=== PATIENT | female | born 1955 | race Caucasian/White ===

== ENCOUNTER → 2018-05-22 | Outpatient (CLI) | payer MEDICARE, OTHER ==
--- NOTE | 2018-05-22 12:07 | Diagnostic Imaging Report ---
INDICATION: URI WITH COUGH AND CONGESTION COMPARISON: None. FINDINGS: Frontal and lateral views of the chest demonstrate borderline cardiomegaly. Pulmonary vasculature however is within normal limits. The lungs are clear. There are no signs of infiltrate, pleural effusions or pneumothoraces. The visualized osseous structures show no acute abnormalities. Embolization coils are noted in the right perihilar region. Right internal jugular venous Port-A-Cath is also present. IMPRESSION: 1. Borderline cardiomegaly, but no evidence of failure or focal infiltrate. Dictated by: Dictated on workstation # [id number]
== END ==
LOC: RAD FS 11:56
PROVIDERS: ATTEND Nurse Practitioner Family
DX: J06.9 Acute upper respiratory infection, unspecified (principal); I51.7 Cardiomegaly; Z95.828 Presence of other vascular implants and grafts
CPT/HCPCS: 71046

== ENCOUNTER → 2019-04-19 | Outpatient (CLI) | payer MEDICARE, OTHER ==
--- NOTE | 2019-04-19 12:03 | Diagnostic Imaging Report ---
Indication: Left shoulder pain 2 views of left shoulder show degenerative changes of the glenohumeral joint with flattening of the opposing bony surfaces and osteophytes forming at the margins of the articular surface. There is mild degenerative change of the acromioclavicular joint. There is no fracture. 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 Mild degenerative changes of the left acromioclavicular joint. Dictated by: Dictated on workstation # [id number]
--- NOTE | 2019-04-19 12:04 | Diagnostic Imaging Report ---
Indication: Left knee pain 3 views of left knee show severe degenerative change of the medial compartment of the knee with joint space narrowing and large osteophytes forming at the margins of the articular surfaces. There are degenerative changes present of the patellofemoral joint with moderate size osteophyte formation. There is lateral meniscus calcification. IMPRESSION: Severe degenerative change of the medial compartment knee. Moderate degenerative changes of the patellofemoral joint and mild degenerative changes of the lateral compartment left knee. No acute abnormality seen. Dictated by: Dictated on workstation # [id number]
== END ==
LOC: RAD FS 11:19
PROVIDERS: ATTEND Family Medicine
DX: M19.012 Primary osteoarthritis, left shoulder (principal); M17.12 Unilateral primary osteoarthritis, left knee
CPT/HCPCS: 73030; 73562

== ENCOUNTER 2019-07-27 11:06 | Inpatient (IN) | payer MEDICARE, OTHER ==
[2019-07-27] VITALS (9 sets, daily range): BP systolic 92–146; BP diastolic 36–65
[~2019-07-27] VITALS: Ht 175.3 cm; Wt 84.0 kg
--- NOTE | 2019-07-27 11:31 | ED General ---
General Chief Complaint: General Problems/Pain Stated Complaint: LOW BP; LETHARGY Nursing Triage Note: sent from Dr John office due to lethargy and low blood pressure. Patient states her blood pressure was 88 systolic in the office and she kept dozing off in the office. Was seen at two days ago in the ED for the same symptoms and given fluids and an antibiotic for a UTI. States BP was 56/30 when at . Nursing Sepsis Screen: No Definite Risk Source of Information: Patient Exam Limitations: No Limitations History of Present Illness Date Seen by Provider: July 27, 2019 Time Seen by Provider: 11:15 Initial Comments The patient is a pleasant 64-year-old female who was sent here by her doctor's office for fatigue and low blood pressure. Her systolic blood pressure was in the upper 80s/lower 90s in the office today and she was falling asleep. She states that she was seen at 2 days ago in the emergency department for the same symptoms and at that time was also hypotensive. She states that she was given IV fluids and diagnosed with both the UTI and an elevated creatinine. Her blood pressure improved and she was sent home after being given a dose of antibiotics. Her blood pressure during that visit was apparently profoundly low with a systolic in the 50s. Her systolic blood pressure upon arrival today is 90. She denies fevers or chills, cough or shortness of breath, chest pain, headache, nausea or vomiting, diaphoresis, abdominal or back pain. She reports that she has been having some dysuria. She is alert and oriented 4, calm, and appears to be in no distress this she does appear to be quite fatigued. Timing/Duration: 2-3 Days Associated Systoms: Weakness Allergies and Home Medications Allergies Coded Allergies: doxycycline (Verified Allergy, Unknown, rash , 07/27/19) lisinopril (Verified Allergy, Unknown, cough, 07/27/19) prednisone (Verified Allergy, Unknown, turned skin red, 07/27/19) zolpidem (Verified Allergy, Unknown, "goes crazy", 07/27/19) Patient Home Medication List Home Medication List Reviewed: Yes Review of Systems Review of Systems Constitutional: malaise, weakness EENTM: no symptoms reported Respiratory: no symptoms reported Cardiovascular: no symptoms reported Gastrointestinal: no symptoms reported Genitourinary: dysuria Musculoskeletal: no symptoms reported Skin: no symptoms reported Psychiatric/Neurological: No Symptoms Reported Hematologic/Lymphatic: No Symptoms Reported Immunological/Allergic: no symptoms reported All Other Systems Reviewed Negative Unless Noted: Yes Past Odetbtc-Rgmjsu-Jfrzip Hx Past Med/Social Hx: Reviewed Nursing Past Med/Soc Hx Patient Social History Recent Foreign Travel: No Contact w/Someone Who Travel: No Recent Infectious Disease Expo: No Physical Exam Vital Signs Vital Signs - First Documented 07/27/19 07/27/19 11:13 11:56 Temp 36.3 Pulse 62 Resp 16 B/P (MAP) 92/36 (54) Pulse Ox 95 O2 Delivery Nasal Cannula O2 Flow Rate 2.00 Capillary Refill : Less Than 3 Seconds Height, Weight, BMI Height: '" Weight: lbs. oz. kg; BMI Method: General Appearance: No Apparent Distress, WD/WN Eyes: Bilateral Eye Normal Inspection, Bilateral Eye PERRL, Bilateral Eye EOMI HEENT: PERRL/EOMI, Pharynx Normal Respiratory: Lungs Clear, Normal Breath Sounds, No Accessory Muscle Use, No Respiratory Distress Cardiovascular: Regular Rate, Rhythm, No Edema, No JVD, No Murmur, Normal Peripheral Pulses Gastrointestinal: Normal Bowel Sounds, No Pulsatile Mass, Non Tender, Soft Extremity: Normal Capillary Refill, Normal Inspection, No Calf Tenderness, Other (prosthetic right lower extremity present) Neurologic/Psychiatric: Alert, Oriented x3, No Motor/Sensory Deficits, Normal Mood/Affect Skin: Normal Color, Warm/Dry Focused Exam Lactate Level 07/27/19 11:25: Lactic Acid Level 2.48*H Lactic Acid Level Laboratory Tests Test 07/27/19 11:25 Lactic Acid Level 2.48 MMOL/L (0.50-2.00) *H Progress/Results/Core Measures Suspected Sepsis Recent Fever Within 48 Hours: No Infection Criteria Present: Documented Infection New/Unexplained Altered Menta: Yes Sepsis Screen: No Definite Risk SIRS Temperature: Pulse: 62 Respiratory Rate: 16 Laboratory Tests 07/27/19 11:25: White Blood Count 4.9 Blood Pressure 92 /36 Mean: 54 07/27/19 11:25: Lactic Acid Level 2.48*H Laboratory Tests 07/27/19 11:25: Creatinine 1.08, Platelet Count 202, Total Bilirubin 0.2 Results/Orders Lab Results Laboratory Tests Test 07/27/19 11:25 Range/Units White Blood Count 4.9 4.3-11.0 10^3/uL Red Blood Count 3.07 L 4.35-5.85 10^6/uL Hemoglobin 8.2 L 11.5-16.0 G/DL Hematocrit 28 L 35-52 % Mean Corpuscular Volume 90 80-99 FL Mean Corpuscular Hemoglobin 27 25-34 PG Mean Corpuscular Hemoglobin Concent 30 L 32-36 G/DL Red Cell Distribution Width 17.0 H 10.0-14.5 % Platelet Count 202 130-400 10^3/uL Mean Platelet Volume 10.5 H 7.4-10.4 FL Neutrophils (%) (Auto) 55 42-75 % Lymphocytes (%) (Auto) 25 12-44 % Monocytes (%) (Auto) 15 H 0-12 % Eosinophils (%) (Auto) 4 0-10 % Basophils (%) (Auto) 1 0-10 % Neutrophils # (Auto) 2.7 1.8-7.8 X 10^3 Lymphocytes # (Auto) 1.2 1.0-4.0 X 10^3 Monocytes # (Auto) 0.8 0.0-1.0 X 10^3 Eosinophils # (Auto) 0.2 0.0-0.3 10^3/uL Basophils # (Auto) 0.0 0.0-0.1 10^3/uL Sodium Level 140 135-145 MMOL/L Potassium Level 5.7 H 3.6-5.0 MMOL/L Chloride Level 109 H 98-107 MMOL/L Carbon Dioxide Level 20 L 21-32 MMOL/L Anion Gap 11 5-14 MMOL/L Blood Urea Nitrogen 36 H 7-18 MG/DL Creatinine 1.08 0.60-1.30 MG/DL Estimat Glomerular Filtration Rate 51 BUN/Creatinine Ratio 33 Glucose Level 118 H 70-105 MG/DL Lactic Acid Level 2.48 *H 0.50-2.00 MMOL/L Calcium Level 9.1 8.5-10.1 MG/DL Corrected Calcium 10.0 8.5-10.1 MG/DL Magnesium Level 1.6 1.6-2.4 MG/DL Total Bilirubin 0.2 0.1-1.0 MG/DL Aspartate Amino Transf (AST/SGOT) 21 5-34 U/L Alanine Aminotransferase (ALT/SGPT) 27 0-55 U/L Alkaline Phosphatase 113 40-136 U/L Troponin I < 0.30 <0.30 NG/ML Total Protein 5.9 L 6.4-8.2 GM/DL Albumin 2.9 L 3.2-4.5 GM/DL My Orders Orders - LIZZY DUVAL DO Cbc With Automated Diff (07/27/19 11:11) Magnesium (07/27/19 11:11) Chest 1 View Ap/Pa Only (07/27/19 11:11) Ekg Tracing (07/27/19 11:11) Comprehensive Metabolic Panel (07/27/19 11:11) O2 (07/27/19 11:11) Monitor-Rhythm Ecg Trace Only (07/27/19 11:11) Ed Iv/Invasive Line Start (07/27/19 11:11) Troponin I Fs (07/27/19 11:11) Ua Culture If Indicated (07/27/19 11:11) Lactic Acid Analyzer (07/27/19 11:21) Blood Culture (07/27/19 11:21) Blood Culture (07/27/19 11:45) Ns Iv 1000 Ml (Sodium Chloride 0.9%) (07/27/19 11:54) Ns Iv 1000 Ml (Sodium Chloride 0.9%) (07/27/19 12:15) Medications Given in ED Current Medications Medications Dose Ordered Sig/Von Route Start Time Stop Time Status Last Admin Dose Admin Sodium Chloride 1,000 ml @ STK-MED ONCE .ROUTE 07/27/19 11:54 07/27/19 12:02 DC 07/27/19 12:04 999 MLS/HR Vital Signs/I&O 07/27/19 07/27/19 11:13 11:56 Temp 36.3 Pulse 62 Resp 16 B/P (MAP) 92/36 (54) Pulse Ox 95 97 O2 Delivery Nasal Cannula O2 Flow Rate 2.00 Capillary Refill : Less Than 3 Seconds Blood Pressure Mean: 54 Progress Note : Progress Note @1316 - Patient updated on lab and imaging results. Her blood pressure has improved but she does still have a wide pulse pressure. She continues to be quite fatigued. She is noted to be hyperkalemic and more anemic than her last visit. Case discussed with Dr. Curran at [facility] who accepts the transfer to a cardiac stepdown unit. ECG Comment EKG@1125 - sinus rhythm with arrhythmia, left axis deviation is present, right bundle-branch block and left anterior fascicular block noted, no acute ischemic findings noted, no STEMI, reviewed and interpreted by myself Departure Communication (Admissions) Time/Spoke to Admitting Phy: 13:20 Dr. Curran accepts the admission at [facility]. Impression Primary Impression: Hypotension Additional Impressions: Anemia Hyperkalemia Elevated lactic acid level Disposition: ADMITTED INPATIENT Condition: Stable Admissions Decision to Admit Reason: Admit from ER (Trauma) Decision to Admit/Date: July 27, 2019 Time/Decision to Admit Time: 13:20 Transfer Transfer Reason: Exceeds level of care Time Spoke to Accepting Phy: 13:[address] Curran accepts the admission at [facility] Transfer Time: 13:30 Transfer Facility: [facility] Method of Transfer: EMS Departure-Patient Inst. Referrals: GIANNI JOHN MD (PCP/Family) Primary Care Physician LIZZY DUVAL DO July 27, 2019 11:31
--- OUTSIDE RECORDS SUMMARY | 2019-07-27 11:39 | XMS REPORT | Clinical Summary ---
Author Author Admin, Lisandra Pacheco Organization All Address Unknown Phone Unavailable Allergies, Adverse Reactions, Alerts Allergy Name Reaction Description Start Date Severity Status Pr ovider PREDNISONE Mild Active Shreyas Roberts MD DOXYCYCLINE HYCLATE Mild Active Shreyas Roberts MD LISINOPRIL Mild Active Shreyas Roberts MD AMBIEN Mild Active Shreyas Roberts MD Conditions or Problems Problem Name Problem Code Onset Date Status Entry Date Provider Comment Standard Description Annotate BMI 36-36.9 Refinement Shreyas Roberts MD Body Mass Index 36.0- 36.9, adult BMI 30-30.9 Active Deacon Rajan MD Body Mass Index 36.0- 36.9, adult Morbid obesity due to excess calories 278.00 Refinemen t Shreyas Roberts MD Obesity, unspecified Obesity Class I (BMI 30-34.9) 278.00 Active Deacon Rajan MD Obesity, unspecified 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 Iron deficiency anemia 280.9 Active Aleida mckeon MA Iron deficiency anemia, unspecified Anemia due to CKD 285.21 Active Noemi Choi MA Anemia in chronic kidney disease Encounter for surgical aftercare following surgery on the digestive system V58.75 Active Deacon Rajan MD Af tercare following surgery of the teeth,oral cavity and digestive system, NEC Disruption of external operation (surgic al) wound, not elsewhere classified, sequela 998.30 Active Deacon Rajan MD Disruption of wound, unspecified Medication List Medication Instructions Start Date Stop Date Generic Name NDC Status Provider Patient Instruction COUMADIN 5 MG ORAL TABLET Take one by mouth daily 2018 WARFARIN SODIUM 33255563651 No Longer Active Deacon Rajan MD A ctive LEVO-T 150 MCG ORAL TABLET 3 tab q d LEVOTHYRO XINE SODIUM 30611309185 Active Deacon Rajan MD Active LEVO-T 50 MCG ORAL TABLET 1 q d LEVOTHYROXINE SODIUM 08878901351 Active Deacon Rajan MD Active LEVOTHYROXINE SODIUM 200 MCG ORAL TABLET 2 1/4 tablets daily 201 10/30/27 LEVOTHYROXINE SODIUM 03527477620 No Longer Active Deacon Rajan MD Active MULTIVITAMIN & MINERAL ORAL LIQUID 5 ml daily 06/28 MULTIPLE VITAMINS-MINERALS 33017640147 No Longer Active Deacon Rajan MD Active PRILOSEC OTC 20 MG ORAL TABLET DELAYED RELEASE 2 tablets daily 2 OMEPRAZOLE MAGNESIUM 77558689128 No Longer Active Deacon Rajan MD Active CARAFATE 1 GM ORAL TABLET Take one by mouth four times daily 201 10/30/27 SUCRALFATE 46956732133 No Longer Active Deacon Rajan MD Active VICTOZA 18 MG/3ML SUBCUTANEOUS SOLUTION PEN-INJECTOR 1.8 mg mc y LIRAGLUTIDE 32423023332 No Longer Active Deacon Rajan MD Active TIZANIDINE HCL 4 MG ORAL TABLET 1 tablet every 4 hours TIZANIDINE HCL 54772388124 Active Shelia Quezada RN Active OXYCODONE HCL 5 MG ORAL TABLET 1 tablet every 3-4 hours as n eeded for pain OXYCODONE HCL 70503770464 Active Shelia Quezada RN Active NOVOLOG 100 UNIT/ML SUBCUTANEOUS SOLUTION sliding scale INSULIN ASPART 19967675958 Active Shelia Quezada RN Active MELOXICAM 15 MG ORAL TABLET Take one by mouth daily MELOXICAM 12372892464 Active Shelia Quezada RN Active FUROSEMIDE 40 MG ORAL TABLET Take one by mouth daily FUROSEMIDE 52951283456 Active Shelia Quezada RN Active LANTUS 100 UNIT/ML SUBCUTANEOUS SOLUTION 30 units daily at bedtime INSULIN GLARGINE 11682293482 Active Shelia Quezada RN Act johnathon HYDROCODONE-ACETAMINOPHEN 5-325 MG ORAL TABLET 1 every 4 hours as needed for pain HYDROCODONE-ACETAMINOPHEN 11995039943 Active Shelia Quezada RN Active GLUCOPHAGE 1000 MG ORAL TABLET Take one by mouth daily METFORMIN HCL 34422923117 Active Shelia Quezada RN Active COZAAR 50 MG ORAL TABLET 1 1/2 tabs daily LOSAR KOO POTASSIUM 10803332969 Active Shelia Quezada RN Active CELEXA 20 MG ORAL TABLET Take one by mouth daily CITALOPRAM HYDROBROMIDE 12357012916 Active Shelia Quezada RN Active BACTRIM DS 800-160 MG ORAL TABLET by mouth twice a day SULFAMETHOXAZOLE-TRIMETHOPRIM 33390508228 Active Shelia Quezada RN Active AMITRIPTYLINE HCL 75 MG ORAL TABLET Take one by mouth daily at bedtime AMITRIPTYLINE HCL 13705334967 Active Shelia Yuen N Active VICTOZA 18 MG/3ML SUBCUTANEOUS SOLUTION PEN-INJECTOR 1.8 mg mc y VICTOZA 18 MG/3ML SUBCUTANEOUS SOLUTION PEN-INJECTOR LIRAGLUTIDE Inactive CARAFATE 1 GM ORAL TABLET Take one by mouth four times daily 201 10/30/27 CARAFATE 1 GM ORAL TABLET 213247 SUCRALFATE Inacti ve PRILOSEC OTC 20 MG ORAL TABLET DELAYED RELEASE 2 tablets daily 2 PRILOSEC OTC 20 MG ORAL TABLET DELAYED RELEASE OMEPRAZOLE MAGNESIUM Inactive MULTIVITAMIN & MINERAL ORAL LIQUID 5 ml daily 06/28 MULTIVITAMIN & MINERAL ORAL LIQUID MULTIPLE VITAMINS-MINERALS Inactive LEVOTHYROXINE SODIUM 200 MCG ORAL TABLET 2 1/4 tablets daily 201 10/30/27 LEVOTHYROXINE SODIUM 200 MCG ORAL TABLET 800957 LEVOTHY ROXINE SODIUM Inactive COUMADIN 5 MG ORAL TABLET Take one by mouth daily 2018 COUMADIN 5 MG ORAL TABLET 145666 WARFARIN SODIUM Inactive Vital Signs Date Name Value Unit Range Description blood pressure, diastolic, repeated by physician 55 BP [place] blood pressure, diastolic 55 mm[Hg] BP [place] blood pressure, systolic, repeated by physician 136 BP sys blood pressure, systolic 136 mm[Hg] BP sys height E&M 69 [in_us] Bdy height pulse rate 88 /min Heart rate temperature E&M 97.6 [degF] Body temp erature weight E&M 204 [lb_av] Weight Measure d blood pressure, diastolic, repeated by physician 61 BP [place] blood pressure, diastolic 61 mm[Hg] BP [place] blood pressure, systolic, repeated by physician 133 BP sys blood pressure, systolic 133 mm[Hg] BP sys height E&M 69 [in_us] Bdy height pulse rate 73 /min Heart rate temperature E&M 97.3 [degF] Body temp erature weight E&M 208.50 [lb_av] Weight Measure d Diagnostic Results Date Name Value Unit Range Description Lab Report: CBC W/DIFF - Hematology leukocyte count, blood 7.9 10^3/MM^3 10*3/mm3 4.6-10.2 neutrophils as percent of blood leukocytes 64.7 % 42.2-75.2 monocytes as percent of blood leukocytes 9.5 % 1.7-9.3 lymphocytes as percent of blood leukocytes 19.0 % 20.5-51.1 erythrocyte (RBC) count 3.10 10^6/MM^3 10*6/mm3 3.80-5.8 0 hemoglobin, blood 8.9 g/dL 12.0-16.0 hematocrit, blood 31.5 % 37.0-47.0 mean corpuscular volume, RBC 102 fL 80-97 mean corpuscular hemoglobin, RBC 28.7 pg 27. 0-31.2 mean corpuscular hemoglobin concentration, RBC 28.3 G/DL % 31.8-35.4 red blood cell distribution width 18.4 % 11 .6-14.8 platelet count 362 10^3/MM^3 10*3/mm3 014-538 9214/06/26 leukocyte count, blood 11.7 10^3/MM^3 10*3/mm3 4.6-10.2 erythrocyte (RBC) count 3.03 10^6/MM^3 10*6/mm3 3.80-5.8 0 lymphocytes as percent of blood leukocytes 17.0 % 20.5-51.1 monocytes as percent of blood leukocytes 9.9 % 1.7-9.3 neutrophils as percent of blood leukocytes 68.4 % 42.2-75.2 leukocyte count, blood 7.2 10^3/MM^3 10*3/mm3 4.6-10.2 neutrophils as percent of blood leukocytes 82.9 % 42.2-75.2 monocytes as percent of blood leukocytes 8.3 % 1.7-9.3 lymphocytes as percent of blood leukocytes 7.2 % 20.5-51.1 erythrocyte (RBC) count 3.84 10^6/MM^3 10*6/mm3 3.80-5.8 0 hemoglobin, blood 10.6 g/dL 12.0-16.0 hematocrit, blood 35.1 % 37.0-47.0 mean corpuscular volume, RBC 91 fL 80-97 mean corpuscular hemoglobin, RBC 27.6 pg 27. 0-31.2 mean corpuscular hemoglobin concentration, RBC 30.2 G/DL % 31.8-35.4 red blood cell distribution width 16.3 % 11 .6-14.8 platelet count 272 10^3/MM^3 10*3/mm3 870-079 8336/07/03 leukocyte count, blood 8.1 10^3/MM^3 10*3/mm3 4.6-10.2 neutrophils as percent of blood leukocytes 69.5 % 42.2-75.2 monocytes as percent of blood leukocytes 8.2 % 1.7-9.3 lymphocytes as percent of blood leukocytes 14.0 % 20.5-51.1 erythrocyte (RBC) count 3.68 10^6/MM^3 10*6/mm3 3.80-5.8 0 hemoglobin, blood 10.3 g/dL 12.0-16.0 hematocrit, blood 34.2 % 37.0-47.0 mean corpuscular volume, RBC 93 fL 80-97 mean corpuscular hemoglobin, RBC 28.1 pg 27. 0-31.2 mean corpuscular hemoglobin concentration, RBC 30.3 G/DL % 31.8-35.4 red blood cell distribution width 17.4 % 11 .6-14.8 platelet count 315 10^3/MM^3 10*3/mm3 858-228 3947/05/15 hemoglobin, blood 8.8 g/dL 12.0-16.0 hematocrit, blood 29.7 % 37.0-47.0 mean corpuscular volume, RBC 98 fL 80-97 mean corpuscular hemoglobin, RBC 29.1 pg 27. 0-31.2 mean corpuscular hemoglobin concentration, RBC 29.7 G/DL % 31.8-35.4 red blood cell distribution width 17.9 % 11 .6-14.8 platelet count 341 10^3/MM^3 10*3/mm3 714-899 6341/09/18 leukocyte count, blood 5.3 10^3/MM^3 10*3/mm3 4.6-10.2 neutrophils as percent of blood leukocytes 64.0 % 42.2-75.2 monocytes as percent of blood leukocytes 13.5 % 1.7-9.3 lymphocytes as percent of blood leukocytes 15.6 % 20.5-51.1 erythrocyte (RBC) count 3.05 10^6/MM^3 10*6/mm3 3.80-5.8 0 hemoglobin, blood 9.4 g/dL 12.0-16.0 hematocrit, blood 32.5 % 37.0-47.0 mean corpuscular volume, RBC 107 fL 80-97 mean corpuscular hemoglobin, RBC 30.7 pg 27. 0-31.2 mean corpuscular hemoglobin concentration, RBC 28.8 G/DL % 31.8-35.4 red blood cell distribution width 15.6 % 11 .6-14.8 platelet count 317 10^3/MM^3 10*3/mm3 616-832 8969/11/19 leukocyte count, blood 4.9 10^3/MM^3 10*3/mm3 4.6-10.2 neutrophils as percent of blood leukocytes 62.7 % 42.2-75.2 monocytes as percent of blood leukocytes 9.7 % 1.7-9.3 lymphocytes as percent of blood leukocytes 21.0 % 20.5-51.1 erythrocyte (RBC) count 3.24 10^6/MM^3 10*6/mm3 3.80-5.8 0 hemoglobin, blood 10.2 g/dL 12.0-16.0 hematocrit, blood 33.5 % 37.0-47.0 mean corpuscular volume, RBC 103 fL 80-97 mean corpuscular hemoglobin, RBC 31.6 pg 27. 0-31.2 mean corpuscular hemoglobin concentration, RBC 30.6 G/DL % 31.8-35.4 red blood cell distribution width 15.4 % 11 .6-14.8 platelet count 214 10^3/MM^3 10*3/mm3 314-341 1470/01/06 leukocyte count, blood 4.8 10^3/MM^3 10*3/mm3 4.6-10.2 neutrophils as percent of blood leukocytes 58.1 % 42.2-75.2 monocytes as percent of blood leukocytes 13.3 % 1.7-9.3 lymphocytes as percent of blood leukocytes 20.9 % 20.5-51.1 erythrocyte (RBC) count 3.41 10^6/MM^3 10*6/mm3 3.80-5.8 0 hemoglobin, blood 10.0 g/dL 12.0-16.0 hematocrit, blood 32.1 % 37.0-47.0 mean corpuscular volume, RBC 94 fL 80-97 mean corpuscular hemoglobin, RBC 29.4 pg 27. 0-31.2 mean corpuscular hemoglobin concentration, RBC 31.2 G/DL % 31.8-35.4 red blood cell distribution width 13.8 % 11 .6-14.8 platelet count 254 10^3/MM^3 10*3/mm3 286-029 0980/02/11 leukocyte count, blood 5.8 10^3/MM^3 10*3/mm3 4.6-10.2 neutrophils as percent of blood leukocytes 61.5 % 42.2-75.2 monocytes as percent of blood leukocytes 13.4 % 1.7-9.3 lymphocytes as percent of blood leukocytes 19.3 % 20.5-51.1 erythrocyte (RBC) count 3.25 10^6/MM^3 10*6/mm3 3.80-5.8 0 hemoglobin, blood 9.2 g/dL 12.0-16.0 hematocrit, blood 31.0 % 37.0-47.0 mean corpuscular volume, RBC 95 fL 80-97 mean corpuscular hemoglobin, RBC 28.3 pg 27. 0-31.2 mean corpuscular hemoglobin concentration, RBC 29.7 G/DL % 31.8-35.4 red blood cell distribution width 16.0 % 11 .6-14.8 platelet count 222 10^3/MM^3 10*3/mm3 142-424 Lab Report: Comp. Metabolic Panel - Chem istry sodium, serum 140 mmol/L 801-525 2964/11/19 carbon dioxide, venous blood 27.2 mmol/L 21.0-32 .0 potassium, serum 4.8 mmol/L 3.5-5.2 chloride, serum 108 mmol/L 98-107 blood glucose 120 mg/dL 65-95 urea nitrogen, blood 20 mg/dL 7-18 creatinine, serum 0.86 mg/dL 0.60-1.30 Estimated Glomerular Filtration Rate (calc) 71 (?) mL/min/1.73m2 = OR > 60 mL/min alanine aminotransferase (SGPT), serum 36 U/L - aspartate aminotransferase (SGOT), serum 37 U/L -37 sodium, serum 138 mmol/L 656-528 9025/05/15 carbon dioxide, venous blood 25.9 mmol/L 21.0-32 .0 potassium, serum 4.6 mmol/L 3.5-5.2 chloride, serum 104 mmol/L 98-107 blood glucose 105 mg/dL 65-95 urea nitrogen, blood 21 mg/dL 7-18 creatinine, serum 0.94 mg/dL 0.60-1.30 Estimated Glomerular Filtration Rate (calc) 64 (?) mL/min/1.73m2 = OR > 60 mL/min alanine aminotransferase (SGPT), serum 16 U/L - aspartate aminotransferase (SGOT), serum 8 U/L -37 calcium, serum 8.9 mg/dL 8.5-10.1 bilirubin, serum, total 0.30 mg/dL 0.00-1.00 sodium, serum 138 mmol/L 769-940 4629/07/03 carbon dioxide, venous blood 29.9 mmol/L 21.0-32 .0 potassium, serum 5.1 mmol/L 3.5-5.2 chloride, serum 105 mmol/L 98-107 blood glucose 114 mg/dL 65-95 urea nitrogen, blood 17 mg/dL 7-18 creatinine, serum 1.16 mg/dL 0.60-1.30 Estimated Glomerular Filtration Rate (calc) 50 (?) mL/min/1.73m2 = OR > 60 mL/min alanine aminotransferase (SGPT), serum 26 U/L 12-78 aspartate aminotransferase (SGOT), serum 32 U/L 15-37 calcium, serum 9.0 mg/dL 8.5-10.1 bilirubin, serum, total 0.30 mg/dL 0.00-1.00 calcium, serum 9.4 mg/dL 8.5-10.1 bilirubin, serum, total 0.40 mg/dL 0.00-1.00 Lab Report: Comp. Metabolic Panel - Lab Alkaline phosphatase 147 50-136 Alkaline phosphatase 96 50-136 Alkaline phosphatase 144 50-136 Lab Report: Comp. Metabolic Panel, CBC W /DIFF - Chemistry sodium, serum 137 mmol/L 516-574 7759/03/18 carbon dioxide, venous blood 21.4 mmol/L 21.0-32 .0 potassium, serum 4.5 mmol/L 3.5-5.2 chloride, serum 107 mmol/L 98-107 blood glucose 288 mg/dL 65-95 urea nitrogen, blood 24 mg/dL 7-18 creatinine, serum 0.97 mg/dL 0.60-1.30 Estimated Glomerular Filtration Rate (calc) 61 (?) mL/min/1.73m2 = OR > 60 mL/min alanine aminotransferase (SGPT), serum 21 U/L 12-78 aspartate aminotransferase (SGOT), serum 21 U/L 19-43 sodium, serum 138 mmol/L 480-033 9009/09/03 carbon dioxide, venous blood 27.3 mmol/L 21.0-32 .0 potassium, serum 5.0 mmol/L 3.5-5.2 chloride, serum 105 mmol/L 98-107 blood glucose 183 mg/dL 65-95 urea nitrogen, blood 31 mg/dL 7-18 creatinine, serum 1.24 mg/dL 0.60-1.30 Estimated Glomerular Filtration Rate (calc) 46 (?) mL/min/1.73m2 = OR > 60 mL/min alanine aminotransferase (SGPT), serum 26 U/L -78 aspartate aminotransferase (SGOT), serum 20 U/L 15-37 calcium, serum 8.5 mg/dL 8.5-10.1 bilirubin, serum, total 0.20 mg/dL 0.00-1.00 calcium, serum 9.2 mg/dL 8.5-10.1 bilirubin, serum, total 0.30 mg/dL 0.00-1.00 Lab Report: Comp. Metabolic Panel, CBC W /DIFF - Hematology leukocyte count, blood 5.9 10^3/MM^3 10*3/mm3 4.6-10.2 neutrophils as percent of blood leukocytes 61.4 % 42.2-75.2 monocytes as percent of blood leukocytes 10.4 % 1.7-9.3 lymphocytes as percent of blood leukocytes 22.7 % 20.5-51.1 erythrocyte (RBC) count 3.75 10^6/MM^3 10*6/mm3 3.80-5.8 0 hemoglobin, blood 10.6 g/dL 12.0-16.0 hematocrit, blood 35.4 % 37.0-47.0 mean corpuscular volume, RBC 94 fL 80-97 mean corpuscular hemoglobin, RBC 28.2 pg 27. 0-31.2 mean corpuscular hemoglobin concentration, RBC 29.9 G/DL % 31.8-35.4 red blood cell distribution width 16.9 % 11 .6-14.8 platelet count 254 10^3/MM^3 10*3/mm3 735-839 5560/09/03 leukocyte count, blood 6.8 10^3/MM^3 10*3/mm3 4.6-10.2 neutrophils as percent of blood leukocytes 61.1 % 42.2-75.2 monocytes as percent of blood leukocytes 10.8 % 1.7-9.3 lymphocytes as percent of blood leukocytes 20.0 % 20.5-51.1 erythrocyte (RBC) count 3.27 10^6/MM^3 10*6/mm3 3.80-5.8 0 hemoglobin, blood 10.1 g/dL 12.0-16.0 hematocrit, blood 35.2 % 37.0-47.0 mean corpuscular volume, RBC 108 fL 80-97 mean corpuscular hemoglobin, RBC 30.8 pg 27. 0-31.2 mean corpuscular hemoglobin concentration, RBC 28.7 G/DL % 31.8-35.4 red blood cell distribution width 17.4 % 11 .6-14.8 platelet count 361 10^3/MM^3 10*3/mm3 142-424 Lab Report: Comp. Metabolic Panel, CBC W /DIFF - Lab Alkaline phosphatase 231 50-136 Alkaline phosphatase 137 50-136 Encounters Code Encounter Date Provider Facility CPT-10747 Level 3 Est. Patient 14:49:42 CDT Deacon Rajan MD [facility] CPT-51433 Level 4 New Patient 16:54:39 CDT Deacon Rajan MD [facility] CPT-55620 Level 2 Est. Patient 15:33:16 [employer] [employer] Shreyas gillespie MD [facility] Procedures Code Procedure Name Date Entry Date Standard Desc ription CPT-17311 Venipuncture Draw Fee 11:36:25 CDT CPT-92588 Venipuncture Draw Fee 17:39:08 [employer] [employer] CPT-81315 Venipuncture Draw Fee 09:00:01 [employer] CPT-29020 Venipuncture Draw Fee 12:47:04 [employer] [employer] CPT-36815 Venipuncture Draw Fee 11:50:17 CDT CPT-44625 Venipuncture Draw Fee 17:46:17 CDT CPT-84009 Postop F/U Visit 15:58:49 CDT
--- OUTSIDE RECORDS SUMMARY | 2019-07-27 11:39 | XMS REPORT ---
Author Author [facility] Address [address] [place] [address] Care Team Providers Care Formula Mixer Name Role Phone GIANNI LOCKETT Unavailable PROBLEMS Type Condition ICD9-CM Code UBR65-HL Code Onset Dates Condition S tatus SNOMED Code Problem Severe obesity (BMI 35.0-39.9) with comorbidity E66.01 16 Nov, 2016 Active 968223952 Problem History of stroke without residual deficits Z86 .73 16 Nov, 2016 Active 612871230 Problem Essential hypertension I10 14 Oct, 2010 Acti ve 85528520 Problem B12 deficiency E53.8 19 Apr, 2011 Active 64 031768 Problem Hypothyroidism due to acquired atrophy of thyroid E03.4 Apr, Active 783029050 Problem GERD (gastroesophageal reflux disease) K21.9 1 4 Oct, 2010 Active 564059329 Problem sample carrier current use of insulin Z79.4 Active 146793671 Problem Iron deficiency anemia secondary to inadequate d ietary iron intake D50.8 Active 563290604 Problem Type 2 diabetes mellitus with diabetic neuropathy, uns pecified E11.40 Active 1769260067367 Problem Hyperlipidemia E78.5 Active 26336 004 Problem Pulmonary hypertension I27.20 Active 10686290 Problem Chronic obstructive pulmonary disease, unspecified COPD ty pe J44.9 Active 13593804 Problem Type 2 diabetes mellitus with hyperglycemia E11.65 Active 389045410085352 Problem Major depression F32.9 19 Feb, 2017 Active 469629056 Problem Obesity (BMI 30.0-34.9) E66.9 Active 545839761077648 Problem Asthma J45.909 Active 466554319 Problem Osteoarthritis, knee M17.10 14 Oct, 2010 Active 663715359 Problem Chronic gastric ulcer without hemorrhage and wit hout perforation K25.7 Active 50053064 Problem CVA (cerebral vascular accident) I63.9 Active 115433194 Problem Recurrent major depressive disorder, remission s tatus unspecified F33.9 Active 64954242 Problem Amputation of right lower extremity S88.911A Active 810049899249457 ALLERGIES No Information ENCOUNTERS Encounter Location Date Diagnosis [place] [address] [place] [address] Mar, [place] [address] [address] [address] Mar, Chronic obstructive pulmonar y disease, unspecified COPD type J44.9 ; Pulmonary hypertension I27.20 ; Recurrent major depressive disorder, remission status unspecified F33.9 ; Type 2 diabetes mellitus with diabetic neuropathy, unspecified E11.40 and Severe obesity (BMI 35.0-39.9) with comorbidity E66.01 [facility] [address] [place] [address] [place] [address] [address] 12 Mar, 2019 Type 2 diabetes mellitus with diabetic neuropathy, unspecified E11.[address] [address] Mar, [place] [address] [place] [address] Feb, Essential hypertension I10 a nd Obesity (BMI 30.0-34.9) E66.9 [facility] [address] [place] [address] [facility] [address] Feb, Hyperkalemia E87.5 [place] [address] [address] [address] Feb, Hyperkalemia E87.5 [place] [address] [address] [address] Feb, [place] [address] [place] [address] Feb, Sepsis, unspecified organism A41.9 ; Urinary tract infection, site not specified N39.0 ; Essential hypertension I10 and Acute pain of left knee M25.562 [facility] [place] [address] [facility] [place] [address] Feb, [place] [address] [place] [address] Feb, [place] [address] [place] [address] Jan, Amputation of right lower ex tremity S88.911A [facility] [place] [address] [facility] [place] [address] Jan, Amputation of right lower extremity S88. 911A [place] [address] [place] [address] Jan, Amputation of right lower ex tremity S88.911A [place] [address] [place] [address] Dec, Recurrent major depressive d isorder, remission status unspecified F33.9 [place] [address] [place] [address] Dec, Encounter for Medicare ann l wellness exam Z00.00 ; Type 2 diabetes mellitus with diabetic neuropathy, unspecified E11.40 ; Pulmonary hypertension I27.20 ; Hyperlipidemia E78.5 and Recurrent major depr essive disorder, remission status unspecified F33.9 [facility] [place] [address] [facility] [place] [address] Dec, [facility] [address] [facility] [place] [address] Dec, Uncontrolled type 2 diabetes mellitus with diabetic polyneuropathy, with long- term current use of insulin E11.42 ; Essential hypertension I10 ; Recurrent major depressive disorder, remission status unspecified F33.9 and Other inclusion specialist (current) drug therapy Z79.899 [place] [address] [place] [address] Nov, Amputation of right lower ex tremity S88.911A ; Type 2 diabetes mellitus with diabetic neuropathy, unspecified E11.40 and Epistaxis R04.0 [place] [address] [place] [address] Nov, [facility] [address] [place] [address] Nov, [facility] [address] [place] [address] Nov, [facility] [address] [place] [address] Oct, [facility] SIMA TYL[place] [address] [place] [address] Sep, Chronic obstructive pulmonar y disease, unspecified COPD type J44.9 ; Recurrent major depressive disorder, remission status unspecified F33.9 ; Severe obesity (BMI 35.0-39.9) with comorbidity E66.01 ; Uncontrolled type 2 diabetes mellitus with diabetic polyneuropathy, with long-term current use of insulin E11.42 and Essential hypertension I10 [facility] SIMA TYLER [address] [place] [address] Sep, [facility] SIMA TYLER [address] [place] [address] Sep, Type 2 diabetes mellitus wit h hypoglycemia without coma E11.649 and Iron deficiency anemia secondary to inadequate dietary iron intake D50.8 [facility] [address] [place] [address] [place] [address] [id number] [place] [address] Sep, Type 2 diabetes mellitus with hypoglycemia without coma E11.649 and Iron deficiency anemia secondary to inadequate dietary iron intake D50.8 [facility] SIMA TYLER [address] [place] [address] Sep, [facility] SIMA TYLER [address] [place] [address] Aug, [facility] [address] [place] [address] Jul, [facility] [address] [place] [address] Jul, [facility] SIMA TYLER [address] [place] [address] June, Uncontrolled type 2 diabetes mellitus with diabetic polyneuropathy, with long-term current use of insulin E11.42 and AK (actinic keratosis) L57.0 [facility] SIM[facility] TYL[facility] [address] [place] [address] June, [facility] [address] [place] [id number] [address] June, Iron deficiency anemia secondary to inadequate dietary iron intake D50.8 [facility] [address] [place] [id number] [address] June, Type 2 diabetes mellitus with hypoglycemia without coma E11.649 [facility] SIMA TYLER [address] [place] [address] May, [facility] SIMA TYLER [address] [place] [address] May, [facility] SIMA TYLER [address] [place] [address] May, [facility] SIM[facility] T[facility] [address] [place] [address] May, [facility] SIMA TYLER [address] [place] [address] Apr, [facility] SIMA TYLER [address] [place] [address] Apr, Nausea and vomiting, intract ability of vomiting not specified, unspecified vomiting type R11.2 and URI with cough and congestion J06.9 [facility] SIMA TYLER [address] [place] [address] Apr, [facility] SIMA TYLER [address] [place] [address] Mar, [facility] SIMA TYLER [address] [place] [address] Mar, [facility] SIMA TYLER [address] [place] [address] Mar, Iron deficiency anemia secon mark to inadequate dietary iron intake D50.8 [facility] [place] [address] [facility] [place] [address] 13 Mar, 2018 [facility] SIMA TYLER [address] [place] [address] 12 Mar, 2018 Type 2 diabetes mellitus wit h hypoglycemia without coma E11.649 ; Iron deficiency anemia secondary to inadequate dietary iron intake D50.8 and skilled nursing current use of insulin Z79.4 [facility] [place] [address] [place] [id number] [place] [address] Feb, [facility] [place] [address] [place] [address] [id number] [place] [address] Jan, [facility] [place] [address] [place] [id number] [place] [address] Jan, [facility] [place] [address] [place] [id number] [place] [address] Jan, [facility] [place] [address] [place] [address] [id number] [place] [address] Jan, [facility] [place] [address] [place] [address] [id number] [place] [address] Jan, [facility] [place] [address] [place] [address] [id number] [place] [address] Jan, [facility] [place] [address] [place] [address] [id number] [place] [address] Dec, [facility] [place] [address] [place] [address] [id number] [place] [address] Dec, [facility] [place] [address] [id number] [place] [address] Nov, [facility] [place] [address] [place] [id number] [place] [address] Nov, [facility] [place] [address] [id number] [place] [address] Nov, [facility] [place] [address] [place] [id number] [place] [address] Aug, [facility] [address] [facility] [id number] [place] [address] June, IMMUNIZATIONS No Known Immunizations SOCIAL HISTORY Never Assessed REASON FOR VISIT metformin refill PLAN OF CARE VITAL SIGNS MEDICATIONS Medication Instructions Dosage Frequency Start Date End Date Duration S brandy Metformin HCl 1000 MG Orally 2 times a day 1 tablet 12h 30 days Active RESULTS No Results PROCEDURES No Known procedures INSTRUCTIONS MEDICATIONS ADMINISTERED No Known Medications MEDICAL (GENERAL) HISTORY Type Description Date Medical History Type 2 diabetes mellitus with diabetic n europathy, unspecified Medical History Type 2 diabetes mellitus with hyperglyce perry Medical History Chronic gastric ulcer withou t hemorrhage and without perforation Medical History Pulmonary hypertension Medical History Severe obesity (BMI 35.0-39.9) with salty rbidity Medical History Radial neck fracture Medical History Osteoarthritis, knee Medical History Intertrochanteric fracture of right hip Medical History Hyperlipidemia Medical History Asthma Medical History Chronic obstructive pulmonary disease, u nspecified Medical History CVA (cerebral vascular accident) Medical History Iron deficiency anemia, unspecified Medical History Iron deficiency anemia, unspecified Medical History GERD (gastroesophageal reflux disease) Medical History Major depression Medical History B12 deficiency Medical History Hypothyroidism due to acquired atrophy o f thyroid Medical History sample carrier current use of insulin Medical History TIA (transient ischemic attack) Surgical History section Surgical History tonsillectomy Surgical History lithotripsy Surgical History colonoscopy Surgical History heart cath Surgical History right knee replacement Surgical History right hip replacement Surgical History EGD Surgical History right below the knee ampuation 9 Hospitalization History see surgeries Hospitalization History right knee amputation 12/12/18 Hospitalization History UTI/ Acute heart failure 03/16/2019
--- OUTSIDE RECORDS SUMMARY | 2019-07-27 11:39 | XMS REPORT ---
Author Author Lisandra ARANGO Organization [facility] [place] Address [address] [place] [id number] Care Team Providers Care Industrial Spray Painter Name Role Phone ALETHEA ARANGO Unavailable PROBLEMS Type Condition ICD9-CM Code AQB70-KX Code Onset Dates Condition S tatus SNOMED Code Problem History of stroke without residual deficits Z86 .73 16 Nov, 2016 Active 919491177 Problem Osteoarthritis, knee M17.10 14 Oct, 2010 Active 147347783 Problem Major depression F32.9 Feb, Active 764794632 Problem Severe obesity (BMI 35.0-39.9) with comorbidity E66.01 16 Nov, 2016 Active 856593644 Problem Essential hypertension I10 14 Oct, 2010 Acti ve 09828988 Problem B12 deficiency E53.8 19 Apr, 2011 Active 64 075160 Problem Iron deficiency anemia secondary to inadequate d ietary iron intake D50.8 Active 683293300 Problem GERD (gastroesophageal reflux disease) K21.9 1 4 Oct, 2010 Active 466917250 Problem CVA (cerebral vascular accident) I63.9 Active 073902846 Problem Asthma J45.909 Active 501002433 Problem Type 2 diabetes mellitus with hyperglycemia E11.65 Active 654468400492113 Problem Amputation of right lower extremity S88.911A Active 085233633276017 Problem Hyperlipidemia E78.5 Active 36895 004 Problem Chronic obstructive pulmonary disease, unspecified COPD ty pe J44.9 Active 81089674 Problem salvage determiner current use of insulin Z79.4 Active 474069865 Problem Hypothyroidism due to acquired atrophy of thyroid E03.4 Apr, Active 277888347 Problem Type 2 diabetes mellitus with diabetic neuropathy, uns pecified E11.40 Active 8474467924440 Problem Pulmonary hypertension I27.20 Active 90502993 Problem Chronic gastric ulcer without hemorrhage and wit hout perforation K25.7 Active 45176840 Problem Recurrent major depressive disorder, remission s tatus unspecified F33.9 Active 11911797 ALLERGIES Substance Reaction Event Type Date Status PredniSONE shortness of breath Drug Allergy Apr, Active Lisinopril cough Drug Allergy Apr, Active Ambien Hallucination Drug Allergy Apr, Active Doxycycline rash Drug Allergy Apr, Active ENCOUNTERS Encounter Location Date Diagnosis [address] [place] [address] Mar, Chronic obstructive pulmonar y disease, unspecified COPD type J44.9 ; Pulmonary hypertension I27.20 ; Recurrent major depressive disorder, remission status unspecified F33.9 ; Type 2 diabetes mellitus with diabetic neuropathy, unspecified E11.40 and Severe obesity (BMI 35.0-39.9) with comorbidity E66.01 [address] [place] [address] Feb, [facility] [id number] [place] [address] Feb, [address] [place] [address] Feb, [address] [place] [address] Jan, Amputation of right lower ex tremity S88.911A [id number] [place] [address] Jan, Amputation of right lower extremity S88. 911A [address] [place] [address] Jan, Amputation of right lower ex tremity S88.911A [address] [place] [address] Dec, Recurrent major depressive d isorder, remission status unspecified F33.9 [address] [place] [address] Dec, Encounter for Medicare epiua wellness exam Z00.00 ; Type 2 diabetes mellitus with diabetic neuropathy, unspecified E11.40 ; Pulmonary hypertension I27.20 ; Hyperlipidemia E78.5 and Recurrent major depr essive disorder, remission status unspecified F33.9 [facility] [address] [facility] [id number] [place] [address] Dec, [address] [facility] [id number] [place] [address] Dec, Uncontrolled type 2 diabetes mellitus with diabetic polyneuropathy, with long- term current use of insulin E11.42 ; Essential hypertension I10 ; Recurrent major depressive disorder, remission status unspecified F33.9 and Other lobsterman (current) drug therapy Z79.[address] [place] [address] Nov, Amputation of right lower ex tremity S88.911A ; Type 2 diabetes mellitus with diabetic neuropathy, unspecified E11.40 and Epistaxis R04.[address] [place] [address] Nov, [address] [place] [address] Nov, [address] [place] [address] Nov, [address] [place] [address] Oct, [address] [place] [address] Sep, Chronic obstructive pulmonar y disease, unspecified COPD type J44.9 ; Recurrent major depressive disorder, remission status unspecified F33.9 ; Severe obesity (BMI 35.0-39.9) with comorbidity E66.01 ; Uncontrolled type 2 diabetes mellitus with diabetic polyneuropathy, with long-term current use of insulin E11.42 and Essential hypertension I10 [address] [place] [address] Sep, [address] [place] [address] Sep, Type 2 diabetes mellitus wit h hypoglycemia without coma E11.649 and Iron deficiency anemia secondary to inadequate dietary iron intake D50.8 [facility] [address] [place] [id number] [place] [address] Sep, Type 2 diabetes mellitus with hypoglycemia without coma E11.649 and Iron deficiency anemia secondary to inadequate dietary iron intake D50.8 [facility] [address] [place] [address] Sep, [facility] [address] [place] [address] Aug, [facility] [address] [place] [address] Jul, [facility] [address] [place] [address] Jul, [facility] [address] [place] [address] June, Uncontrolled type 2 diabetes mellitus with diabetic polyneuropathy, with long-term current use of insulin E11.42 and AK (actinic keratosis) L57.0 [facility] [address] [place] [address] June, [facility] [address] [place] [id number] [address] June, Iron deficiency anemia secondary to inadequate dietary iron intake D50.8 [facility] [address] [place] [id number] [address] June, Type 2 diabetes mellitus with hypoglycemia without coma E11.649 [facility] [address] [place] [address] May, [facility] [address] [place] [address] May, [facility] [address] [place] [address] May, [facility] [place] [address] May, [facility] [place] [facility] [address] [address] [place] [address] Apr, [facility] [place] [facility] [address] [place] [address] Apr, Nausea and vomiting, intract ability of vomiting not specified, unspecified vomiting type R11.2 and URI with cough and congestion J06.9 [facility] [place] [facility] [address] [place] [address] Apr, [facility] [place] [facility] [address] [place] [address] Mar, [facility] [place] [facility] [address] [place] [address] Mar, [facility] [place] [facility] [address] [place] [address] Mar, Iron deficiency anemia secon mark to inadequate dietary iron intake D50.8 [address] [facility] [place] [address] Mar, [facility] [place] [facility] [address] [place] [address] Mar, Type 2 diabetes mellitus wit h hypoglycemia without coma E11.649 ; Iron deficiency anemia secondary to inadequate dietary iron intake D50.8 and [facility] current use of insulin Z79.4 [address] [facility] [place] [address] Feb, [id number] [place] [address] Jan, [facility] [id number] [place] [address] Jan, [id number] [place] [address] Jan, [facility] [address] [facility] [place] [address] Jan, [id number] [place] [address] Jan, [facility] [address] [address] Jan, [facility] [address] [address] Dec, [facility] [address] [address] Dec, [facility] [address] [address] Nov, [facility] [address] [address] Nov, [address] [address] Nov, [facility] [address] [address] Aug, [address] [address] June, IMMUNIZATIONS No Known Immunizations SOCIAL HISTORY Never Assessed REASON FOR VISIT Nausea/vomiting started Tuesday, started not feeling well a few days before that. fever off an on, diarrhea. [facility] APPLE PLAN OF CARE Activity Details Follow Up prn Reason: VITAL SIGNS Height 5'4" in 2018-05-22 Weight 205 lbs 2018-05-22 Temperature 98.8 degrees Fahrenheit 2018-05-22 Heart Rate 103 bpm 2018-05-22 Respiratory Rate 18 2018-05-22 BMI 35.18 kg/m2 2018-05-22 Blood pressure systolic 136 mmHg 2018-05-22 Blood pressure diastolic 66 mmHg 2018-05-22 MEDICATIONS Medication Instructions Dosage Frequency Start Date End Date Duration S tatus Ondansetron 4 MG Orally 3 times a day 1 tablet on the ton jocelynn and allow to dissolve as needed 8h Apr, Active Gabapentin 300 MG Orally Once a day 1 capsule 24h 30 Active Insulin Glargine 100 UNIT/ML as directed Active Losartan Potassium 100 MG Orally Once a day 1 tablet 24h 30 day(s) Active Tizanidine HCl 4 MG Orally TID PRN 1 capsule as needed 30 days Active Hoffman & Syringes - as directed Active NovoLog 100 UNIT/ML Subcutaneous 2 times a day 20 units 12h Active Cholecalciferol 2000 UNIT Orally Once a day 1 capsule 24h 30 day(s) Active Meloxicam 15 MG Orally Once a day 1 tablet 24h 30 da y(s) Active Hydrocodone-Acetaminophen 10-325 MG Orally every 6 hrs 1/2 to 1 tablet as needed 6h 15 Apr, 2018 28 days Active Metformin HCl 1000 MG Orally 2 times a day 1 tablet with a meal 12h 30 day(s) Active Insulin Admin Supplies - as directed Active Potassium Chloride ER 10 MEQ Orally Once a day 1 tablet with food 24h 30 day(s) Active Citalopram Hydrobromide 20 MG Orally Once a day 1 tablet 24h 30 day(s) Active Cymbalta 60 MG Orally Once a day 1 capsule 24h 30 da y(s) Active Levothyroxine Sodium 150 MCG Orally Once a day 3 tablet on an empty stomach in the morning 24h 30 day(s) Active Furosemide 40 MG Orally Once a day 1 tablet 24h 30 d ay(s) Active Amitriptyline HCl 75 MG Orally Once a day 1 tablet 24h 30 day(s) Active Vitamin K (Phytonadione) 100 MCG Orally Once a day 3 tablets 24h 30 day(s) Active Lagrange 10-325 MG Orally every 6 hrs 1 tablet as needed 6h 28 days Active RESULTS No Results PROCEDURES Procedure Date Ordered Result Body Site [facility] VISIT ESTABLISHED PATIENT May 22, 2018 LAB NOT BILLED BY [facility] [place] [facility] May 22, 2018 INSTRUCTIONS MEDICATIONS ADMINISTERED No Known Medications MEDICAL [...] acquired atrophy o f thyroid Medical History [facility] current use of insulin Medical History TIA [...]
--- OUTSIDE RECORDS SUMMARY | 2019-07-27 11:39 | XMS REPORT | Clinical Summary ---
[...] on the digestive system V58.75 Active Deacon Rajna MD [facility] following surgery of the teeth,oral cavity and digestive system, NEC Disruption of external operation (surgic al) wound, not elsewhere classified, sequela 998.30 Active Deacon Rajan MD Disruption of wound, unspecified Medication List Medication Instructions Start Date Stop Date Generic Name NDC Status Provider Patient Instruction COUMADIN 5 MG ORAL TABLET Take one by mouth daily 2018 WARFARIN SODIUM 48165097222 No Longer Active Deacon Rajan MD A ctive LEVO-T 150 MCG ORAL TABLET 3 tab q d LEVOTHYRO XINE SODIUM 74651923053 Active Deacon Rajan MD Active LEVO-T 50 MCG ORAL TABLET 1 q d LEVOTHYROXINE SODIUM 77836054637 Active Deacon Rajan MD Active LEVOTHYROXINE SODIUM 200 MCG ORAL TABLET 2 1/4 tablets daily 201 10/30/27 LEVOTHYROXINE SODIUM 56414995885 No Longer Active Deacon Rajan MD Active MULTIVITAMIN & MINERAL ORAL LIQUID 5 ml daily 06/28 MULTIPLE VITAMINS-MINERALS 78681965436 No Longer Active Deacon Rajan MD Active PRILOSEC OTC 20 MG ORAL TABLET DELAYED RELEASE 2 tablets daily 2 OMEPRAZOLE MAGNESIUM 04429379072 No Longer Active Deacon Rajan MD Active CARAFATE 1 GM ORAL TABLET Take one by mouth four times daily 201 10/30/27 SUCRALFATE 00800013750 No Longer Active Deacon Rajan MD Active VICTOZA 18 MG/3ML SUBCUTANEOUS SOLUTION PEN-INJECTOR 1.8 mg mc y LIRAGLUTIDE 04190273648 No Longer Active Deacon Rajan MD Active TIZANIDINE HCL 4 MG ORAL TABLET 1 tablet every 4 hours TIZANIDINE HCL 37229331832 Active Shelia Quezada RN Active OXYCODONE HCL 5 MG ORAL TABLET 1 tablet every 3-4 hours as n eeded for pain OXYCODONE HCL 92138883195 Active Shelia Quezada RN Active NOVOLOG 100 UNIT/ML SUBCUTANEOUS SOLUTION sliding scale INSULIN ASPART 37695320749 Active Shelia Quezada RN Active MELOXICAM 15 MG ORAL TABLET Take one by mouth daily MELOXICAM 19049057569 Active Shelia Quezada RN Active FUROSEMIDE 40 MG ORAL TABLET Take one by mouth daily FUROSEMIDE 70969258107 Active Shelia Quezada RN Active LANTUS 100 UNIT/ML SUBCUTANEOUS SOLUTION 30 units daily at bedtime INSULIN GLARGINE 17367184414 Active Shelia uQezada RN Act johnathon HYDROCODONE-ACETAMINOPHEN 5-325 MG ORAL TABLET 1 every 4 hours as needed for pain HYDROCODONE-ACETAMINOPHEN 42327146123 Active Shelia Quezada RN Active GLUCOPHAGE 1000 MG ORAL TABLET Take one by mouth daily METFORMIN HCL 43890483128 Active Shelia Quezada RN Active COZAAR 50 MG ORAL TABLET 1 1/2 tabs daily LOSAR KOO POTASSIUM 51416339152 Active Shelia Quezada RN Active CELEXA 20 MG ORAL TABLET Take one by mouth daily CITALOPRAM HYDROBROMIDE 47735099853 Active Shelia Quezada RN Active BACTRIM DS 800-160 MG ORAL TABLET by mouth twice a day SULFAMETHOXAZOLE-TRIMETHOPRIM 56807443475 Active Shelia Quezada RN Active AMITRIPTYLINE HCL 75 MG ORAL TABLET Take one by mouth daily at bedtime AMITRIPTYLINE HCL 80793813919 Active Shelia Yuen N Active VICTOZA 18 MG/3ML SUBCUTANEOUS SOLUTION PEN-INJECTOR 1.8 mg mc y VICTOZA 18 MG/3ML SUBCUTANEOUS SOLUTION PEN-INJECTOR LIRAGLUTIDE Inactive CARAFATE 1 GM ORAL TABLET Take one by mouth four times daily 201 10/30/27 CARAFATE 1 GM ORAL TABLET 101429 SUCRALFATE Inacti ve PRILOSEC OTC 20 MG ORAL TABLET DELAYED RELEASE 2 tablets daily 2 PRILOSEC OTC 20 MG ORAL TABLET DELAYED RELEASE OMEPRAZOLE MAGNESIUM Inactive MULTIVITAMIN & MINERAL ORAL LIQUID 5 ml daily 06/28 MULTIVITAMIN & MINERAL ORAL LIQUID MULTIPLE VITAMINS-MINERALS Inactive LEVOTHYROXINE SODIUM 200 MCG ORAL TABLET 2 1/4 tablets daily 201 10/30/27 LEVOTHYROXINE SODIUM 200 MCG ORAL TABLET 997193 LEVOTHY ROXINE SODIUM Inactive COUMADIN 5 MG ORAL TABLET Take one by mouth daily 2018 COUMADIN 5 MG ORAL TABLET 776229 WARFARIN SODIUM Inactive Vital Signs Date Name [...] 11 .6-14.8 platelet count 362 10^3/MM^3 10*3/mm3 152-722 8040/06/26 leukocyte count, blood 11.7 10^3/MM^3 10*3/mm3 4.6-10.2 neutrophils as percent of [...] 11 .6-14.8 platelet count 272 10^3/MM^3 10*3/mm3 238-277 4915/07/03 leukocyte count, blood 8.1 10^3/MM^3 10*3/mm3 4.6-10.2 [...] 11 .6-14.8 platelet count 315 10^3/MM^3 10*3/mm3 256-958 6849/09/18 leukocyte count, blood 5.3 10^3/MM^3 10*3/mm3 4.6-10.2 [...] 11 .6-14.8 platelet count 317 10^3/MM^3 10*3/mm3 965-680 7368/11/19 leukocyte count, blood 4.9 10^3/MM^3 10*3/mm3 4.6-10.2 [...] 11 .6-14.8 platelet count 214 10^3/MM^3 10*3/mm3 011-808 8711/01/06 leukocyte count, blood 4.8 10^3/MM^3 10*3/mm3 4.6-10.2 [...] 11 .6-14.8 platelet count 254 10^3/MM^3 10*3/mm3 691-806 3953/02/11 leukocyte count, blood 5.8 10^3/MM^3 10*3/mm3 4.6-10.2 [...] 11 .6-14.8 platelet count 222 10^3/MM^3 10*3/mm3 331-110 9995/05/14 leukocyte count, blood 5.0 10^3/MM^3 10*3/mm3 4.6-10.2 neutrophils as percent of blood leukocytes 61.8 % 42.2-75.2 monocytes as percent of blood leukocytes 9.7 % 1.7-9.3 lymphocytes as percent of blood leukocytes 24.3 % 20.5-51.1 erythrocyte (RBC) count 3.90 10^6/MM^3 10*6/mm3 3.80-5.8 0 hemoglobin, blood 10.4 g/dL 12.0-16.0 hematocrit, blood 34.6 % 37.0-47.0 mean corpuscular volume, RBC 89 fL 80-97 mean corpuscular hemoglobin, RBC 26.8 pg 27. 0-31.2 mean corpuscular hemoglobin concentration, RBC 30.2 G/DL % 31.8-35.4 red blood cell distribution width 15.7 % 11 .6-14.8 platelet count 243 10^3/MM^3 10*3/mm3 142-424 Lab Report: Comp. Metabolic Panel - Chem istry calcium, serum 9.4 mg/dL 8.5-10.1 bilirubin, serum, total 0.40 mg/dL 0.00-1.00 calcium, serum 10.2 mg/dL 8.5-10.1 bilirubin, serum, total 0.50 mg/dL 0.00-1.00 calcium, serum 8.9 mg/dL 8.5-10.1 bilirubin, serum, total 0.30 mg/dL 0.00-1.00 sodium, serum 138 mmol/L 009-173 8922/05/14 carbon dioxide, venous blood 21.6 mmol/L 21.0-32 .0 potassium, serum 5.2 mmol/L 3.5-5.2 chloride, serum 107 mmol/L 98-107 blood glucose 104 mg/dL 65-95 urea nitrogen, blood 30 mg/dL 7-18 creatinine, serum 0.79 mg/dL 0.60-1.30 Estimated Glomerular Filtration Rate (calc) 78 (?) mL/min/1.73m2 = OR > 60 mL/min alanine aminotransferase (SGPT), serum 38 U/L 12-78 aspartate aminotransferase (SGOT), serum 39 U/L 19-43 sodium, serum 140 mmol/L 066-698 4886/11/19 carbon dioxide, venous blood 27.2 mmol/L 21.0-32 .0 potassium, serum 4.8 mmol/L 3.5-5.2 chloride, serum 108 mmol/L 98-107 blood glucose 120 mg/dL 65-95 urea nitrogen, blood 20 mg/dL 7-18 creatinine, serum 0.86 mg/dL 0.60-1.30 Estimated Glomerular Filtration Rate (calc) 71 (?) mL/min/1.73m2 = OR > 60 mL/min alanine aminotransferase (SGPT), serum 36 U/L - aspartate aminotransferase (SGOT), serum 37 U/L 15-37 sodium, serum 138 mmol/L 254-378 0187/07/03 carbon dioxide, venous blood 29.9 mmol/L 21.0-32 .0 potassium, serum 5.1 mmol/L 3.5-5.2 chloride, serum 105 mmol/L 98-107 blood glucose 114 mg/dL 65-95 urea nitrogen, blood 17 mg/dL 7-18 creatinine, serum 1.16 mg/dL 0.60-1.30 Estimated Glomerular Filtration Rate (calc) 50 (?) mL/min/1.73m2 = OR > 60 mL/min alanine aminotransferase (SGPT), serum 26 U/L aspartate aminotransferase (SGOT), serum 32 U/L 15-37 Lab Report: Comp. Metabolic Panel - Lab Alkaline phosphatase 147 50-136 Alkaline phosphatase 144 50-136 Alkaline phosphatase 172 50-136 Lab Report: Comp. Metabolic Panel, CBC W /DIFF - Chemistry calcium, serum 9.2 mg/dL 8.5-10.1 bilirubin, serum, total 0.30 mg/dL 0.00-1.00 sodium, serum 138 mmol/L 933-774 6365/09/03 carbon dioxide, venous blood 27.3 mmol/L 21.0-32 .0 potassium, serum 5.0 mmol/L 3.5-5.2 chloride, serum 105 mmol/L 98-107 blood glucose 183 mg/dL 65-95 urea nitrogen, blood 31 mg/dL 7-18 creatinine, serum 1.24 mg/dL 0.60-1.30 Estimated Glomerular Filtration Rate (calc) 46 (?) mL/min/1.73m2 = OR > 60 mL/min alanine aminotransferase (SGPT), serum 26 U/L 12-78 aspartate aminotransferase (SGOT), serum 20 U/L 15-37 calcium, serum 8.5 mg/dL 8.5-10.1 bilirubin, serum, total 0.20 mg/dL 0.00-1.00 sodium, serum 137 mmol/L 245-645 1809/03/18 carbon dioxide, venous blood 21.4 mmol/L 21.0-32 .0 potassium, serum 4.5 mmol/L 3.5-5.2 chloride, serum 107 mmol/L 98-107 blood glucose 288 mg/dL 65-95 urea nitrogen, blood 24 mg/dL 7-18 creatinine, serum 0.97 mg/dL 0.60-1.30 Estimated Glomerular Filtration Rate (calc) 61 (?) mL/min/1.73m2 = OR > 60 mL/min alanine aminotransferase (SGPT), serum 21 U/L -78 aspartate aminotransferase (SGOT), serum 21 U/L 19-43 Lab Report: Comp. Metabolic Panel, CBC W /DIFF - Hematology leukocyte count, blood 6.8 10^3/MM^3 10*3/mm3 4.6-10.2 [...] 11 .6-14.8 platelet count 361 10^3/MM^3 10*3/mm3 648-626 4049/03/18 leukocyte count, blood 5.9 10^3/MM^3 10*3/mm3 4.6-10.2 [...] 11 .6-14.8 platelet count 254 10^3/MM^3 10*3/mm3 142-424 Lab Report: Comp. Metabolic Panel, CBC W /DIFF - Lab Alkaline phosphatase 231 50-136 Alkaline phosphatase 137 50-136 Encounters Code Encounter Date Provider Facility CPT-10143 Level 3 Est. Patient 14:49:42 CDT Deacon Rajan MD [facility] CPT-33376 Level 4 New Patient 16:54:39 CDT Deacon Rajan MD [facility] CPT-70526 Level 2 Est. Patient 15:33:16 CLINICAL CARE LEADER Shreyas gillespie MD [facility] Procedures Code Procedure Name Date Entry Date Standard Desc ription CPT-30540 Venipuncture Draw Fee 11:36:25 CDT CPT-06053 Venipuncture Draw Fee 17:39:08 CLINICAL CARE LEADER CPT-37383 Venipuncture Draw Fee 09:00:01 CLINICAL CARE LEADER CPT-31865 Venipuncture Draw Fee 12:47:04 CLINICAL CARE LEADER CPT-91930 Venipuncture Draw Fee 11:50:17 CDT CPT-14685 Venipuncture Draw Fee 17:46:17 CDT CPT-73332 Postop F/U Visit 15:58:49 CDT
--- OUTSIDE RECORDS SUMMARY | 2019-07-27 11:39 | XMS REPORT | Clinical Summary ---
[...] one by mouth daily 2018 WARFARIN SODIUM [id number] No Longer Active Deacon Rajan MD A ctive LEVO-T 150 MCG ORAL TABLET 3 tab q d LEVOTHYRO XINE SODIUM 17074061777 Active Deacon Rajan MD Active LEVO-T 50 MCG ORAL TABLET 1 q d LEVOTHYROXINE SODIUM 65259812288 Active Deacon Rajan MD Active LEVOTHYROXINE SODIUM 200 MCG ORAL TABLET 2 1/4 tablets daily 201 10/30/27 LEVOTHYROXINE SODIUM 68646721661 No Longer Active Deacon Rajan MD Active MULTIVITAMIN & MINERAL ORAL LIQUID 5 ml daily 06/28 MULTIPLE VITAMINS-MINERALS 21321040571 No Longer Active Deacon Rajan MD Active PRILOSEC OTC 20 MG ORAL TABLET DELAYED RELEASE 2 tablets daily 2 OMEPRAZOLE MAGNESIUM 25226509475 No Longer Active Deacon Rajan MD Active CARAFATE 1 GM ORAL TABLET Take one by mouth four times daily 201 10/30/27 SUCRALFATE 68845757286 No Longer Active Deacon Rajan MD Active VICTOZA 18 MG/3ML SUBCUTANEOUS SOLUTION PEN-INJECTOR 1.8 mg mc y LIRAGLUTIDE 63441541617 No Longer Active Deacon Rajan MD Active TIZANIDINE HCL 4 MG ORAL TABLET 1 tablet every 4 hours TIZANIDINE HCL 77468912012 Active Shelia Quezada RN Active OXYCODONE HCL 5 MG ORAL TABLET 1 tablet every 3-4 hours as n eeded for pain OXYCODONE HCL 10237118632 Active Shelia Quezada RN Active NOVOLOG 100 UNIT/ML SUBCUTANEOUS SOLUTION sliding scale INSULIN ASPART 94978532127 Active Shelia Quezada RN Active MELOXICAM 15 MG ORAL TABLET Take one by mouth daily MELOXICAM 19909684251 Active Shelia Quezada RN Active FUROSEMIDE 40 MG ORAL TABLET Take one by mouth daily FUROSEMIDE 35246078905 Active Shelia Quezada RN Active LANTUS 100 UNIT/ML SUBCUTANEOUS SOLUTION 30 units daily at bedtime INSULIN GLARGINE 75417339997 Active Shelia Quezada RN Act johnathon HYDROCODONE-ACETAMINOPHEN 5-325 MG ORAL TABLET 1 every 4 hours as needed for pain HYDROCODONE-ACETAMINOPHEN 85661208500 Active Shelia Quezada RN Active GLUCOPHAGE 1000 MG ORAL TABLET Take one by mouth daily METFORMIN HCL 98781486937 Active Shelia Quezada RN Active COZAAR 50 MG ORAL TABLET 1 1/2 tabs daily LOSAR KOO POTASSIUM 91408306500 Active Shelia Quezada RN Active CELEXA 20 MG ORAL TABLET Take one by mouth daily CITALOPRAM HYDROBROMIDE 95718068472 Active Shelia Quezada RN Active BACTRIM DS 800-160 MG ORAL TABLET by mouth twice a day SULFAMETHOXAZOLE-TRIMETHOPRIM 19737969953 Active Shelia Quezada RN Active AMITRIPTYLINE HCL 75 MG ORAL TABLET Take one by mouth daily at bedtime AMITRIPTYLINE HCL 94926955354 Active Shelia Yuen N Active VICTOZA 18 MG/3ML SUBCUTANEOUS SOLUTION PEN-INJECTOR 1.8 mg mc y VICTOZA 18 MG/3ML SUBCUTANEOUS SOLUTION PEN-INJECTOR LIRAGLUTIDE Inactive CARAFATE 1 GM ORAL TABLET Take one by mouth four times daily 201 10/30/27 CARAFATE 1 GM ORAL TABLET 141653 SUCRALFATE Inacti ve PRILOSEC OTC 20 MG ORAL TABLET DELAYED RELEASE 2 tablets daily 2 PRILOSEC OTC 20 MG ORAL TABLET DELAYED RELEASE OMEPRAZOLE MAGNESIUM Inactive MULTIVITAMIN & MINERAL ORAL LIQUID 5 ml daily 06/28 MULTIVITAMIN & MINERAL ORAL LIQUID MULTIPLE VITAMINS-MINERALS Inactive LEVOTHYROXINE SODIUM 200 MCG ORAL TABLET 2 1/4 tablets daily 201 10/30/27 LEVOTHYROXINE SODIUM 200 MCG ORAL TABLET 355497 LEVOTHY ROXINE SODIUM Inactive COUMADIN 5 MG ORAL TABLET Take one by mouth daily 2018 COUMADIN 5 MG ORAL TABLET 382773 WARFARIN SODIUM Inactive Vital Signs Date Name [...] 11 .6-14.8 platelet count 362 10^3/MM^3 10*3/mm3 515-195 2782/06/26 leukocyte count, blood 11.7 10^3/MM^3 10*3/mm3 4.6-10.2 [...] 11 .6-14.8 platelet count 272 10^3/MM^3 10*3/mm3 961-382 6899/07/03 leukocyte count, blood 8.1 10^3/MM^3 10*3/mm3 4.6-10.2 [...] 11 .6-14.8 platelet count 315 10^3/MM^3 10*3/mm3 238-044 8290/05/15 leukocyte count, blood 7.2 10^3/MM^3 10*3/mm3 4.6-10.2 neutrophils as percent of blood leukocytes 68.4 % 42.2-75.2 monocytes as percent of blood leukocytes 9.9 % 1.7-9.3 lymphocytes as percent of blood leukocytes 17.0 % 20.5-51.1 erythrocyte (RBC) count 3.03 10^6/MM^3 10*6/mm3 3.80-5.8 0 hemoglobin, blood 8.8 g/dL 12.0-16.0 hematocrit, blood 29.7 % 37.0-47.0 mean corpuscular volume, RBC 98 fL 80-97 mean corpuscular hemoglobin, RBC 29.1 pg 27. 0-31.2 mean corpuscular hemoglobin concentration, RBC 29.7 G/DL % 31.8-35.4 red blood cell distribution width 17.9 % 11 .6-14.8 platelet count 341 10^3/MM^3 10*3/mm3 377-793 9349/09/18 leukocyte count, blood 5.3 10^3/MM^3 10*3/mm3 4.6-10.2 [...] 11 .6-14.8 platelet count 317 10^3/MM^3 10*3/mm3 253-178 9580/11/19 leukocyte count, blood 4.9 10^3/MM^3 10*3/mm3 4.6-10.2 [...] 11 .6-14.8 platelet count 214 10^3/MM^3 10*3/mm3 768-502 9084/01/06 leukocyte count, blood 4.8 10^3/MM^3 10*3/mm3 4.6-10.2 [...] 11 .6-14.8 platelet count 254 10^3/MM^3 10*3/mm3 380-535 8748/02/11 leukocyte count, blood 5.8 10^3/MM^3 10*3/mm3 4.6-10.2 [...] 11 .6-14.8 platelet count 222 10^3/MM^3 10*3/mm3 115-079 5660/05/14 leukocyte count, blood 5.0 10^3/MM^3 10*3/mm3 4.6-10.2 [...] Metabolic Panel - Chem istry calcium, serum 9.0 mg/dL 8.5-10.1 bilirubin, serum, total 0.30 mg/dL 0.00-1.00 calcium, serum 9.4 mg/dL 8.5-10.1 bilirubin, serum, total 0.40 mg/dL 0.00-1.00 calcium, serum 10.2 mg/dL 8.5-10.1 bilirubin, serum, total 0.50 mg/dL 0.00-1.00 sodium, serum 138 mmol/L 170-754 4200/05/14 carbon dioxide, venous blood 21.6 mmol/L 21.0-32 .0 potassium, serum 5.2 mmol/L 3.5-5.2 chloride, serum 107 mmol/L 98-107 blood glucose 104 mg/dL 65-95 urea nitrogen, blood 30 mg/dL 7-18 creatinine, serum 0.79 mg/dL 0.60-1.30 Estimated Glomerular Filtration Rate (calc) 78 (?) mL/min/1.73m2 = OR > 60 mL/min alanine aminotransferase (SGPT), serum 38 U/L -78 aspartate aminotransferase (SGOT), serum 39 U/L 19-43 sodium, serum 140 mmol/L 578-095 7181/11/19 carbon dioxide, venous blood 27.2 mmol/L 21.0-32 .0 potassium, serum 4.8 mmol/L 3.5-5.2 chloride, serum 108 mmol/L 98-107 blood glucose 120 mg/dL 65-95 urea nitrogen, blood 20 mg/dL 7-18 creatinine, serum 0.86 mg/dL 0.60-1.30 Estimated Glomerular Filtration Rate (calc) 71 (?) mL/min/1.73m2 = OR > 60 mL/min alanine aminotransferase (SGPT), serum 36 U/L -78 aspartate aminotransferase (SGOT), serum 37 U/L 15-37 sodium, serum 138 mmol/L 391-585 9063/05/15 carbon dioxide, venous blood 25.9 mmol/L 21.0-32 .0 potassium, serum 4.6 mmol/L 3.5-5.2 chloride, serum 104 mmol/L 98-107 blood glucose 105 mg/dL 65-95 urea nitrogen, blood 21 mg/dL 7-18 creatinine, serum 0.94 mg/dL 0.60-1.30 Estimated Glomerular Filtration Rate (calc) 64 (?) mL/min/1.73m2 = OR > 60 mL/min alanine aminotransferase (SGPT), serum 16 U/L - aspartate aminotransferase (SGOT), serum 8 U/L 15-37 calcium, serum 8.9 mg/dL 8.5-10.1 bilirubin, serum, total 0.30 mg/dL 0.00-1.00 sodium, serum 138 mmol/L 228-427 6841/07/03 carbon dioxide, venous blood 29.9 mmol/L 21.0-32 [...] phosphatase 96 50-136 Alkaline phosphatase 144 50-136 Alkaline phosphatase 172 50-136 Lab Report: Comp. Metabolic Panel, CBC W /DIFF - Chemistry calcium, serum 9.2 mg/dL 8.5-10.1 bilirubin, serum, total 0.30 mg/dL 0.00-1.00 sodium, serum 137 mmol/L 000-218 6170/03/18 carbon dioxide, venous blood 21.4 mmol/L 21.0-32 [...] 21 U/L 19-43 sodium, serum 138 mmol/L 988-991 7171/09/03 carbon dioxide, venous blood 27.3 mmol/L 21.0-32 [...] 8.5-10.1 bilirubin, serum, total 0.20 mg/dL 0.00-1.00 Lab Report: Comp. Metabolic Panel, [...] 11 .6-14.8 platelet count 361 10^3/MM^3 10*3/mm3 164-812 4860/03/18 leukocyte count, blood 5.9 10^3/MM^3 10*3/mm3 4.6-10.2 [...] 50-136 Encounters Code Encounter Date Provider Facility CPT-12617 Level 3 Est. Patient 14:49:42 CDT Deacon Rajan MD [facility] CPT-92911 Level 4 New Patient 16:54:39 CDT Deacon Ryan Satinder [facility] CPT-22492 Level 2 Est. Patient 15:33:16 FORGER HELPER Shreyas gillespie MD [facility] Procedures Code Procedure Name Date Entry Date Standard Desc ription CPT-64137 Venipuncture Draw Fee 11:36:25 CDT CPT-04142 Venipuncture Draw Fee 17:39:08 [employer] CPT-36792 Venipuncture Draw Fee 09:00:01 [employer] [facility] CPT-96313 Venipuncture Draw Fee 12:47:04 [employer] HEL[employer] CPT-55777 Venipuncture Draw Fee 11:50:17 CDT CPT-80815 Venipuncture Draw Fee 17:46:17 CDT CPT-94691 Postop F/U Visit 15:58:49 CDT
--- OUTSIDE RECORDS SUMMARY | 2019-07-27 11:39 | XMS REPORT ---
Author Author Lisandra LOCKETT [facility] Address [address] [place] [address] Care Team Providers Care Testing Director Name Role Phone ALAN LOCKETTWELL Unavailable PROBLEMS Type Condition ICD9-CM Code MSS26-OQ Code Onset Dates Condition S tatus SNOMED Code Problem Status post laparoscopic cholecystectomy Z90.49 10 Sep, 2016 Active 889845812 Problem Hypothyroidism due to acquired atrophy of thyroid E03.4 Apr, Active 009001180 Problem Diabetes mellitus type II, uncontrolled E11.65 10 Nov, 2011 Active 182618255 Problem Pre-ulcerative calluses L84 May, Act johnathon 181908151 Problem TIA (transient ischemic attack) G45.9 14 Oct, 2010 Active 810589090 Problem Diabetic polyneuropathy associated with type 2 d iabetes mellitus E11.42 28 May, 2014 Active 379247265 Problem History of stroke without residual deficits Z86 .73 16 Nov, 2016 Active 305774127 Problem Radial neck fracture S52.133A Jan, Active 67052107 Problem Status post total hip replacement, right Z96.641 Apr, Active 076961962 Problem GERD (gastroesophageal reflux disease) K21.9 1 4 Oct, 2010 Active 304611541 Problem Intertrochanteric fracture of right hip S72.141A Mar, Active 66924356 Problem Uncontrolled type 2 diabetes mellitus with diabetic polyneuropathy, with long-term current use of insulin E11.42 09 May, 2014 Active 603466540 Problem Helicobacter pylori gastritis K29.70 Jan, Active 481453819 Problem Class 1 obesity due to exces s calories with serious comorbidity and body mass index (BMI) of 34.0 to 34.9 in adult E66.09 14 Oct, 2010 Active 589636848 Problem History of esophagogastroduodenoscopy Z98.890 Dec, Active 563372797 Problem Osteoarthritis, knee M17.10 14 Oct, 2010 Active 962072975 Problem Status post colonoscopy Z98.890 23 Dec, 2014 Act johnathon 406447334256 Problem Severe obesity (BMI 35.0-39.9) with comorbidity E66.01 16 Nov, 2016 Active 758425927 Problem Pulmonary hypertension I27.20 18 Apr, 2013 Acti ve 40428508 Problem Iron deficiency anemia secondary to inadequate d ietary iron intake D50.8 Active 026204531 Problem Essential hypertension I10 14 Oct, 2010 Acti ve 97458813 Problem correction current use of insulin Z79.4 Active 347731678 Problem B12 deficiency E53.8 Apr, Active 64 361851 Problem Major depression F32.9 Feb, Active 286567429 Problem Chronic gastric ulcer without hemorrhage and wit hout perforation K25.7 June, Active 35267622 Problem Iron deficiency anemia, unspecified D50.9 02 M 2011 Active 09441464 Problem Tobacco use Z72.0 Feb, Active 44456 3000 Problem Type 2 diabetes mellitus with hypoglycemia without coma E11.649 Active 99434484 ALLERGIES No Information ENCOUNTERS Encounter Location Date Diagnosis [address] [address] Sep, [address] [address] Jul, [address] [address] Jul, [address] [address] June, Uncontrolled type 2 diabetes mellitus wi th diabetic polyneuropathy, with long-term current use of insulin E11.42 and AK (actinic keratosis) L57.[address] [address] June, [facility] [address] [place] [address] June, Iron deficiency anemia secondary to inadequate dietary iron intake D50.8 [facility] [address] [place] [address] June, 19 Type 2 diabetes mellitus with hypoglycemia without coma E11.[address] [address] May, [facility] [address] [address] May, [facility] [address] [address] May, [facility] [address] [address] May, [facility] [address] [address] Apr, [facility] [address] [address] Apr, Nausea and vomiting, intractability of v omiting not specified, unspecified vomiting type R11.2 and URI with cough and congestion J06.9 [facility] [address] [address] Apr, [facility] [address] [address] Mar, [facility] [address] [address] Mar, [facility] [address] [address] Mar, Iron deficiency anemia secondary to inad equate dietary iron intake D50.8 [place] [address] [address] [facility] [id number] [address] [place] [address] Mar, [facility] [address] [address] Mar, Type 2 diabetes mellitus with hypoglycem ia without coma E11.649 ; Iron deficiency anemia secondary to inadequate dietary iron intake D50.8 and correction current use of insulin Z79.4 [place] [id number] [facility] [id number] [address] [place] [address] Feb, [place] [address] [address] [facility] [id number] [address] [place] [address] Jan, [facility] [address] [facility] [id number] [address] [place] [phone] Jan, [place] [address] [address] [facility] [id number] [address] [place] [phone] Jan, [facility] [address] [id number] [address] [place] [phone] Jan, [facility] [address] [id number] [address] [place] [phone] Jan, [facility] [address] [id number] [address] [place] [phone] Jan, [facility] [address] [id number] [address] [place] [phone] Dec, [facility] [address] [id number] [address] [place] [phone] Dec, [facility] [address] [id number] [address] [place] [phone] Nov, [facility] [address] [id number] [address] [place] [phone] Nov, [facility] [address] [id number] [address] [place] [phone] Nov, [facility] [address] [id number] [address] [place] [phone] Aug, [facility] [address] [id number] [address] [place] [address] June, IMMUNIZATIONS No Known Immunizations SOCIAL HISTORY Never Assessed REASON FOR VISIT hydrocodone refill PLAN OF CARE VITAL SIGNS MEDICATIONS Medication Instructions Dosage Frequency Start Date End Date Duration S tatus Hydrocodone-Acetaminophen 10-325 MG Orally every 6 hrs 1/2 to 1 tablet as needed 6h Apr, 28 days Active RESULTS No Results PROCEDURES No Known procedures INSTRUCTIONS MEDICATIONS ADMINISTERED No Known Medications MEDICAL (GENERAL) HISTORY Type Description Date Medical History Type 2 diabetes mellitus Medical History Type 2 diabetes mellitus with diabetic n europathy, unspecified Medical History Type 2 diabetes mellitus with hyperglyce perry Medical History hyperlipidemia Medical History hypertension Medical History gastroesophageal reflux disease (GERD) Medical History Hypothyroidism Medical History asthma Medical History Arthritis Medical History chronic obstructive pulmonary disease (C OPD) Medical History depression Medical History osteoporosis Medical History cerebrovascular accident Medical History kidney stones Medical History anemia Medical History blood transfusion 2units x 3 times last 3 week Surgical History section Surgical History tonsillectomy Surgical History lithotripsy Surgical History colonoscopy Surgical History heart cath Surgical History right knee replacement Surgical History right hip replacement Surgical History EGD Hospitalization History see surgeries
--- OUTSIDE RECORDS SUMMARY | 2019-07-27 11:40 | XMS REPORT | Clinical Summary ---
[...] one by mouth daily 2018 WARFARIN SODIUM [id number] No Longer Active Deacon Rajan MD A ctive LEVO-T 150 MCG ORAL TABLET 3 tab q d LEVOTHYRO XINE SODIUM 98256180137 Active Deacon Rajan MD Active LEVO-T 50 MCG ORAL TABLET 1 q d LEVOTHYROXINE SODIUM 69052572890 Active Deacon Rajan MD Active LEVOTHYROXINE SODIUM 200 MCG ORAL TABLET 2 1/4 tablets daily 201 10/30/27 LEVOTHYROXINE SODIUM 85503194688 No Longer Active Deacon Rajan MD Active MULTIVITAMIN & MINERAL ORAL LIQUID 5 ml daily 06/28 MULTIPLE VITAMINS-MINERALS 15574780379 No Longer Active Deacon Rajan MD Active PRILOSEC OTC 20 MG ORAL TABLET DELAYED RELEASE 2 tablets daily 2 OMEPRAZOLE MAGNESIUM 69966812426 No Longer Active Deacon Rajan MD Active CARAFATE 1 GM ORAL TABLET Take one by mouth four times daily 201 10/30/27 SUCRALFATE 95116521525 No Longer Active Deacon Rajan MD Active VICTOZA 18 MG/3ML SUBCUTANEOUS SOLUTION PEN-INJECTOR 1.8 mg mc y LIRAGLUTIDE 24727240177 No Longer Active Deacon Rajan MD Active TIZANIDINE HCL 4 MG ORAL TABLET 1 tablet every 4 hours TIZANIDINE HCL 34122847787 Active Shelia Quezada RN Active OXYCODONE HCL 5 MG ORAL TABLET 1 tablet every 3-4 hours as n eeded for pain OXYCODONE HCL 59154902823 Active Shelia Quezada RN Active NOVOLOG 100 UNIT/ML SUBCUTANEOUS SOLUTION sliding scale INSULIN ASPART 68147601555 Active Shelia Quezada RN Active MELOXICAM 15 MG ORAL TABLET Take one by mouth daily MELOXICAM 80756132820 Active Shelia Quezada RN Active FUROSEMIDE 40 MG ORAL TABLET Take one by mouth daily FUROSEMIDE 37100486568 Active Shelia Quezada RN Active LANTUS 100 UNIT/ML SUBCUTANEOUS SOLUTION 30 units daily at bedtime INSULIN GLARGINE 21002907612 Active Shelia Quezada RN Act johnathon HYDROCODONE-ACETAMINOPHEN 5-325 MG ORAL TABLET 1 every 4 hours as needed for pain HYDROCODONE-ACETAMINOPHEN 42971033148 Active Shelia Quezada RN Active GLUCOPHAGE 1000 MG ORAL TABLET Take one by mouth daily METFORMIN HCL 57790565983 Active Shleia Quezada RN Active COZAAR 50 MG ORAL TABLET 1 1/2 tabs daily LOSAR KOO POTASSIUM 37733515201 Active Shelia Quezada RN Active CELEXA 20 MG ORAL TABLET Take one by mouth daily CITALOPRAM HYDROBROMIDE 67500644899 Active Shelia Quezada RN Active BACTRIM DS 800-160 MG ORAL TABLET by mouth twice a day SULFAMETHOXAZOLE-TRIMETHOPRIM 33806042039 Active Shelia Quezada RN Active AMITRIPTYLINE HCL 75 MG ORAL TABLET Take one by mouth daily at bedtime AMITRIPTYLINE HCL 42950246844 Active Shelia Yuen N Active VICTOZA 18 MG/3ML SUBCUTANEOUS SOLUTION PEN-INJECTOR 1.8 mg mc y VICTOZA 18 MG/3ML SUBCUTANEOUS SOLUTION PEN-INJECTOR LIRAGLUTIDE Inactive CARAFATE 1 GM ORAL TABLET Take one by mouth four times daily 201 10/30/27 CARAFATE 1 GM ORAL TABLET 428042 SUCRALFATE Inacti ve PRILOSEC OTC 20 MG ORAL TABLET DELAYED RELEASE 2 tablets daily 2 PRILOSEC OTC 20 MG ORAL TABLET DELAYED RELEASE OMEPRAZOLE MAGNESIUM Inactive MULTIVITAMIN & MINERAL ORAL LIQUID 5 ml daily 06/28 MULTIVITAMIN & MINERAL ORAL LIQUID MULTIPLE VITAMINS-MINERALS Inactive LEVOTHYROXINE SODIUM 200 MCG ORAL TABLET 2 1/4 tablets daily 201 10/30/27 LEVOTHYROXINE SODIUM 200 MCG ORAL TABLET 986636 LEVOTHY ROXINE SODIUM Inactive COUMADIN 5 MG ORAL TABLET Take one by mouth daily 2018 COUMADIN 5 MG ORAL TABLET 038683 WARFARIN SODIUM Inactive Vital Signs Date Name Value Unit Range Description blood pressure, diastolic, repeated by physician 55 BP [place] blood pressure, diastolic 55 mm[Hg] BP [place] blood pressure, systolic, repeated by physician 136 BP sys blood pressure, systolic 136 mm[Hg] BP sys height E&M 69 [in_us] Bdy height pulse rate E&M 88 /min Heart rate temperature E&M 97.6 [degF] Body temp erature weight E&M 204 [lb_av] Weight Measure d blood pressure, diastolic, repeated by physician 61 BP [place] blood pressure, diastolic 61 mm[Hg] BP [place] blood pressure, systolic, repeated by physician 133 BP sys blood pressure, systolic 133 mm[Hg] BP sys height E&M 69 [in_us] Bdy height pulse rate E&M 73 /min Heart rate temperature E&M 97.3 [degF] Body temp erature weight E&M 208.50 [lb_av] Weight Measure d blood pressure, diastolic, repeated by physician 42 BP [place] blood pressure, diastolic 42 mm[Hg] BP [place] blood pressure, systolic, repeated by physician 97 BP sys blood pressure, systolic 97 mm[Hg] BP sys height E&M 69 [in_us] Bdy height pulse rate E&M 65 /min Heart rate temperature E&M 97.2 [degF] Body temp erature weight E&M 209 [lb_av] Weight Measure d Diagnostic Results Date Name Value Unit Range Description Lab Report: CBC W/DIFF - Hematology erythrocyte (RBC) count 2.42 10^6/MM^3 10*6/mm3 3.80-5.8 0 hemoglobin, blood 7.1 g/dL 12.0-16.0 hematocrit, blood 24.2 % 37.0-47.0 mean corpuscular volume, RBC 100 fL 80-97 mean corpuscular hemoglobin, RBC 29.6 pg 27. 0-31.2 mean corpuscular hemoglobin concentration, RBC 29.5 G/DL % 31.8-35.4 red blood cell distribution width 18.2 % 11 .6-14.8 platelet count 295 10^3/MM^3 10*3/mm3 383-113 8306/04/09 lymphocytes as percent of blood leukocytes 13.9 % 20.5-51.1 monocytes as percent of blood leukocytes 9.9 % 1.7-9.3 neutrophils as percent of blood leukocytes 73.0 % 42.2-75.2 erythrocyte (RBC) count 1.69 10^6/MM^3 10*6/mm3 3.80-5.8 0 hemoglobin, blood 4.9 g/dL 12.0-16.0 hematocrit, blood 17.2 % 37.0-47.0 mean corpuscular volume, RBC 102 fL 80-97 mean corpuscular hemoglobin, RBC 29.0 pg 27. 0-31.2 mean corpuscular hemoglobin concentration, RBC 28.4 G/DL % 31.8-35.4 red blood cell distribution width 20.2 % 11 .6-14.8 platelet count 429 10^3/MM^3 10*3/mm3 750-536 1123/04/09 leukocyte count, blood 8.7 10^3/MM^3 10*3/mm3 4.6-10.2 neutrophils as percent of blood leukocytes 66.8 % 42.2-75.2 leukocyte count, blood 8.0 10^3/MM^3 10*3/mm3 4.6-10.2 monocytes as percent of blood leukocytes 10.4 % 1.7-9.3 erythrocyte (RBC) count 2.31 10^6/MM^3 10*6/mm3 3.80-5.8 0 hemoglobin, blood 6.7 g/dL 12.0-16.0 hematocrit, blood 23.4 % 37.0-47.0 mean corpuscular volume, RBC 102 fL 80-97 mean corpuscular hemoglobin, RBC 29.1 pg 27. 0-31.2 mean corpuscular hemoglobin concentration, RBC 28.7 G/DL % 31.8-35.4 red blood cell distribution width 22.4 % 11 .6-14.8 platelet count 343 10^3/MM^3 10*3/mm3 277-855 2603/05/08 leukocyte count, blood 8.0 10^3/MM^3 10*3/mm3 4.6-10.2 neutrophils as percent of blood leukocytes 71.1 % 42.2-75.2 monocytes as percent of blood leukocytes 9.1 % 1.7-9.3 lymphocytes as percent of blood leukocytes 14.6 % 20.5-51.1 erythrocyte (RBC) count 3.28 10^6/MM^3 10*6/mm3 3.80-5.8 0 hemoglobin, blood 9.3 g/dL 12.0-16.0 hematocrit, blood 32.3 % 37.0-47.0 mean corpuscular volume, RBC 98 fL 80-97 mean corpuscular hemoglobin, RBC 28.2 pg 27. 0-31.2 mean corpuscular hemoglobin concentration, RBC 28.7 G/DL % 31.8-35.4 red blood cell distribution width 19.7 % 11 .6-14.8 platelet count 399 10^3/MM^3 10*3/mm3 520-215 6616/04/24 lymphocytes as percent of blood leukocytes 18.1 % 20.5-51.1 monocytes as percent of blood leukocytes 7.7 % 1.7-9.3 lymphocytes as percent of blood leukocytes 16.3 % 20.5-51.1 leukocyte count, blood 9.1 10^3/MM^3 10*3/mm3 4.6-10.2 erythrocyte (RBC) count 3.03 10^6/MM^3 10*6/mm3 3.80-5.8 0 hemoglobin, blood 8.8 g/dL 12.0-16.0 hematocrit, blood 29.7 % 37.0-47.0 mean corpuscular volume, RBC 98 fL 80-97 mean corpuscular hemoglobin, RBC 29.1 pg 27. 0-31.2 mean corpuscular hemoglobin concentration, RBC 29.7 G/DL % 31.8-35.4 red blood cell distribution width 17.9 % 11 .6-14.8 platelet count 341 10^3/MM^3 10*3/mm3 725-324 4298/05/22 leukocyte count, blood 7.9 10^3/MM^3 10*3/mm3 4.6-10.2 [...] cell distribution width 18.4 % 11 .6-14.8 neutrophils as percent of blood leukocytes 73.1 % 42.2-75.2 monocytes as percent of blood leukocytes 9.9 % 1.7-9.3 lymphocytes as percent of blood leukocytes 17.0 % 20.5-51.1 leukocyte count, blood 7.2 10^3/MM^3 10*3/mm3 4.6-10.2 neutrophils as percent of blood leukocytes 68.4 % 42.2-75.2 platelet count 362 10^3/MM^3 10*3/mm3 747-803 5223/06/26 leukocyte count, blood 11.7 10^3/MM^3 10*3/mm3 4.6-10.2 [...] 11 .6-14.8 platelet count 272 10^3/MM^3 10*3/mm3 559-394 6325/07/03 leukocyte count, blood 8.1 10^3/MM^3 10*3/mm3 4.6-10.2 [...] 11 .6-14.8 platelet count 315 10^3/MM^3 10*3/mm3 149-254 4278/09/18 leukocyte count, blood 5.3 10^3/MM^3 10*3/mm3 4.6-10.2 [...] 11 .6-14.8 platelet count 317 10^3/MM^3 10*3/mm3 061-824 4628/11/19 leukocyte count, blood 4.9 10^3/MM^3 10*3/mm3 4.6-10.2 [...] 11 .6-14.8 platelet count 214 10^3/MM^3 10*3/mm3 751-226 8200/01/06 leukocyte count, blood 4.8 10^3/MM^3 10*3/mm3 4.6-10.2 [...] 11 .6-14.8 platelet count 254 10^3/MM^3 10*3/mm3 195-553 7030/02/11 leukocyte count, blood 5.8 10^3/MM^3 10*3/mm3 4.6-10.2 [...] Metabolic Panel - Chem istry calcium, serum 8.9 mg/dL 8.5-10.1 bilirubin, serum, total 0.30 mg/dL 0.00-1.00 calcium, serum 9.0 mg/dL 8.5-10.1 bilirubin, serum, total 0.30 mg/dL 0.00-1.00 calcium, serum 9.4 mg/dL 8.5-10.1 bilirubin, serum, total 0.40 mg/dL 0.00-1.00 sodium, serum 140 mmol/L 197-099 8055/11/19 carbon dioxide, venous blood 27.2 mmol/L 21.0-32 .0 potassium, serum 4.8 mmol/L 3.5-5.2 chloride, serum 108 mmol/L 98-107 blood glucose 120 mg/dL 65-95 urea nitrogen, blood 20 mg/dL 7-18 creatinine, serum 0.86 mg/dL 0.60-1.30 Estimated Glomerular Filtration Rate (calc) 71 (?) mL/min/1.73m2 = OR > 60 mL/min alanine aminotransferase (SGPT), serum 36 U/L - aspartate aminotransferase (SGOT), serum 37 U/L - sodium, serum 138 mmol/L 208-634 9566/07/03 carbon dioxide, venous blood 29.9 mmol/L 21.0-32 .0 potassium, serum 5.1 mmol/L 3.5-5.2 chloride, serum 105 mmol/L 98-107 blood glucose 114 mg/dL 65-95 urea nitrogen, blood 17 mg/dL 7-18 creatinine, serum 1.16 mg/dL 0.60-1.30 Estimated Glomerular Filtration Rate (calc) 50 (?) mL/min/1.73m2 = OR > 60 mL/min alanine aminotransferase (SGPT), serum 26 U/L - aspartate aminotransferase (SGOT), serum 32 U/L - sodium, serum 138 mmol/L 000-716 3018/05/15 carbon dioxide, venous blood 25.9 mmol/L 21.0-32 .0 potassium, serum 4.6 mmol/L 3.5-5.2 chloride, serum 104 mmol/L 98-107 blood glucose 105 mg/dL 65-95 urea nitrogen, blood 21 mg/dL 7-18 creatinine, serum 0.94 mg/dL 0.60-1.30 Estimated Glomerular Filtration Rate (calc) 64 (?) mL/min/1.73m2 = OR > 60 mL/min alanine aminotransferase (SGPT), serum 16 U/L - aspartate aminotransferase (SGOT), serum 8 U/L 15-37 Lab Report: Comp. Metabolic Panel - Lab Alkaline phosphatase 96 50-136 Alkaline phosphatase 147 50-136 Alkaline phosphatase 144 50-136 Lab Report: Comp. Metabolic Panel, CBC W /DIFF - Chemistry calcium, serum 9.2 mg/dL 8.5-10.1 bilirubin, serum, total 0.30 mg/dL 0.00-1.00 sodium, serum 138 mmol/L 271-072 7845/09/03 carbon dioxide, venous blood 27.3 mmol/L 21.0-32 .0 potassium, serum 5.0 mmol/L 3.5-5.2 chloride, serum 105 mmol/L 98-107 blood glucose 183 mg/dL 65-95 urea nitrogen, blood 31 mg/dL 7- creatinine, serum 1.24 mg/dL 0.60-1.30 Estimated Glomerular Filtration Rate (calc) 46 (?) mL/min/1.73m2 = OR > 60 mL/min alanine aminotransferase (SGPT), serum 26 U/L - aspartate aminotransferase (SGOT), serum 20 U/L 15-37 calcium, serum 8.5 mg/dL 8.5-10.1 bilirubin, serum, total 0.20 mg/dL 0.00-1.00 sodium, serum 137 mmol/L 307-849 7018/03/18 carbon dioxide, venous blood 21.4 mmol/L 21.0-32 [...] 11 .6-14.8 platelet count 361 10^3/MM^3 10*3/mm3 563-465 7208/03/18 leukocyte count, blood 5.9 10^3/MM^3 10*3/mm3 4.6-10.2 [...] 50-136 Encounters Code Encounter Date Provider Facility CPT-36941 Level 3 Est. Patient 14:49:42 CDT Deacon Rajan MD [facility] CPT-75776 Level 4 New Patient 16:54:39 CDT Deacon Rajan MD [facility] CPT-05822 Level 2 Est. Patient 15:33:16 [employer] Shreyas gillespie MD [facility] Procedures Code Procedure Name Date Entry Date Standard Desc ription CPT-61637 Venipuncture Draw Fee 17:39:08 [employer] CPT-30927 Venipuncture Draw Fee 09:00:01 [employer] CPT-91565 Venipuncture Draw Fee 12:47:04 [employer] CPT-77415 Venipuncture Draw Fee 11:50:17 CDT CPT-91984 Venipuncture Draw Fee 17:46:17 CDT CPT-41798 Postop F/U Visit 15:58:49 CDT
--- OUTSIDE RECORDS SUMMARY | 2019-07-27 11:40 | XMS REPORT | Clinical Summary ---
[...] one by mouth daily 2018 WARFARIN SODIUM [id number] No Longer Active Deacon Rajan MD A ctive LEVO-T 150 MCG ORAL TABLET 3 tab q d LEVOTHYRO XINE SODIUM 39115584156 Active Deacon Rajan MD Active LEVO-T 50 MCG ORAL TABLET 1 q d LEVOTHYROXINE SODIUM 77744909973 Active Deacon Rajan MD Active LEVOTHYROXINE SODIUM 200 MCG ORAL TABLET 2 1/4 tablets daily 201 10/30/27 LEVOTHYROXINE SODIUM 17845563866 No Longer Active Deacon Rajan MD Active MULTIVITAMIN & MINERAL ORAL LIQUID 5 ml daily 06/28 MULTIPLE VITAMINS-MINERALS 21330824702 No Longer Active Deacon Rajan MD Active PRILOSEC OTC 20 MG ORAL TABLET DELAYED RELEASE 2 tablets daily 2 OMEPRAZOLE MAGNESIUM 39923207470 No Longer Active Deacon Rajan MD Active CARAFATE 1 GM ORAL TABLET Take one by mouth four times daily 201 10/30/27 SUCRALFATE 96357590465 No Longer Active Deacon Rajan MD Active VICTOZA 18 MG/3ML SUBCUTANEOUS SOLUTION PEN-INJECTOR 1.8 mg mc y LIRAGLUTIDE 59813923349 No Longer Active Deacon Rajan MD Active TIZANIDINE HCL 4 MG ORAL TABLET 1 tablet every 4 hours TIZANIDINE HCL 63064323025 Active Shelia Quezada RN Active OXYCODONE HCL 5 MG ORAL TABLET 1 tablet every 3-4 hours as n eeded for pain OXYCODONE HCL 83016582407 Active Shelia Quezada RN Active NOVOLOG 100 UNIT/ML SUBCUTANEOUS SOLUTION sliding scale INSULIN ASPART 36316966473 Active Shelia Quezada RN Active MELOXICAM 15 MG ORAL TABLET Take one by mouth daily MELOXICAM 21901239074 Active Shelia Quezada RN Active FUROSEMIDE 40 MG ORAL TABLET Take one by mouth daily FUROSEMIDE 52780382075 Active Shelia Quezada RN Active LANTUS 100 UNIT/ML SUBCUTANEOUS SOLUTION 30 units daily at bedtime INSULIN GLARGINE 33142873609 Active Shelia Quezada RN Act johnathon HYDROCODONE-ACETAMINOPHEN 5-325 MG ORAL TABLET 1 every 4 hours as needed for pain HYDROCODONE-ACETAMINOPHEN 18036368980 Active Shelia Quezada RN Active GLUCOPHAGE 1000 MG ORAL TABLET Take one by mouth daily METFORMIN HCL 80494445315 Active Shelia Quezada RN Active COZAAR 50 MG ORAL TABLET 1 1/2 tabs daily LOSAR KOO POTASSIUM 31918273459 Active Shelia Quezada RN Active CELEXA 20 MG ORAL TABLET Take one by mouth daily CITALOPRAM HYDROBROMIDE 25551752788 Active Shelia Quezada RN Active BACTRIM DS 800-160 MG ORAL TABLET by mouth twice a day SULFAMETHOXAZOLE-TRIMETHOPRIM 60221691443 Active Shelia Quezada RN Active AMITRIPTYLINE HCL 75 MG ORAL TABLET Take one by mouth daily at bedtime AMITRIPTYLINE HCL 76652265094 Active Shelia Yuen N Active VICTOZA 18 MG/3ML SUBCUTANEOUS SOLUTION PEN-INJECTOR 1.8 mg mc y VICTOZA 18 MG/3ML SUBCUTANEOUS SOLUTION PEN-INJECTOR LIRAGLUTIDE Inactive CARAFATE 1 GM ORAL TABLET Take one by mouth four times daily 201 10/30/27 CARAFATE 1 GM ORAL TABLET 756011 SUCRALFATE Inacti ve PRILOSEC OTC 20 MG ORAL TABLET DELAYED RELEASE 2 tablets daily 2 PRILOSEC OTC 20 MG ORAL TABLET DELAYED RELEASE OMEPRAZOLE MAGNESIUM Inactive MULTIVITAMIN & MINERAL ORAL LIQUID 5 ml daily 06/28 MULTIVITAMIN & MINERAL ORAL LIQUID MULTIPLE VITAMINS-MINERALS Inactive LEVOTHYROXINE SODIUM 200 MCG ORAL TABLET 2 1/4 tablets daily 201 10/30/27 LEVOTHYROXINE SODIUM 200 MCG ORAL TABLET 055776 LEVOTHY ROXINE SODIUM Inactive COUMADIN 5 MG ORAL TABLET Take one by mouth daily 2018 COUMADIN 5 MG ORAL TABLET 712958 WARFARIN SODIUM Inactive Vital Signs Date Name [...] CBC W/DIFF - Hematology leukocyte count, blood 6.5 10^3/MM^3 10*3/mm3 4.6-10.2 neutrophils as percent of blood leukocytes 68.4 % 42.2-75.2 monocytes as percent of blood leukocytes 8.6 % 1.7-9.3 lymphocytes as percent of blood leukocytes 16.0 % 20.5-51.1 erythrocyte (RBC) count 4.03 10^6/MM^3 10*6/mm3 3.80-5.8 0 hemoglobin, blood 10.9 g/dL 12.0-16.0 hematocrit, blood 37.6 % 37.0-47.0 mean corpuscular volume, RBC 93 fL 80-97 mean corpuscular hemoglobin, RBC 27.0 pg 27. 0-31.2 mean corpuscular hemoglobin concentration, RBC 28.9 G/DL % 31.8-35.4 red blood cell distribution width 23.0 % 11 .6-14.8 platelet count 303 10^3/MM^3 10*3/mm3 018-700 8186/03/13 leukocyte count, blood 7.2 10^3/MM^3 10*3/mm3 4.6-10.2 neutrophils as percent of blood leukocytes 73.3 % 42.2-75.2 monocytes as percent of blood leukocytes 9.1 % 1.7-9.3 lymphocytes as percent of blood leukocytes 13.1 % 20.5-51.1 erythrocyte (RBC) count 3.09 10^6/MM^3 10*6/mm3 3.80-5.8 0 hemoglobin, blood 8.9 g/dL 12.0-16.0 hematocrit, blood 30.1 % 37.0-47.0 mean corpuscular volume, RBC 97 fL 80-97 mean corpuscular hemoglobin, RBC 28.8 pg 27. 0-31.2 mean corpuscular hemoglobin concentration, RBC 29.6 G/DL % 31.8-35.4 red blood cell distribution width 21.2 % 11 .6-14.8 platelet count 299 10^3/MM^3 10*3/mm3 384-809 3466/04/09 leukocyte count, blood 8.7 10^3/MM^3 10*3/mm3 4.6-10.2 neutrophils as percent of blood leukocytes 73.0 % 42.2-75.2 monocytes as percent of blood leukocytes 9.9 % 1.7-9.3 lymphocytes as percent of blood leukocytes 13.9 % 20.5-51.1 erythrocyte (RBC) count 2.42 10^6/MM^3 10*6/mm3 3.80-5.8 0 hemoglobin, blood 7.1 g/dL 12.0-16.0 hematocrit, blood 24.2 % 37.0-47.0 mean corpuscular volume, RBC 100 fL 80-97 mean corpuscular hemoglobin, RBC 29.6 pg 27. 0-31.2 mean corpuscular hemoglobin concentration, RBC 29.5 G/DL % 31.8-35.4 red blood cell distribution width 18.2 % 11 .6-14.8 platelet count 295 10^3/MM^3 10*3/mm3 137-687 3473/04/24 leukocyte count, blood 8.0 10^3/MM^3 10*3/mm3 4.6-10.2 neutrophils as percent of blood leukocytes 66.8 % 42.2-75.2 monocytes as percent of blood leukocytes 10.4 % 1.7-9.3 lymphocytes as percent of blood leukocytes 18.1 % 20.5-51.1 erythrocyte (RBC) count 1.69 10^6/MM^3 10*6/mm3 3.80-5.8 0 hemoglobin, blood 4.9 g/dL 12.0-16.0 hematocrit, blood 17.2 % 37.0-47.0 mean corpuscular volume, RBC 102 fL 80-97 mean corpuscular hemoglobin, RBC 29.0 pg 27. 0-31.2 mean corpuscular hemoglobin concentration, RBC 28.4 G/DL % 31.8-35.4 red blood cell distribution width 20.2 % 11 .6-14.8 platelet count 429 10^3/MM^3 10*3/mm3 359-111 2108/04/29 leukocyte count, blood 9.1 10^3/MM^3 10*3/mm3 4.6-10.2 neutrophils as percent of blood leukocytes 73.1 % 42.2-75.2 monocytes as percent of blood leukocytes 7.7 % 1.7-9.3 lymphocytes as percent of blood leukocytes 16.3 % 20.5-51.1 erythrocyte (RBC) count 2.31 10^6/MM^3 10*6/mm3 3.80-5.8 0 hemoglobin, blood 6.7 g/dL 12.0-16.0 hematocrit, blood 23.4 % 37.0-47.0 mean corpuscular volume, RBC 102 fL 80-97 mean corpuscular hemoglobin, RBC 29.1 pg 27. 0-31.2 mean corpuscular hemoglobin concentration, RBC 28.7 G/DL % 31.8-35.4 red blood cell distribution width 22.4 % 11 .6-14.8 platelet count 343 10^3/MM^3 10*3/mm3 750-149 4851/05/08 leukocyte count, blood 8.0 10^3/MM^3 10*3/mm3 4.6-10.2 [...] 11 .6-14.8 platelet count 399 10^3/MM^3 10*3/mm3 171-837 3110/05/15 leukocyte count, blood 7.2 10^3/MM^3 10*3/mm3 4.6-10.2 [...] 11 .6-14.8 platelet count 341 10^3/MM^3 10*3/mm3 974-549 3288/05/22 leukocyte count, blood 7.9 10^3/MM^3 10*3/mm3 4.6-10.2 [...] 11 .6-14.8 platelet count 362 10^3/MM^3 10*3/mm3 881-280 0002/06/26 leukocyte count, blood 11.7 10^3/MM^3 10*3/mm3 4.6-10.2 [...] 11 .6-14.8 platelet count 272 10^3/MM^3 10*3/mm3 530-318 6403/07/03 leukocyte count, blood 8.1 10^3/MM^3 10*3/mm3 4.6-10.2 [...] 11 .6-14.8 platelet count 315 10^3/MM^3 10*3/mm3 490-897 0689/09/18 leukocyte count, blood 5.3 10^3/MM^3 10*3/mm3 4.6-10.2 [...] 11 .6-14.8 platelet count 317 10^3/MM^3 10*3/mm3 460-699 9979/11/19 leukocyte count, blood 4.9 10^3/MM^3 10*3/mm3 4.6-10.2 [...] 11 .6-14.8 platelet count 214 10^3/MM^3 10*3/mm3 043-219 1051/01/06 leukocyte count, blood 4.8 10^3/MM^3 10*3/mm3 4.6-10.2 [...] 11 .6-14.8 platelet count 254 10^3/MM^3 10*3/mm3 204-358 7874/02/11 leukocyte count, blood 5.8 10^3/MM^3 10*3/mm3 4.6-10.2 [...] 0.40 mg/dL 0.00-1.00 sodium, serum 140 mmol/L 424-881 1942/11/19 carbon dioxide, venous blood 27.2 mmol/L 21.0-32 .0 potassium, serum 4.8 mmol/L 3.5-5.2 chloride, serum 108 mmol/L 98-107 blood glucose 120 mg/dL 65-95 urea nitrogen, blood 20 mg/dL 7-18 creatinine, serum 0.86 mg/dL 0.60-1.30 Estimated Glomerular Filtration Rate (calc) 71 (?) mL/min/1.73m2 = OR > 60 mL/min alanine aminotransferase (SGPT), serum 36 U/L - aspartate aminotransferase (SGOT), serum 37 U/L 15- sodium, serum 138 mmol/L 171-353 4037/07/03 carbon dioxide, venous blood 29.9 mmol/L 21.0-32 .0 potassium, serum 5.1 mmol/L 3.5-5.2 chloride, serum 105 mmol/L 98-107 blood glucose 114 mg/dL 65-95 urea nitrogen, blood 17 mg/dL 7-18 creatinine, serum 1.16 mg/dL 0.60-1.30 Estimated Glomerular Filtration Rate (calc) 50 (?) mL/min/1.73m2 = OR > 60 mL/min alanine aminotransferase (SGPT), serum 26 U/L - aspartate aminotransferase (SGOT), serum 32 U/L 15-37 sodium, serum 138 mmol/L 792-054 4580/05/15 carbon dioxide, venous blood 25.9 mmol/L 21.0-32 .0 potassium, serum 4.6 mmol/L 3.5-5.2 chloride, serum 104 mmol/L 98-107 blood glucose 105 mg/dL 65-95 urea nitrogen, blood 21 mg/dL 7-18 creatinine, serum 0.94 mg/dL 0.60-1.30 Estimated Glomerular Filtration Rate (calc) 64 (?) mL/min/1.73m2 = OR > 60 mL/min alanine aminotransferase (SGPT), serum 16 U/L 12-78 aspartate aminotransferase (SGOT), serum 8 U/L 15-37 Lab Report: Comp. Metabolic Panel - Lab Alkaline phosphatase 96 50-136 Alkaline phosphatase 147 50-136 Alkaline phosphatase 144 50-136 Lab Report: Comp. Metabolic Panel, CBC W /DIFF - Chemistry sodium, serum 138 mmol/L 106-269 7734/09/03 carbon dioxide, venous blood 27.3 mmol/L 21.0-32 [...] /DIFF - Lab Alkaline phosphatase 231 50-136 Encounters Code Encounter Date Provider Facility CPT-28101 Level 3 Est. Patient 14:49:42 CDT Deacon Rajan MD [facility] CPT-94373 Level 4 New Patient 16:54:39 CDT Deacon Rajan MD [facility] CPT-42201 Level 2 Est. Patient 15:33:16 [employer] Shreyas gillespie MD [facility] Procedures Code Procedure Name Date Entry Date Standard Desc ription CPT-61715 Venipuncture Draw Fee 17:39:08 [employer] CPT-32008 Venipuncture Draw Fee 09:00:01 [employer] CPT-94304 Venipuncture Draw Fee 12:47:04 [employer] CPT-04019 Venipuncture Draw Fee 11:50:17 CDT CPT-35721 Venipuncture Draw Fee 17:46:17 CDT CPT-14190 Postop F/U Visit 15:58:49 CDT
--- OUTSIDE RECORDS SUMMARY | 2019-07-27 11:40 | XMS REPORT | Clinical Summary ---
[...] one by mouth daily 2018 WARFARIN SODIUM [id number] No Longer Active Deacon Rajan MD A ctive LEVO-T 150 MCG ORAL TABLET 3 tab q d LEVOTHYRO XINE SODIUM 21737708129 Active Deacon Rajan MD Active LEVO-T 50 MCG ORAL TABLET 1 q d LEVOTHYROXINE SODIUM 27261243672 Active Deacon Rajan MD Active LEVOTHYROXINE SODIUM 200 MCG ORAL TABLET 2 1/4 tablets daily 201 10/30/27 LEVOTHYROXINE SODIUM 40492252036 No Longer Active Deacon Rajan MD Active MULTIVITAMIN & MINERAL ORAL LIQUID 5 ml daily 06/28 MULTIPLE VITAMINS-MINERALS 33757439829 No Longer Active Deacon Rajan MD Active PRILOSEC OTC 20 MG ORAL TABLET DELAYED RELEASE 2 tablets daily 2 OMEPRAZOLE MAGNESIUM 47807325722 No Longer Active Deacon Rajan MD Active CARAFATE 1 GM ORAL TABLET Take one by mouth four times daily 201 10/30/27 SUCRALFATE 93788615100 No Longer Active Deacon Rajan MD Active VICTOZA 18 MG/3ML SUBCUTANEOUS SOLUTION PEN-INJECTOR 1.8 mg mc y LIRAGLUTIDE 18393487782 No Longer Active Deacon Rajan MD Active TIZANIDINE HCL 4 MG ORAL TABLET 1 tablet every 4 hours TIZANIDINE HCL 89319492797 Active Shelia Quezada RN Active OXYCODONE HCL 5 MG ORAL TABLET 1 tablet every 3-4 hours as n eeded for pain OXYCODONE HCL 52137759815 Active Shelia Quezada RN Active NOVOLOG 100 UNIT/ML SUBCUTANEOUS SOLUTION sliding scale INSULIN ASPART 60128948089 Active Shelia Quezada RN Active MELOXICAM 15 MG ORAL TABLET Take one by mouth daily MELOXICAM 19493959319 Active Shelia Quezada RN Active FUROSEMIDE 40 MG ORAL TABLET Take one by mouth daily FUROSEMIDE 57579086360 Active Shelia Quezada RN Active LANTUS 100 UNIT/ML SUBCUTANEOUS SOLUTION 30 units daily at bedtime INSULIN GLARGINE 20642497481 Active Shelia Quezada RN Act johnathon HYDROCODONE-ACETAMINOPHEN 5-325 MG ORAL TABLET 1 every 4 hours as needed for pain HYDROCODONE-ACETAMINOPHEN 01927587345 Active Shelia Quezada RN Active GLUCOPHAGE 1000 MG ORAL TABLET Take one by mouth daily METFORMIN HCL 28380881914 Active Shelia Quezada RN Active COZAAR 50 MG ORAL TABLET 1 1/2 tabs daily LOSAR KOO POTASSIUM 09426577907 Active Shelia Quezada RN Active CELEXA 20 MG ORAL TABLET Take one by mouth daily CITALOPRAM HYDROBROMIDE 11967817497 Active Shelia Quezada RN Active BACTRIM DS 800-160 MG ORAL TABLET by mouth twice a day SULFAMETHOXAZOLE-TRIMETHOPRIM 72025033566 Active Shelia Quezada RN Active AMITRIPTYLINE HCL 75 MG ORAL TABLET Take one by mouth daily at bedtime AMITRIPTYLINE HCL 69144329774 Active Shelia Yuen N Active VICTOZA 18 MG/3ML SUBCUTANEOUS SOLUTION PEN-INJECTOR 1.8 mg mc y VICTOZA 18 MG/3ML SUBCUTANEOUS SOLUTION PEN-INJECTOR LIRAGLUTIDE Inactive CARAFATE 1 GM ORAL TABLET Take one by mouth four times daily 201 10/30/27 CARAFATE 1 GM ORAL TABLET 997142 SUCRALFATE Inacti ve PRILOSEC OTC 20 MG ORAL TABLET DELAYED RELEASE 2 tablets daily 2 PRILOSEC OTC 20 MG ORAL TABLET DELAYED RELEASE OMEPRAZOLE MAGNESIUM Inactive MULTIVITAMIN & MINERAL ORAL LIQUID 5 ml daily 06/28 MULTIVITAMIN & MINERAL ORAL LIQUID MULTIPLE VITAMINS-MINERALS Inactive LEVOTHYROXINE SODIUM 200 MCG ORAL TABLET 2 1/4 tablets daily 201 10/30/27 LEVOTHYROXINE SODIUM 200 MCG ORAL TABLET 398912 LEVOTHY ROXINE SODIUM Inactive COUMADIN 5 MG ORAL TABLET Take one by mouth daily 2018 COUMADIN 5 MG ORAL TABLET 038989 WARFARIN SODIUM Inactive Vital Signs Date Name [...] 11 .6-14.8 platelet count 303 10^3/MM^3 10*3/mm3 868-706 9014/03/13 leukocyte count, blood 7.2 10^3/MM^3 10*3/mm3 4.6-10.2 [...] 11 .6-14.8 platelet count 299 10^3/MM^3 10*3/mm3 375-767 2906/04/09 leukocyte count, blood 8.7 10^3/MM^3 10*3/mm3 4.6-10.2 [...] 11 .6-14.8 platelet count 295 10^3/MM^3 10*3/mm3 800-552 0793/04/24 leukocyte count, blood 8.0 10^3/MM^3 10*3/mm3 4.6-10.2 [...] 11 .6-14.8 platelet count 429 10^3/MM^3 10*3/mm3 583-090 6457/04/29 leukocyte count, blood 9.1 10^3/MM^3 10*3/mm3 4.6-10.2 [...] 11 .6-14.8 platelet count 343 10^3/MM^3 10*3/mm3 475-638 6070/05/08 leukocyte count, blood 8.0 10^3/MM^3 10*3/mm3 4.6-10.2 [...] 11 .6-14.8 platelet count 399 10^3/MM^3 10*3/mm3 034-472 6596/05/15 leukocyte count, blood 7.2 10^3/MM^3 10*3/mm3 4.6-10.2 [...] 11 .6-14.8 platelet count 341 10^3/MM^3 10*3/mm3 906-070 1399/05/22 leukocyte count, blood 7.9 10^3/MM^3 10*3/mm3 4.6-10.2 [...] 11 .6-14.8 platelet count 362 10^3/MM^3 10*3/mm3 220-165 1756/06/26 leukocyte count, blood 11.7 10^3/MM^3 10*3/mm3 4.6-10.2 [...] 11 .6-14.8 platelet count 272 10^3/MM^3 10*3/mm3 529-581 0965/07/03 leukocyte count, blood 8.1 10^3/MM^3 10*3/mm3 4.6-10.2 [...] 11 .6-14.8 platelet count 315 10^3/MM^3 10*3/mm3 172-522 3122/09/18 leukocyte count, blood 5.3 10^3/MM^3 10*3/mm3 4.6-10.2 [...] 11 .6-14.8 platelet count 317 10^3/MM^3 10*3/mm3 487-484 7640/11/19 leukocyte count, blood 4.9 10^3/MM^3 10*3/mm3 4.6-10.2 [...] 11 .6-14.8 platelet count 214 10^3/MM^3 10*3/mm3 701-432 9810/01/06 leukocyte count, blood 4.8 10^3/MM^3 10*3/mm3 4.6-10.2 [...] 11 .6-14.8 platelet count 254 10^3/MM^3 10*3/mm3 241-150 2735/02/11 leukocyte count, blood 5.8 10^3/MM^3 10*3/mm3 4.6-10.2 [...] 0.40 mg/dL 0.00-1.00 sodium, serum 140 mmol/L 957-621 0888/11/19 carbon dioxide, venous blood 27.2 mmol/L 21.0-32 [...] 37 U/L 15- sodium, serum 138 mmol/L 696-222 5882/07/03 carbon dioxide, venous blood 29.9 mmol/L 21.0-32 [...] 32 U/L 15-37 sodium, serum 138 mmol/L 798-761 7544/05/15 carbon dioxide, venous blood 25.9 mmol/L 21.0-32 [...] /DIFF - Chemistry sodium, serum 138 mmol/L 466-652 7777/09/03 carbon dioxide, venous blood 27.3 mmol/L 21.0-32 [...] 50-136 Encounters Code Encounter Date Provider Facility CPT-84466 Level 3 Est. Patient 14:49:42 CDT Deacon Rajan MD [facility] CPT-01112 Level 4 New Patient 16:54:39 CDT Deacon Rajan MD [facility] CPT-70475 Level 2 Est. Patient 15:33:16 CASING TESTER Shreyas gillespie MD [facility] Procedures Code Procedure Name Date Entry Date Standard Desc ription CPT-68332 Venipuncture Draw Fee 09:00:01 CASING TESTER CPT-01437 Venipuncture Draw Fee 12:47:04 CASING TESTER CPT-27656 Venipuncture Draw Fee 11:50:17 CDT CPT-12818 Venipuncture Draw Fee 17:46:17 CDT CPT-32756 Postop F/U Visit 15:58:49 CDT
--- OUTSIDE RECORDS SUMMARY | 2019-07-27 11:41 | XMS REPORT | Clinical Summary ---
[...] one by mouth daily 2018 WARFARIN SODIUM 09039911557 No Longer Active Deacon Rajan MD A ctive LEVO-T 150 MCG ORAL TABLET 3 tab q d LEVOTHYRO XINE SODIUM 20930435713 Active Deacon Rajan MD Active LEVO-T 50 MCG ORAL TABLET 1 q d LEVOTHYROXINE SODIUM 72233250785 Active Deacon Rajan MD Active LEVOTHYROXINE SODIUM 200 MCG ORAL TABLET 2 1/4 tablets daily 201 10/30/27 LEVOTHYROXINE SODIUM 85490806506 No Longer Active Deacon Rajan MD Active MULTIVITAMIN & MINERAL ORAL LIQUID 5 ml daily 06/28 MULTIPLE VITAMINS-MINERALS 65520526272 No Longer Active Deacon Rajan MD Active PRILOSEC OTC 20 MG ORAL TABLET DELAYED RELEASE 2 tablets daily 2 OMEPRAZOLE MAGNESIUM 28499341608 No Longer Active Deacon Rajan MD Active CARAFATE 1 GM ORAL TABLET Take one by mouth four times daily 201 10/30/27 SUCRALFATE 35550405608 No Longer Active Deacon Rajan MD Active VICTOZA 18 MG/3ML SUBCUTANEOUS SOLUTION PEN-INJECTOR 1.8 mg mc y LIRAGLUTIDE 04874369995 No Longer Active Deacon Rajan MD Active TIZANIDINE HCL 4 MG ORAL TABLET 1 tablet every 4 hours TIZANIDINE HCL 42814720211 Active Shelia Quezada RN Active OXYCODONE HCL 5 MG ORAL TABLET 1 tablet every 3-4 hours as n eeded for pain OXYCODONE HCL 46885103829 Active Shelia Quezada RN Active NOVOLOG 100 UNIT/ML SUBCUTANEOUS SOLUTION sliding scale INSULIN ASPART 54515934858 Active Shelia Quezada RN Active MELOXICAM 15 MG ORAL TABLET Take one by mouth daily MELOXICAM 47891587882 Active Shelia Quezada RN Active FUROSEMIDE 40 MG ORAL TABLET Take one by mouth daily FUROSEMIDE 98241161001 Active Shelia Quezada RN Active LANTUS 100 UNIT/ML SUBCUTANEOUS SOLUTION 30 units daily at bedtime INSULIN GLARGINE 97795517104 Active Shelia Quezada RN Act johnathon HYDROCODONE-ACETAMINOPHEN 5-325 MG ORAL TABLET 1 every 4 hours as needed for pain HYDROCODONE-ACETAMINOPHEN 09955123185 Active Shelia Quezada RN Active GLUCOPHAGE 1000 MG ORAL TABLET Take one by mouth daily METFORMIN HCL 41204681591 Active Shelia Quezada RN Active COZAAR 50 MG ORAL TABLET 1 1/2 tabs daily LOSAR KOO POTASSIUM 13377700608 Active Shelia Quezada RN Active CELEXA 20 MG ORAL TABLET Take one by mouth daily CITALOPRAM HYDROBROMIDE 85280707016 Active Shelia Quezada RN Active BACTRIM DS 800-160 MG ORAL TABLET by mouth twice a day SULFAMETHOXAZOLE-TRIMETHOPRIM 06296435942 Active Shelia Quezada RN Active AMITRIPTYLINE HCL 75 MG ORAL TABLET Take one by mouth daily at bedtime AMITRIPTYLINE HCL 17488404986 Active Shelia Yuen N Active VICTOZA 18 MG/3ML SUBCUTANEOUS SOLUTION PEN-INJECTOR 1.8 mg mc y VICTOZA 18 MG/3ML SUBCUTANEOUS SOLUTION PEN-INJECTOR LIRAGLUTIDE Inactive CARAFATE 1 GM ORAL TABLET Take one by mouth four times daily 201 10/30/27 CARAFATE 1 GM ORAL TABLET 204313 SUCRALFATE Inacti ve PRILOSEC OTC 20 MG ORAL TABLET DELAYED RELEASE 2 tablets daily 2 PRILOSEC OTC 20 MG ORAL TABLET DELAYED RELEASE OMEPRAZOLE MAGNESIUM Inactive MULTIVITAMIN & MINERAL ORAL LIQUID 5 ml daily 06/28 MULTIVITAMIN & MINERAL ORAL LIQUID MULTIPLE VITAMINS-MINERALS Inactive LEVOTHYROXINE SODIUM 200 MCG ORAL TABLET 2 1/4 tablets daily 201 10/30/27 LEVOTHYROXINE SODIUM 200 MCG ORAL TABLET 536660 LEVOTHY ROXINE SODIUM Inactive COUMADIN 5 MG ORAL TABLET Take one by mouth daily 2018 COUMADIN 5 MG ORAL TABLET 562156 WARFARIN SODIUM Inactive Vital Signs Date Name [...] weight E&M 209 [lb_av] Weight Measure d blood pressure, diastolic, repeated by physician 71 BP camilo blood pressure, diastolic 71 mm[Hg] BP camilo blood pressure, systolic, repeated by physician 158 BP sys blood pressure, systolic 158 mm[Hg] BP sys height E&M 69 [in_us] Bdy height pulse rate E&M 94 /min Heart rate temperature E&M 99.8 [degF] Body temp erature weight E&M 246 [lb_av] Weight Measure d Diagnostic Results Date Name Value Unit Range Description Lab Report: CBC W/DIFF - Hematology leukocyte count, blood 5.6 10^3/MM^3 10*3/mm3 4.6-10.2 neutrophils as percent of blood leukocytes 71.1 % 42.2-75.2 monocytes as percent of blood leukocytes 9.5 % 1.7-9.3 lymphocytes as percent of blood leukocytes 14.4 % 20.5-51.1 erythrocyte (RBC) count 3.75 10^6/MM^3 10*6/mm3 3.80-5.8 0 hemoglobin, blood 9.8 g/dL 12.0-16.0 hematocrit, blood 34.2 % 37.0-47.0 mean corpuscular volume, RBC 91 fL 80-97 mean corpuscular hemoglobin, RBC 26.1 pg 27. 0-31.2 mean corpuscular hemoglobin concentration, RBC 28.6 G/DL % 31.8-35.4 red blood cell distribution width 25.7 % 11 .6-14.8 platelet count 304 10^3/MM^3 10*3/mm3 161-515 9449/02/13 leukocyte count, blood 6.5 10^3/MM^3 10*3/mm3 4.6-10.2 [...] 11 .6-14.8 platelet count 303 10^3/MM^3 10*3/mm3 377-968 4045/03/13 leukocyte count, blood 7.2 10^3/MM^3 10*3/mm3 4.6-10.2 [...] 11 .6-14.8 platelet count 299 10^3/MM^3 10*3/mm3 709-035 4768/04/09 leukocyte count, blood 8.7 10^3/MM^3 10*3/mm3 4.6-10.2 [...] 11 .6-14.8 platelet count 295 10^3/MM^3 10*3/mm3 507-391 2266/04/24 leukocyte count, blood 8.0 10^3/MM^3 10*3/mm3 4.6-10.2 [...] 11 .6-14.8 platelet count 429 10^3/MM^3 10*3/mm3 681-308 8486/04/29 leukocyte count, blood 9.1 10^3/MM^3 10*3/mm3 4.6-10.2 [...] 11 .6-14.8 platelet count 343 10^3/MM^3 10*3/mm3 627-279 9475/05/08 leukocyte count, blood 8.0 10^3/MM^3 10*3/mm3 4.6-10.2 [...] 11 .6-14.8 platelet count 399 10^3/MM^3 10*3/mm3 121-357 9688/05/15 leukocyte count, blood 7.2 10^3/MM^3 10*3/mm3 4.6-10.2 [...] 11 .6-14.8 platelet count 341 10^3/MM^3 10*3/mm3 284-999 3238/05/22 leukocyte count, blood 7.9 10^3/MM^3 10*3/mm3 4.6-10.2 [...] 11 .6-14.8 platelet count 362 10^3/MM^3 10*3/mm3 811-860 1617/06/26 leukocyte count, blood 11.7 10^3/MM^3 10*3/mm3 4.6-10.2 [...] 11 .6-14.8 platelet count 272 10^3/MM^3 10*3/mm3 928-973 7964/07/03 leukocyte count, blood 8.1 10^3/MM^3 10*3/mm3 4.6-10.2 [...] 11 .6-14.8 platelet count 315 10^3/MM^3 10*3/mm3 100-142 6600/09/18 leukocyte count, blood 5.3 10^3/MM^3 10*3/mm3 4.6-10.2 [...] 11 .6-14.8 platelet count 317 10^3/MM^3 10*3/mm3 555-755 5441/11/19 leukocyte count, blood 4.9 10^3/MM^3 10*3/mm3 4.6-10.2 [...] 11 .6-14.8 platelet count 214 10^3/MM^3 10*3/mm3 591-513 7320/01/06 leukocyte count, blood 4.8 10^3/MM^3 10*3/mm3 4.6-10.2 [...] serum, total 0.40 mg/dL 0.00-1.00 calcium, serum 8.9 mg/dL 8.5-10.1 bilirubin, serum, total 0.30 mg/dL 0.00-1.00 sodium, serum 140 mmol/L 846-053 6449/11/19 carbon dioxide, venous blood 27.2 mmol/L 21.0-32 .0 potassium, serum 4.8 mmol/L 3.5-5.2 chloride, serum 108 mmol/L 98-107 blood glucose 120 mg/dL 65-95 urea nitrogen, blood 20 mg/dL 7-18 creatinine, serum 0.86 mg/dL 0.60-1.30 Estimated Glomerular Filtration Rate (calc) 71 (?) mL/min/1.73m2 = OR > 60 mL/min alanine aminotransferase (SGPT), serum 36 U/L 12-78 aspartate aminotransferase (SGOT), serum 37 U/L 15-37 sodium, serum 138 mmol/L 907-081 4434/07/03 carbon dioxide, venous blood 29.9 mmol/L 21.0-32 [...] 32 U/L 15-37 sodium, serum 138 mmol/L 058-197 7882/05/15 carbon dioxide, venous blood 25.9 mmol/L 21.0-32 .0 potassium, serum 4.6 mmol/L 3.5-5.2 chloride, serum 104 mmol/L 98-107 blood glucose 105 mg/dL 65-95 urea nitrogen, blood 21 mg/dL 7-18 creatinine, serum 0.94 mg/dL 0.60-1.30 Estimated Glomerular Filtration Rate (calc) 64 (?) mL/min/1.73m2 = OR > 60 mL/min alanine aminotransferase (SGPT), serum 16 U/L aspartate aminotransferase (SGOT), serum 8 U/L 15-37 Lab Report: Comp. Metabolic Panel - Lab Alkaline phosphatase 96 50-136 Alkaline phosphatase 147 50-136 Alkaline phosphatase 144 50-136 Lab Report: Comp. Metabolic Panel, CBC W /DIFF - Chemistry sodium, serum 138 mmol/L 358-934 8240/09/03 carbon dioxide, venous blood 27.3 mmol/L 21.0-32 .0 potassium, serum 5.0 mmol/L 3.5-5.2 chloride, serum 105 mmol/L 98-107 blood glucose 183 mg/dL 65-95 urea nitrogen, blood 31 mg/dL 7-18 creatinine, serum 1.24 mg/dL 0.60-1.30 Estimated Glomerular Filtration Rate (calc) 46 (?) mL/min/1.73m2 = OR > 60 mL/min alanine aminotransferase (SGPT), serum 26 U/L aspartate aminotransferase (SGOT), serum 20 U/L 15-37 [...] 50-136 Encounters Code Encounter Date Provider Facility CPT-86765 Level 3 Est. Patient 14:49:42 CDT Deacon Rajan MD [facility] CPT-90724 Level 4 New Patient 16:54:39 CDT Deacon Rajan MD [facility] CPT-04375 Level 2 Est. 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
--- OUTSIDE RECORDS SUMMARY | 2019-07-27 11:41 | XMS REPORT | Clinical Summary ---
[...] on the digestive system V58.75 Active Deacon Raajn MD [facility] following surgery of the teeth,oral cavity and digestive system, NEC Disruption of external operation (surgic al) wound, not elsewhere classified, sequela 998.30 Active Deacon Rajan MD Disruption of wound, unspecified Medication List Medication Instructions Start Date Stop Date Generic Name NDC Status Provider Patient Instruction COUMADIN 5 MG ORAL TABLET Take one by mouth daily 2018 WARFARIN SODIUM 15869283097 No Longer Active Deacon Rajan MD A ctive LEVO-T 150 MCG ORAL TABLET 3 tab q d LEVOTHYRO XINE SODIUM 25018990886 Active Deacon Rajan MD Active LEVO-T 50 MCG ORAL TABLET 1 q d LEVOTHYROXINE SODIUM 94951926588 Active Deacon Rajan MD Active LEVOTHYROXINE SODIUM 200 MCG ORAL TABLET 2 1/4 tablets daily 201 10/30/27 LEVOTHYROXINE SODIUM 79738817375 No Longer Active Deacon Rajan MD Active MULTIVITAMIN & MINERAL ORAL LIQUID 5 ml daily 06/28 MULTIPLE VITAMINS-MINERALS 45495393736 No Longer Active Deacon Rajan MD Active PRILOSEC OTC 20 MG ORAL TABLET DELAYED RELEASE 2 tablets daily 2 OMEPRAZOLE MAGNESIUM 07165282917 No Longer Active Deacon Rajan MD Active CARAFATE 1 GM ORAL TABLET Take one by mouth four times daily 201 10/30/27 SUCRALFATE 62595652946 No Longer Active Deacon Rajan MD Active VICTOZA 18 MG/3ML SUBCUTANEOUS SOLUTION PEN-INJECTOR 1.8 mg mc y LIRAGLUTIDE 75973389535 No Longer Active Deacon Rajan MD Active TIZANIDINE HCL 4 MG ORAL TABLET 1 tablet every 4 hours TIZANIDINE HCL 64409717310 Active Shelia Quezada RN Active OXYCODONE HCL 5 MG ORAL TABLET 1 tablet every 3-4 hours as n eeded for pain OXYCODONE HCL 35710533551 Active Shelia Quezada RN Active NOVOLOG 100 UNIT/ML SUBCUTANEOUS SOLUTION sliding scale INSULIN ASPART 51456956892 Active Shelia Quezada RN Active MELOXICAM 15 MG ORAL TABLET Take one by mouth daily MELOXICAM 84021728151 Active Shelia Quezada RN Active FUROSEMIDE 40 MG ORAL TABLET Take one by mouth daily FUROSEMIDE 70608464886 Active Shelia Quezada RN Active LANTUS 100 UNIT/ML SUBCUTANEOUS SOLUTION 30 units daily at bedtime INSULIN GLARGINE 47156667183 Active Shelia Quezada RN Act johnathon HYDROCODONE-ACETAMINOPHEN 5-325 MG ORAL TABLET 1 every 4 hours as needed for pain HYDROCODONE-ACETAMINOPHEN 00720495318 Active Shelia Quezada RN Active GLUCOPHAGE 1000 MG ORAL TABLET Take one by mouth daily METFORMIN HCL 35606587762 Active Shelia Quezada RN Active COZAAR 50 MG ORAL TABLET 1 1/2 tabs daily LOSAR KOO POTASSIUM 13956616995 Active Shelia Quezada RN Active CELEXA 20 MG ORAL TABLET Take one by mouth daily CITALOPRAM HYDROBROMIDE 14596326845 Active Shelia Quezada RN Active BACTRIM DS 800-160 MG ORAL TABLET by mouth twice a day SULFAMETHOXAZOLE-TRIMETHOPRIM 85068508796 Active Shelia Quezada RN Active AMITRIPTYLINE HCL 75 MG ORAL TABLET Take one by mouth daily at bedtime AMITRIPTYLINE HCL 44307527732 Active Shelia Yuen N Active VICTOZA 18 MG/3ML SUBCUTANEOUS SOLUTION PEN-INJECTOR 1.8 mg mc y VICTOZA 18 MG/3ML SUBCUTANEOUS SOLUTION PEN-INJECTOR LIRAGLUTIDE Inactive CARAFATE 1 GM ORAL TABLET Take one by mouth four times daily 201 10/30/27 CARAFATE 1 GM ORAL TABLET 833995 SUCRALFATE Inacti ve PRILOSEC OTC 20 MG ORAL TABLET DELAYED RELEASE 2 tablets daily 2 PRILOSEC OTC 20 MG ORAL TABLET DELAYED RELEASE OMEPRAZOLE MAGNESIUM Inactive MULTIVITAMIN & MINERAL ORAL LIQUID 5 ml daily 06/28 MULTIVITAMIN & MINERAL ORAL LIQUID MULTIPLE VITAMINS-MINERALS Inactive LEVOTHYROXINE SODIUM 200 MCG ORAL TABLET 2 1/4 tablets daily 201 10/30/27 LEVOTHYROXINE SODIUM 200 MCG ORAL TABLET 077199 LEVOTHY ROXINE SODIUM Inactive COUMADIN 5 MG ORAL TABLET Take one by mouth daily 2018 COUMADIN 5 MG ORAL TABLET 285226 WARFARIN SODIUM Inactive Vital Signs Date Name [...] 11 .6-14.8 platelet count 304 10^3/MM^3 10*3/mm3 246-642 2815/02/13 leukocyte count, blood 6.5 10^3/MM^3 10*3/mm3 4.6-10.2 [...] 11 .6-14.8 platelet count 303 10^3/MM^3 10*3/mm3 746-402 6514/03/13 leukocyte count, blood 7.2 10^3/MM^3 10*3/mm3 4.6-10.2 [...] 11 .6-14.8 platelet count 299 10^3/MM^3 10*3/mm3 720-372 0730/04/09 leukocyte count, blood 8.7 10^3/MM^3 10*3/mm3 4.6-10.2 [...] 11 .6-14.8 platelet count 295 10^3/MM^3 10*3/mm3 394-975 6027/04/24 leukocyte count, blood 8.0 10^3/MM^3 10*3/mm3 4.6-10.2 [...] 11 .6-14.8 platelet count 429 10^3/MM^3 10*3/mm3 539-763 8246/04/29 leukocyte count, blood 9.1 10^3/MM^3 10*3/mm3 4.6-10.2 [...] 11 .6-14.8 platelet count 343 10^3/MM^3 10*3/mm3 929-989 5787/05/08 leukocyte count, blood 8.0 10^3/MM^3 10*3/mm3 4.6-10.2 [...] 11 .6-14.8 platelet count 399 10^3/MM^3 10*3/mm3 584-700 0383/05/15 leukocyte count, blood 7.2 10^3/MM^3 10*3/mm3 4.6-10.2 [...] 11 .6-14.8 platelet count 341 10^3/MM^3 10*3/mm3 597-783 3751/05/22 leukocyte count, blood 7.9 10^3/MM^3 10*3/mm3 4.6-10.2 [...] 11 .6-14.8 platelet count 362 10^3/MM^3 10*3/mm3 950-650 8675/06/26 leukocyte count, blood 11.7 10^3/MM^3 10*3/mm3 4.6-10.2 [...] 11 .6-14.8 platelet count 272 10^3/MM^3 10*3/mm3 512-102 8553/07/03 leukocyte count, blood 8.1 10^3/MM^3 10*3/mm3 4.6-10.2 [...] 11 .6-14.8 platelet count 315 10^3/MM^3 10*3/mm3 835-420 0738/09/18 leukocyte count, blood 5.3 10^3/MM^3 10*3/mm3 4.6-10.2 [...] 11 .6-14.8 platelet count 317 10^3/MM^3 10*3/mm3 700-402 1511/11/19 leukocyte count, blood 4.9 10^3/MM^3 10*3/mm3 4.6-10.2 [...] 11 .6-14.8 platelet count 214 10^3/MM^3 10*3/mm3 379-201 3931/01/06 leukocyte count, blood 4.8 10^3/MM^3 10*3/mm3 4.6-10.2 [...] 0.30 mg/dL 0.00-1.00 sodium, serum 140 mmol/L 219-865 7692/11/19 carbon dioxide, venous blood 27.2 mmol/L 21.0-32 [...] 37 U/L 15-37 sodium, serum 138 mmol/L 680-077 3006/07/03 carbon dioxide, venous blood 29.9 mmol/L 21.0-32 [...] 32 U/L 15-37 sodium, serum 138 mmol/L 658-035 3464/05/15 carbon dioxide, venous blood 25.9 mmol/L 21.0-32 [...] /DIFF - Chemistry sodium, serum 138 mmol/L 419-671 0711/09/03 carbon dioxide, venous blood 27.3 mmol/L 21.0-32 [...] 50-136 Encounters Code Encounter Date Provider Facility CPT-77258 Level 3 Est. Patient 14:49:42 CDT Deacon Rajan MD [facility] CPT-43555 Level 4 New Patient 16:54:39 CDT Deacon Rajan MD [facility] CPT-81509 Level 2 Est. Patient 15:33:16 SILVERER Shreyas gillespie MD [facility] Procedures Code Procedure Name Date Entry Date Standard Desc ription CPT-23174 Venipuncture Draw Fee 12:47:04 SILVERER CPT-08250 Venipuncture Draw Fee 11:50:17 CDT CPT-88554 Venipuncture Draw Fee 17:46:17 CDT CPT-70448 Postop F/U Visit 15:58:49 CDT
--- OUTSIDE RECORDS SUMMARY | 2019-07-27 11:41 | XMS REPORT | Clinical Summary ---
[...] not elsewhere classified, sequela 998.30 Active Deacon aRjan MD Disruption of wound, unspecified Medication List Medication Instructions Start Date Stop Date Generic Name NDC Status Provider Patient Instruction COUMADIN 5 MG ORAL TABLET Take one by mouth daily 2018 WARFARIN SODIUM 58200639322 No Longer Active Deacon Rajan MD A ctive LEVO-T 150 MCG ORAL TABLET 3 tab q d LEVOTHYRO XINE SODIUM 09568303970 Active Deacon Rajan MD Active LEVO-T 50 MCG ORAL TABLET 1 q d LEVOTHYROXINE SODIUM 90737699986 Active Deacon Rajan MD Active LEVOTHYROXINE SODIUM 200 MCG ORAL TABLET 2 1/4 tablets daily 201 10/30/27 LEVOTHYROXINE SODIUM 90466101491 No Longer Active Deacon Rajan MD Active MULTIVITAMIN & MINERAL ORAL LIQUID 5 ml daily 06/28 MULTIPLE VITAMINS-MINERALS 54711365533 No Longer Active Deacon Rajan MD Active PRILOSEC OTC 20 MG ORAL TABLET DELAYED RELEASE 2 tablets daily 2 OMEPRAZOLE MAGNESIUM 70185110348 No Longer Active Deacon Rajan MD Active CARAFATE 1 GM ORAL TABLET Take one by mouth four times daily 201 10/30/27 SUCRALFATE 24427896262 No Longer Active Deacon Rajan MD Active VICTOZA 18 MG/3ML SUBCUTANEOUS SOLUTION PEN-INJECTOR 1.8 mg mc y LIRAGLUTIDE 73661631508 No Longer Active Deacon Rajan MD Active TIZANIDINE HCL 4 MG ORAL TABLET 1 tablet every 4 hours TIZANIDINE HCL 16393300640 Active Shelia Quezada RN Active OXYCODONE HCL 5 MG ORAL TABLET 1 tablet every 3-4 hours as n eeded for pain OXYCODONE HCL 29052100600 Active Shelia Quezada RN Active NOVOLOG 100 UNIT/ML SUBCUTANEOUS SOLUTION sliding scale INSULIN ASPART 55631698116 Active Shelia Quezada RN Active MELOXICAM 15 MG ORAL TABLET Take one by mouth daily MELOXICAM 24011611646 Active Shelia Quezada RN Active FUROSEMIDE 40 MG ORAL TABLET Take one by mouth daily FUROSEMIDE 46463058760 Active Shelia Quezada RN Active LANTUS 100 UNIT/ML SUBCUTANEOUS SOLUTION 30 units daily at bedtime INSULIN GLARGINE 35014184817 Active Shelia Quezada RN Act johnathon HYDROCODONE-ACETAMINOPHEN 5-325 MG ORAL TABLET 1 every 4 hours as needed for pain HYDROCODONE-ACETAMINOPHEN 48270100772 Active Shelia Quezada RN Active GLUCOPHAGE 1000 MG ORAL TABLET Take one by mouth daily METFORMIN HCL 62066141262 Active Shelia Quezada RN Active COZAAR 50 MG ORAL TABLET 1 1/2 tabs daily LOSAR KOO POTASSIUM 97289807444 Active Shelia Quezada RN Active CELEXA 20 MG ORAL TABLET Take one by mouth daily CITALOPRAM HYDROBROMIDE 61284128103 Active Shelia Quezada RN Active BACTRIM DS 800-160 MG ORAL TABLET by mouth twice a day SULFAMETHOXAZOLE-TRIMETHOPRIM 30138637047 Active Shelia Quezada RN Active AMITRIPTYLINE HCL 75 MG ORAL TABLET Take one by mouth daily at bedtime AMITRIPTYLINE HCL 78072034439 Active Shelia Yuen N Active VICTOZA 18 MG/3ML SUBCUTANEOUS SOLUTION PEN-INJECTOR 1.8 mg mc y VICTOZA 18 MG/3ML SUBCUTANEOUS SOLUTION PEN-INJECTOR LIRAGLUTIDE Inactive CARAFATE 1 GM ORAL TABLET Take one by mouth four times daily 201 10/30/27 CARAFATE 1 GM ORAL TABLET 260517 SUCRALFATE Inacti ve PRILOSEC OTC 20 MG ORAL TABLET DELAYED RELEASE 2 tablets daily 2 PRILOSEC OTC 20 MG ORAL TABLET DELAYED RELEASE OMEPRAZOLE MAGNESIUM Inactive MULTIVITAMIN & MINERAL ORAL LIQUID 5 ml daily 06/28 MULTIVITAMIN & MINERAL ORAL LIQUID MULTIPLE VITAMINS-MINERALS Inactive LEVOTHYROXINE SODIUM 200 MCG ORAL TABLET 2 1/4 tablets daily 201 10/30/27 LEVOTHYROXINE SODIUM 200 MCG ORAL TABLET 112425 LEVOTHY ROXINE SODIUM Inactive COUMADIN 5 MG ORAL TABLET Take one by mouth daily 2018 COUMADIN 5 MG ORAL TABLET 932911 WARFARIN SODIUM Inactive Vital Signs Date Name [...] Description Lab Report: CBC W/DIFF - Hematology hemoglobin, blood 9.8 g/dL 12.0-16.0 hematocrit, blood 34.2 % 37.0-47.0 mean corpuscular volume, RBC 91 fL 80-97 mean corpuscular hemoglobin, RBC 26.1 pg 27. 0-31.2 mean corpuscular hemoglobin concentration, RBC 28.6 G/DL % 31.8-35.4 red blood cell distribution width 25.7 % 11 .6-14.8 platelet count 304 10^3/MM^3 10*3/mm3 834-337 0265/02/13 leukocyte count, blood 6.5 10^3/MM^3 10*3/mm3 4.6-10.2 [...] 11 .6-14.8 platelet count 303 10^3/MM^3 10*3/mm3 807-229 8130/03/13 leukocyte count, blood 7.2 10^3/MM^3 10*3/mm3 4.6-10.2 [...] 11 .6-14.8 platelet count 299 10^3/MM^3 10*3/mm3 483-053 7422/04/09 leukocyte count, blood 8.7 10^3/MM^3 10*3/mm3 4.6-10.2 neutrophils as percent of blood leukocytes 73.0 % 42.2-75.2 erythrocyte (RBC) count 3.75 10^6/MM^3 10*6/mm3 3.80-5.8 0 lymphocytes as percent of blood leukocytes 14.4 % 20.5-51.1 monocytes as percent of blood leukocytes 9.5 % 1.7-9.3 neutrophils as percent of blood leukocytes 71.1 % 42.2-75.2 leukocyte count, blood 5.6 10^3/MM^3 10*3/mm3 4.6-10.2 monocytes as percent of blood leukocytes 9.9 [...] 11 .6-14.8 platelet count 295 10^3/MM^3 10*3/mm3 416-062 9991/04/24 leukocyte count, blood 8.0 10^3/MM^3 10*3/mm3 4.6-10.2 [...] 11 .6-14.8 platelet count 429 10^3/MM^3 10*3/mm3 885-377 1721/04/29 leukocyte count, blood 9.1 10^3/MM^3 10*3/mm3 4.6-10.2 [...] 11 .6-14.8 platelet count 343 10^3/MM^3 10*3/mm3 553-865 3985/05/08 leukocyte count, blood 8.0 10^3/MM^3 10*3/mm3 4.6-10.2 [...] 11 .6-14.8 platelet count 399 10^3/MM^3 10*3/mm3 810-288 2057/05/15 leukocyte count, blood 7.2 10^3/MM^3 10*3/mm3 4.6-10.2 [...] 11 .6-14.8 platelet count 341 10^3/MM^3 10*3/mm3 256-410 0230/05/22 leukocyte count, blood 7.9 10^3/MM^3 10*3/mm3 4.6-10.2 [...] 11 .6-14.8 platelet count 362 10^3/MM^3 10*3/mm3 715-936 7039/06/26 leukocyte count, blood 11.7 10^3/MM^3 10*3/mm3 4.6-10.2 [...] 11 .6-14.8 platelet count 272 10^3/MM^3 10*3/mm3 446-247 4554/07/03 leukocyte count, blood 8.1 10^3/MM^3 10*3/mm3 4.6-10.2 [...] 11 .6-14.8 platelet count 315 10^3/MM^3 10*3/mm3 389-164 7477/09/18 leukocyte count, blood 5.3 10^3/MM^3 10*3/mm3 4.6-10.2 [...] 11 .6-14.8 platelet count 317 10^3/MM^3 10*3/mm3 608-569 1048/11/19 leukocyte count, blood 4.9 10^3/MM^3 10*3/mm3 4.6-10.2 [...] 11 .6-14.8 platelet count 214 10^3/MM^3 10*3/mm3 142-424 Lab Report: Comp. Metabolic Panel - Chem istry sodium, serum 140 mmol/L 741-321 3116/11/19 carbon dioxide, venous blood 27.2 mmol/L 21.0-32 [...] 37 U/L 15-37 sodium, serum 138 mmol/L 080-773 0923/07/03 carbon dioxide, venous blood 29.9 mmol/L 21.0-32 [...] 32 U/L - sodium, serum 138 mmol/L 638-065 8406/05/15 carbon dioxide, venous blood 25.9 mmol/L 21.0-32 .0 potassium, serum 4.6 mmol/L 3.5-5.2 chloride, serum 104 mmol/L 98-107 blood glucose 105 mg/dL 65-95 urea nitrogen, blood 21 mg/dL 7-18 creatinine, serum 0.94 mg/dL 0.60-1.30 Estimated Glomerular Filtration Rate (calc) 64 (?) mL/min/1.73m2 = OR > 60 mL/min alanine aminotransferase (SGPT), serum 16 U/L - aspartate aminotransferase (SGOT), serum 8 U/L calcium, serum 8.9 mg/dL 8.5-10.1 bilirubin, serum, [...] /DIFF - Chemistry sodium, serum 138 mmol/L 452-885 9084/09/03 carbon dioxide, venous blood 27.3 mmol/L 21.0-32 [...] 50-136 Encounters Code Encounter Date Provider Facility CPT-84563 Level 3 Est. Patient 14:49:42 CDT Deacon Rajan MD [facility] CPT-32500 Level 4 New Patient 16:54:39 CDT Deacon Rajan MD [facility] CPT-46149 Level 2 Est. 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
--- OUTSIDE RECORDS SUMMARY | 2019-07-27 11:41 | XMS REPORT | Clinical Summary ---
[...] one by mouth daily 2018 WARFARIN SODIUM 44727853630 No Longer Active Deacon Rajan MD A ctive LEVO-T 150 MCG ORAL TABLET 3 tab q d LEVOTHYRO XINE SODIUM 92243865087 Active Deacon Rajan MD Active LEVO-T 50 MCG ORAL TABLET 1 q d LEVOTHYROXINE SODIUM 20613460269 Active Deacon Rajan MD Active LEVOTHYROXINE SODIUM 200 MCG ORAL TABLET 2 1/4 tablets daily 201 10/30/27 LEVOTHYROXINE SODIUM 26540598297 No Longer Active Deacon Rajan MD Active MULTIVITAMIN & MINERAL ORAL LIQUID 5 ml daily 06/28 MULTIPLE VITAMINS-MINERALS 51198196499 No Longer Active Deacon Rajan MD Active PRILOSEC OTC 20 MG ORAL TABLET DELAYED RELEASE 2 tablets daily 2 OMEPRAZOLE MAGNESIUM 36263011671 No Longer Active Deacon Rajan MD Active CARAFATE 1 GM ORAL TABLET Take one by mouth four times daily 201 10/30/27 SUCRALFATE 32327525763 No Longer Active Deacon Rajan MD Active VICTOZA 18 MG/3ML SUBCUTANEOUS SOLUTION PEN-INJECTOR 1.8 mg mc y LIRAGLUTIDE 78107733135 No Longer Active Deacon Rajan MD Active TIZANIDINE HCL 4 MG ORAL TABLET 1 tablet every 4 hours TIZANIDINE HCL 49868624013 Active Shelia Quezada RN Active OXYCODONE HCL 5 MG ORAL TABLET 1 tablet every 3-4 hours as n eeded for pain OXYCODONE HCL 86225894910 Active Shelia Quezada RN Active NOVOLOG 100 UNIT/ML SUBCUTANEOUS SOLUTION sliding scale INSULIN ASPART 14583867259 Active Shelia Quezada RN Active MELOXICAM 15 MG ORAL TABLET Take one by mouth daily MELOXICAM 07240103377 Active Shelia Quezada RN Active FUROSEMIDE 40 MG ORAL TABLET Take one by mouth daily FUROSEMIDE 01648145261 Active Shelia Quezada RN Active LANTUS 100 UNIT/ML SUBCUTANEOUS SOLUTION 30 units daily at bedtime INSULIN GLARGINE 76460681429 Active Shelia Quezada RN Act johnathon HYDROCODONE-ACETAMINOPHEN 5-325 MG ORAL TABLET 1 every 4 hours as needed for pain HYDROCODONE-ACETAMINOPHEN 32703264248 Active Shelia Quezada RN Active GLUCOPHAGE 1000 MG ORAL TABLET Take one by mouth daily METFORMIN HCL 54142942279 Active Shelia Quezada RN Active COZAAR 50 MG ORAL TABLET 1 1/2 tabs daily LOSAR KOO POTASSIUM 21343407897 Active Shelia Quezada RN Active CELEXA 20 MG ORAL TABLET Take one by mouth daily CITALOPRAM HYDROBROMIDE 15061658302 Active Shelia Quezada RN Active BACTRIM DS 800-160 MG ORAL TABLET by mouth twice a day SULFAMETHOXAZOLE-TRIMETHOPRIM 56817747409 Active Shelia Quezada RN Active AMITRIPTYLINE HCL 75 MG ORAL TABLET Take one by mouth daily at bedtime AMITRIPTYLINE HCL 73753443419 Active Shelia Yuen N Active VICTOZA 18 MG/3ML SUBCUTANEOUS SOLUTION PEN-INJECTOR 1.8 mg mc y VICTOZA 18 MG/3ML SUBCUTANEOUS SOLUTION PEN-INJECTOR LIRAGLUTIDE Inactive CARAFATE 1 GM ORAL TABLET Take one by mouth four times daily 201 10/30/27 CARAFATE 1 GM ORAL TABLET 586417 SUCRALFATE Inacti ve PRILOSEC OTC 20 MG ORAL TABLET DELAYED RELEASE 2 tablets daily 2 PRILOSEC OTC 20 MG ORAL TABLET DELAYED RELEASE OMEPRAZOLE MAGNESIUM Inactive MULTIVITAMIN & MINERAL ORAL LIQUID 5 ml daily 06/28 MULTIVITAMIN & MINERAL ORAL LIQUID MULTIPLE VITAMINS-MINERALS Inactive LEVOTHYROXINE SODIUM 200 MCG ORAL TABLET 2 1/4 tablets daily 201 10/30/27 LEVOTHYROXINE SODIUM 200 MCG ORAL TABLET 657649 LEVOTHY ROXINE SODIUM Inactive COUMADIN 5 MG ORAL TABLET Take one by mouth daily 2018 COUMADIN 5 MG ORAL TABLET 140106 WARFARIN SODIUM Inactive Vital Signs Date Name [...] 11 .6-14.8 platelet count 304 10^3/MM^3 10*3/mm3 060-607 7247/02/13 leukocyte count, blood 6.5 10^3/MM^3 10*3/mm3 4.6-10.2 [...] 11 .6-14.8 platelet count 303 10^3/MM^3 10*3/mm3 029-755 4174/03/13 leukocyte count, blood 7.2 10^3/MM^3 10*3/mm3 4.6-10.2 [...] 11 .6-14.8 platelet count 299 10^3/MM^3 10*3/mm3 465-807 7241/04/09 leukocyte count, blood 8.7 10^3/MM^3 10*3/mm3 4.6-10.2 [...] 11 .6-14.8 platelet count 295 10^3/MM^3 10*3/mm3 561-776 0247/04/24 leukocyte count, blood 8.0 10^3/MM^3 10*3/mm3 4.6-10.2 [...] 11 .6-14.8 platelet count 429 10^3/MM^3 10*3/mm3 206-562 4075/04/29 leukocyte count, blood 9.1 10^3/MM^3 10*3/mm3 4.6-10.2 [...] 11 .6-14.8 platelet count 343 10^3/MM^3 10*3/mm3 155-821 8285/05/08 leukocyte count, blood 8.0 10^3/MM^3 10*3/mm3 4.6-10.2 [...] 11 .6-14.8 platelet count 399 10^3/MM^3 10*3/mm3 359-792 6320/05/15 leukocyte count, blood 7.2 10^3/MM^3 10*3/mm3 4.6-10.2 [...] 11 .6-14.8 platelet count 341 10^3/MM^3 10*3/mm3 576-385 4023/05/22 leukocyte count, blood 7.9 10^3/MM^3 10*3/mm3 4.6-10.2 [...] 11 .6-14.8 platelet count 362 10^3/MM^3 10*3/mm3 427-552 6165/06/26 leukocyte count, blood 11.7 10^3/MM^3 10*3/mm3 4.6-10.2 [...] 11 .6-14.8 platelet count 272 10^3/MM^3 10*3/mm3 623-243 9918/07/03 leukocyte count, blood 8.1 10^3/MM^3 10*3/mm3 4.6-10.2 [...] 11 .6-14.8 platelet count 315 10^3/MM^3 10*3/mm3 940-378 9416/09/18 leukocyte count, blood 5.3 10^3/MM^3 10*3/mm3 4.6-10.2 [...] 11 .6-14.8 platelet count 317 10^3/MM^3 10*3/mm3 204-853 6091/11/19 leukocyte count, blood 4.9 10^3/MM^3 10*3/mm3 4.6-10.2 [...] 11 .6-14.8 platelet count 214 10^3/MM^3 10*3/mm3 680-163 4903/01/06 leukocyte count, blood 4.8 10^3/MM^3 10*3/mm3 4.6-10.2 [...] 0.30 mg/dL 0.00-1.00 sodium, serum 140 mmol/L 251-910 4887/11/19 carbon dioxide, venous blood 27.2 mmol/L 21.0-32 [...] 37 U/L 15-37 sodium, serum 138 mmol/L 342-463 5280/07/03 carbon dioxide, venous blood 29.9 mmol/L 21.0-32 [...] 32 U/L 15-37 sodium, serum 138 mmol/L 643-141 8546/05/15 carbon dioxide, venous blood 25.9 mmol/L 21.0-32 [...] /DIFF - Chemistry sodium, serum 138 mmol/L 123-160 1489/09/03 carbon dioxide, venous blood 27.3 mmol/L 21.0-32 [...] 50-136 Encounters Code Encounter Date Provider Facility CPT-23268 Level 3 Est. Patient 14:49:42 CDT Deacon Rajan MD [facility] CPT-66783 Level 4 New Patient 16:54:39 CDT Deacon Rajan MD [facility] CPT-14374 Level 2 Est. 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
--- OUTSIDE RECORDS SUMMARY | 2019-07-27 11:42 | XMS REPORT | Clinical Summary ---
Author Author Admin, Lisandra Pacheco Organization All Address Unknown Phone Unavailable Allergies, Adverse Reactions, Alerts Allergy Name Reaction Description Start Date Severity Status Pr ovider PREDNISONE Mild Active Shreyas Roberts MD DOXYCYCLINE HYCLATE Mild Active Shreays Roberts MD LISINOPRIL Mild Active Shreyas Roberts [...] one by mouth daily 2018 WARFARIN SODIUM 01948689123 No Longer Active Deacon Rajan MD A ctive LEVO-T 150 MCG ORAL TABLET 3 tab q d LEVOTHYRO XINE SODIUM 08582953089 Active Deacon Rajan MD Active LEVO-T 50 MCG ORAL TABLET 1 q d LEVOTHYROXINE SODIUM 62174673447 Active Deacon Rajan MD Active LEVOTHYROXINE SODIUM 200 MCG ORAL TABLET 2 1/4 tablets daily 201 10/30/27 LEVOTHYROXINE SODIUM 00170259924 No Longer Active Deacon Rajan MD Active MULTIVITAMIN & MINERAL ORAL LIQUID 5 ml daily 06/28 MULTIPLE VITAMINS-MINERALS 19169412408 No Longer Active Deacon Rajan MD Active PRILOSEC OTC 20 MG ORAL TABLET DELAYED RELEASE 2 tablets daily 2 OMEPRAZOLE MAGNESIUM 76563005240 No Longer Active Deacon Rajan MD Active CARAFATE 1 GM ORAL TABLET Take one by mouth four times daily 201 10/30/27 SUCRALFATE 92293858517 No Longer Active Deacon Rajan MD Active VICTOZA 18 MG/3ML SUBCUTANEOUS SOLUTION PEN-INJECTOR 1.8 mg mc y LIRAGLUTIDE 41636978995 No Longer Active Deacon Rajan MD Active TIZANIDINE HCL 4 MG ORAL TABLET 1 tablet every 4 hours TIZANIDINE HCL 78039946808 Active Shelia Quezada RN Active OXYCODONE HCL 5 MG ORAL TABLET 1 tablet every 3-4 hours as n eeded for pain OXYCODONE HCL 56047314845 Active Shelia Quezada RN Active NOVOLOG 100 UNIT/ML SUBCUTANEOUS SOLUTION sliding scale INSULIN ASPART 56811137819 Active Shelia Quezada RN Active MELOXICAM 15 MG ORAL TABLET Take one by mouth daily MELOXICAM 47207076470 Active Shelia Quezada RN Active FUROSEMIDE 40 MG ORAL TABLET Take one by mouth daily FUROSEMIDE 48743469206 Active Shelia Quezada RN Active LANTUS 100 UNIT/ML SUBCUTANEOUS SOLUTION 30 units daily at bedtime INSULIN GLARGINE 91970986044 Active Shelia Quezada RN Act johnathon HYDROCODONE-ACETAMINOPHEN 5-325 MG ORAL TABLET 1 every 4 hours as needed for pain HYDROCODONE-ACETAMINOPHEN 73128179969 Active Shelia Quezada RN Active GLUCOPHAGE 1000 MG ORAL TABLET Take one by mouth daily METFORMIN HCL 14694955435 Active Shelia Quezada RN Active COZAAR 50 MG ORAL TABLET 1 1/2 tabs daily LOSAR KOO POTASSIUM 37612242875 Active Shelia Quezada RN Active CELEXA 20 MG ORAL TABLET Take one by mouth daily CITALOPRAM HYDROBROMIDE 36076495288 Active Shelia Quezada RN Active BACTRIM DS 800-160 MG ORAL TABLET by mouth twice a day SULFAMETHOXAZOLE-TRIMETHOPRIM 16074393787 Active Shelia Quezada RN Active AMITRIPTYLINE HCL 75 MG ORAL TABLET Take one by mouth daily at bedtime AMITRIPTYLINE HCL 26500367062 Active Shelia Yuen N Active VICTOZA 18 MG/3ML SUBCUTANEOUS SOLUTION PEN-INJECTOR 1.8 mg mc y VICTOZA 18 MG/3ML SUBCUTANEOUS SOLUTION PEN-INJECTOR LIRAGLUTIDE Inactive CARAFATE 1 GM ORAL TABLET Take one by mouth four times daily 201 10/30/27 CARAFATE 1 GM ORAL TABLET 176531 SUCRALFATE Inacti ve PRILOSEC OTC 20 MG ORAL TABLET DELAYED RELEASE 2 tablets daily 2 PRILOSEC OTC 20 MG ORAL TABLET DELAYED RELEASE OMEPRAZOLE MAGNESIUM Inactive MULTIVITAMIN & MINERAL ORAL LIQUID 5 ml daily 06/28 MULTIVITAMIN & MINERAL ORAL LIQUID MULTIPLE VITAMINS-MINERALS Inactive LEVOTHYROXINE SODIUM 200 MCG ORAL TABLET 2 1/4 tablets daily 201 10/30/27 LEVOTHYROXINE SODIUM 200 MCG ORAL TABLET 992370 LEVOTHY ROXINE SODIUM Inactive COUMADIN 5 MG ORAL TABLET Take one by mouth daily 2018 COUMADIN 5 MG ORAL TABLET 899905 WARFARIN SODIUM Inactive Vital Signs Date Name [...] 11 .6-14.8 platelet count 304 10^3/MM^3 10*3/mm3 007-553 3069/02/13 leukocyte count, blood 6.5 10^3/MM^3 10*3/mm3 4.6-10.2 [...] 11 .6-14.8 platelet count 303 10^3/MM^3 10*3/mm3 320-362 3592/03/13 leukocyte count, blood 7.2 10^3/MM^3 10*3/mm3 4.6-10.2 [...] 11 .6-14.8 platelet count 299 10^3/MM^3 10*3/mm3 886-974 0032/04/09 leukocyte count, blood 8.7 10^3/MM^3 10*3/mm3 4.6-10.2 [...] 11 .6-14.8 platelet count 295 10^3/MM^3 10*3/mm3 176-685 9865/04/24 leukocyte count, blood 8.0 10^3/MM^3 10*3/mm3 4.6-10.2 [...] 11 .6-14.8 platelet count 429 10^3/MM^3 10*3/mm3 575-238 2627/04/29 leukocyte count, blood 9.1 10^3/MM^3 10*3/mm3 4.6-10.2 [...] 11 .6-14.8 platelet count 343 10^3/MM^3 10*3/mm3 478-444 1599/05/08 leukocyte count, blood 8.0 10^3/MM^3 10*3/mm3 4.6-10.2 [...] 11 .6-14.8 platelet count 399 10^3/MM^3 10*3/mm3 205-626 2313/05/15 leukocyte count, blood 7.2 10^3/MM^3 10*3/mm3 4.6-10.2 [...] 11 .6-14.8 platelet count 341 10^3/MM^3 10*3/mm3 094-436 6823/05/22 leukocyte count, blood 7.9 10^3/MM^3 10*3/mm3 4.6-10.2 [...] 11 .6-14.8 platelet count 362 10^3/MM^3 10*3/mm3 556-758 2590/06/26 leukocyte count, blood 11.7 10^3/MM^3 10*3/mm3 4.6-10.2 [...] 11 .6-14.8 platelet count 272 10^3/MM^3 10*3/mm3 065-141 8525/07/03 leukocyte count, blood 8.1 10^3/MM^3 10*3/mm3 4.6-10.2 [...] 11 .6-14.8 platelet count 315 10^3/MM^3 10*3/mm3 342-278 4935/09/18 leukocyte count, blood 5.3 10^3/MM^3 10*3/mm3 4.6-10.2 [...] 11 .6-14.8 platelet count 317 10^3/MM^3 10*3/mm3 906-956 4964/11/19 leukocyte count, blood 4.9 10^3/MM^3 10*3/mm3 4.6-10.2 [...] - Chem istry sodium, serum 140 mmol/L 113-059 4133/11/19 carbon dioxide, venous blood 27.2 mmol/L 21.0-32 [...] 37 U/L 15-37 sodium, serum 138 mmol/L 305-849 8153/07/03 carbon dioxide, venous blood 29.9 mmol/L 21.0-32 [...] 32 U/L - sodium, serum 138 mmol/L 963-089 0230/05/15 carbon dioxide, venous blood 25.9 mmol/L 21.0-32 [...] /DIFF - Chemistry sodium, serum 138 mmol/L 730-364 3477/09/03 carbon dioxide, venous blood 27.3 mmol/L 21.0-32 [...] 50-136 Encounters Code Encounter Date Provider Facility CPT-48531 Level 3 Est. Patient 14:49:42 CDT Deacon Rajan MD [facility] CPT-69013 Level 4 New Patient 16:54:39 CDT Deacon Rajan MD [facility] CPT-11156 Level 2 Est. 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
--- OUTSIDE RECORDS SUMMARY | 2019-07-27 11:42 | XMS REPORT | Clinical Summary ---
[...] one by mouth daily 2018 WARFARIN SODIUM [id number] No Longer Active Deacon Rajan MD A ctive LEVO-T 150 MCG ORAL TABLET 3 tab q d LEVOTHYRO XINE SODIUM 02196803244 Active Deacon Rajan MD Active LEVO-T 50 MCG ORAL TABLET 1 q d LEVOTHYROXINE SODIUM 28522692372 Active Deacon Rajan MD Active LEVOTHYROXINE SODIUM 200 MCG ORAL TABLET 2 1/4 tablets daily 201 10/30/27 LEVOTHYROXINE SODIUM 02436882525 No Longer Active Deacon Rajan MD Active MULTIVITAMIN & MINERAL ORAL LIQUID 5 ml daily 06/28 MULTIPLE VITAMINS-MINERALS 08914147610 No Longer Active Deacon Rajan MD Active PRILOSEC OTC 20 MG ORAL TABLET DELAYED RELEASE 2 tablets daily 2 OMEPRAZOLE MAGNESIUM 06670387389 No Longer Active Deacon Rajan MD Active CARAFATE 1 GM ORAL TABLET Take one by mouth four times daily 201 10/30/27 SUCRALFATE 29234786918 No Longer Active Deacon Rajan MD Active VICTOZA 18 MG/3ML SUBCUTANEOUS SOLUTION PEN-INJECTOR 1.8 mg mc y LIRAGLUTIDE 85221138838 No Longer Active Deacon Rajan MD Active TIZANIDINE HCL 4 MG ORAL TABLET 1 tablet every 4 hours TIZANIDINE HCL 15228572969 Active Shelia Quezada RN Active OXYCODONE HCL 5 MG ORAL TABLET 1 tablet every 3-4 hours as n eeded for pain OXYCODONE HCL 95437110619 Active Shelia Quezada RN Active NOVOLOG 100 UNIT/ML SUBCUTANEOUS SOLUTION sliding scale INSULIN ASPART 01609153622 Active Shelia Quezada RN Active MELOXICAM 15 MG ORAL TABLET Take one by mouth daily MELOXICAM 43136163989 Active Shelia Quezada RN Active FUROSEMIDE 40 MG ORAL TABLET Take one by mouth daily FUROSEMIDE 52053031217 Active Shelia Quezada RN Active LANTUS 100 UNIT/ML SUBCUTANEOUS SOLUTION 30 units daily at bedtime INSULIN GLARGINE 26619505223 Active Shelia Quezada RN Act johnathon HYDROCODONE-ACETAMINOPHEN 5-325 MG ORAL TABLET 1 every 4 hours as needed for pain HYDROCODONE-ACETAMINOPHEN 13504115982 Active Shelia Quezada RN Active GLUCOPHAGE 1000 MG ORAL TABLET Take one by mouth daily METFORMIN HCL 95764394783 Active Shelia Quezada RN Active COZAAR 50 MG ORAL TABLET 1 1/2 tabs daily LOSAR KOO POTASSIUM 05352434410 Active Shelia Quezada RN Active CELEXA 20 MG ORAL TABLET Take one by mouth daily CITALOPRAM HYDROBROMIDE 13054414803 Active Shelia Quezada RN Active BACTRIM DS 800-160 MG ORAL TABLET by mouth twice a day SULFAMETHOXAZOLE-TRIMETHOPRIM 46153008875 Active Shelia Quezada RN Active AMITRIPTYLINE HCL 75 MG ORAL TABLET Take one by mouth daily at bedtime AMITRIPTYLINE HCL 83624726797 Active Shelia Yuen N Active VICTOZA 18 MG/3ML SUBCUTANEOUS SOLUTION PEN-INJECTOR 1.8 mg mc y VICTOZA 18 MG/3ML SUBCUTANEOUS SOLUTION PEN-INJECTOR LIRAGLUTIDE Inactive CARAFATE 1 GM ORAL TABLET Take one by mouth four times daily 201 10/30/27 CARAFATE 1 GM ORAL TABLET 854696 SUCRALFATE Inacti ve PRILOSEC OTC 20 MG ORAL TABLET DELAYED RELEASE 2 tablets daily 2 PRILOSEC OTC 20 MG ORAL TABLET DELAYED RELEASE OMEPRAZOLE MAGNESIUM Inactive MULTIVITAMIN & MINERAL ORAL LIQUID 5 ml daily 06/28 MULTIVITAMIN & MINERAL ORAL LIQUID MULTIPLE VITAMINS-MINERALS Inactive LEVOTHYROXINE SODIUM 200 MCG ORAL TABLET 2 1/4 tablets daily 201 10/30/27 LEVOTHYROXINE SODIUM 200 MCG ORAL TABLET 487036 LEVOTHY ROXINE SODIUM Inactive COUMADIN 5 MG ORAL TABLET Take one by mouth daily 2018 COUMADIN 5 MG ORAL TABLET 151954 WARFARIN SODIUM Inactive Vital Signs Date Name [...] 11 .6-14.8 platelet count 304 10^3/MM^3 10*3/mm3 651-902 8766/02/13 leukocyte count, blood 6.5 10^3/MM^3 10*3/mm3 4.6-10.2 [...] 11 .6-14.8 platelet count 303 10^3/MM^3 10*3/mm3 465-497 9358/03/13 leukocyte count, blood 7.2 10^3/MM^3 10*3/mm3 4.6-10.2 [...] 11 .6-14.8 platelet count 299 10^3/MM^3 10*3/mm3 022-089 8455/04/09 leukocyte count, blood 8.7 10^3/MM^3 10*3/mm3 4.6-10.2 [...] 11 .6-14.8 platelet count 295 10^3/MM^3 10*3/mm3 070-431 2815/04/24 leukocyte count, blood 8.0 10^3/MM^3 10*3/mm3 4.6-10.2 [...] 11 .6-14.8 platelet count 429 10^3/MM^3 10*3/mm3 246-441 4376/04/29 leukocyte count, blood 9.1 10^3/MM^3 10*3/mm3 4.6-10.2 [...] 11 .6-14.8 platelet count 343 10^3/MM^3 10*3/mm3 052-757 2667/05/08 leukocyte count, blood 8.0 10^3/MM^3 10*3/mm3 4.6-10.2 [...] 11 .6-14.8 platelet count 399 10^3/MM^3 10*3/mm3 710-728 6142/05/15 leukocyte count, blood 7.2 10^3/MM^3 10*3/mm3 4.6-10.2 [...] 11 .6-14.8 platelet count 341 10^3/MM^3 10*3/mm3 414-478 1758/05/22 leukocyte count, blood 7.9 10^3/MM^3 10*3/mm3 4.6-10.2 [...] 11 .6-14.8 platelet count 362 10^3/MM^3 10*3/mm3 480-711 9967/06/26 leukocyte count, blood 11.7 10^3/MM^3 10*3/mm3 4.6-10.2 [...] 11 .6-14.8 platelet count 272 10^3/MM^3 10*3/mm3 270-139 8595/07/03 leukocyte count, blood 8.1 10^3/MM^3 10*3/mm3 4.6-10.2 [...] 11 .6-14.8 platelet count 315 10^3/MM^3 10*3/mm3 488-574 9289/09/18 leukocyte count, blood 5.3 10^3/MM^3 10*3/mm3 4.6-10.2 [...] 11 .6-14.8 platelet count 317 10^3/MM^3 10*3/mm3 142-424 Lab Report: Comp. Metabolic Panel - Chem istry calcium, serum 9.0 mg/dL 8.5-10.1 bilirubin, serum, total 0.30 mg/dL 0.00-1.00 calcium, serum 8.9 mg/dL 8.5-10.1 bilirubin, serum, total 0.30 mg/dL 0.00-1.00 sodium, serum 138 mmol/L 670-885 0563/07/03 carbon dioxide, venous blood 29.9 mmol/L 21.0-32 .0 potassium, serum 5.1 mmol/L 3.5-5.2 chloride, serum 105 mmol/L 98-107 blood glucose 114 mg/dL 65-95 urea nitrogen, blood 17 mg/dL 7-18 creatinine, serum 1.16 mg/dL 0.60-1.30 Estimated Glomerular Filtration Rate (calc) 50 (?) mL/min/1.73m2 = OR > 60 mL/min alanine aminotransferase (SGPT), serum 26 U/L -78 aspartate aminotransferase (SGOT), serum 32 U/L 15-37 sodium, serum 138 mmol/L 462-719 8759/05/15 carbon dioxide, venous blood 25.9 mmol/L 21.0-32 .0 potassium, serum 4.6 mmol/L 3.5-5.2 chloride, serum 104 mmol/L 98-107 blood glucose 105 mg/dL 65-95 urea nitrogen, blood 21 mg/dL 7-18 creatinine, serum 0.94 mg/dL 0.60-1.30 Estimated Glomerular Filtration Rate (calc) 64 (?) mL/min/1.73m2 = OR > 60 mL/min alanine aminotransferase (SGPT), serum 16 U/L -78 aspartate aminotransferase (SGOT), serum 8 U/L 15-37 Lab Report: Comp. Metabolic Panel - Lab Alkaline phosphatase 96 50-136 Alkaline phosphatase 147 50-136 Lab Report: Comp. Metabolic Panel, CBC W /DIFF - Chemistry sodium, serum 138 mmol/L 076-651 8639/09/03 carbon dioxide, venous blood 27.3 mmol/L 21.0-32 [...] 50-136 Encounters Code Encounter Date Provider Facility CPT-23415 Level 3 Est. Patient 14:49:42 CDT Deacon Rajan MD [facility] CPT-84041 Level 4 New Patient 16:54:39 CDT Deacon Rajan MD [facility] CPT-67652 Level 2 Est. 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
--- OUTSIDE RECORDS SUMMARY | 2019-07-27 11:42 | XMS REPORT | Clinical Summary ---
[...] one by mouth daily 2018 WARFARIN SODIUM [id number] No Longer Active Deacon Rajan MD A ctive LEVO-T 150 MCG ORAL TABLET 3 tab q d LEVOTHYRO XINE SODIUM 38103279926 Active Deacon Rajan MD Active LEVO-T 50 MCG ORAL TABLET 1 q d LEVOTHYROXINE SODIUM 40663802351 Active Deacon Rajan MD Active LEVOTHYROXINE SODIUM 200 MCG ORAL TABLET 2 1/4 tablets daily 201 10/30/27 LEVOTHYROXINE SODIUM 89082091880 No Longer Active Deacon Rajan MD Active MULTIVITAMIN & MINERAL ORAL LIQUID 5 ml daily 06/28 MULTIPLE VITAMINS-MINERALS 23800138913 No Longer Active Deacon Rajan MD Active PRILOSEC OTC 20 MG ORAL TABLET DELAYED RELEASE 2 tablets daily 2 OMEPRAZOLE MAGNESIUM 21867336792 No Longer Active Deacon Rajan MD Active CARAFATE 1 GM ORAL TABLET Take one by mouth four times daily 201 10/30/27 SUCRALFATE 57277863288 No Longer Active Deacon Rajan MD Active VICTOZA 18 MG/3ML SUBCUTANEOUS SOLUTION PEN-INJECTOR 1.8 mg mc y LIRAGLUTIDE 32981774520 No Longer Active Deacon Rajan MD Active TIZANIDINE HCL 4 MG ORAL TABLET 1 tablet every 4 hours TIZANIDINE HCL 49414551006 Active Shelia Quezada RN Active OXYCODONE HCL 5 MG ORAL TABLET 1 tablet every 3-4 hours as n eeded for pain OXYCODONE HCL 78863604372 Active Shelia Quezada RN Active NOVOLOG 100 UNIT/ML SUBCUTANEOUS SOLUTION sliding scale INSULIN ASPART 16988979608 Active Shelia Quezada RN Active MELOXICAM 15 MG ORAL TABLET Take one by mouth daily MELOXICAM 32596040676 Active Shelia Quezada RN Active FUROSEMIDE 40 MG ORAL TABLET Take one by mouth daily FUROSEMIDE 87575615043 Active Shelia Quezada RN Active LANTUS 100 UNIT/ML SUBCUTANEOUS SOLUTION 30 units daily at bedtime INSULIN GLARGINE 69845605995 Active Shelia Quezada RN Act johnathon HYDROCODONE-ACETAMINOPHEN 5-325 MG ORAL TABLET 1 every 4 hours as needed for pain HYDROCODONE-ACETAMINOPHEN 38383513816 Active Shelia Quezada RN Active GLUCOPHAGE 1000 MG ORAL TABLET Take one by mouth daily METFORMIN HCL 32193837898 Active Shelia Quezada RN Active COZAAR 50 MG ORAL TABLET 1 1/2 tabs daily LOSAR KOO POTASSIUM 59971095444 Active Shelia Quezada RN Active CELEXA 20 MG ORAL TABLET Take one by mouth daily CITALOPRAM HYDROBROMIDE 65509280525 Active Shelia Quezada RN Active BACTRIM DS 800-160 MG ORAL TABLET by mouth twice a day SULFAMETHOXAZOLE-TRIMETHOPRIM 07707697005 Active Shelia Quezada RN Active AMITRIPTYLINE HCL 75 MG ORAL TABLET Take one by mouth daily at bedtime AMITRIPTYLINE HCL 74582447470 Active Shelia Yuen N Active VICTOZA 18 MG/3ML SUBCUTANEOUS SOLUTION PEN-INJECTOR 1.8 mg mc y VICTOZA 18 MG/3ML SUBCUTANEOUS SOLUTION PEN-INJECTOR LIRAGLUTIDE Inactive CARAFATE 1 GM ORAL TABLET Take one by mouth four times daily 201 10/30/27 CARAFATE 1 GM ORAL TABLET 093935 SUCRALFATE Inacti ve PRILOSEC OTC 20 MG ORAL TABLET DELAYED RELEASE 2 tablets daily 2 PRILOSEC OTC 20 MG ORAL TABLET DELAYED RELEASE OMEPRAZOLE MAGNESIUM Inactive MULTIVITAMIN & MINERAL ORAL LIQUID 5 ml daily 06/28 MULTIVITAMIN & MINERAL ORAL LIQUID MULTIPLE VITAMINS-MINERALS Inactive LEVOTHYROXINE SODIUM 200 MCG ORAL TABLET 2 1/4 tablets daily 201 10/30/27 LEVOTHYROXINE SODIUM 200 MCG ORAL TABLET 330157 LEVOTHY ROXINE SODIUM Inactive COUMADIN 5 MG ORAL TABLET Take one by mouth daily 2018 COUMADIN 5 MG ORAL TABLET 106479 WARFARIN SODIUM Inactive Vital Signs Date Name [...] 11 .6-14.8 platelet count 304 10^3/MM^3 10*3/mm3 207-113 9957/02/13 leukocyte count, blood 6.5 10^3/MM^3 10*3/mm3 4.6-10.2 [...] 11 .6-14.8 platelet count 303 10^3/MM^3 10*3/mm3 092-561 0082/03/13 leukocyte count, blood 7.2 10^3/MM^3 10*3/mm3 4.6-10.2 [...] 11 .6-14.8 platelet count 299 10^3/MM^3 10*3/mm3 181-076 5133/04/09 leukocyte count, blood 8.7 10^3/MM^3 10*3/mm3 4.6-10.2 [...] 11 .6-14.8 platelet count 295 10^3/MM^3 10*3/mm3 171-277 4522/04/24 leukocyte count, blood 8.0 10^3/MM^3 10*3/mm3 4.6-10.2 [...] 11 .6-14.8 platelet count 429 10^3/MM^3 10*3/mm3 573-278 9372/04/29 leukocyte count, blood 9.1 10^3/MM^3 10*3/mm3 4.6-10.2 [...] 11 .6-14.8 platelet count 343 10^3/MM^3 10*3/mm3 727-085 7980/05/08 leukocyte count, blood 8.0 10^3/MM^3 10*3/mm3 4.6-10.2 [...] 11 .6-14.8 platelet count 399 10^3/MM^3 10*3/mm3 306-362 6694/05/15 leukocyte count, blood 7.2 10^3/MM^3 10*3/mm3 4.6-10.2 [...] 11 .6-14.8 platelet count 341 10^3/MM^3 10*3/mm3 273-655 1847/05/22 leukocyte count, blood 7.9 10^3/MM^3 10*3/mm3 4.6-10.2 [...] 11 .6-14.8 platelet count 362 10^3/MM^3 10*3/mm3 756-043 7946/06/26 leukocyte count, blood 11.7 10^3/MM^3 10*3/mm3 4.6-10.2 [...] 11 .6-14.8 platelet count 272 10^3/MM^3 10*3/mm3 896-953 4820/07/03 leukocyte count, blood 8.1 10^3/MM^3 10*3/mm3 4.6-10.2 [...] 11 .6-14.8 platelet count 315 10^3/MM^3 10*3/mm3 769-189 1852/09/18 leukocyte count, blood 5.3 10^3/MM^3 10*3/mm3 4.6-10.2 [...] 11 .6-14.8 platelet count 317 10^3/MM^3 10*3/mm3 081-151 2424/11/19 leukocyte count, blood 4.9 10^3/MM^3 10*3/mm3 4.6-10.2 [...] - Chem istry sodium, serum 140 mmol/L 357-654 4987/11/19 carbon dioxide, venous blood 27.2 mmol/L 21.0-32 [...] 37 U/L 15-37 sodium, serum 138 mmol/L 371-347 5064/07/03 carbon dioxide, venous blood 29.9 mmol/L 21.0-32 [...] 32 U/L - sodium, serum 138 mmol/L 422-660 6576/05/15 carbon dioxide, venous blood 25.9 mmol/L 21.0-32 [...] /DIFF - Chemistry sodium, serum 138 mmol/L 759-702 6340/09/03 carbon dioxide, venous blood 27.3 mmol/L 21.0-32 [...] 50-136 Encounters Code Encounter Date Provider Facility CPT-66589 Level 3 Est. Patient 14:49:42 CDT Deacon Rajan MD [facility] CPT-42068 Level 4 New Patient 16:54:39 CDT Deacon Rajan MD [facility] CPT-99093 Level 2 Est. 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
--- OUTSIDE RECORDS SUMMARY | 2019-07-27 11:43 | XMS REPORT | Clinical Summary ---
[...] one by mouth daily 2018 WARFARIN SODIUM 57893068176 No Longer Active Deacon Rajan MD A ctive LEVO-T 150 MCG ORAL TABLET 3 tab q d LEVOTHYRO XINE SODIUM 50180485752 Active Deacon Rajan MD Active LEVO-T 50 MCG ORAL TABLET 1 q d LEVOTHYROXINE SODIUM 56083953041 Active Deacon Rajan MD Active LEVOTHYROXINE SODIUM 200 MCG ORAL TABLET 2 1/4 tablets daily 201 10/30/27 LEVOTHYROXINE SODIUM 20210234168 No Longer Active Deacon Rajan MD Active MULTIVITAMIN & MINERAL ORAL LIQUID 5 ml daily 06/28 MULTIPLE VITAMINS-MINERALS 22568997198 No Longer Active Deacon Rajan MD Active PRILOSEC OTC 20 MG ORAL TABLET DELAYED RELEASE 2 tablets daily 2 OMEPRAZOLE MAGNESIUM 51288637797 No Longer Active Deacon Rajan MD Active CARAFATE 1 GM ORAL TABLET Take one by mouth four times daily 201 10/30/27 SUCRALFATE 40958670738 No Longer Active Deacon Rajan MD Active VICTOZA 18 MG/3ML SUBCUTANEOUS SOLUTION PEN-INJECTOR 1.8 mg mc y LIRAGLUTIDE 81806105069 No Longer Active Deacon Rajan MD Active TIZANIDINE HCL 4 MG ORAL TABLET 1 tablet every 4 hours TIZANIDINE HCL 20943335676 Active Shelia Quezada RN Active OXYCODONE HCL 5 MG ORAL TABLET 1 tablet every 3-4 hours as n eeded for pain OXYCODONE HCL 85292836783 Active Shelia Quezada RN Active NOVOLOG 100 UNIT/ML SUBCUTANEOUS SOLUTION sliding scale INSULIN ASPART 32895117214 Active Shelia Quezada RN Active MELOXICAM 15 MG ORAL TABLET Take one by mouth daily MELOXICAM 81113624559 Active Shelia Quezada RN Active FUROSEMIDE 40 MG ORAL TABLET Take one by mouth daily FUROSEMIDE 25520898752 Active Shelia Quezada RN Active LANTUS 100 UNIT/ML SUBCUTANEOUS SOLUTION 30 units daily at bedtime INSULIN GLARGINE 22921808700 Active Shelia Quezada RN Act johnathon HYDROCODONE-ACETAMINOPHEN 5-325 MG ORAL TABLET 1 every 4 hours as needed for pain HYDROCODONE-ACETAMINOPHEN 62890035158 Active Shelia Quezada RN Active GLUCOPHAGE 1000 MG ORAL TABLET Take one by mouth daily METFORMIN HCL 31800233447 Active Shelia Quezada RN Active COZAAR 50 MG ORAL TABLET 1 1/2 tabs daily LOSAR KOO POTASSIUM 85480843037 Active Shelia Quezada RN Active CELEXA 20 MG ORAL TABLET Take one by mouth daily CITALOPRAM HYDROBROMIDE 06368207757 Active Shelia Quezada RN Active BACTRIM DS 800-160 MG ORAL TABLET by mouth twice a day SULFAMETHOXAZOLE-TRIMETHOPRIM 69490706692 Active Shelia Quezada RN Active AMITRIPTYLINE HCL 75 MG ORAL TABLET Take one by mouth daily at bedtime AMITRIPTYLINE HCL 18565024089 Active Shelia Yuen N Active VICTOZA 18 MG/3ML SUBCUTANEOUS SOLUTION PEN-INJECTOR 1.8 mg mc y VICTOZA 18 MG/3ML SUBCUTANEOUS SOLUTION PEN-INJECTOR LIRAGLUTIDE Inactive CARAFATE 1 GM ORAL TABLET Take one by mouth four times daily 201 10/30/27 CARAFATE 1 GM ORAL TABLET 025964 SUCRALFATE Inacti ve PRILOSEC OTC 20 MG ORAL TABLET DELAYED RELEASE 2 tablets daily 2 PRILOSEC OTC 20 MG ORAL TABLET DELAYED RELEASE OMEPRAZOLE MAGNESIUM Inactive MULTIVITAMIN & MINERAL ORAL LIQUID 5 ml daily 06/28 MULTIVITAMIN & MINERAL ORAL LIQUID MULTIPLE VITAMINS-MINERALS Inactive LEVOTHYROXINE SODIUM 200 MCG ORAL TABLET 2 1/4 tablets daily 201 10/30/27 LEVOTHYROXINE SODIUM 200 MCG ORAL TABLET 187783 LEVOTHY ROXINE SODIUM Inactive COUMADIN 5 MG ORAL TABLET Take one by mouth daily 2018 COUMADIN 5 MG ORAL TABLET 794140 WARFARIN SODIUM Inactive Vital Signs Date Name [...] 11 .6-14.8 platelet count 304 10^3/MM^3 10*3/mm3 550-215 3550/02/13 leukocyte count, blood 6.5 10^3/MM^3 10*3/mm3 4.6-10.2 [...] 11 .6-14.8 platelet count 303 10^3/MM^3 10*3/mm3 365-989 1984/03/13 leukocyte count, blood 7.2 10^3/MM^3 10*3/mm3 4.6-10.2 [...] 11 .6-14.8 platelet count 299 10^3/MM^3 10*3/mm3 063-178 9836/04/09 leukocyte count, blood 8.7 10^3/MM^3 10*3/mm3 4.6-10.2 [...] 11 .6-14.8 platelet count 295 10^3/MM^3 10*3/mm3 778-583 9431/04/24 leukocyte count, blood 8.0 10^3/MM^3 10*3/mm3 4.6-10.2 [...] 11 .6-14.8 platelet count 429 10^3/MM^3 10*3/mm3 928-775 7790/04/29 leukocyte count, blood 9.1 10^3/MM^3 10*3/mm3 4.6-10.2 [...] 11 .6-14.8 platelet count 343 10^3/MM^3 10*3/mm3 263-553 5459/05/08 leukocyte count, blood 8.0 10^3/MM^3 10*3/mm3 4.6-10.2 [...] 11 .6-14.8 platelet count 399 10^3/MM^3 10*3/mm3 554-097 3503/05/15 leukocyte count, blood 7.2 10^3/MM^3 10*3/mm3 4.6-10.2 [...] 11 .6-14.8 platelet count 341 10^3/MM^3 10*3/mm3 266-862 0320/05/22 leukocyte count, blood 7.9 10^3/MM^3 10*3/mm3 4.6-10.2 [...] 11 .6-14.8 platelet count 362 10^3/MM^3 10*3/mm3 129-364 1626/06/26 leukocyte count, blood 11.7 10^3/MM^3 10*3/mm3 4.6-10.2 [...] 11 .6-14.8 platelet count 272 10^3/MM^3 10*3/mm3 415-987 4591/07/03 leukocyte count, blood 8.1 10^3/MM^3 10*3/mm3 4.6-10.2 [...] 11 .6-14.8 platelet count 315 10^3/MM^3 10*3/mm3 142-424 Lab Report: Comp. Metabolic Panel - Chem istry sodium, serum 138 mmol/L 380-830 0196/07/03 carbon dioxide, venous blood 29.9 mmol/L 21.0-32 .0 potassium, serum 5.1 mmol/L 3.5-5.2 chloride, serum 105 mmol/L 98-107 blood glucose 114 mg/dL 65-95 urea nitrogen, blood 17 mg/dL 7-18 creatinine, serum 1.16 mg/dL 0.60-1.30 Estimated Glomerular Filtration Rate (calc) 50 (?) mL/min/1.73m2 = OR > 60 mL/min alanine aminotransferase (SGPT), serum 26 U/L 12-78 aspartate aminotransferase (SGOT), serum 32 U/L 15-37 calcium, serum 8.9 mg/dL 8.5-10.1 bilirubin, serum, total 0.30 mg/dL 0.00-1.00 calcium, serum 9.0 mg/dL 8.5-10.1 bilirubin, serum, total 0.30 mg/dL 0.00-1.00 sodium, serum 138 mmol/L 974-128 8190/05/15 carbon dioxide, venous blood 25.9 mmol/L 21.0-32 [...] /DIFF - Chemistry sodium, serum 138 mmol/L 498-155 1775/09/03 carbon dioxide, venous blood 27.3 mmol/L 21.0-32 [...] 50-136 Encounters Code Encounter Date Provider Facility CPT-02896 Level 3 Est. Patient 14:49:42 CDT Deacon Rajan MD [facility] CPT-42415 Level 4 New Patient 16:54:39 CDT Deacon Rajan MD [facility] CPT-39432 Level 2 Est. 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
--- OUTSIDE RECORDS SUMMARY | 2019-07-27 11:43 | XMS REPORT | Clinical Summary ---
[...] wound, not elsewhere classified, sequela 998.30 Active Daecon Rajan MD Disruption of wound, unspecified Medication List Medication Instructions Start Date Stop Date Generic Name NDC Status Provider Patient Instruction COUMADIN 5 MG ORAL TABLET Take one by mouth daily 2018 WARFARIN SODIUM [id number] No Longer Active Deacon Rajan MD A ctive LEVO-T 150 MCG ORAL TABLET 3 tab q d LEVOTHYRO XINE SODIUM 95124296967 Active Deacon Rajan MD Active LEVO-T 50 MCG ORAL TABLET 1 q d LEVOTHYROXINE SODIUM 07174590314 Active Deacon Rajan MD Active LEVOTHYROXINE SODIUM 200 MCG ORAL TABLET 2 1/4 tablets daily 201 10/30/27 LEVOTHYROXINE SODIUM 62118867943 No Longer Active Deacon Rajan MD Active MULTIVITAMIN & MINERAL ORAL LIQUID 5 ml daily 06/28 MULTIPLE VITAMINS-MINERALS 37338181399 No Longer Active Deacon Rajan MD Active PRILOSEC OTC 20 MG ORAL TABLET DELAYED RELEASE 2 tablets daily 2 OMEPRAZOLE MAGNESIUM 12036402661 No Longer Active Deacon Rajan MD Active CARAFATE 1 GM ORAL TABLET Take one by mouth four times daily 201 10/30/27 SUCRALFATE 66346939734 No Longer Active Deacon Rajan MD Active VICTOZA 18 MG/3ML SUBCUTANEOUS SOLUTION PEN-INJECTOR 1.8 mg mc y LIRAGLUTIDE 46770215314 No Longer Active Deacon Rajan MD Active TIZANIDINE HCL 4 MG ORAL TABLET 1 tablet every 4 hours TIZANIDINE HCL 52936451235 Active Shelia Quezada RN Active OXYCODONE HCL 5 MG ORAL TABLET 1 tablet every 3-4 hours as n eeded for pain OXYCODONE HCL 11717179563 Active Shelia Quezada RN Active NOVOLOG 100 UNIT/ML SUBCUTANEOUS SOLUTION sliding scale INSULIN ASPART 88065702609 Active Shelia Quezada RN Active MELOXICAM 15 MG ORAL TABLET Take one by mouth daily MELOXICAM 46120794490 Active Shelia Quezada RN Active FUROSEMIDE 40 MG ORAL TABLET Take one by mouth daily FUROSEMIDE 58351285523 Active Shelia Quezada RN Active LANTUS 100 UNIT/ML SUBCUTANEOUS SOLUTION 30 units daily at bedtime INSULIN GLARGINE 79406675119 Active Shelia Quezada RN Act johnathon HYDROCODONE-ACETAMINOPHEN 5-325 MG ORAL TABLET 1 every 4 hours as needed for pain HYDROCODONE-ACETAMINOPHEN 61815447002 Active Shelia Quezada RN Active GLUCOPHAGE 1000 MG ORAL TABLET Take one by mouth daily METFORMIN HCL 52388087035 Active Shelia Quezada RN Active COZAAR 50 MG ORAL TABLET 1 1/2 tabs daily LOSAR KOO POTASSIUM 14081091537 Active Shelia Quezada RN Active CELEXA 20 MG ORAL TABLET Take one by mouth daily CITALOPRAM HYDROBROMIDE 67699847115 Active Shelia Quezada RN Active BACTRIM DS 800-160 MG ORAL TABLET by mouth twice a day SULFAMETHOXAZOLE-TRIMETHOPRIM 90506303974 Active Shelia Quezada RN Active AMITRIPTYLINE HCL 75 MG ORAL TABLET Take one by mouth daily at bedtime AMITRIPTYLINE HCL 06110172572 Active Shelia Yuen N Active VICTOZA 18 MG/3ML SUBCUTANEOUS SOLUTION PEN-INJECTOR 1.8 mg mc y VICTOZA 18 MG/3ML SUBCUTANEOUS SOLUTION PEN-INJECTOR LIRAGLUTIDE Inactive CARAFATE 1 GM ORAL TABLET Take one by mouth four times daily 201 10/30/27 CARAFATE 1 GM ORAL TABLET 316944 SUCRALFATE Inacti ve PRILOSEC OTC 20 MG ORAL TABLET DELAYED RELEASE 2 tablets daily 2 PRILOSEC OTC 20 MG ORAL TABLET DELAYED RELEASE OMEPRAZOLE MAGNESIUM Inactive MULTIVITAMIN & MINERAL ORAL LIQUID 5 ml daily 06/28 MULTIVITAMIN & MINERAL ORAL LIQUID MULTIPLE VITAMINS-MINERALS Inactive LEVOTHYROXINE SODIUM 200 MCG ORAL TABLET 2 1/4 tablets daily 201 10/30/27 LEVOTHYROXINE SODIUM 200 MCG ORAL TABLET 343781 LEVOTHY ROXINE SODIUM Inactive COUMADIN 5 MG ORAL TABLET Take one by mouth daily 2018 COUMADIN 5 MG ORAL TABLET 412744 WARFARIN SODIUM Inactive Vital Signs Date Name [...] 11 .6-14.8 platelet count 304 10^3/MM^3 10*3/mm3 890-618 1986/02/13 leukocyte count, blood 6.5 10^3/MM^3 10*3/mm3 4.6-10.2 [...] 11 .6-14.8 platelet count 303 10^3/MM^3 10*3/mm3 610-740 3870/03/13 leukocyte count, blood 7.2 10^3/MM^3 10*3/mm3 4.6-10.2 [...] 11 .6-14.8 platelet count 299 10^3/MM^3 10*3/mm3 672-057 5862/04/09 leukocyte count, blood 8.7 10^3/MM^3 10*3/mm3 4.6-10.2 [...] 11 .6-14.8 platelet count 295 10^3/MM^3 10*3/mm3 110-738 6076/04/24 leukocyte count, blood 8.0 10^3/MM^3 10*3/mm3 4.6-10.2 [...] 11 .6-14.8 platelet count 429 10^3/MM^3 10*3/mm3 047-574 4143/04/29 leukocyte count, blood 9.1 10^3/MM^3 10*3/mm3 4.6-10.2 [...] 11 .6-14.8 platelet count 343 10^3/MM^3 10*3/mm3 251-125 1075/05/08 leukocyte count, blood 8.0 10^3/MM^3 10*3/mm3 4.6-10.2 [...] 11 .6-14.8 platelet count 399 10^3/MM^3 10*3/mm3 797-324 3870/05/15 leukocyte count, blood 7.2 10^3/MM^3 10*3/mm3 4.6-10.2 [...] 11 .6-14.8 platelet count 341 10^3/MM^3 10*3/mm3 565-494 3282/05/22 leukocyte count, blood 7.9 10^3/MM^3 10*3/mm3 4.6-10.2 [...] 11 .6-14.8 platelet count 362 10^3/MM^3 10*3/mm3 055-368 7814/06/26 leukocyte count, blood 11.7 10^3/MM^3 10*3/mm3 4.6-10.2 [...] 11 .6-14.8 platelet count 272 10^3/MM^3 10*3/mm3 836-692 9827/07/03 leukocyte count, blood 8.1 10^3/MM^3 10*3/mm3 4.6-10.2 [...] 11 .6-14.8 platelet count 315 10^3/MM^3 10*3/mm3 219-434 0649/09/18 leukocyte count, blood 5.3 10^3/MM^3 10*3/mm3 4.6-10.2 [...] 0.30 mg/dL 0.00-1.00 sodium, serum 138 mmol/L 828-585 6540/07/03 carbon dioxide, venous blood 29.9 mmol/L 21.0-32 [...] 32 U/L 15-37 sodium, serum 138 mmol/L 687-044 2746/05/15 carbon dioxide, venous blood 25.9 mmol/L 21.0-32 [...] /DIFF - Chemistry sodium, serum 138 mmol/L 007-735 0339/09/03 carbon dioxide, venous blood 27.3 mmol/L 21.0-32 [...] 50-136 Encounters Code Encounter Date Provider Facility CPT-85642 Level 3 Est. Patient 14:49:42 CDT Deacon Rajan MD [facility] CPT-01905 Level 4 New Patient 16:54:39 CDT Deacon Rajan MD [facility] CPT-75266 Level 2 Est. 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
--- OUTSIDE RECORDS SUMMARY | 2019-07-27 11:43 | XMS REPORT | Clinical Summary ---
Author Author Admin, Lisandra Pacheco Organization All Address Unknown Phone Unavailable Allergies, Adverse Reactions, Alerts Allergy Name Reaction Description Start Date Severity Status Pr ovider PREDNISONE Mild Active Shreyas Roberts MD DOXYCYCLINE HYCLATE Mild Active Shreyas Roberts MD LISINOPRIL Mild Active Shreyas Roberts MD AMBIEN Mild Active Shryeas Roberts MD Conditions or Problems Problem Name [...] one by mouth daily 2018 WARFARIN SODIUM 41519390771 No Longer Active Deacon Rajan MD A ctive LEVO-T 150 MCG ORAL TABLET 3 tab q d LEVOTHYRO XINE SODIUM 04535612740 Active Deacon Rajan MD Active LEVO-T 50 MCG ORAL TABLET 1 q d LEVOTHYROXINE SODIUM 13311259669 Active Deacon Rajan MD Active LEVOTHYROXINE SODIUM 200 MCG ORAL TABLET 2 1/4 tablets daily 201 10/30/27 LEVOTHYROXINE SODIUM 88418478589 No Longer Active Deacon Rajan MD Active MULTIVITAMIN & MINERAL ORAL LIQUID 5 ml daily 06/28 MULTIPLE VITAMINS-MINERALS 14325228507 No Longer Active Deacon Rajan MD Active PRILOSEC OTC 20 MG ORAL TABLET DELAYED RELEASE 2 tablets daily 2 OMEPRAZOLE MAGNESIUM 34332518580 No Longer Active Deacon Rajan MD Active CARAFATE 1 GM ORAL TABLET Take one by mouth four times daily 201 10/30/27 SUCRALFATE 99807838819 No Longer Active Deacon Rajan MD Active VICTOZA 18 MG/3ML SUBCUTANEOUS SOLUTION PEN-INJECTOR 1.8 mg mc y LIRAGLUTIDE 12580386540 No Longer Active Deacon Rajan MD Active TIZANIDINE HCL 4 MG ORAL TABLET 1 tablet every 4 hours TIZANIDINE HCL 23964795878 Active Shelia Quezada RN Active OXYCODONE HCL 5 MG ORAL TABLET 1 tablet every 3-4 hours as n eeded for pain OXYCODONE HCL 65864066444 Active Shelia Quezada RN Active NOVOLOG 100 UNIT/ML SUBCUTANEOUS SOLUTION sliding scale INSULIN ASPART 90629049240 Active Shelia Quezada RN Active MELOXICAM 15 MG ORAL TABLET Take one by mouth daily MELOXICAM 13775790730 Active Shelia Quezada RN Active FUROSEMIDE 40 MG ORAL TABLET Take one by mouth daily FUROSEMIDE 75611672368 Active Shelia Quezada RN Active LANTUS 100 UNIT/ML SUBCUTANEOUS SOLUTION 30 units daily at bedtime INSULIN GLARGINE 76585440329 Active Shelia Quezada RN Act johnathon HYDROCODONE-ACETAMINOPHEN 5-325 MG ORAL TABLET 1 every 4 hours as needed for pain HYDROCODONE-ACETAMINOPHEN 12173639038 Active Shelia Quezada RN Active GLUCOPHAGE 1000 MG ORAL TABLET Take one by mouth daily METFORMIN HCL 08090683065 Active Shelia Quezada RN Active COZAAR 50 MG ORAL TABLET 1 1/2 tabs daily LOSAR KOO POTASSIUM 31235052053 Active Shelia Quezada RN Active CELEXA 20 MG ORAL TABLET Take one by mouth daily CITALOPRAM HYDROBROMIDE 05981343684 Active Shelia Quezada RN Active BACTRIM DS 800-160 MG ORAL TABLET by mouth twice a day SULFAMETHOXAZOLE-TRIMETHOPRIM 76471107080 Active Shelia Quezada RN Active AMITRIPTYLINE HCL 75 MG ORAL TABLET Take one by mouth daily at bedtime AMITRIPTYLINE HCL 97966168288 Active Shelia Yuen N Active VICTOZA 18 MG/3ML SUBCUTANEOUS SOLUTION PEN-INJECTOR 1.8 mg mc y VICTOZA 18 MG/3ML SUBCUTANEOUS SOLUTION PEN-INJECTOR LIRAGLUTIDE Inactive CARAFATE 1 GM ORAL TABLET Take one by mouth four times daily 201 10/30/27 CARAFATE 1 GM ORAL TABLET 818548 SUCRALFATE Inacti ve PRILOSEC OTC 20 MG ORAL TABLET DELAYED RELEASE 2 tablets daily 2 PRILOSEC OTC 20 MG ORAL TABLET DELAYED RELEASE OMEPRAZOLE MAGNESIUM Inactive MULTIVITAMIN & MINERAL ORAL LIQUID 5 ml daily 06/28 MULTIVITAMIN & MINERAL ORAL LIQUID MULTIPLE VITAMINS-MINERALS Inactive LEVOTHYROXINE SODIUM 200 MCG ORAL TABLET 2 1/4 tablets daily 201 10/30/27 LEVOTHYROXINE SODIUM 200 MCG ORAL TABLET 823677 LEVOTHY ROXINE SODIUM Inactive COUMADIN 5 MG ORAL TABLET Take one by mouth daily 2018 COUMADIN 5 MG ORAL TABLET 062541 WARFARIN SODIUM Inactive Vital Signs Date Name [...] 11 .6-14.8 platelet count 304 10^3/MM^3 10*3/mm3 056-840 4572/02/01 erythrocyte (RBC) count 3.75 10^6/MM^3 10*6/mm3 3.80-5.8 0 lymphocytes as percent of blood leukocytes 14.4 % 20.5-51.1 monocytes as percent of blood leukocytes 9.5 % 1.7-9.3 neutrophils as percent of blood leukocytes 71.1 % 42.2-75.2 erythrocyte (RBC) count 4.03 10^6/MM^3 10*6/mm3 3.80-5.8 0 hemoglobin, blood 10.9 g/dL 12.0-16.0 hematocrit, blood 37.6 % 37.0-47.0 mean corpuscular volume, RBC 93 fL 80-97 mean corpuscular hemoglobin, RBC 27.0 pg 27. 0-31.2 mean corpuscular hemoglobin concentration, RBC 28.9 G/DL % 31.8-35.4 red blood cell distribution width 23.0 % 11 .6-14.8 platelet count 303 10^3/MM^3 10*3/mm3 238-337 5592/02/01 leukocyte count, blood 5.6 10^3/MM^3 10*3/mm3 4.6-10.2 leukocyte count, blood 6.5 10^3/MM^3 10*3/mm3 4.6-10.2 neutrophils as percent of blood leukocytes 68.4 % 42.2-75.2 monocytes as percent of blood leukocytes 8.6 % 1.7-9.3 erythrocyte (RBC) count 3.09 10^6/MM^3 10*6/mm3 3.80-5.8 0 hemoglobin, blood 8.9 g/dL 12.0-16.0 hematocrit, blood 30.1 % 37.0-47.0 mean corpuscular volume, RBC 97 fL 80-97 mean corpuscular hemoglobin, RBC 28.8 pg 27. 0-31.2 mean corpuscular hemoglobin concentration, RBC 29.6 G/DL % 31.8-35.4 red blood cell distribution width 21.2 % 11 .6-14.8 platelet count 299 10^3/MM^3 10*3/mm3 795-919 1427/04/09 leukocyte count, blood 8.7 10^3/MM^3 10*3/mm3 4.6-10.2 [...] 11 .6-14.8 platelet count 295 10^3/MM^3 10*3/mm3 166-677 8924/04/24 leukocyte count, blood 8.0 10^3/MM^3 10*3/mm3 4.6-10.2 [...] 11 .6-14.8 platelet count 429 10^3/MM^3 10*3/mm3 989-488 9964/02/13 lymphocytes as percent of blood leukocytes 16.0 % 20.5-51.1 monocytes as percent of blood leukocytes 9.1 % 1.7-9.3 lymphocytes as percent of blood leukocytes 13.1 % 20.5-51.1 leukocyte count, blood 7.2 10^3/MM^3 10*3/mm3 4.6-10.2 neutrophils as percent of blood leukocytes 73.3 % 42.2-75.2 leukocyte count, blood 9.1 10^3/MM^3 10*3/mm3 4.6-10.2 [...] 11 .6-14.8 platelet count 343 10^3/MM^3 10*3/mm3 230-021 6053/05/08 leukocyte count, blood 8.0 10^3/MM^3 10*3/mm3 4.6-10.2 [...] 11 .6-14.8 platelet count 399 10^3/MM^3 10*3/mm3 978-146 3709/05/15 leukocyte count, blood 7.2 10^3/MM^3 10*3/mm3 4.6-10.2 [...] 11 .6-14.8 platelet count 341 10^3/MM^3 10*3/mm3 553-201 5900/05/22 leukocyte count, blood 7.9 10^3/MM^3 10*3/mm3 4.6-10.2 [...] 11 .6-14.8 platelet count 362 10^3/MM^3 10*3/mm3 603-958 5906/06/26 leukocyte count, blood 11.7 10^3/MM^3 10*3/mm3 4.6-10.2 [...] 11 .6-14.8 platelet count 272 10^3/MM^3 10*3/mm3 414-071 4000/07/03 leukocyte count, blood 8.1 10^3/MM^3 10*3/mm3 4.6-10.2 [...] - Chem istry sodium, serum 138 mmol/L 287-439 2569/07/03 carbon dioxide, venous blood 29.9 mmol/L 21.0-32 [...] 0.30 mg/dL 0.00-1.00 sodium, serum 138 mmol/L 390-634 7302/05/15 carbon dioxide, venous blood 25.9 mmol/L 21.0-32 [...] /DIFF - Chemistry sodium, serum 138 mmol/L 581-705 8309/09/03 carbon dioxide, venous blood 27.3 mmol/L 21.0-32 [...] 50-136 Encounters Code Encounter Date Provider Facility CPT-65734 Level 3 Est. Patient 14:49:42 CDT Deacon Rajan MD [facility] CPT-03777 Level 4 New Patient 16:54:39 CDT Deacon Rajan MD [facility] CPT-46684 Level 2 Est. 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
--- OUTSIDE RECORDS SUMMARY | 2019-07-27 11:43 | XMS REPORT | Clinical Summary ---
[...] one by mouth daily 2018 WARFARIN SODIUM 51541724548 No Longer Active Deacon Rajan MD A ctive LEVO-T 150 MCG ORAL TABLET 3 tab q d LEVOTHYRO XINE SODIUM 32448221398 Active Deacon Rajan MD Active LEVO-T 50 MCG ORAL TABLET 1 q d LEVOTHYROXINE SODIUM 64754051345 Active Deacon Rajan MD Active LEVOTHYROXINE SODIUM 200 MCG ORAL TABLET 2 1/4 tablets daily 201 10/30/27 LEVOTHYROXINE SODIUM 11811622432 No Longer Active Deacon Rajan MD Active MULTIVITAMIN & MINERAL ORAL LIQUID 5 ml daily 06/28 MULTIPLE VITAMINS-MINERALS 39346884171 No Longer Active Deacon Rajan MD Active PRILOSEC OTC 20 MG ORAL TABLET DELAYED RELEASE 2 tablets daily 2 OMEPRAZOLE MAGNESIUM 01008653401 No Longer Active Deacon Rajan MD Active CARAFATE 1 GM ORAL TABLET Take one by mouth four times daily 201 10/30/27 SUCRALFATE 02226102413 No Longer Active Deacon Rajan MD Active VICTOZA 18 MG/3ML SUBCUTANEOUS SOLUTION PEN-INJECTOR 1.8 mg mc y LIRAGLUTIDE 93675441777 No Longer Active Deacon Rajan MD Active TIZANIDINE HCL 4 MG ORAL TABLET 1 tablet every 4 hours TIZANIDINE HCL 34014661253 Active Shelia Quezada RN Active OXYCODONE HCL 5 MG ORAL TABLET 1 tablet every 3-4 hours as n eeded for pain OXYCODONE HCL 74061029710 Active Shelia Quezada RN Active NOVOLOG 100 UNIT/ML SUBCUTANEOUS SOLUTION sliding scale INSULIN ASPART 03353202515 Active Shelia Quezada RN Active MELOXICAM 15 MG ORAL TABLET Take one by mouth daily MELOXICAM 95392896933 Active Shelia Quezada RN Active FUROSEMIDE 40 MG ORAL TABLET Take one by mouth daily FUROSEMIDE 76945314900 Active Shelia Quezada RN Active LANTUS 100 UNIT/ML SUBCUTANEOUS SOLUTION 30 units daily at bedtime INSULIN GLARGINE 68543853618 Active Shelia Quezada RN Act johnathon HYDROCODONE-ACETAMINOPHEN 5-325 MG ORAL TABLET 1 every 4 hours as needed for pain HYDROCODONE-ACETAMINOPHEN 36700811934 Active Shelia Quezada RN Active GLUCOPHAGE 1000 MG ORAL TABLET Take one by mouth daily METFORMIN HCL 57455650375 Active Shelia Quezada RN Active COZAAR 50 MG ORAL TABLET 1 1/2 tabs daily LOSAR KOO POTASSIUM 52693944251 Active Shelia Quezada RN Active CELEXA 20 MG ORAL TABLET Take one by mouth daily CITALOPRAM HYDROBROMIDE 50851570543 Active Shelia Quezada RN Active BACTRIM DS 800-160 MG ORAL TABLET by mouth twice a day SULFAMETHOXAZOLE-TRIMETHOPRIM 13757892061 Active Shelia Quezada RN Active AMITRIPTYLINE HCL 75 MG ORAL TABLET Take one by mouth daily at bedtime AMITRIPTYLINE HCL 28871415991 Active Shelia Yuen N Active VICTOZA 18 MG/3ML SUBCUTANEOUS SOLUTION PEN-INJECTOR 1.8 mg mc y VICTOZA 18 MG/3ML SUBCUTANEOUS SOLUTION PEN-INJECTOR LIRAGLUTIDE Inactive CARAFATE 1 GM ORAL TABLET Take one by mouth four times daily 201 10/30/27 CARAFATE 1 GM ORAL TABLET 646009 SUCRALFATE Inacti ve PRILOSEC OTC 20 MG ORAL TABLET DELAYED RELEASE 2 tablets daily 2 PRILOSEC OTC 20 MG ORAL TABLET DELAYED RELEASE OMEPRAZOLE MAGNESIUM Inactive MULTIVITAMIN & MINERAL ORAL LIQUID 5 ml daily 06/28 MULTIVITAMIN & MINERAL ORAL LIQUID MULTIPLE VITAMINS-MINERALS Inactive LEVOTHYROXINE SODIUM 200 MCG ORAL TABLET 2 1/4 tablets daily 201 10/30/27 LEVOTHYROXINE SODIUM 200 MCG ORAL TABLET 049774 LEVOTHY ROXINE SODIUM Inactive COUMADIN 5 MG ORAL TABLET Take one by mouth daily 2018 COUMADIN 5 MG ORAL TABLET 665780 WARFARIN SODIUM Inactive Vital Signs Date Name [...] 11 .6-14.8 platelet count 304 10^3/MM^3 10*3/mm3 063-231 0963/02/13 leukocyte count, blood 6.5 10^3/MM^3 10*3/mm3 4.6-10.2 [...] 11 .6-14.8 platelet count 303 10^3/MM^3 10*3/mm3 541-499 3880/03/13 leukocyte count, blood 7.2 10^3/MM^3 10*3/mm3 4.6-10.2 [...] 11 .6-14.8 platelet count 299 10^3/MM^3 10*3/mm3 209-384 5883/04/09 leukocyte count, blood 8.7 10^3/MM^3 10*3/mm3 4.6-10.2 [...] 11 .6-14.8 platelet count 295 10^3/MM^3 10*3/mm3 228-873 4772/04/24 leukocyte count, blood 8.0 10^3/MM^3 10*3/mm3 4.6-10.2 [...] 11 .6-14.8 platelet count 429 10^3/MM^3 10*3/mm3 236-442 9836/04/29 leukocyte count, blood 9.1 10^3/MM^3 10*3/mm3 4.6-10.2 [...] 11 .6-14.8 platelet count 343 10^3/MM^3 10*3/mm3 563-684 7495/05/08 leukocyte count, blood 8.0 10^3/MM^3 10*3/mm3 4.6-10.2 [...] 11 .6-14.8 platelet count 399 10^3/MM^3 10*3/mm3 969-912 9767/05/15 leukocyte count, blood 7.2 10^3/MM^3 10*3/mm3 4.6-10.2 [...] 11 .6-14.8 platelet count 341 10^3/MM^3 10*3/mm3 949-280 4972/05/22 leukocyte count, blood 7.9 10^3/MM^3 10*3/mm3 4.6-10.2 [...] 11 .6-14.8 platelet count 362 10^3/MM^3 10*3/mm3 423-052 1558/06/26 leukocyte count, blood 11.7 10^3/MM^3 10*3/mm3 4.6-10.2 [...] 11 .6-14.8 platelet count 272 10^3/MM^3 10*3/mm3 940-823 3326/07/03 leukocyte count, blood 8.1 10^3/MM^3 10*3/mm3 4.6-10.2 [...] 11 .6-14.8 platelet count 315 10^3/MM^3 10*3/mm3 414-476 5852/09/18 leukocyte count, blood 5.3 10^3/MM^3 10*3/mm3 4.6-10.2 [...] 0.30 mg/dL 0.00-1.00 sodium, serum 138 mmol/L 426-375 9916/07/03 carbon dioxide, venous blood 29.9 mmol/L 21.0-32 [...] 32 U/L 15-37 sodium, serum 138 mmol/L 375-391 0438/05/15 carbon dioxide, venous blood 25.9 mmol/L 21.0-32 [...] /DIFF - Chemistry sodium, serum 138 mmol/L 762-211 0689/09/03 carbon dioxide, venous blood 27.3 mmol/L 21.0-32 [...] 50-136 Encounters Code Encounter Date Provider Facility CPT-57353 Level 3 Est. Patient 14:49:42 CDT Deacon Rajan MD [facility] CPT-01809 Level 4 New Patient 16:54:39 CDT Deacon Rajan MD [facility] CPT-16061 Level 2 Est. 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
[2019-07-27 11:44] LABS: HEMATOCRIT 28 % (35-52); HEMOGLOBIN 8.2 G/DL (11.5-16.0); MEAN CORPUSCULAR HEMOGLOBIN 27 PG (25-34); MEAN CORPUSCULAR VOLUME 90 FL (80-99); WHITE BLOOD COUNT 4.9 10^3/uL (4.3-11.0)
--- OUTSIDE RECORDS SUMMARY | 2019-07-27 11:44 | XMS REPORT | Clinical Summary ---
[...] to excess calories 278.00 Refinemen t Shreyas Rboerts MD Obesity, unspecified Obesity Class I (BMI [...] one by mouth daily 2018 WARFARIN SODIUM 82997403398 No Longer Active Deacon Rajan MD A ctive LEVO-T 150 MCG ORAL TABLET 3 tab q d LEVOTHYRO XINE SODIUM 57404674732 Active Deacon Rajan MD Active LEVO-T 50 MCG ORAL TABLET 1 q d LEVOTHYROXINE SODIUM 41943388247 Active Deacon Rajan MD Active LEVOTHYROXINE SODIUM 200 MCG ORAL TABLET 2 1/4 tablets daily 201 10/30/27 LEVOTHYROXINE SODIUM 30530057376 No Longer Active Deacon Rajan MD Active MULTIVITAMIN & MINERAL ORAL LIQUID 5 ml daily 06/28 MULTIPLE VITAMINS-MINERALS 02774074144 No Longer Active Deacon Rajan MD Active PRILOSEC OTC 20 MG ORAL TABLET DELAYED RELEASE 2 tablets daily 2 OMEPRAZOLE MAGNESIUM 45225275795 No Longer Active Deacon Rajan MD Active CARAFATE 1 GM ORAL TABLET Take one by mouth four times daily 201 10/30/27 SUCRALFATE 86833142719 No Longer Active Deacon Rajan MD Active VICTOZA 18 MG/3ML SUBCUTANEOUS SOLUTION PEN-INJECTOR 1.8 mg mc y LIRAGLUTIDE 65236775207 No Longer Active Deacon Rajan MD Active TIZANIDINE HCL 4 MG ORAL TABLET 1 tablet every 4 hours TIZANIDINE HCL 96039223497 Active Shelia Quezada RN Active OXYCODONE HCL 5 MG ORAL TABLET 1 tablet every 3-4 hours as n eeded for pain OXYCODONE HCL 40684007466 Active Shelia Quezada RN Active NOVOLOG 100 UNIT/ML SUBCUTANEOUS SOLUTION sliding scale INSULIN ASPART 95452682928 Active Shelia Quezada RN Active MELOXICAM 15 MG ORAL TABLET Take one by mouth daily MELOXICAM 51139643587 Active Shelia Quezada RN Active FUROSEMIDE 40 MG ORAL TABLET Take one by mouth daily FUROSEMIDE 20511814722 Active Shelia Quezada RN Active LANTUS 100 UNIT/ML SUBCUTANEOUS SOLUTION 30 units daily at bedtime INSULIN GLARGINE 91498867377 Active Shelia Quezada RN Act johnathon HYDROCODONE-ACETAMINOPHEN 5-325 MG ORAL TABLET 1 every 4 hours as needed for pain HYDROCODONE-ACETAMINOPHEN 34792563419 Active Shelia Quezada RN Active GLUCOPHAGE 1000 MG ORAL TABLET Take one by mouth daily METFORMIN HCL 51720339987 Active Shelia Quezada RN Active COZAAR 50 MG ORAL TABLET 1 1/2 tabs daily LOSAR KOO POTASSIUM 32107323922 Active Shelia Quezada RN Active CELEXA 20 MG ORAL TABLET Take one by mouth daily CITALOPRAM HYDROBROMIDE 65601448656 Active Shelia Quezada RN Active BACTRIM DS 800-160 MG ORAL TABLET by mouth twice a day SULFAMETHOXAZOLE-TRIMETHOPRIM 54870800404 Active Shelia Quezada RN Active AMITRIPTYLINE HCL 75 MG ORAL TABLET Take one by mouth daily at bedtime AMITRIPTYLINE HCL 84458676876 Active Shelia Yuen N Active VICTOZA 18 MG/3ML SUBCUTANEOUS SOLUTION PEN-INJECTOR 1.8 mg mc y VICTOZA 18 MG/3ML SUBCUTANEOUS SOLUTION PEN-INJECTOR LIRAGLUTIDE Inactive CARAFATE 1 GM ORAL TABLET Take one by mouth four times daily 201 10/30/27 CARAFATE 1 GM ORAL TABLET 132199 SUCRALFATE Inacti ve PRILOSEC OTC 20 MG ORAL TABLET DELAYED RELEASE 2 tablets daily 2 PRILOSEC OTC 20 MG ORAL TABLET DELAYED RELEASE OMEPRAZOLE MAGNESIUM Inactive MULTIVITAMIN & MINERAL ORAL LIQUID 5 ml daily 06/28 MULTIVITAMIN & MINERAL ORAL LIQUID MULTIPLE VITAMINS-MINERALS Inactive LEVOTHYROXINE SODIUM 200 MCG ORAL TABLET 2 1/4 tablets daily 201 10/30/27 LEVOTHYROXINE SODIUM 200 MCG ORAL TABLET 859315 LEVOTHY ROXINE SODIUM Inactive COUMADIN 5 MG ORAL TABLET Take one by mouth daily 2018 COUMADIN 5 MG ORAL TABLET 696170 WARFARIN SODIUM Inactive Vital Signs Date Name [...] 11 .6-14.8 platelet count 304 10^3/MM^3 10*3/mm3 313-660 5199/02/13 leukocyte count, blood 6.5 10^3/MM^3 10*3/mm3 4.6-10.2 [...] 11 .6-14.8 platelet count 303 10^3/MM^3 10*3/mm3 320-117 0185/02/01 erythrocyte (RBC) count 3.75 10^6/MM^3 10*6/mm3 3.80-5.8 0 lymphocytes as percent of blood leukocytes 14.4 % 20.5-51.1 monocytes as percent of blood leukocytes 9.5 % 1.7-9.3 neutrophils as percent of blood leukocytes 71.1 % 42.2-75.2 leukocyte count, blood 5.6 10^3/MM^3 10*3/mm3 4.6-10.2 leukocyte count, blood 7.2 10^3/MM^3 10*3/mm3 4.6-10.2 hematocrit, blood 30.1 % 37.0-47.0 mean corpuscular volume, RBC 97 fL 80-97 mean corpuscular hemoglobin, RBC 28.8 pg 27. 0-31.2 mean corpuscular hemoglobin concentration, RBC 29.6 G/DL % 31.8-35.4 red blood cell distribution width 21.2 % 11 .6-14.8 platelet count 299 10^3/MM^3 10*3/mm3 838-355 1791/03/13 neutrophils as percent of blood leukocytes 73.3 % 42.2-75.2 monocytes as percent of blood leukocytes 9.1 % 1.7-9.3 lymphocytes as percent of blood leukocytes 13.1 % 20.5-51.1 erythrocyte (RBC) count 3.09 10^6/MM^3 10*6/mm3 3.80-5.8 0 hemoglobin, blood 8.9 g/dL 12.0-16.0 leukocyte count, blood 8.7 10^3/MM^3 10*3/mm3 4.6-10.2 hematocrit, blood 24.2 % 37.0-47.0 mean corpuscular volume, RBC 100 fL 80-97 mean corpuscular hemoglobin, RBC 29.6 pg 27. 0-31.2 mean corpuscular hemoglobin concentration, RBC 29.5 G/DL % 31.8-35.4 red blood cell distribution width 18.2 % 11 .6-14.8 platelet count 295 10^3/MM^3 10*3/mm3 212-266 0588/04/09 neutrophils as percent of blood leukocytes 73.0 % 42.2-75.2 monocytes as percent of blood leukocytes 9.9 % 1.7-9.3 lymphocytes as percent of blood leukocytes 13.9 % 20.5-51.1 erythrocyte (RBC) count 2.42 10^6/MM^3 10*6/mm3 3.80-5.8 0 hemoglobin, blood 7.1 g/dL 12.0-16.0 hemoglobin, blood 4.9 g/dL 12.0-16.0 hematocrit, blood 17.2 % 37.0-47.0 mean corpuscular volume, RBC 102 fL 80-97 mean corpuscular hemoglobin, RBC 29.0 pg 27. 0-31.2 mean corpuscular hemoglobin concentration, RBC 28.4 G/DL % 31.8-35.4 red blood cell distribution width 20.2 % 11 .6-14.8 platelet count 429 10^3/MM^3 10*3/mm3 827-633 4843/04/29 leukocyte count, blood 9.1 10^3/MM^3 10*3/mm3 4.6-10.2 [...] 11 .6-14.8 platelet count 343 10^3/MM^3 10*3/mm3 202-263 8435/04/24 leukocyte count, blood 8.0 10^3/MM^3 10*3/mm3 4.6-10.2 neutrophils as percent of blood leukocytes 66.8 % 42.2-75.2 monocytes as percent of blood leukocytes 10.4 % 1.7-9.3 lymphocytes as percent of blood leukocytes 18.1 % 20.5-51.1 erythrocyte (RBC) count 1.69 10^6/MM^3 10*6/mm3 3.80-5.8 0 neutrophils as percent of blood leukocytes 71.1 % 42.2-75.2 hematocrit, blood 32.3 % 37.0-47.0 mean corpuscular volume, RBC 98 fL 80-97 mean corpuscular hemoglobin, RBC 28.2 pg 27. 0-31.2 mean corpuscular hemoglobin concentration, RBC 28.7 G/DL % 31.8-35.4 red blood cell distribution width 19.7 % 11 .6-14.8 platelet count 399 10^3/MM^3 10*3/mm3 096-225 9745/05/08 monocytes as percent of blood leukocytes 9.1 % 1.7-9.3 lymphocytes as percent of blood leukocytes 14.6 % 20.5-51.1 erythrocyte (RBC) count 3.28 10^6/MM^3 10*6/mm3 3.80-5.8 0 hemoglobin, blood 9.3 g/dL 12.0-16.0 leukocyte count, blood 8.0 10^3/MM^3 10*3/mm3 4.6-10.2 leukocyte count, blood 7.2 10^3/MM^3 10*3/mm3 4.6-10.2 hematocrit, blood 29.7 % 37.0-47.0 mean corpuscular volume, RBC 98 fL 80-97 mean corpuscular hemoglobin, RBC 29.1 pg 27. 0-31.2 mean corpuscular hemoglobin concentration, RBC 29.7 G/DL % 31.8-35.4 red blood cell distribution width 17.9 % 11 .6-14.8 platelet count 341 10^3/MM^3 10*3/mm3 928-687 2765/05/15 neutrophils as percent of blood leukocytes 68.4 % 42.2-75.2 monocytes as percent of blood leukocytes 9.9 % 1.7-9.3 lymphocytes as percent of blood leukocytes 17.0 % 20.5-51.1 erythrocyte (RBC) count 3.03 10^6/MM^3 10*6/mm3 3.80-5.8 0 hemoglobin, blood 8.8 g/dL 12.0-16.0 leukocyte count, blood 7.9 10^3/MM^3 10*3/mm3 4.6-10.2 hematocrit, blood 31.5 % 37.0-47.0 mean corpuscular volume, RBC 102 fL 80-97 mean corpuscular hemoglobin, RBC 28.7 pg 27. 0-31.2 mean corpuscular hemoglobin concentration, RBC 28.3 G/DL % 31.8-35.4 red blood cell distribution width 18.4 % 11 .6-14.8 platelet count 362 10^3/MM^3 10*3/mm3 291-084 5898/06/26 leukocyte count, blood 11.7 10^3/MM^3 10*3/mm3 4.6-10.2 [...] 11 .6-14.8 platelet count 272 10^3/MM^3 10*3/mm3 998-909 4884/05/22 neutrophils as percent of blood leukocytes 64.7 % 42.2-75.2 monocytes as percent of blood leukocytes 9.5 % 1.7-9.3 lymphocytes as percent of blood leukocytes 19.0 % 20.5-51.1 erythrocyte (RBC) count 3.10 10^6/MM^3 10*6/mm3 3.80-5.8 0 hemoglobin, blood 8.9 g/dL 12.0-16.0 leukocyte count, blood 8.1 10^3/MM^3 10*3/mm3 4.6-10.2 hematocrit, blood 34.2 % 37.0-47.0 mean corpuscular volume, RBC 93 fL 80-97 mean corpuscular hemoglobin, RBC 28.1 pg 27. 0-31.2 mean corpuscular hemoglobin concentration, RBC 30.3 G/DL % 31.8-35.4 red blood cell distribution width 17.4 % 11 .6-14.8 platelet count 315 10^3/MM^3 10*3/mm3 538-316 0758/07/03 neutrophils as percent of blood leukocytes 69.5 % 42.2-75.2 monocytes as percent of blood leukocytes 8.2 % 1.7-9.3 lymphocytes as percent of blood leukocytes 14.0 % 20.5-51.1 erythrocyte (RBC) count 3.68 10^6/MM^3 10*6/mm3 3.80-5.8 0 hemoglobin, blood 10.3 g/dL 12.0-16.0 Lab Report: Comp. Metabolic Panel - Chem istry calcium, serum 9.0 mg/dL 8.5-10.1 bilirubin, serum, total 0.30 mg/dL 0.00-1.00 carbon dioxide, venous blood 25.9 mmol/L 21.0-32 .0 potassium, serum 4.6 mmol/L 3.5-5.2 chloride, serum 104 mmol/L 98-107 blood glucose 105 mg/dL 65-95 urea nitrogen, blood 21 mg/dL 7-18 calcium, serum 8.9 mg/dL 8.5-10.1 bilirubin, serum, total 0.30 mg/dL 0.00-1.00 sodium, serum 138 mmol/L 582-876 3025/07/03 carbon dioxide, venous blood 29.9 mmol/L 21.0-32 [...] 32 U/L 15-37 sodium, serum 138 mmol/L 989-493 0763/05/15 creatinine, serum 0.94 mg/dL 0.60-1.30 Estimated Glomerular Filtration Rate (calc) 64 (?) mL/min/1.73m2 = OR > 60 mL/min alanine aminotransferase (SGPT), serum 16 U/L aspartate aminotransferase (SGOT), serum 8 U/L 15- Lab Report: Comp. Metabolic Panel - Lab Alkaline phosphatase 96 50-136 Alkaline phosphatase 147 50-136 Encounters Code Encounter Date Provider Facility CPT-10042 Level 3 Est. Patient 14:49:42 CDT Deacon Rajan MD [facility] CPT-79206 Level 4 New Patient 16:54:39 CDT Deacon Rajan MD [facility] CPT-32321 Level 2 Est. Patient 15:33:[address] OFF[address] Shreyas gillespie MD [facility] Procedures Code Procedure Name Date Entry Date Standard Desc ription CPT-25317 Postop F/U Visit 15:58:49 CDT
--- OUTSIDE RECORDS SUMMARY | 2019-07-27 11:44 | XMS REPORT | Clinical Summary ---
[...] one by mouth daily 2018 WARFARIN SODIUM 72421984769 No Longer Active Deacon Rajan MD A ctive LEVO-T 150 MCG ORAL TABLET 3 tab q d LEVOTHYRO XINE SODIUM 35355333256 Active Deacon Rajan MD Active LEVO-T 50 MCG ORAL TABLET 1 q d LEVOTHYROXINE SODIUM 76237065729 Active Deacon Rajan MD Active LEVOTHYROXINE SODIUM 200 MCG ORAL TABLET 2 1/4 tablets daily 201 10/30/27 LEVOTHYROXINE SODIUM 38904002159 No Longer Active Deacon Rajan MD Active MULTIVITAMIN & MINERAL ORAL LIQUID 5 ml daily 06/28 MULTIPLE VITAMINS-MINERALS 08870059528 No Longer Active Deacon Rajan MD Active PRILOSEC OTC 20 MG ORAL TABLET DELAYED RELEASE 2 tablets daily 2 OMEPRAZOLE MAGNESIUM 63367180915 No Longer Active Deacon Rajan MD Active CARAFATE 1 GM ORAL TABLET Take one by mouth four times daily 201 10/30/27 SUCRALFATE 65663890533 No Longer Active Deacon Rajan MD Active VICTOZA 18 MG/3ML SUBCUTANEOUS SOLUTION PEN-INJECTOR 1.8 mg mc y LIRAGLUTIDE 75836307286 No Longer Active Deacon Rajan MD Active TIZANIDINE HCL 4 MG ORAL TABLET 1 tablet every 4 hours TIZANIDINE HCL 45775660114 Active Shelia Quezada RN Active OXYCODONE HCL 5 MG ORAL TABLET 1 tablet every 3-4 hours as n eeded for pain OXYCODONE HCL 10625225080 Active Shelia Quezada RN Active NOVOLOG 100 UNIT/ML SUBCUTANEOUS SOLUTION sliding scale INSULIN ASPART 66052400884 Active Shelia Quezada RN Active MELOXICAM 15 MG ORAL TABLET Take one by mouth daily MELOXICAM 90989680569 Active Shelia Quezada RN Active FUROSEMIDE 40 MG ORAL TABLET Take one by mouth daily FUROSEMIDE 03873585438 Active Shelia Quezada RN Active LANTUS 100 UNIT/ML SUBCUTANEOUS SOLUTION 30 units daily at bedtime INSULIN GLARGINE 06165062333 Active Shelia Quezada RN Act johnathon HYDROCODONE-ACETAMINOPHEN 5-325 MG ORAL TABLET 1 every 4 hours as needed for pain HYDROCODONE-ACETAMINOPHEN 32007426791 Active Shelia Quezada RN Active GLUCOPHAGE 1000 MG ORAL TABLET Take one by mouth daily METFORMIN HCL 85009321991 Active Shelia Quezada RN Active COZAAR 50 MG ORAL TABLET 1 1/2 tabs daily LOSAR KOO POTASSIUM 33806105504 Active Shelia Quezada RN Active CELEXA 20 MG ORAL TABLET Take one by mouth daily CITALOPRAM HYDROBROMIDE 57404589120 Active Shelia Quezada RN Active BACTRIM DS 800-160 MG ORAL TABLET by mouth twice a day SULFAMETHOXAZOLE-TRIMETHOPRIM 68882001438 Active Shelia Quezada RN Active AMITRIPTYLINE HCL 75 MG ORAL TABLET Take one by mouth daily at bedtime AMITRIPTYLINE HCL 39167769499 Active Shelia Yuen N Active VICTOZA 18 MG/3ML SUBCUTANEOUS SOLUTION PEN-INJECTOR 1.8 mg mc y VICTOZA 18 MG/3ML SUBCUTANEOUS SOLUTION PEN-INJECTOR LIRAGLUTIDE Inactive CARAFATE 1 GM ORAL TABLET Take one by mouth four times daily 201 10/30/27 CARAFATE 1 GM ORAL TABLET 539800 SUCRALFATE Inacti ve PRILOSEC OTC 20 MG ORAL TABLET DELAYED RELEASE 2 tablets daily 2 PRILOSEC OTC 20 MG ORAL TABLET DELAYED RELEASE OMEPRAZOLE MAGNESIUM Inactive MULTIVITAMIN & MINERAL ORAL LIQUID 5 ml daily 06/28 MULTIVITAMIN & MINERAL ORAL LIQUID MULTIPLE VITAMINS-MINERALS Inactive LEVOTHYROXINE SODIUM 200 MCG ORAL TABLET 2 1/4 tablets daily 201 10/30/27 LEVOTHYROXINE SODIUM 200 MCG ORAL TABLET 788951 LEVOTHY ROXINE SODIUM Inactive COUMADIN 5 MG ORAL TABLET Take one by mouth daily 2018 COUMADIN 5 MG ORAL TABLET 322452 WARFARIN SODIUM Inactive Vital Signs Date Name [...] 11 .6-14.8 platelet count 304 10^3/MM^3 10*3/mm3 996-612 6144/02/01 erythrocyte (RBC) count 3.75 10^6/MM^3 10*6/mm3 3.80-5.8 0 lymphocytes as percent of blood leukocytes 14.4 % 20.5-51.1 monocytes as percent of blood leukocytes 9.5 % 1.7-9.3 neutrophils as percent of blood leukocytes 71.1 % 42.2-75.2 leukocyte count, blood 5.6 10^3/MM^3 10*3/mm3 4.6-10.2 leukocyte count, blood 6.5 10^3/MM^3 10*3/mm3 4.6-10.2 hematocrit, blood 37.6 % 37.0-47.0 mean corpuscular volume, RBC 93 fL 80-97 mean corpuscular hemoglobin, RBC 27.0 pg 27. 0-31.2 mean corpuscular hemoglobin concentration, RBC 28.9 G/DL % 31.8-35.4 red blood cell distribution width 23.0 % 11 .6-14.8 platelet count 303 10^3/MM^3 10*3/mm3 982-782 6272/03/13 leukocyte count, blood 7.2 10^3/MM^3 10*3/mm3 4.6-10.2 [...] 11 .6-14.8 platelet count 299 10^3/MM^3 10*3/mm3 570-675 0076/04/09 leukocyte count, blood 8.7 10^3/MM^3 10*3/mm3 4.6-10.2 [...] 11 .6-14.8 platelet count 295 10^3/MM^3 10*3/mm3 012-680 7025/04/24 leukocyte count, blood 8.0 10^3/MM^3 10*3/mm3 4.6-10.2 neutrophils as percent of blood leukocytes 66.8 % 42.2-75.2 neutrophils as percent of blood leukocytes 68.4 % 42.2-75.2 monocytes as percent of blood leukocytes 8.6 % 1.7-9.3 lymphocytes as percent of blood leukocytes 16.0 % 20.5-51.1 erythrocyte (RBC) count 4.03 10^6/MM^3 10*6/mm3 3.80-5.8 0 hemoglobin, blood 10.9 g/dL 12.0-16.0 monocytes as percent of blood leukocytes 10.4 [...] 11 .6-14.8 platelet count 429 10^3/MM^3 10*3/mm3 617-090 5883/04/29 leukocyte count, blood 9.1 10^3/MM^3 10*3/mm3 4.6-10.2 [...] 11 .6-14.8 platelet count 343 10^3/MM^3 10*3/mm3 588-813 3996/05/08 leukocyte count, blood 8.0 10^3/MM^3 10*3/mm3 4.6-10.2 [...] 11 .6-14.8 platelet count 399 10^3/MM^3 10*3/mm3 740-983 5843/05/15 leukocyte count, blood 7.2 10^3/MM^3 10*3/mm3 4.6-10.2 [...] 11 .6-14.8 platelet count 341 10^3/MM^3 10*3/mm3 101-499 4624/05/22 leukocyte count, blood 7.9 10^3/MM^3 10*3/mm3 4.6-10.2 [...] 11 .6-14.8 platelet count 362 10^3/MM^3 10*3/mm3 100-715 3843/06/26 leukocyte count, blood 11.7 10^3/MM^3 10*3/mm3 4.6-10.2 [...] 11 .6-14.8 platelet count 272 10^3/MM^3 10*3/mm3 159-284 9158/07/03 leukocyte count, blood 8.1 10^3/MM^3 10*3/mm3 4.6-10.2 [...] - Chem istry sodium, serum 138 mmol/L 302-354 1561/07/03 carbon dioxide, venous blood 29.9 mmol/L 21.0-32 [...] 0.30 mg/dL 0.00-1.00 sodium, serum 138 mmol/L 555-712 3541/05/15 carbon dioxide, venous blood 25.9 mmol/L 21.0-32 [...] 50-136 Encounters Code Encounter Date Provider Facility CPT-03773 Level 3 Est. Patient 14:49:42 CDT Deacon Rajan MD [facility] CPT-78201 Level 4 New Patient 16:54:39 CDT Deacon Rajan MD [facility] CPT-84749 Level 2 Est. 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
--- OUTSIDE RECORDS SUMMARY | 2019-07-27 11:44 | XMS REPORT | Clinical Summary ---
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 [...] one by mouth daily 2018 WARFARIN SODIUM 99633619940 No Longer Active Deacon Rajan MD A ctive LEVO-T 150 MCG ORAL TABLET 3 tab q d LEVOTHYRO XINE SODIUM 02926982469 Active Deacon Rajan MD Active LEVO-T 50 MCG ORAL TABLET 1 q d LEVOTHYROXINE SODIUM 71592147735 Active Deacon Rajan MD Active LEVOTHYROXINE SODIUM 200 MCG ORAL TABLET 2 1/4 tablets daily 201 10/30/27 LEVOTHYROXINE SODIUM 04652239072 No Longer Active Deacon Rajan MD Active MULTIVITAMIN & MINERAL ORAL LIQUID 5 ml daily 06/28 MULTIPLE VITAMINS-MINERALS 29875488766 No Longer Active Deacon Rajan MD Active PRILOSEC OTC 20 MG ORAL TABLET DELAYED RELEASE 2 tablets daily 2 OMEPRAZOLE MAGNESIUM 76127784806 No Longer Active Deacon Rajan MD Active CARAFATE 1 GM ORAL TABLET Take one by mouth four times daily 201 10/30/27 SUCRALFATE 27817883020 No Longer Active Deacon Rajan MD Active VICTOZA 18 MG/3ML SUBCUTANEOUS SOLUTION PEN-INJECTOR 1.8 mg mc y LIRAGLUTIDE 43878535296 No Longer Active Deacon Rajan MD Active TIZANIDINE HCL 4 MG ORAL TABLET 1 tablet every 4 hours TIZANIDINE HCL 77232488002 Active Shelia Quezada RN Active OXYCODONE HCL 5 MG ORAL TABLET 1 tablet every 3-4 hours as n eeded for pain OXYCODONE HCL 67651783105 Active Shelia Quezada RN Active NOVOLOG 100 UNIT/ML SUBCUTANEOUS SOLUTION sliding scale INSULIN ASPART 86169548188 Active Shelia Quezada RN Active MELOXICAM 15 MG ORAL TABLET Take one by mouth daily MELOXICAM 50795985618 Active Shelia Quezada RN Active FUROSEMIDE 40 MG ORAL TABLET Take one by mouth daily FUROSEMIDE 12720677556 Active Shelia Quezada RN Active LANTUS 100 UNIT/ML SUBCUTANEOUS SOLUTION 30 units daily at bedtime INSULIN GLARGINE 30379158079 Active Shelia Quezada RN Act johnathon HYDROCODONE-ACETAMINOPHEN 5-325 MG ORAL TABLET 1 every 4 hours as needed for pain HYDROCODONE-ACETAMINOPHEN 66103299205 Active Shelia Quezada RN Active GLUCOPHAGE 1000 MG ORAL TABLET Take one by mouth daily METFORMIN HCL 15317777025 Active Shelia Quezada RN Active COZAAR 50 MG ORAL TABLET 1 1/2 tabs daily LOSAR KOO POTASSIUM 75137273215 Active Shelia Quezada RN Active CELEXA 20 MG ORAL TABLET Take one by mouth daily CITALOPRAM HYDROBROMIDE 80032062562 Active Shelia Quezada RN Active BACTRIM DS 800-160 MG ORAL TABLET by mouth twice a day SULFAMETHOXAZOLE-TRIMETHOPRIM 20221034289 Active Shelia Quezada RN Active AMITRIPTYLINE HCL 75 MG ORAL TABLET Take one by mouth daily at bedtime AMITRIPTYLINE HCL 78501227211 Active Shelia Yuen N Active VICTOZA 18 MG/3ML SUBCUTANEOUS SOLUTION PEN-INJECTOR 1.8 mg mc y VICTOZA 18 MG/3ML SUBCUTANEOUS SOLUTION PEN-INJECTOR LIRAGLUTIDE Inactive CARAFATE 1 GM ORAL TABLET Take one by mouth four times daily 201 10/30/27 CARAFATE 1 GM ORAL TABLET 527716 SUCRALFATE Inacti ve PRILOSEC OTC 20 MG ORAL TABLET DELAYED RELEASE 2 tablets daily 2 PRILOSEC OTC 20 MG ORAL TABLET DELAYED RELEASE OMEPRAZOLE MAGNESIUM Inactive MULTIVITAMIN & MINERAL ORAL LIQUID 5 ml daily 06/28 MULTIVITAMIN & MINERAL ORAL LIQUID MULTIPLE VITAMINS-MINERALS Inactive LEVOTHYROXINE SODIUM 200 MCG ORAL TABLET 2 1/4 tablets daily 201 10/30/27 LEVOTHYROXINE SODIUM 200 MCG ORAL TABLET 300144 LEVOTHY ROXINE SODIUM Inactive COUMADIN 5 MG ORAL TABLET Take one by mouth daily 2018 COUMADIN 5 MG ORAL TABLET 861617 WARFARIN SODIUM Inactive Vital Signs Date Name [...] 11 .6-14.8 platelet count 304 10^3/MM^3 10*3/mm3 888-120 2419/02/13 leukocyte count, blood 6.5 10^3/MM^3 10*3/mm3 4.6-10.2 [...] 11 .6-14.8 platelet count 303 10^3/MM^3 10*3/mm3 656-683 3743/03/13 leukocyte count, blood 7.2 10^3/MM^3 10*3/mm3 4.6-10.2 [...] 11 .6-14.8 platelet count 299 10^3/MM^3 10*3/mm3 768-603 5849/04/09 leukocyte count, blood 8.7 10^3/MM^3 10*3/mm3 4.6-10.2 [...] 11 .6-14.8 platelet count 295 10^3/MM^3 10*3/mm3 241-269 5726/04/24 leukocyte count, blood 8.0 10^3/MM^3 10*3/mm3 4.6-10.2 [...] 11 .6-14.8 platelet count 429 10^3/MM^3 10*3/mm3 823-697 3038/04/29 leukocyte count, blood 9.1 10^3/MM^3 10*3/mm3 4.6-10.2 [...] 11 .6-14.8 platelet count 343 10^3/MM^3 10*3/mm3 354-992 1899/05/08 leukocyte count, blood 8.0 10^3/MM^3 10*3/mm3 4.6-10.2 [...] 11 .6-14.8 platelet count 399 10^3/MM^3 10*3/mm3 761-494 7658/05/15 leukocyte count, blood 7.2 10^3/MM^3 10*3/mm3 4.6-10.2 [...] 11 .6-14.8 platelet count 341 10^3/MM^3 10*3/mm3 248-110 8572/05/22 leukocyte count, blood 7.9 10^3/MM^3 10*3/mm3 4.6-10.2 [...] 11 .6-14.8 platelet count 362 10^3/MM^3 10*3/mm3 956-376 2386/06/26 leukocyte count, blood 11.7 10^3/MM^3 10*3/mm3 4.6-10.2 [...] 11 .6-14.8 platelet count 272 10^3/MM^3 10*3/mm3 162-824 6476/07/03 leukocyte count, blood 8.1 10^3/MM^3 10*3/mm3 4.6-10.2 [...] - Chem istry sodium, serum 138 mmol/L 219-788 3239/07/03 carbon dioxide, venous blood 29.9 mmol/L 21.0-32 [...] 0.30 mg/dL 0.00-1.00 sodium, serum 138 mmol/L 393-589 0150/05/15 carbon dioxide, venous blood 25.9 mmol/L 21.0-32 [...] 50-136 Encounters Code Encounter Date Provider Facility CPT-97101 Level 3 Est. Patient 14:49:42 CDT Deacon Rajan MD [facility] CPT-04652 Level 4 New Patient 16:54:39 CDT Deacon Rajan MD [facility] CPT-61095 Level 2 Est. 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
--- OUTSIDE RECORDS SUMMARY | 2019-07-27 11:44 | XMS REPORT | Clinical Summary ---
[...] one by mouth daily 2018 WARFARIN SODIUM [id number] No Longer Active Deacon Rajan MD A ctive LEVO-T 150 MCG ORAL TABLET 3 tab q d LEVOTHYRO XINE SODIUM 96882717790 Active Deacon Rajan MD Active LEVO-T 50 MCG ORAL TABLET 1 q d LEVOTHYROXINE SODIUM 35306549668 Active Deacon Rajan MD Active LEVOTHYROXINE SODIUM 200 MCG ORAL TABLET 2 1/4 tablets daily 201 10/30/27 LEVOTHYROXINE SODIUM 82996060661 No Longer Active Deacon Rajan MD Active MULTIVITAMIN & MINERAL ORAL LIQUID 5 ml daily 06/28 MULTIPLE VITAMINS-MINERALS 82410410108 No Longer Active Deacon Rajan MD Active PRILOSEC OTC 20 MG ORAL TABLET DELAYED RELEASE 2 tablets daily 2 OMEPRAZOLE MAGNESIUM 11963402446 No Longer Active Deacon Rajan MD Active CARAFATE 1 GM ORAL TABLET Take one by mouth four times daily 201 10/30/27 SUCRALFATE 77300484961 No Longer Active Deacon Rajan MD Active VICTOZA 18 MG/3ML SUBCUTANEOUS SOLUTION PEN-INJECTOR 1.8 mg mc y LIRAGLUTIDE 16428649361 No Longer Active Deacon Rajan MD Active TIZANIDINE HCL 4 MG ORAL TABLET 1 tablet every 4 hours TIZANIDINE HCL 45742194267 Active Shelia Quezada RN Active OXYCODONE HCL 5 MG ORAL TABLET 1 tablet every 3-4 hours as n eeded for pain OXYCODONE HCL 82430192235 Active Shelia Quezada RN Active NOVOLOG 100 UNIT/ML SUBCUTANEOUS SOLUTION sliding scale INSULIN ASPART 77817496489 Active Shelia Quezada RN Active MELOXICAM 15 MG ORAL TABLET Take one by mouth daily MELOXICAM 74751391428 Active Shelia Quezada RN Active FUROSEMIDE 40 MG ORAL TABLET Take one by mouth daily FUROSEMIDE 80846174349 Active Shelia Quezada RN Active LANTUS 100 UNIT/ML SUBCUTANEOUS SOLUTION 30 units daily at bedtime INSULIN GLARGINE 42968320656 Active Shelia Quezada RN Act johnathon HYDROCODONE-ACETAMINOPHEN 5-325 MG ORAL TABLET 1 every 4 hours as needed for pain HYDROCODONE-ACETAMINOPHEN 70506339818 Active Shelia Quezada RN Active GLUCOPHAGE 1000 MG ORAL TABLET Take one by mouth daily METFORMIN HCL 47316139319 Active Shelia Quezada RN Active COZAAR 50 MG ORAL TABLET 1 1/2 tabs daily LOSAR KOO POTASSIUM 05059230463 Active Shelia Quezada RN Active CELEXA 20 MG ORAL TABLET Take one by mouth daily CITALOPRAM HYDROBROMIDE 78083453279 Active Shelia Quezada RN Active BACTRIM DS 800-160 MG ORAL TABLET by mouth twice a day SULFAMETHOXAZOLE-TRIMETHOPRIM 57547989667 Active Shelia Quezada RN Active AMITRIPTYLINE HCL 75 MG ORAL TABLET Take one by mouth daily at bedtime AMITRIPTYLINE HCL 28845793931 Active Shelia Yuen N Active VICTOZA 18 MG/3ML SUBCUTANEOUS SOLUTION PEN-INJECTOR 1.8 mg mc y VICTOZA 18 MG/3ML SUBCUTANEOUS SOLUTION PEN-INJECTOR LIRAGLUTIDE Inactive CARAFATE 1 GM ORAL TABLET Take one by mouth four times daily 201 10/30/27 CARAFATE 1 GM ORAL TABLET 024764 SUCRALFATE Inacti ve PRILOSEC OTC 20 MG ORAL TABLET DELAYED RELEASE 2 tablets daily 2 PRILOSEC OTC 20 MG ORAL TABLET DELAYED RELEASE OMEPRAZOLE MAGNESIUM Inactive MULTIVITAMIN & MINERAL ORAL LIQUID 5 ml daily 06/28 MULTIVITAMIN & MINERAL ORAL LIQUID MULTIPLE VITAMINS-MINERALS Inactive LEVOTHYROXINE SODIUM 200 MCG ORAL TABLET 2 1/4 tablets daily 201 10/30/27 LEVOTHYROXINE SODIUM 200 MCG ORAL TABLET 224661 LEVOTHY ROXINE SODIUM Inactive COUMADIN 5 MG ORAL TABLET Take one by mouth daily 2018 COUMADIN 5 MG ORAL TABLET 809580 WARFARIN SODIUM Inactive Vital Signs Date Name [...] 11 .6-14.8 platelet count 304 10^3/MM^3 10*3/mm3 396-624 3163/02/13 leukocyte count, blood 6.5 10^3/MM^3 10*3/mm3 4.6-10.2 [...] 11 .6-14.8 platelet count 303 10^3/MM^3 10*3/mm3 113-042 0091/02/01 erythrocyte (RBC) count 3.75 10^6/MM^3 10*6/mm3 3.80-5.8 [...] 11 .6-14.8 platelet count 299 10^3/MM^3 10*3/mm3 409-273 8759/04/09 leukocyte count, blood 8.7 10^3/MM^3 10*3/mm3 4.6-10.2 [...] 11 .6-14.8 platelet count 295 10^3/MM^3 10*3/mm3 995-608 4380/04/24 leukocyte count, blood 8.0 10^3/MM^3 10*3/mm3 4.6-10.2 [...] 11 .6-14.8 platelet count 429 10^3/MM^3 10*3/mm3 608-539 2660/04/29 leukocyte count, blood 9.1 10^3/MM^3 10*3/mm3 4.6-10.2 neutrophils as percent of blood leukocytes 73.1 % 42.2-75.2 neutrophils as percent of blood leukocytes 73.3 % 42.2-75.2 monocytes as percent of blood leukocytes 9.1 % 1.7-9.3 lymphocytes as percent of blood leukocytes 13.1 % 20.5-51.1 erythrocyte (RBC) count 3.09 10^6/MM^3 10*6/mm3 3.80-5.8 0 hemoglobin, blood 8.9 g/dL 12.0-16.0 monocytes as percent of blood leukocytes 7.7 [...] 11 .6-14.8 platelet count 343 10^3/MM^3 10*3/mm3 877-661 9738/05/08 leukocyte count, blood 8.0 10^3/MM^3 10*3/mm3 4.6-10.2 [...] 11 .6-14.8 platelet count 399 10^3/MM^3 10*3/mm3 529-837 6511/05/15 leukocyte count, blood 7.2 10^3/MM^3 10*3/mm3 4.6-10.2 [...] 11 .6-14.8 platelet count 341 10^3/MM^3 10*3/mm3 718-737 7824/05/22 leukocyte count, blood 7.9 10^3/MM^3 10*3/mm3 4.6-10.2 [...] 11 .6-14.8 platelet count 362 10^3/MM^3 10*3/mm3 976-993 3625/06/26 leukocyte count, blood 11.7 10^3/MM^3 10*3/mm3 4.6-10.2 [...] 11 .6-14.8 platelet count 272 10^3/MM^3 10*3/mm3 320-092 7190/07/03 leukocyte count, blood 8.1 10^3/MM^3 10*3/mm3 4.6-10.2 [...] - Chem istry sodium, serum 138 mmol/L 288-077 8063/07/03 carbon dioxide, venous blood 29.9 mmol/L 21.0-32 [...] 0.30 mg/dL 0.00-1.00 sodium, serum 138 mmol/L 214-741 2771/05/15 carbon dioxide, venous blood 25.9 mmol/L 21.0-32 [...] 50-136 Encounters Code Encounter Date Provider Facility CPT-64218 Level 3 Est. Patient 14:49:42 CDT Deacon Rajan MD [facility] CPT-82997 Level 4 New Patient 16:54:39 CDT Deacon Rajan MD [facility] CPT-52562 Level 2 Est. 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
[2019-07-27 11:45] LABS: BASOPHILS % (AUTO) 1 % (0-10); EOSINOPHILS % (AUTO) 4 % (0-10); LYMPHOCYTES % (AUTO) 25 % (12-44); MEAN CORPUSCULAR HGB CONC 30 G/DL (32-36); MEAN PLATELET VOLUME 10.5 FL (7.4-10.4); MONOCYTES % (AUTO) 15 % (0-12); NEUTROPHILS % (AUTO) 55 % (42-75); PLATELET COUNT 202 10^3/uL (130-400)
--- OUTSIDE RECORDS SUMMARY | 2019-07-27 11:45 | XMS REPORT | Clinical Summary ---
Author Author Douglas, Lisandra Pacheco Organization All Address Unknown Phone [...] the teeth,oral cavity and digestive system, NEC Medication List Medication Instructions Start Date Stop Date Generic Name NDC Status Provider Patient Instruction COUMADIN 5 MG ORAL TABLET Take one by mouth daily 2018 WARFARIN SODIUM 23287550839 No Longer Active Deacon Rajan MD A ctive LEVO-T 150 MCG ORAL TABLET 3 tab q d LEVOTHYRO XINE SODIUM 82938071023 Active Deacon Rajan MD Active LEVO-T 50 MCG ORAL TABLET 1 q d LEVOTHYROXINE SODIUM 43333171636 Active Deacon Rajan MD Active LEVOTHYROXINE SODIUM 200 MCG ORAL TABLET 2 1/4 tablets daily 201 10/30/27 LEVOTHYROXINE SODIUM 76010156392 No Longer Active Deacon Rajan MD Active MULTIVITAMIN & MINERAL ORAL LIQUID 5 ml daily 06/28 MULTIPLE VITAMINS-MINERALS 34603330587 No Longer Active Deacon Rajan MD Active PRILOSEC OTC 20 MG ORAL TABLET DELAYED RELEASE 2 tablets daily 2 OMEPRAZOLE MAGNESIUM 07289729960 No Longer Active Deacon Rajan MD Active CARAFATE 1 GM ORAL TABLET Take one by mouth four times daily 201 10/30/27 SUCRALFATE 86122061162 No Longer Active Deacon Rajan MD Active VICTOZA 18 MG/3ML SUBCUTANEOUS SOLUTION PEN-INJECTOR 1.8 mg mc y LIRAGLUTIDE 12268576367 No Longer Active Deacon Rajan MD Active TIZANIDINE HCL 4 MG ORAL TABLET 1 tablet every 4 hours TIZANIDINE HCL 19090630755 Active Shelia Quezada RN Active OXYCODONE HCL 5 MG ORAL TABLET 1 tablet every 3-4 hours as n eeded for pain OXYCODONE HCL 45637092277 Active Shelia Quezada RN Active NOVOLOG 100 UNIT/ML SUBCUTANEOUS SOLUTION sliding scale INSULIN ASPART 63187472243 Active Shelia Quezada RN Active MELOXICAM 15 MG ORAL TABLET Take one by mouth daily MELOXICAM 84239332722 Active Shelia Quezada RN Active FUROSEMIDE 40 MG ORAL TABLET Take one by mouth daily FUROSEMIDE 10701598650 Active Shelia Quezada RN Active LANTUS 100 UNIT/ML SUBCUTANEOUS SOLUTION 30 units daily at bedtime INSULIN GLARGINE 76580653767 Active Shelia Quezada RN Act johnathon HYDROCODONE-ACETAMINOPHEN 5-325 MG ORAL TABLET 1 every 4 hours as needed for pain HYDROCODONE-ACETAMINOPHEN 82671536567 Active Shelia Quezada RN Active GLUCOPHAGE 1000 MG ORAL TABLET Take one by mouth daily METFORMIN HCL 07258955209 Active Shelia Quezada RN Active COZAAR 50 MG ORAL TABLET 1 1/2 tabs daily LOSAR KOO POTASSIUM 75888449591 Active Shelia Quezada RN Active CELEXA 20 MG ORAL TABLET Take one by mouth daily CITALOPRAM HYDROBROMIDE 00620170188 Active Shelia Quezada RN Active BACTRIM DS 800-160 MG ORAL TABLET by mouth twice a day SULFAMETHOXAZOLE-TRIMETHOPRIM 65751209516 Active Shelia Quezada RN Active AMITRIPTYLINE HCL 75 MG ORAL TABLET Take one by mouth daily at bedtime AMITRIPTYLINE HCL 63543029298 Active Shelia Yuen N Active CARAFATE 1 GM ORAL TABLET Take one by mouth four times daily 201 10/30/27 CARAFATE 1 GM ORAL TABLET 695167 SUCRALFATE Inacti ve COUMADIN 5 MG ORAL TABLET Take one by mouth daily 2018 COUMADIN 5 MG ORAL TABLET 124459 WARFARIN SODIUM Inactive LEVOTHYROXINE SODIUM 200 MCG ORAL TABLET 2 1/4 tablets daily 201 10/30/27 LEVOTHYROXINE SODIUM 200 MCG ORAL TABLET 679604 LEVOTHY ROXINE SODIUM Inactive PRILOSEC OTC 20 MG ORAL TABLET DELAYED RELEASE 2 tablets daily 2 PRILOSEC OTC 20 MG ORAL TABLET DELAYED RELEASE OMEPRAZOLE MAGNESIUM Inactive MULTIVITAMIN & MINERAL ORAL LIQUID 5 ml daily 06/28 MULTIVITAMIN & MINERAL ORAL LIQUID MULTIPLE VITAMINS-MINERALS Inactive VICTOZA 18 MG/3ML SUBCUTANEOUS SOLUTION PEN-INJECTOR 1.8 mg mc y VICTOZA 18 MG/3ML SUBCUTANEOUS SOLUTION PEN-INJECTOR LIRAGLUTIDE Inactive Vital Signs Date Name Value Unit Range Description blood pressure, diastolic, repeated by physician 61 [...] 11 .6-14.8 platelet count 304 10^3/MM^3 10*3/mm3 974-870 3312/02/13 leukocyte count, blood 6.5 10^3/MM^3 10*3/mm3 4.6-10.2 [...] 11 .6-14.8 platelet count 303 10^3/MM^3 10*3/mm3 667-812 1266/03/13 leukocyte count, blood 7.2 10^3/MM^3 10*3/mm3 4.6-10.2 [...] 11 .6-14.8 platelet count 299 10^3/MM^3 10*3/mm3 210-472 2408/04/09 leukocyte count, blood 8.7 10^3/MM^3 10*3/mm3 4.6-10.2 [...] 11 .6-14.8 platelet count 295 10^3/MM^3 10*3/mm3 447-672 4952/04/24 leukocyte count, blood 8.0 10^3/MM^3 10*3/mm3 4.6-10.2 [...] 11 .6-14.8 platelet count 429 10^3/MM^3 10*3/mm3 126-664 8847/04/29 leukocyte count, blood 9.1 10^3/MM^3 10*3/mm3 4.6-10.2 [...] 11 .6-14.8 platelet count 343 10^3/MM^3 10*3/mm3 957-510 3398/05/08 leukocyte count, blood 8.0 10^3/MM^3 10*3/mm3 4.6-10.2 [...] 11 .6-14.8 platelet count 399 10^3/MM^3 10*3/mm3 226-601 5528/05/15 leukocyte count, blood 7.2 10^3/MM^3 10*3/mm3 4.6-10.2 [...] 11 .6-14.8 platelet count 341 10^3/MM^3 10*3/mm3 673-984 7171/05/22 leukocyte count, blood 7.9 10^3/MM^3 10*3/mm3 4.6-10.2 [...] 11 .6-14.8 platelet count 362 10^3/MM^3 10*3/mm3 429-533 5011/06/26 leukocyte count, blood 11.7 10^3/MM^3 10*3/mm3 4.6-10.2 [...] 11 .6-14.8 platelet count 272 10^3/MM^3 10*3/mm3 142-424 Lab Report: Comp. Metabolic Panel - Chem istry calcium, serum 9.0 mg/dL 8.5-10.1 bilirubin, serum, total 0.30 mg/dL 0.00-1.00 sodium, serum 138 mmol/L 446-539 8927/05/15 carbon dioxide, venous blood 25.9 mmol/L 21.0-32 [...] Panel - Lab Alkaline phosphatase 96 50-136 Encounters Code Encounter Date Provider Facility CPT-56282 Level 4 New Patient 16:54:39 CDT Deacon Rajan MD [facility] CPT-40375 Level 2 Est. 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
--- OUTSIDE RECORDS SUMMARY | 2019-07-27 11:45 | XMS REPORT | Clinical Summary ---
[...] one by mouth daily 2018 WARFARIN SODIUM 73405966599 No Longer Active Deacon Rajan MD A ctive LEVO-T 150 MCG ORAL TABLET 3 tab q d LEVOTHYRO XINE SODIUM 05994297848 Active Deacon Rajan MD Active LEVO-T 50 MCG ORAL TABLET 1 q d LEVOTHYROXINE SODIUM 51709837265 Active Deacon Rajan MD Active LEVOTHYROXINE SODIUM 200 MCG ORAL TABLET 2 1/4 tablets daily 201 10/30/27 LEVOTHYROXINE SODIUM 85177270598 No Longer Active Deacon Rajan MD Active MULTIVITAMIN & MINERAL ORAL LIQUID 5 ml daily 06/28 MULTIPLE VITAMINS-MINERALS 42622279078 No Longer Active Deacon Rajan MD Active PRILOSEC OTC 20 MG ORAL TABLET DELAYED RELEASE 2 tablets daily 2 OMEPRAZOLE MAGNESIUM 31825088812 No Longer Active Deacon Rajan MD Active CARAFATE 1 GM ORAL TABLET Take one by mouth four times daily 201 10/30/27 SUCRALFATE 77972993797 No Longer Active Deacon Rajan MD Active VICTOZA 18 MG/3ML SUBCUTANEOUS SOLUTION PEN-INJECTOR 1.8 mg mc y LIRAGLUTIDE 75640675149 No Longer Active Deacon Rajan MD Active TIZANIDINE HCL 4 MG ORAL TABLET 1 tablet every 4 hours TIZANIDINE HCL 88412563729 Active Shelia Quezada RN Active OXYCODONE HCL 5 MG ORAL TABLET 1 tablet every 3-4 hours as n eeded for pain OXYCODONE HCL 84506548692 Active Shelia Quezada RN Active NOVOLOG 100 UNIT/ML SUBCUTANEOUS SOLUTION sliding scale INSULIN ASPART 46196368718 Active Shelia Quezada RN Active MELOXICAM 15 MG ORAL TABLET Take one by mouth daily MELOXICAM 25947978408 Active Shelia Quezada RN Active FUROSEMIDE 40 MG ORAL TABLET Take one by mouth daily FUROSEMIDE 12430853541 Active Shelia Quezada RN Active LANTUS 100 UNIT/ML SUBCUTANEOUS SOLUTION 30 units daily at bedtime INSULIN GLARGINE 44567625239 Active Shelia Quezada RN Act johnathon HYDROCODONE-ACETAMINOPHEN 5-325 MG ORAL TABLET 1 every 4 hours as needed for pain HYDROCODONE-ACETAMINOPHEN 96139142678 Active Shelia Quezada RN Active GLUCOPHAGE 1000 MG ORAL TABLET Take one by mouth daily METFORMIN HCL 54009092510 Active Shelia Quezada RN Active COZAAR 50 MG ORAL TABLET 1 1/2 tabs daily LOSAR KOO POTASSIUM 80562247109 Active Shelia Quezada RN Active CELEXA 20 MG ORAL TABLET Take one by mouth daily CITALOPRAM HYDROBROMIDE 13820510782 Active Shelia Quezada RN Active BACTRIM DS 800-160 MG ORAL TABLET by mouth twice a day SULFAMETHOXAZOLE-TRIMETHOPRIM 98778273998 Active Shelia Quezada RN Active AMITRIPTYLINE HCL 75 MG ORAL TABLET Take one by mouth daily at bedtime AMITRIPTYLINE HCL 37683708746 Active Shelia Yuen N Active VICTOZA 18 MG/3ML SUBCUTANEOUS SOLUTION PEN-INJECTOR 1.8 mg mc y VICTOZA 18 MG/3ML SUBCUTANEOUS SOLUTION PEN-INJECTOR LIRAGLUTIDE Inactive CARAFATE 1 GM ORAL TABLET Take one by mouth four times daily 201 10/30/27 CARAFATE 1 GM ORAL TABLET 243137 SUCRALFATE Inacti ve PRILOSEC OTC 20 MG ORAL TABLET DELAYED RELEASE 2 tablets daily 2 PRILOSEC OTC 20 MG ORAL TABLET DELAYED RELEASE OMEPRAZOLE MAGNESIUM Inactive MULTIVITAMIN & MINERAL ORAL LIQUID 5 ml daily 06/28 MULTIVITAMIN & MINERAL ORAL LIQUID MULTIPLE VITAMINS-MINERALS Inactive LEVOTHYROXINE SODIUM 200 MCG ORAL TABLET 2 1/4 tablets daily 201 10/30/27 LEVOTHYROXINE SODIUM 200 MCG ORAL TABLET 980641 LEVOTHY ROXINE SODIUM Inactive COUMADIN 5 MG ORAL TABLET Take one by mouth daily 2018 COUMADIN 5 MG ORAL TABLET 649800 WARFARIN SODIUM Inactive Vital Signs Date Name [...] 11 .6-14.8 platelet count 304 10^3/MM^3 10*3/mm3 606-235 5899/02/13 leukocyte count, blood 6.5 10^3/MM^3 10*3/mm3 4.6-10.2 [...] 11 .6-14.8 platelet count 303 10^3/MM^3 10*3/mm3 424-517 1519/02/01 erythrocyte (RBC) count 3.75 10^6/MM^3 10*6/mm3 3.80-5.8 [...] 11 .6-14.8 platelet count 299 10^3/MM^3 10*3/mm3 268-995 7159/04/09 leukocyte count, blood 8.7 10^3/MM^3 10*3/mm3 4.6-10.2 [...] 11 .6-14.8 platelet count 295 10^3/MM^3 10*3/mm3 798-025 4872/04/24 leukocyte count, blood 8.0 10^3/MM^3 10*3/mm3 4.6-10.2 [...] 11 .6-14.8 platelet count 429 10^3/MM^3 10*3/mm3 804-331 9104/04/29 leukocyte count, blood 9.1 10^3/MM^3 10*3/mm3 4.6-10.2 [...] 11 .6-14.8 platelet count 343 10^3/MM^3 10*3/mm3 077-277 4565/05/08 leukocyte count, blood 8.0 10^3/MM^3 10*3/mm3 4.6-10.2 [...] 11 .6-14.8 platelet count 399 10^3/MM^3 10*3/mm3 171-489 1715/05/15 leukocyte count, blood 7.2 10^3/MM^3 10*3/mm3 4.6-10.2 [...] 11 .6-14.8 platelet count 341 10^3/MM^3 10*3/mm3 046-266 7627/05/22 leukocyte count, blood 7.9 10^3/MM^3 10*3/mm3 4.6-10.2 [...] 11 .6-14.8 platelet count 362 10^3/MM^3 10*3/mm3 811-777 5596/06/26 leukocyte count, blood 11.7 10^3/MM^3 10*3/mm3 4.6-10.2 [...] 11 .6-14.8 platelet count 272 10^3/MM^3 10*3/mm3 446-995 9023/07/03 leukocyte count, blood 8.1 10^3/MM^3 10*3/mm3 4.6-10.2 [...] - Chem istry sodium, serum 138 mmol/L 635-157 9971/07/03 carbon dioxide, venous blood 29.9 mmol/L 21.0-32 [...] 0.30 mg/dL 0.00-1.00 sodium, serum 138 mmol/L 338-625 5459/05/15 carbon dioxide, venous blood 25.9 mmol/L 21.0-32 [...] 50-136 Encounters Code Encounter Date Provider Facility CPT-56804 Level 4 New Patient 16:54:39 CDT Deacon Rajan MD [facility] CPT-97366 Level 2 Est. 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
--- OUTSIDE RECORDS SUMMARY | 2019-07-27 11:45 | XMS REPORT | Clinical Summary ---
[...] one by mouth daily 2018 WARFARIN SODIUM 05258346775 No Longer Active Deacon Rajan MD A ctive LEVO-T 150 MCG ORAL TABLET 3 tab q d LEVOTHYRO XINE SODIUM 76796702290 Active Deacon Rajan MD Active LEVO-T 50 MCG ORAL TABLET 1 q d LEVOTHYROXINE SODIUM 46693580197 Active Deacon Rajan MD Active LEVOTHYROXINE SODIUM 200 MCG ORAL TABLET 2 1/4 tablets daily 201 10/30/27 LEVOTHYROXINE SODIUM 08312630745 No Longer Active Deacon Rajan MD Active MULTIVITAMIN & MINERAL ORAL LIQUID 5 ml daily 06/28 MULTIPLE VITAMINS-MINERALS 53814018307 No Longer Active Deacon Rajan MD Active PRILOSEC OTC 20 MG ORAL TABLET DELAYED RELEASE 2 tablets daily 2 OMEPRAZOLE MAGNESIUM 75818830487 No Longer Active Deacon Rajan MD Active CARAFATE 1 GM ORAL TABLET Take one by mouth four times daily 201 10/30/27 SUCRALFATE 89691684273 No Longer Active Deacon Rajan MD Active VICTOZA 18 MG/3ML SUBCUTANEOUS SOLUTION PEN-INJECTOR 1.8 mg mc y LIRAGLUTIDE 32424635531 No Longer Active Deacon Rajan MD Active TIZANIDINE HCL 4 MG ORAL TABLET 1 tablet every 4 hours TIZANIDINE HCL 04093252876 Active Shelia Quezada RN Active OXYCODONE HCL 5 MG ORAL TABLET 1 tablet every 3-4 hours as n eeded for pain OXYCODONE HCL 12090269648 Active Shelia Quezada RN Active NOVOLOG 100 UNIT/ML SUBCUTANEOUS SOLUTION sliding scale INSULIN ASPART 49187249127 Active Shelia Quezada RN Active MELOXICAM 15 MG ORAL TABLET Take one by mouth daily MELOXICAM 67021823880 Active Shelia Quezada RN Active FUROSEMIDE 40 MG ORAL TABLET Take one by mouth daily FUROSEMIDE 96264732443 Active Shelia Quezada RN Active LANTUS 100 UNIT/ML SUBCUTANEOUS SOLUTION 30 units daily at bedtime INSULIN GLARGINE 14346700100 Active Shelia Quezada RN Act johnathon HYDROCODONE-ACETAMINOPHEN 5-325 MG ORAL TABLET 1 every 4 hours as needed for pain HYDROCODONE-ACETAMINOPHEN 85364165383 Active Shelia Quezada RN Active GLUCOPHAGE 1000 MG ORAL TABLET Take one by mouth daily METFORMIN HCL 15489014250 Active Shelia Quezada RN Active COZAAR 50 MG ORAL TABLET 1 1/2 tabs daily LOSAR KOO POTASSIUM 73935405125 Active Shelia Quezada RN Active CELEXA 20 MG ORAL TABLET Take one by mouth daily CITALOPRAM HYDROBROMIDE 17098696459 Active Shelia Quezada RN Active BACTRIM DS 800-160 MG ORAL TABLET by mouth twice a day SULFAMETHOXAZOLE-TRIMETHOPRIM 37703454131 Active Shelia Quezada RN Active AMITRIPTYLINE HCL 75 MG ORAL TABLET Take one by mouth daily at bedtime AMITRIPTYLINE HCL 52793172216 Active Shelia Yuen N Active CARAFATE 1 GM ORAL TABLET Take one by mouth four times daily 201 10/30/27 CARAFATE 1 GM ORAL TABLET 171316 SUCRALFATE Inacti ve COUMADIN 5 MG ORAL TABLET Take one by mouth daily 2018 COUMADIN 5 MG ORAL TABLET 940233 WARFARIN SODIUM Inactive LEVOTHYROXINE SODIUM 200 MCG ORAL TABLET 2 1/4 tablets daily 201 10/30/27 LEVOTHYROXINE SODIUM 200 MCG ORAL TABLET 429351 LEVOTHY ROXINE SODIUM Inactive PRILOSEC OTC 20 [...] pressure, diastolic, repeated by physician 71 BP camlio blood pressure, diastolic 71 mm[Hg] BP camilo [...] 11 .6-14.8 platelet count 304 10^3/MM^3 10*3/mm3 328-860 6422/02/13 leukocyte count, blood 6.5 10^3/MM^3 10*3/mm3 4.6-10.2 [...] 11 .6-14.8 platelet count 303 10^3/MM^3 10*3/mm3 422-416 6308/03/13 leukocyte count, blood 7.2 10^3/MM^3 10*3/mm3 4.6-10.2 [...] 11 .6-14.8 platelet count 299 10^3/MM^3 10*3/mm3 281-207 1830/02/01 erythrocyte (RBC) count 3.75 10^6/MM^3 10*6/mm3 3.80-5.8 0 lymphocytes as percent of blood leukocytes 14.4 % 20.5-51.1 monocytes as percent of blood leukocytes 9.5 % 1.7-9.3 neutrophils as percent of blood leukocytes 71.1 % 42.2-75.2 leukocyte count, blood 5.6 10^3/MM^3 10*3/mm3 4.6-10.2 leukocyte count, blood 8.7 10^3/MM^3 10*3/mm3 4.6-10.2 hematocrit, blood 24.2 % 37.0-47.0 mean corpuscular volume, RBC 100 fL 80-97 mean corpuscular hemoglobin, RBC 29.6 pg 27. 0-31.2 mean corpuscular hemoglobin concentration, RBC 29.5 G/DL % 31.8-35.4 red blood cell distribution width 18.2 % 11 .6-14.8 platelet count 295 10^3/MM^3 10*3/mm3 554-107 8507/04/24 leukocyte count, blood 8.0 10^3/MM^3 10*3/mm3 4.6-10.2 [...] 11 .6-14.8 platelet count 429 10^3/MM^3 10*3/mm3 846-273 6825/04/29 leukocyte count, blood 9.1 10^3/MM^3 10*3/mm3 4.6-10.2 [...] 11 .6-14.8 platelet count 343 10^3/MM^3 10*3/mm3 117-796 7237/05/08 leukocyte count, blood 8.0 10^3/MM^3 10*3/mm3 4.6-10.2 neutrophils as percent of blood leukocytes 71.1 % 42.2-75.2 neutrophils as percent of blood leukocytes 73.0 % 42.2-75.2 monocytes as percent of blood leukocytes 9.9 % 1.7-9.3 lymphocytes as percent of blood leukocytes 13.9 % 20.5-51.1 erythrocyte (RBC) count 2.42 10^6/MM^3 10*6/mm3 3.80-5.8 0 hemoglobin, blood 7.1 g/dL 12.0-16.0 monocytes as percent of blood leukocytes 9.1 [...] 11 .6-14.8 platelet count 399 10^3/MM^3 10*3/mm3 092-023 7375/05/15 leukocyte count, blood 7.2 10^3/MM^3 10*3/mm3 4.6-10.2 [...] 11 .6-14.8 platelet count 341 10^3/MM^3 10*3/mm3 285-203 6824/05/22 leukocyte count, blood 7.9 10^3/MM^3 10*3/mm3 4.6-10.2 [...] 11 .6-14.8 platelet count 362 10^3/MM^3 10*3/mm3 705-091 9943/06/26 leukocyte count, blood 11.7 10^3/MM^3 10*3/mm3 4.6-10.2 [...] 11 .6-14.8 platelet count 272 10^3/MM^3 10*3/mm3 859-483 7256/07/03 leukocyte count, blood 8.1 10^3/MM^3 10*3/mm3 4.6-10.2 [...] - Chem istry sodium, serum 138 mmol/L 086-747 7951/07/03 carbon dioxide, venous blood 29.9 mmol/L 21.0-32 [...] 0.30 mg/dL 0.00-1.00 sodium, serum 138 mmol/L 637-456 3111/05/15 carbon dioxide, venous blood 25.9 mmol/L 21.0-32 [...] 50-136 Encounters Code Encounter Date Provider Facility [id number] Level 3 Est. Patient 14:49:42 CDT Deacon Rajan MD [facility] CPT-17459 Level 4 New Patient 16:54:39 CDT Deacon Rajan MD [facility] CPT-23122 Level 2 Est. Patient 15:33:16 [employer] Shreyas gillespie MD [facility] Procedures Code Procedure Name Date Entry Date Standard Desc ription CPT-03514 Postop F/U Visit 15:58:49 CDT
--- OUTSIDE RECORDS SUMMARY | 2019-07-27 11:45 | XMS REPORT | Clinical Summary ---
[...] one by mouth daily 2018 WARFARIN SODIUM [id number] No Longer Active Deacon Rajan MD A ctive LEVO-T 150 MCG ORAL TABLET 3 tab q d LEVOTHYRO XINE SODIUM 58778698425 Active Deacon Rajan MD Active LEVO-T 50 MCG ORAL TABLET 1 q d LEVOTHYROXINE SODIUM 17161521634 Active Deacon Rajan MD Active LEVOTHYROXINE SODIUM 200 MCG ORAL TABLET 2 1/4 tablets daily 201 10/30/27 LEVOTHYROXINE SODIUM 55030197884 No Longer Active Deacon Rajan MD Active MULTIVITAMIN & MINERAL ORAL LIQUID 5 ml daily 06/28 MULTIPLE VITAMINS-MINERALS 09188261027 No Longer Active Deacon Rajan MD Active PRILOSEC OTC 20 MG ORAL TABLET DELAYED RELEASE 2 tablets daily 2 OMEPRAZOLE MAGNESIUM 18871793453 No Longer Active Deacon Rajan MD Active CARAFATE 1 GM ORAL TABLET Take one by mouth four times daily 201 10/30/27 SUCRALFATE 40233086457 No Longer Active Deacon Rajan MD Active VICTOZA 18 MG/3ML SUBCUTANEOUS SOLUTION PEN-INJECTOR 1.8 mg mc y LIRAGLUTIDE 60517660849 No Longer Active Deacon Rajan MD Active TIZANIDINE HCL 4 MG ORAL TABLET 1 tablet every 4 hours TIZANIDINE HCL 63016052424 Active Shelia Quezada RN Active OXYCODONE HCL 5 MG ORAL TABLET 1 tablet every 3-4 hours as n eeded for pain OXYCODONE HCL 59195879777 Active Shelia Quezada RN Active NOVOLOG 100 UNIT/ML SUBCUTANEOUS SOLUTION sliding scale INSULIN ASPART 37482442996 Active Shelia Quezada RN Active MELOXICAM 15 MG ORAL TABLET Take one by mouth daily MELOXICAM 39329432488 Active Shelia Quezada RN Active FUROSEMIDE 40 MG ORAL TABLET Take one by mouth daily FUROSEMIDE 51912952139 Active Shelia Quezada RN Active LANTUS 100 UNIT/ML SUBCUTANEOUS SOLUTION 30 units daily at bedtime INSULIN GLARGINE 07719244592 Active Shelia Quezada RN Act johnathon HYDROCODONE-ACETAMINOPHEN 5-325 MG ORAL TABLET 1 every 4 hours as needed for pain HYDROCODONE-ACETAMINOPHEN 66554786489 Active Shelia Quezada RN Active GLUCOPHAGE 1000 MG ORAL TABLET Take one by mouth daily METFORMIN HCL 81134503344 Active Shelia Quezada RN Active COZAAR 50 MG ORAL TABLET 1 1/2 tabs daily LOSAR KOO POTASSIUM 59244486860 Active Shelia Quezada RN Active CELEXA 20 MG ORAL TABLET Take one by mouth daily CITALOPRAM HYDROBROMIDE 13716911139 Active Shelia Quezada RN Active BACTRIM DS 800-160 MG ORAL TABLET by mouth twice a day SULFAMETHOXAZOLE-TRIMETHOPRIM 96003509417 Active Shelia Quezada RN Active AMITRIPTYLINE HCL 75 MG ORAL TABLET Take one by mouth daily at bedtime AMITRIPTYLINE HCL 74261268420 Active Shelia Yuen N Active VICTOZA 18 MG/3ML SUBCUTANEOUS SOLUTION PEN-INJECTOR 1.8 mg mc y VICTOZA 18 MG/3ML SUBCUTANEOUS SOLUTION PEN-INJECTOR LIRAGLUTIDE Inactive CARAFATE 1 GM ORAL TABLET Take one by mouth four times daily 201 10/30/27 CARAFATE 1 GM ORAL TABLET 336685 SUCRALFATE Inacti ve PRILOSEC OTC 20 MG ORAL TABLET DELAYED RELEASE 2 tablets daily 2 PRILOSEC OTC 20 MG ORAL TABLET DELAYED RELEASE OMEPRAZOLE MAGNESIUM Inactive MULTIVITAMIN & MINERAL ORAL LIQUID 5 ml daily 06/28 MULTIVITAMIN & MINERAL ORAL LIQUID MULTIPLE VITAMINS-MINERALS Inactive LEVOTHYROXINE SODIUM 200 MCG ORAL TABLET 2 1/4 tablets daily 201 10/30/27 LEVOTHYROXINE SODIUM 200 MCG ORAL TABLET 384728 LEVOTHY ROXINE SODIUM Inactive COUMADIN 5 MG ORAL TABLET Take one by mouth daily 2018 COUMADIN 5 MG ORAL TABLET 199738 WARFARIN SODIUM Inactive Vital Signs Date Name [...] 11 .6-14.8 platelet count 304 10^3/MM^3 10*3/mm3 258-893 5408/02/01 erythrocyte (RBC) count 3.75 10^6/MM^3 10*6/mm3 3.80-5.8 [...] 11 .6-14.8 platelet count 303 10^3/MM^3 10*3/mm3 164-424 0412/03/13 leukocyte count, blood 7.2 10^3/MM^3 10*3/mm3 4.6-10.2 [...] 11 .6-14.8 platelet count 299 10^3/MM^3 10*3/mm3 967-729 6831/02/13 neutrophils as percent of blood leukocytes 68.4 % 42.2-75.2 monocytes as percent of blood leukocytes 8.6 % 1.7-9.3 lymphocytes as percent of blood leukocytes 16.0 % 20.5-51.1 erythrocyte (RBC) count 4.03 10^6/MM^3 10*6/mm3 3.80-5.8 0 hemoglobin, blood 10.9 g/dL 12.0-16.0 leukocyte count, blood 8.7 10^3/MM^3 10*3/mm3 4.6-10.2 hematocrit, blood 24.2 % 37.0-47.0 mean corpuscular volume, RBC 100 fL 80-97 mean corpuscular hemoglobin, RBC 29.6 pg 27. 0-31.2 mean corpuscular hemoglobin concentration, RBC 29.5 G/DL % 31.8-35.4 red blood cell distribution width 18.2 % 11 .6-14.8 platelet count 295 10^3/MM^3 10*3/mm3 258-986 7365/04/09 neutrophils as percent of blood leukocytes 73.0 % 42.2-75.2 monocytes as percent of blood leukocytes 9.9 % 1.7-9.3 lymphocytes as percent of blood leukocytes 13.9 % 20.5-51.1 erythrocyte (RBC) count 2.42 10^6/MM^3 10*6/mm3 3.80-5.8 0 hemoglobin, blood 7.1 g/dL 12.0-16.0 leukocyte count, blood 8.0 10^3/MM^3 10*3/mm3 4.6-10.2 hematocrit, blood 17.2 % 37.0-47.0 mean corpuscular volume, RBC 102 fL 80-97 mean corpuscular hemoglobin, RBC 29.0 pg 27. 0-31.2 mean corpuscular hemoglobin concentration, RBC 28.4 G/DL % 31.8-35.4 red blood cell distribution width 20.2 % 11 .6-14.8 platelet count 429 10^3/MM^3 10*3/mm3 717-469 5648/04/24 neutrophils as percent of blood leukocytes 66.8 % 42.2-75.2 monocytes as percent of blood leukocytes 10.4 % 1.7-9.3 lymphocytes as percent of blood leukocytes 18.1 % 20.5-51.1 erythrocyte (RBC) count 1.69 10^6/MM^3 10*6/mm3 3.80-5.8 0 hemoglobin, blood 4.9 g/dL 12.0-16.0 leukocyte count, blood 9.1 10^3/MM^3 10*3/mm3 4.6-10.2 hematocrit, blood 23.4 % 37.0-47.0 mean corpuscular volume, RBC 102 fL 80-97 mean corpuscular hemoglobin, RBC 29.1 pg 27. 0-31.2 mean corpuscular hemoglobin concentration, RBC 28.7 G/DL % 31.8-35.4 red blood cell distribution width 22.4 % 11 .6-14.8 platelet count 343 10^3/MM^3 10*3/mm3 370-329 4687/05/08 leukocyte count, blood 8.0 10^3/MM^3 10*3/mm3 4.6-10.2 [...] 11 .6-14.8 platelet count 399 10^3/MM^3 10*3/mm3 778-463 0143/04/29 neutrophils as percent of blood leukocytes 73.1 % 42.2-75.2 monocytes as percent of blood leukocytes 7.7 % 1.7-9.3 lymphocytes as percent of blood leukocytes 16.3 % 20.5-51.1 erythrocyte (RBC) count 2.31 10^6/MM^3 10*6/mm3 3.80-5.8 0 hemoglobin, blood 6.7 g/dL 12.0-16.0 leukocyte count, blood 7.2 10^3/MM^3 10*3/mm3 4.6-10.2 hematocrit, blood 29.7 % 37.0-47.0 mean corpuscular volume, RBC 98 fL 80-97 mean corpuscular hemoglobin, RBC 29.1 pg 27. 0-31.2 mean corpuscular hemoglobin concentration, RBC 29.7 G/DL % 31.8-35.4 red blood cell distribution width 17.9 % 11 .6-14.8 platelet count 341 10^3/MM^3 10*3/mm3 154-956 0377/05/15 neutrophils as percent of blood leukocytes 68.4 [...] 11 .6-14.8 platelet count 362 10^3/MM^3 10*3/mm3 748-445 8006/06/26 leukocyte count, blood 11.7 10^3/MM^3 10*3/mm3 4.6-10.2 [...] 11 .6-14.8 platelet count 272 10^3/MM^3 10*3/mm3 913-157 2666/05/22 neutrophils as percent of blood leukocytes 64.7 % 42.2-75.2 monocytes as percent of blood leukocytes 9.5 % 1.7-9.3 lymphocytes as percent of blood leukocytes 19.0 % 20.5-51.1 erythrocyte (RBC) count 3.10 10^6/MM^3 10*6/mm3 3.80-5.8 0 hemoglobin, blood 8.9 g/dL 12.0-16.0 Lab Report: Comp. Metabolic Panel - Chem istry calcium, serum 9.0 mg/dL 8.5-10.1 bilirubin, serum, total 0.30 mg/dL 0.00-1.00 carbon dioxide, venous blood 25.9 mmol/L 21.0-32 .0 potassium, serum 4.6 mmol/L 3.5-5.2 chloride, serum 104 mmol/L 98-107 blood glucose 105 mg/dL 65-95 urea nitrogen, blood 21 mg/dL 7-18 sodium, serum 138 mmol/L 385-275 9458/05/15 creatinine, serum 0.94 mg/dL 0.60-1.30 Estimated Glomerular Filtration Rate (calc) 64 (?) mL/min/1.73m2 = OR > 60 mL/min alanine aminotransferase (SGPT), serum 16 U/L 12-78 aspartate aminotransferase (SGOT), serum 8 U/L 15-37 Lab Report: Comp. Metabolic Panel - Lab Alkaline phosphatase 96 50-136 Encounters Code Encounter Date Provider Facility CPT-34804 Level 4 New Patient 16:54:39 CDT Deacon Rajan MD [facility] CPT-47698 Level 2 Est. 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
[2019-07-27 11:46] LABS: EOSINOPHILS # (AUTO) 0.2 10^3/uL (0.0-0.3); LYMPHOCYTES # (AUTO) 1.2 X 10^3 (1.0-4.0); MONOCYTES # (AUTO) 0.8 X 10^3 (0.0-1.0); NEUTROPHILS # (AUTO) 2.7 X 10^3 (1.8-7.8)
--- OUTSIDE RECORDS SUMMARY | 2019-07-27 11:46 | XMS REPORT | Clinical Summary ---
[...] one by mouth daily 2018 WARFARIN SODIUM 72558699454 No Longer Active Deacon Rajan MD A ctive LEVO-T 150 MCG ORAL TABLET 3 tab q d LEVOTHYRO XINE SODIUM 81749036709 Active Deacon Rajan MD Active LEVO-T 50 MCG ORAL TABLET 1 q d LEVOTHYROXINE SODIUM 95461155510 Active Deacon Rajan MD Active LEVOTHYROXINE SODIUM 200 MCG ORAL TABLET 2 1/4 tablets daily 201 10/30/27 LEVOTHYROXINE SODIUM 46940757620 No Longer Active Deacon Rajan MD Active MULTIVITAMIN & MINERAL ORAL LIQUID 5 ml daily 06/28 MULTIPLE VITAMINS-MINERALS 80168681096 No Longer Active Deacon Rajan MD Active PRILOSEC OTC 20 MG ORAL TABLET DELAYED RELEASE 2 tablets daily 2 OMEPRAZOLE MAGNESIUM 37197971065 No Longer Active Deacon Rajan MD Active CARAFATE 1 GM ORAL TABLET Take one by mouth four times daily 201 10/30/27 SUCRALFATE 02497683596 No Longer Active Deacon Rajan MD Active VICTOZA 18 MG/3ML SUBCUTANEOUS SOLUTION PEN-INJECTOR 1.8 mg mc y LIRAGLUTIDE 96289853884 No Longer Active Deacon Rajan MD Active TIZANIDINE HCL 4 MG ORAL TABLET 1 tablet every 4 hours TIZANIDINE HCL 89664274679 Active Shelia Quezada RN Active OXYCODONE HCL 5 MG ORAL TABLET 1 tablet every 3-4 hours as n eeded for pain OXYCODONE HCL 96499518887 Active Shelia Quezada RN Active NOVOLOG 100 UNIT/ML SUBCUTANEOUS SOLUTION sliding scale INSULIN ASPART 66242412529 Active Shelia Quezada RN Active MELOXICAM 15 MG ORAL TABLET Take one by mouth daily MELOXICAM 62173981665 Active Shelia Quezada RN Active FUROSEMIDE 40 MG ORAL TABLET Take one by mouth daily FUROSEMIDE 85338704517 Active Shelia Quezada RN Active LANTUS 100 UNIT/ML SUBCUTANEOUS SOLUTION 30 units daily at bedtime INSULIN GLARGINE 01683850367 Active Shelia Quezada RN Act johnathon HYDROCODONE-ACETAMINOPHEN 5-325 MG ORAL TABLET 1 every 4 hours as needed for pain HYDROCODONE-ACETAMINOPHEN 45497993957 Active Shelia Quezada RN Active GLUCOPHAGE 1000 MG ORAL TABLET Take one by mouth daily METFORMIN HCL 06194830696 Active Shelia Quezada RN Active COZAAR 50 MG ORAL TABLET 1 1/2 tabs daily LOSAR KOO POTASSIUM 56138741152 Active Shelia Quezada RN Active CELEXA 20 MG ORAL TABLET Take one by mouth daily CITALOPRAM HYDROBROMIDE 76887744063 Active Shelia Quezada RN Active BACTRIM DS 800-160 MG ORAL TABLET by mouth twice a day SULFAMETHOXAZOLE-TRIMETHOPRIM 07645198515 Active Shelia Quezada RN Active AMITRIPTYLINE HCL 75 MG ORAL TABLET Take one by mouth daily at bedtime AMITRIPTYLINE HCL 24120160609 Active Shelia Yuen N Active CARAFATE 1 GM ORAL TABLET Take one by mouth four times daily 201 10/30/27 CARAFATE 1 GM ORAL TABLET 097976 SUCRALFATE Inacti ve COUMADIN 5 MG ORAL TABLET Take one by mouth daily 2018 COUMADIN 5 MG ORAL TABLET 882710 WARFARIN SODIUM Inactive LEVOTHYROXINE SODIUM 200 MCG ORAL TABLET 2 1/4 tablets daily 201 10/30/27 LEVOTHYROXINE SODIUM 200 MCG ORAL TABLET 924760 LEVOTHY ROXINE SODIUM Inactive PRILOSEC OTC 20 [...] 11 .6-14.8 platelet count 304 10^3/MM^3 10*3/mm3 443-769 2438/02/13 leukocyte count, blood 6.5 10^3/MM^3 10*3/mm3 4.6-10.2 [...] 11 .6-14.8 platelet count 303 10^3/MM^3 10*3/mm3 731-585 8642/03/13 leukocyte count, blood 7.2 10^3/MM^3 10*3/mm3 4.6-10.2 [...] 11 .6-14.8 platelet count 299 10^3/MM^3 10*3/mm3 740-116 5492/04/09 leukocyte count, blood 8.7 10^3/MM^3 10*3/mm3 4.6-10.2 [...] 11 .6-14.8 platelet count 295 10^3/MM^3 10*3/mm3 445-771 2997/04/24 leukocyte count, blood 8.0 10^3/MM^3 10*3/mm3 4.6-10.2 [...] 11 .6-14.8 platelet count 429 10^3/MM^3 10*3/mm3 579-020 6930/04/29 leukocyte count, blood 9.1 10^3/MM^3 10*3/mm3 4.6-10.2 [...] 11 .6-14.8 platelet count 343 10^3/MM^3 10*3/mm3 181-714 0658/05/08 leukocyte count, blood 8.0 10^3/MM^3 10*3/mm3 4.6-10.2 [...] 11 .6-14.8 platelet count 399 10^3/MM^3 10*3/mm3 152-807 0173/05/15 leukocyte count, blood 7.2 10^3/MM^3 10*3/mm3 4.6-10.2 [...] 11 .6-14.8 platelet count 341 10^3/MM^3 10*3/mm3 289-085 2060/05/22 leukocyte count, blood 7.9 10^3/MM^3 10*3/mm3 4.6-10.2 [...] 11 .6-14.8 platelet count 362 10^3/MM^3 10*3/mm3 450-002 8243/06/26 leukocyte count, blood 11.7 10^3/MM^3 10*3/mm3 4.6-10.2 [...] 0.30 mg/dL 0.00-1.00 sodium, serum 138 mmol/L 396-613 7061/05/15 carbon dioxide, venous blood 25.9 mmol/L 21.0-32 [...] 50-136 Encounters Code Encounter Date Provider Facility CPT-68495 Level 4 New Patient 16:54:39 CDT Deacon Rajan MD [facility] CPT-10935 Level 2 Est. 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
--- OUTSIDE RECORDS SUMMARY | 2019-07-27 11:46 | XMS REPORT | Clinical Summary ---
[...] Choi MA Anemia in chronic kidney disease Medication List Medication Instructions Start Date Stop Date Generic Name NDC Status Provider Patient Instruction COUMADIN 5 MG ORAL TABLET Take one by mouth daily 2018 WARFARIN SODIUM 17684910527 No Longer Active Deacon Rajan MD A ctive LEVO-T 150 MCG ORAL TABLET 3 tab q d LEVOTHYRO XINE SODIUM 71025777513 Active Deacon Rajan MD Active LEVO-T 50 MCG ORAL TABLET 1 q d LEVOTHYROXINE SODIUM 03452051488 Active Deacon Rajan MD Active LEVOTHYROXINE SODIUM 200 MCG ORAL TABLET 2 1/4 tablets daily 201 10/30/27 LEVOTHYROXINE SODIUM 44706516384 No Longer Active Deacon Rajan MD Active MULTIVITAMIN & MINERAL ORAL LIQUID 5 ml daily 06/28 MULTIPLE VITAMINS-MINERALS 13072326521 No Longer Active Deacon Rajan MD Active PRILOSEC OTC 20 MG ORAL TABLET DELAYED RELEASE 2 tablets daily 2 OMEPRAZOLE MAGNESIUM 60576697941 No Longer Active Deacon Rajan MD Active CARAFATE 1 GM ORAL TABLET Take one by mouth four times daily 201 10/30/27 SUCRALFATE 51729637674 No Longer Active Deacon Rajan MD Active VICTOZA 18 MG/3ML SUBCUTANEOUS SOLUTION PEN-INJECTOR 1.8 mg mc y LIRAGLUTIDE 29146660362 No Longer Active Deacon Rajan MD Active TIZANIDINE HCL 4 MG ORAL TABLET 1 tablet every 4 hours TIZANIDINE HCL 04564717969 Active Shelia Quezada RN Active OXYCODONE HCL 5 MG ORAL TABLET 1 tablet every 3-4 hours as n eeded for pain OXYCODONE HCL 57410103877 Active Shelia Quezada RN Active NOVOLOG 100 UNIT/ML SUBCUTANEOUS SOLUTION sliding scale INSULIN ASPART 49792503895 Active Shelia Quezada RN Active MELOXICAM 15 MG ORAL TABLET Take one by mouth daily MELOXICAM 80382301431 Active Shelia Quezada RN Active FUROSEMIDE 40 MG ORAL TABLET Take one by mouth daily FUROSEMIDE 73387818471 Active Shelia Quezada RN Active LANTUS 100 UNIT/ML SUBCUTANEOUS SOLUTION 30 units daily at bedtime INSULIN GLARGINE 78493310871 Active Shelia Quezada RN Act johnathon HYDROCODONE-ACETAMINOPHEN 5-325 MG ORAL TABLET 1 every 4 hours as needed for pain HYDROCODONE-ACETAMINOPHEN 41392516713 Active Shelia Quezada RN Active GLUCOPHAGE 1000 MG ORAL TABLET Take one by mouth daily METFORMIN HCL 80352278974 Active Shelia Quezada RN Active COZAAR 50 MG ORAL TABLET 1 1/2 tabs daily LOSAR KOO POTASSIUM 90377636735 Active Shelia Quezada RN Active CELEXA 20 MG ORAL TABLET Take one by mouth daily CITALOPRAM HYDROBROMIDE 34226798233 Active Shelia Quezada RN Active BACTRIM DS 800-160 MG ORAL TABLET by mouth twice a day SULFAMETHOXAZOLE-TRIMETHOPRIM 10890998166 Active Shelia Quezada RN Active AMITRIPTYLINE HCL 75 MG ORAL TABLET Take one by mouth daily at bedtime AMITRIPTYLINE HCL 92548346828 Active Shelia Yuen N Active VICTOZA 18 MG/3ML SUBCUTANEOUS SOLUTION PEN-INJECTOR 1.8 mg mc y VICTOZA 18 MG/3ML SUBCUTANEOUS SOLUTION PEN-INJECTOR LIRAGLUTIDE Inactive CARAFATE 1 GM ORAL TABLET Take one by mouth four times daily 201 10/30/27 CARAFATE 1 GM ORAL TABLET 187211 SUCRALFATE Inacti ve PRILOSEC OTC 20 MG ORAL TABLET DELAYED RELEASE 2 tablets daily 2 PRILOSEC OTC 20 MG ORAL TABLET DELAYED RELEASE OMEPRAZOLE MAGNESIUM Inactive MULTIVITAMIN & MINERAL ORAL LIQUID 5 ml daily 06/28 MULTIVITAMIN & MINERAL ORAL LIQUID MULTIPLE VITAMINS-MINERALS Inactive LEVOTHYROXINE SODIUM 200 MCG ORAL TABLET 2 1/4 tablets daily 201 10/30/27 LEVOTHYROXINE SODIUM 200 MCG ORAL TABLET 408525 LEVOTHY ROXINE SODIUM Inactive COUMADIN 5 MG ORAL TABLET Take one by mouth daily 2018 COUMADIN 5 MG ORAL TABLET 321286 WARFARIN SODIUM Inactive Vital Signs Date Name Value Unit Range Description blood pressure, diastolic, repeated by physician 42 [...] 11 .6-14.8 platelet count 304 10^3/MM^3 10*3/mm3 604-641 3426/02/13 leukocyte count, blood 6.5 10^3/MM^3 10*3/mm3 4.6-10.2 [...] 11 .6-14.8 platelet count 303 10^3/MM^3 10*3/mm3 062-720 4927/03/13 leukocyte count, blood 7.2 10^3/MM^3 10*3/mm3 4.6-10.2 [...] 11 .6-14.8 platelet count 299 10^3/MM^3 10*3/mm3 855-680 5790/04/09 leukocyte count, blood 8.7 10^3/MM^3 10*3/mm3 4.6-10.2 [...] 11 .6-14.8 platelet count 295 10^3/MM^3 10*3/mm3 945-925 8297/04/24 leukocyte count, blood 8.0 10^3/MM^3 10*3/mm3 4.6-10.2 [...] 11 .6-14.8 platelet count 429 10^3/MM^3 10*3/mm3 087-418 6692/04/29 leukocyte count, blood 9.1 10^3/MM^3 10*3/mm3 4.6-10.2 [...] 11 .6-14.8 platelet count 343 10^3/MM^3 10*3/mm3 029-429 3640/05/08 leukocyte count, blood 8.0 10^3/MM^3 10*3/mm3 4.6-10.2 [...] 11 .6-14.8 platelet count 399 10^3/MM^3 10*3/mm3 303-315 4821/05/15 leukocyte count, blood 7.2 10^3/MM^3 10*3/mm3 4.6-10.2 [...] 11 .6-14.8 platelet count 341 10^3/MM^3 10*3/mm3 299-773 8691/05/22 leukocyte count, blood 7.9 10^3/MM^3 10*3/mm3 4.6-10.2 [...] 11 .6-14.8 platelet count 362 10^3/MM^3 10*3/mm3 142-424 Lab Report: Comp. Metabolic Panel - Chem istry calcium, serum 9.0 mg/dL 8.5-10.1 bilirubin, serum, total 0.30 mg/dL 0.00-1.00 sodium, serum 138 mmol/L 262-728 1995/05/15 carbon dioxide, venous blood 25.9 mmol/L 21.0-32 [...] 50-136 Encounters Code Encounter Date Provider Facility CPT-09584 Level 4 New Patient 16:54:39 CDT Deacon Rajan MD [facility] CPT-94460 Level 2 Est. 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
--- OUTSIDE RECORDS SUMMARY | 2019-07-27 11:46 | XMS REPORT | Clinical Summary ---
[...] one by mouth daily 2018 WARFARIN SODIUM 86977303503 No Longer Active Deacon Rajan MD A ctive LEVO-T 150 MCG ORAL TABLET 3 tab q d LEVOTHYRO XINE SODIUM 25639628536 Active Deacon Rajan MD Active LEVO-T 50 MCG ORAL TABLET 1 q d LEVOTHYROXINE SODIUM 93394894430 Active Deacon Rajan MD Active LEVOTHYROXINE SODIUM 200 MCG ORAL TABLET 2 1/4 tablets daily 201 10/30/27 LEVOTHYROXINE SODIUM 79381702731 No Longer Active Deacon Rajan MD Active MULTIVITAMIN & MINERAL ORAL LIQUID 5 ml daily 06/28 MULTIPLE VITAMINS-MINERALS 85782191472 No Longer Active Deacon Rajan MD Active PRILOSEC OTC 20 MG ORAL TABLET DELAYED RELEASE 2 tablets daily 2 OMEPRAZOLE MAGNESIUM 73513347358 No Longer Active Deacon Rajan MD Active CARAFATE 1 GM ORAL TABLET Take one by mouth four times daily 201 10/30/27 SUCRALFATE 89540350995 No Longer Active Deacon Rajan MD Active VICTOZA 18 MG/3ML SUBCUTANEOUS SOLUTION PEN-INJECTOR 1.8 mg mc y LIRAGLUTIDE 28417423978 No Longer Active Deacon Rajan MD Active TIZANIDINE HCL 4 MG ORAL TABLET 1 tablet every 4 hours TIZANIDINE HCL 22101194071 Active Shelia Quezada RN Active OXYCODONE HCL 5 MG ORAL TABLET 1 tablet every 3-4 hours as n eeded for pain OXYCODONE HCL 54644875470 Active Shelia Quezada RN Active NOVOLOG 100 UNIT/ML SUBCUTANEOUS SOLUTION sliding scale INSULIN ASPART 64304839221 Active Shelia Quezada RN Active MELOXICAM 15 MG ORAL TABLET Take one by mouth daily MELOXICAM 83505269587 Active Shelia Quezada RN Active FUROSEMIDE 40 MG ORAL TABLET Take one by mouth daily FUROSEMIDE 92752988663 Active Shelia Quezada RN Active LANTUS 100 UNIT/ML SUBCUTANEOUS SOLUTION 30 units daily at bedtime INSULIN GLARGINE 11994841756 Active Shelia Quezada RN Act johnathon HYDROCODONE-ACETAMINOPHEN 5-325 MG ORAL TABLET 1 every 4 hours as needed for pain HYDROCODONE-ACETAMINOPHEN 92553518830 Active Shelia Quezada RN Active GLUCOPHAGE 1000 MG ORAL TABLET Take one by mouth daily METFORMIN HCL 60090849383 Active Shelia Quezada RN Active COZAAR 50 MG ORAL TABLET 1 1/2 tabs daily LOSAR KOO POTASSIUM 62601542894 Active Shelia Quezada RN Active CELEXA 20 MG ORAL TABLET Take one by mouth daily CITALOPRAM HYDROBROMIDE 74754358066 Active Shelia Quezada RN Active BACTRIM DS 800-160 MG ORAL TABLET by mouth twice a day SULFAMETHOXAZOLE-TRIMETHOPRIM 84474061273 Active Shelia Quezada RN Active AMITRIPTYLINE HCL 75 MG ORAL TABLET Take one by mouth daily at bedtime AMITRIPTYLINE HCL 65264020226 Active Shelia Yuen N Active VICTOZA 18 MG/3ML SUBCUTANEOUS SOLUTION PEN-INJECTOR 1.8 mg mc y VICTOZA 18 MG/3ML SUBCUTANEOUS SOLUTION PEN-INJECTOR LIRAGLUTIDE Inactive CARAFATE 1 GM ORAL TABLET Take one by mouth four times daily 201 10/30/27 CARAFATE 1 GM ORAL TABLET 108070 SUCRALFATE Inacti ve PRILOSEC OTC 20 MG ORAL TABLET DELAYED RELEASE 2 tablets daily 2 PRILOSEC OTC 20 MG ORAL TABLET DELAYED RELEASE OMEPRAZOLE MAGNESIUM Inactive MULTIVITAMIN & MINERAL ORAL LIQUID 5 ml daily 06/28 MULTIVITAMIN & MINERAL ORAL LIQUID MULTIPLE VITAMINS-MINERALS Inactive LEVOTHYROXINE SODIUM 200 MCG ORAL TABLET 2 1/4 tablets daily 201 10/30/27 LEVOTHYROXINE SODIUM 200 MCG ORAL TABLET 239996 LEVOTHY ROXINE SODIUM Inactive COUMADIN 5 MG ORAL TABLET Take one by mouth daily 2018 COUMADIN 5 MG ORAL TABLET 490514 WARFARIN SODIUM Inactive Vital Signs Date Name [...] 11 .6-14.8 platelet count 304 10^3/MM^3 10*3/mm3 420-182 9414/02/13 leukocyte count, blood 6.5 10^3/MM^3 10*3/mm3 4.6-10.2 [...] 11 .6-14.8 platelet count 303 10^3/MM^3 10*3/mm3 610-605 7614/03/13 leukocyte count, blood 7.2 10^3/MM^3 10*3/mm3 4.6-10.2 [...] 11 .6-14.8 platelet count 299 10^3/MM^3 10*3/mm3 630-598 4283/04/09 leukocyte count, blood 8.7 10^3/MM^3 10*3/mm3 4.6-10.2 [...] 11 .6-14.8 platelet count 295 10^3/MM^3 10*3/mm3 421-281 5768/04/24 leukocyte count, blood 8.0 10^3/MM^3 10*3/mm3 4.6-10.2 [...] 11 .6-14.8 platelet count 429 10^3/MM^3 10*3/mm3 693-052 4026/04/29 leukocyte count, blood 9.1 10^3/MM^3 10*3/mm3 4.6-10.2 [...] 11 .6-14.8 platelet count 343 10^3/MM^3 10*3/mm3 641-931 2302/05/08 leukocyte count, blood 8.0 10^3/MM^3 10*3/mm3 4.6-10.2 [...] 11 .6-14.8 platelet count 399 10^3/MM^3 10*3/mm3 605-886 3753/05/15 leukocyte count, blood 7.2 10^3/MM^3 10*3/mm3 4.6-10.2 [...] 11 .6-14.8 platelet count 341 10^3/MM^3 10*3/mm3 142-424 Lab Report: Comp. Metabolic Panel - Chem istry sodium, serum 138 mmol/L 145-990 1641/05/15 carbon dioxide, venous blood 25.9 mmol/L 21.0-32 .0 potassium, serum 4.6 mmol/L 3.5-5.2 chloride, serum 104 mmol/L 98-107 blood glucose 105 mg/dL 65-95 urea nitrogen, blood 21 mg/dL 7-18 creatinine, serum 0.94 mg/dL 0.60-1.30 Estimated Glomerular Filtration Rate (calc) 64 (?) mL/min/1.73m2 = OR > 60 mL/min alanine aminotransferase (SGPT), serum 16 U/L 12-78 aspartate aminotransferase (SGOT), serum 8 U/L 15-37 calcium, serum 9.0 mg/dL 8.5-10.1 bilirubin, serum, total 0.30 mg/dL 0.00-1.00 Lab Report: Comp. Metabolic Panel - Lab Alkaline phosphatase 96 50-136 Encounters Code Encounter Date Provider Facility [id number] Level 4 New Patient 16:54:39 CDT Deacon Rajan MD [facility] CPT-77119 Level 2 Est. Patient 15:33:16 DIRECTOR [employer] Shreyas gillespie MD [facility]
--- OUTSIDE RECORDS SUMMARY | 2019-07-27 11:46 | XMS REPORT | Clinical Summary ---
[...] one by mouth daily 2018 WARFARIN SODIUM [id number] No Longer Active Deacon Rajan MD A ctive LEVO-T 150 MCG ORAL TABLET 3 tab q d LEVOTHYRO XINE SODIUM 21128343986 Active Deacon Rajan MD Active LEVO-T 50 MCG ORAL TABLET 1 q d LEVOTHYROXINE SODIUM 24192183630 Active Deacon Rajan MD Active LEVOTHYROXINE SODIUM 200 MCG ORAL TABLET 2 1/4 tablets daily 201 10/30/27 LEVOTHYROXINE SODIUM 58916987972 No Longer Active Deacon Rajan MD Active MULTIVITAMIN & MINERAL ORAL LIQUID 5 ml daily 06/28 MULTIPLE VITAMINS-MINERALS 70422572060 No Longer Active Deacon Rajan MD Active PRILOSEC OTC 20 MG ORAL TABLET DELAYED RELEASE 2 tablets daily 2 OMEPRAZOLE MAGNESIUM 93866456903 No Longer Active Deacon Rajan MD Active CARAFATE 1 GM ORAL TABLET Take one by mouth four times daily 201 10/30/27 SUCRALFATE 38942740353 No Longer Active Deacon Rajan MD Active VICTOZA 18 MG/3ML SUBCUTANEOUS SOLUTION PEN-INJECTOR 1.8 mg mc y LIRAGLUTIDE 78996269047 No Longer Active Deacon Rajan MD Active TIZANIDINE HCL 4 MG ORAL TABLET 1 tablet every 4 hours TIZANIDINE HCL 57760125225 Active Shelia Quezada RN Active OXYCODONE HCL 5 MG ORAL TABLET 1 tablet every 3-4 hours as n eeded for pain OXYCODONE HCL 26402164400 Active Shelia Quezada RN Active NOVOLOG 100 UNIT/ML SUBCUTANEOUS SOLUTION sliding scale INSULIN ASPART 54019914892 Active Shelia Quezada RN Active MELOXICAM 15 MG ORAL TABLET Take one by mouth daily MELOXICAM 28656326941 Active Shelia Quezada RN Active FUROSEMIDE 40 MG ORAL TABLET Take one by mouth daily FUROSEMIDE 32087658469 Active Shelia Quezada RN Active LANTUS 100 UNIT/ML SUBCUTANEOUS SOLUTION 30 units daily at bedtime INSULIN GLARGINE 76802444633 Active Shleia Quezada RN Act johnathon HYDROCODONE-ACETAMINOPHEN 5-325 MG ORAL TABLET 1 every 4 hours as needed for pain HYDROCODONE-ACETAMINOPHEN 44532059485 Active Shelia Quezada RN Active GLUCOPHAGE 1000 MG ORAL TABLET Take one by mouth daily METFORMIN HCL 16088545857 Active Shelia Quezada RN Active COZAAR 50 MG ORAL TABLET 1 1/2 tabs daily LOSAR KOO POTASSIUM 40963477218 Active Shelia Quezada RN Active CELEXA 20 MG ORAL TABLET Take one by mouth daily CITALOPRAM HYDROBROMIDE 65598046950 Active Shelia Quezada RN Active BACTRIM DS 800-160 MG ORAL TABLET by mouth twice a day SULFAMETHOXAZOLE-TRIMETHOPRIM 85287697648 Active Shelia Quezada RN Active AMITRIPTYLINE HCL 75 MG ORAL TABLET Take one by mouth daily at bedtime AMITRIPTYLINE HCL 71904311944 Active Shelia Yuen N Active VICTOZA 18 MG/3ML SUBCUTANEOUS SOLUTION PEN-INJECTOR 1.8 mg mc y VICTOZA 18 MG/3ML SUBCUTANEOUS SOLUTION PEN-INJECTOR LIRAGLUTIDE Inactive CARAFATE 1 GM ORAL TABLET Take one by mouth four times daily 201 10/30/27 CARAFATE 1 GM ORAL TABLET 341070 SUCRALFATE Inacti ve PRILOSEC OTC 20 MG ORAL TABLET DELAYED RELEASE 2 tablets daily 2 PRILOSEC OTC 20 MG ORAL TABLET DELAYED RELEASE OMEPRAZOLE MAGNESIUM Inactive MULTIVITAMIN & MINERAL ORAL LIQUID 5 ml daily 06/28 MULTIVITAMIN & MINERAL ORAL LIQUID MULTIPLE VITAMINS-MINERALS Inactive LEVOTHYROXINE SODIUM 200 MCG ORAL TABLET 2 1/4 tablets daily 201 10/30/27 LEVOTHYROXINE SODIUM 200 MCG ORAL TABLET 504482 LEVOTHY ROXINE SODIUM Inactive COUMADIN 5 MG ORAL TABLET Take one by mouth daily 2018 COUMADIN 5 MG ORAL TABLET 107875 WARFARIN SODIUM Inactive Vital Signs Date Name [...] 11 .6-14.8 platelet count 304 10^3/MM^3 10*3/mm3 886-799 0111/02/13 leukocyte count, blood 6.5 10^3/MM^3 10*3/mm3 4.6-10.2 [...] 11 .6-14.8 platelet count 303 10^3/MM^3 10*3/mm3 842-104 2266/02/01 erythrocyte (RBC) count 3.75 10^6/MM^3 10*6/mm3 3.80-5.8 [...] 11 .6-14.8 platelet count 299 10^3/MM^3 10*3/mm3 066-265 1974/04/09 leukocyte count, blood 8.7 10^3/MM^3 10*3/mm3 4.6-10.2 [...] 11 .6-14.8 platelet count 295 10^3/MM^3 10*3/mm3 579-233 3244/04/24 leukocyte count, blood 8.0 10^3/MM^3 10*3/mm3 4.6-10.2 [...] 11 .6-14.8 platelet count 429 10^3/MM^3 10*3/mm3 193-982 2311/04/29 leukocyte count, blood 9.1 10^3/MM^3 10*3/mm3 4.6-10.2 [...] 11 .6-14.8 platelet count 343 10^3/MM^3 10*3/mm3 743-446 3609/05/08 leukocyte count, blood 8.0 10^3/MM^3 10*3/mm3 4.6-10.2 [...] 11 .6-14.8 platelet count 399 10^3/MM^3 10*3/mm3 188-106 7209/05/15 leukocyte count, blood 7.2 10^3/MM^3 10*3/mm3 4.6-10.2 [...] 11 .6-14.8 platelet count 341 10^3/MM^3 10*3/mm3 231-947 3043/05/22 leukocyte count, blood 7.9 10^3/MM^3 10*3/mm3 4.6-10.2 [...] 11 .6-14.8 platelet count 362 10^3/MM^3 10*3/mm3 754-300 2219/06/26 leukocyte count, blood 11.7 10^3/MM^3 10*3/mm3 4.6-10.2 [...] 0.30 mg/dL 0.00-1.00 sodium, serum 138 mmol/L 732-581 0127/05/15 carbon dioxide, venous blood 25.9 mmol/L 21.0-32 [...] 50-136 Encounters Code Encounter Date Provider Facility CPT-68167 Level 4 New Patient 16:54:39 CDT Deacon Rajan MD [facility] CPT-57660 Level 2 Est. Patient 15:33:16 LIQUOR RECTIFIER Shreyas gillespie MD [facility]
--- OUTSIDE RECORDS SUMMARY | 2019-07-27 11:46 | XMS REPORT | Clinical Summary ---
[...] one by mouth daily 2018 WARFARIN SODIUM 89905660852 No Longer Active Deacon Rajan MD A ctive LEVO-T 150 MCG ORAL TABLET 3 tab q d LEVOTHYRO XINE SODIUM 36542883902 Active Deacon Rajan MD Active LEVO-T 50 MCG ORAL TABLET 1 q d LEVOTHYROXINE SODIUM 00741750858 Active Deacon Rajan MD Active LEVOTHYROXINE SODIUM 200 MCG ORAL TABLET 2 1/4 tablets daily 201 10/30/27 LEVOTHYROXINE SODIUM 81039535732 No Longer Active Deacon Rajan MD Active MULTIVITAMIN & MINERAL ORAL LIQUID 5 ml daily 06/28 MULTIPLE VITAMINS-MINERALS 83822886302 No Longer Active Deacon Rajan MD Active PRILOSEC OTC 20 MG ORAL TABLET DELAYED RELEASE 2 tablets daily 2 OMEPRAZOLE MAGNESIUM 04655169467 No Longer Active Deacon Rajan MD Active CARAFATE 1 GM ORAL TABLET Take one by mouth four times daily 201 10/30/27 SUCRALFATE 28275308462 No Longer Active Deacon Rajan MD Active VICTOZA 18 MG/3ML SUBCUTANEOUS SOLUTION PEN-INJECTOR 1.8 mg mc y LIRAGLUTIDE 98923327879 No Longer Active Deacon Rajan MD Active TIZANIDINE HCL 4 MG ORAL TABLET 1 tablet every 4 hours TIZANIDINE HCL 27108274258 Active Shelia Quezada RN Active OXYCODONE HCL 5 MG ORAL TABLET 1 tablet every 3-4 hours as n eeded for pain OXYCODONE HCL 15411245882 Active Shelia Quezada RN Active NOVOLOG 100 UNIT/ML SUBCUTANEOUS SOLUTION sliding scale INSULIN ASPART 15150017540 Active Shelia Quezada RN Active MELOXICAM 15 MG ORAL TABLET Take one by mouth daily MELOXICAM 84090038417 Active Shelia Quezada RN Active FUROSEMIDE 40 MG ORAL TABLET Take one by mouth daily FUROSEMIDE 85886046301 Active Shelia Quezada RN Active LANTUS 100 UNIT/ML SUBCUTANEOUS SOLUTION 30 units daily at bedtime INSULIN GLARGINE 48085191318 Active Shelia Quezada RN Act johnathon HYDROCODONE-ACETAMINOPHEN 5-325 MG ORAL TABLET 1 every 4 hours as needed for pain HYDROCODONE-ACETAMINOPHEN 69640104964 Active Shelia Quezada RN Active GLUCOPHAGE 1000 MG ORAL TABLET Take one by mouth daily METFORMIN HCL 98506171111 Active Shelia Quezada RN Active COZAAR 50 MG ORAL TABLET 1 1/2 tabs daily LOSAR KOO POTASSIUM 63184122378 Active Shelia Quezada RN Active CELEXA 20 MG ORAL TABLET Take one by mouth daily CITALOPRAM HYDROBROMIDE 86434540917 Active Shelia Quezada RN Active BACTRIM DS 800-160 MG ORAL TABLET by mouth twice a day SULFAMETHOXAZOLE-TRIMETHOPRIM 08166559035 Active Shelia Quezada RN Active AMITRIPTYLINE HCL 75 MG ORAL TABLET Take one by mouth daily at bedtime AMITRIPTYLINE HCL 72624691563 Active Shelia Yuen N Active VICTOZA 18 MG/3ML SUBCUTANEOUS SOLUTION PEN-INJECTOR 1.8 mg mc y VICTOZA 18 MG/3ML SUBCUTANEOUS SOLUTION PEN-INJECTOR LIRAGLUTIDE Inactive CARAFATE 1 GM ORAL TABLET Take one by mouth four times daily 201 10/30/27 CARAFATE 1 GM ORAL TABLET 924921 SUCRALFATE Inacti ve PRILOSEC OTC 20 MG ORAL TABLET DELAYED RELEASE 2 tablets daily 2 PRILOSEC OTC 20 MG ORAL TABLET DELAYED RELEASE OMEPRAZOLE MAGNESIUM Inactive MULTIVITAMIN & MINERAL ORAL LIQUID 5 ml daily 06/28 MULTIVITAMIN & MINERAL ORAL LIQUID MULTIPLE VITAMINS-MINERALS Inactive LEVOTHYROXINE SODIUM 200 MCG ORAL TABLET 2 1/4 tablets daily 201 10/30/27 LEVOTHYROXINE SODIUM 200 MCG ORAL TABLET 448084 LEVOTHY ROXINE SODIUM Inactive COUMADIN 5 MG ORAL TABLET Take one by mouth daily 2018 COUMADIN 5 MG ORAL TABLET 798316 WARFARIN SODIUM Inactive Vital Signs Date Name [...] 11 .6-14.8 platelet count 304 10^3/MM^3 10*3/mm3 227-538 0337/02/13 leukocyte count, blood 6.5 10^3/MM^3 10*3/mm3 4.6-10.2 [...] 11 .6-14.8 platelet count 303 10^3/MM^3 10*3/mm3 323-604 6596/03/13 leukocyte count, blood 7.2 10^3/MM^3 10*3/mm3 4.6-10.2 [...] 11 .6-14.8 platelet count 299 10^3/MM^3 10*3/mm3 660-613 6003/04/09 leukocyte count, blood 8.7 10^3/MM^3 10*3/mm3 4.6-10.2 [...] 11 .6-14.8 platelet count 295 10^3/MM^3 10*3/mm3 882-517 8769/04/24 leukocyte count, blood 8.0 10^3/MM^3 10*3/mm3 4.6-10.2 [...] 11 .6-14.8 platelet count 429 10^3/MM^3 10*3/mm3 411-695 8825/04/29 leukocyte count, blood 9.1 10^3/MM^3 10*3/mm3 4.6-10.2 [...] 11 .6-14.8 platelet count 343 10^3/MM^3 10*3/mm3 110-887 0753/05/08 leukocyte count, blood 8.0 10^3/MM^3 10*3/mm3 4.6-10.2 [...] 11 .6-14.8 platelet count 399 10^3/MM^3 10*3/mm3 324-277 6235/05/15 leukocyte count, blood 7.2 10^3/MM^3 10*3/mm3 4.6-10.2 [...] 11 .6-14.8 platelet count 341 10^3/MM^3 10*3/mm3 632-469 9805/05/22 leukocyte count, blood 7.9 10^3/MM^3 10*3/mm3 4.6-10.2 [...] 0.30 mg/dL 0.00-1.00 sodium, serum 138 mmol/L 334-179 1069/05/15 carbon dioxide, venous blood 25.9 mmol/L 21.0-32 [...] 50-136 Encounters Code Encounter Date Provider Facility CPT-00212 Level 4 New Patient 16:54:39 CDT Deacon Rajan MD [facility] CPT-00583 Level 2 Est. Patient 15:33:16 DECORATOR MANNEQUIN Shreyas gillespie MD [facility]
--- OUTSIDE RECORDS SUMMARY | 2019-07-27 11:46 | XMS REPORT | Clinical Summary ---
[...] one by mouth daily 2018 WARFARIN SODIUM 07143905374 No Longer Active Deacon Rajan MD A ctive LEVO-T 150 MCG ORAL TABLET 3 tab q d LEVOTHYRO XINE SODIUM 62138741380 Active Deacon Rajan MD Active LEVO-T 50 MCG ORAL TABLET 1 q d LEVOTHYROXINE SODIUM 78958791276 Active Deacon Rajan MD Active LEVOTHYROXINE SODIUM 200 MCG ORAL TABLET 2 1/4 tablets daily 201 10/30/27 LEVOTHYROXINE SODIUM 00324555365 No Longer Active Deacon Rajan MD Active MULTIVITAMIN & MINERAL ORAL LIQUID 5 ml daily 06/28 MULTIPLE VITAMINS-MINERALS 72802552314 No Longer Active Deacon Rajan MD Active PRILOSEC OTC 20 MG ORAL TABLET DELAYED RELEASE 2 tablets daily 2 OMEPRAZOLE MAGNESIUM 97303121844 No Longer Active Deacon Rajan MD Active CARAFATE 1 GM ORAL TABLET Take one by mouth four times daily 201 10/30/27 SUCRALFATE 23330253169 No Longer Active Deacon Rajan MD Active VICTOZA 18 MG/3ML SUBCUTANEOUS SOLUTION PEN-INJECTOR 1.8 mg mc y LIRAGLUTIDE 65555643985 No Longer Active Deacon Rajan MD Active TIZANIDINE HCL 4 MG ORAL TABLET 1 tablet every 4 hours TIZANIDINE HCL 36159205375 Active Shelia Quezada RN Active OXYCODONE HCL 5 MG ORAL TABLET 1 tablet every 3-4 hours as n eeded for pain OXYCODONE HCL 41877810221 Active Shelia Quezada RN Active NOVOLOG 100 UNIT/ML SUBCUTANEOUS SOLUTION sliding scale INSULIN ASPART 71954271833 Active Shelia Quezada RN Active MELOXICAM 15 MG ORAL TABLET Take one by mouth daily MELOXICAM 22483304256 Active Shelia Quezada RN Active FUROSEMIDE 40 MG ORAL TABLET Take one by mouth daily FUROSEMIDE 14647313531 Active Shelia Quezada RN Active LANTUS 100 UNIT/ML SUBCUTANEOUS SOLUTION 30 units daily at bedtime INSULIN GLARGINE 42421624101 Active Shelia Quezada RN Act johnathon HYDROCODONE-ACETAMINOPHEN 5-325 MG ORAL TABLET 1 every 4 hours as needed for pain HYDROCODONE-ACETAMINOPHEN 99035661409 Active Shelia Quezada RN Active GLUCOPHAGE 1000 MG ORAL TABLET Take one by mouth daily METFORMIN HCL 90727230903 Active Shelia Quezada RN Active COZAAR 50 MG ORAL TABLET 1 1/2 tabs daily LOSAR KOO POTASSIUM 98930671741 Active Shelia Quezada RN Active CELEXA 20 MG ORAL TABLET Take one by mouth daily CITALOPRAM HYDROBROMIDE 72654209370 Active Shelia Quezada RN Active BACTRIM DS 800-160 MG ORAL TABLET by mouth twice a day SULFAMETHOXAZOLE-TRIMETHOPRIM 93351516010 Active Shelia Quezada RN Active AMITRIPTYLINE HCL 75 MG ORAL TABLET Take one by mouth daily at bedtime AMITRIPTYLINE HCL 42185007456 Active Shelia Yuen N Active VICTOZA 18 MG/3ML SUBCUTANEOUS SOLUTION PEN-INJECTOR 1.8 mg mc y VICTOZA 18 MG/3ML SUBCUTANEOUS SOLUTION PEN-INJECTOR LIRAGLUTIDE Inactive CARAFATE 1 GM ORAL TABLET Take one by mouth four times daily 201 10/30/27 CARAFATE 1 GM ORAL TABLET 722871 SUCRALFATE Inacti ve PRILOSEC OTC 20 MG ORAL TABLET DELAYED RELEASE 2 tablets daily 2 PRILOSEC OTC 20 MG ORAL TABLET DELAYED RELEASE OMEPRAZOLE MAGNESIUM Inactive MULTIVITAMIN & MINERAL ORAL LIQUID 5 ml daily 06/28 MULTIVITAMIN & MINERAL ORAL LIQUID MULTIPLE VITAMINS-MINERALS Inactive LEVOTHYROXINE SODIUM 200 MCG ORAL TABLET 2 1/4 tablets daily 201 10/30/27 LEVOTHYROXINE SODIUM 200 MCG ORAL TABLET 177802 LEVOTHY ROXINE SODIUM Inactive COUMADIN 5 MG ORAL TABLET Take one by mouth daily 2018 COUMADIN 5 MG ORAL TABLET 215795 WARFARIN SODIUM Inactive Vital Signs Date Name [...] camilo blood pressure, diastolic 42 mm[Hg] BP caimlo blood pressure, systolic, repeated by physician 97 [...] 11 .6-14.8 platelet count 304 10^3/MM^3 10*3/mm3 515-345 0667/02/13 leukocyte count, blood 6.5 10^3/MM^3 10*3/mm3 4.6-10.2 [...] 11 .6-14.8 platelet count 303 10^3/MM^3 10*3/mm3 483-620 8665/03/13 leukocyte count, blood 7.2 10^3/MM^3 10*3/mm3 4.6-10.2 [...] 11 .6-14.8 platelet count 299 10^3/MM^3 10*3/mm3 244-118 6913/04/09 leukocyte count, blood 8.7 10^3/MM^3 10*3/mm3 4.6-10.2 [...] 11 .6-14.8 platelet count 295 10^3/MM^3 10*3/mm3 436-153 0887/04/24 leukocyte count, blood 8.0 10^3/MM^3 10*3/mm3 4.6-10.2 [...] 11 .6-14.8 platelet count 429 10^3/MM^3 10*3/mm3 436-249 6282/04/29 leukocyte count, blood 9.1 10^3/MM^3 10*3/mm3 4.6-10.2 [...] 11 .6-14.8 platelet count 343 10^3/MM^3 10*3/mm3 395-124 8188/05/08 leukocyte count, blood 8.0 10^3/MM^3 10*3/mm3 4.6-10.2 [...] 11 .6-14.8 platelet count 399 10^3/MM^3 10*3/mm3 955-288 8485/05/15 leukocyte count, blood 7.2 10^3/MM^3 10*3/mm3 4.6-10.2 [...] 11 .6-14.8 platelet count 341 10^3/MM^3 10*3/mm3 091-859 6615/05/22 leukocyte count, blood 7.9 10^3/MM^3 10*3/mm3 4.6-10.2 [...] 11 .6-14.8 platelet count 362 10^3/MM^3 10*3/mm3 800-182 4436/06/26 leukocyte count, blood 11.7 10^3/MM^3 10*3/mm3 4.6-10.2 [...] 0.30 mg/dL 0.00-1.00 sodium, serum 138 mmol/L 261-370 7766/05/15 carbon dioxide, venous blood 25.9 mmol/L 21.0-32 [...] 50-136 Encounters Code Encounter Date Provider Facility CPT-71721 Level 4 New Patient 16:54:39 CDT Deacon Rajan MD [facility] CPT-06466 Level 2 Est. 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
--- OUTSIDE RECORDS SUMMARY | 2019-07-27 11:47 | XMS REPORT | Clinical Summary ---
[...] one by mouth daily 2018 WARFARIN SODIUM 21529782375 No Longer Active Deacon Rajan MD A ctive LEVO-T 150 MCG ORAL TABLET 3 tab q d LEVOTHYRO XINE SODIUM 53247278365 Active Deacon Rajan MD Active LEVO-T 50 MCG ORAL TABLET 1 q d LEVOTHYROXINE SODIUM 76571928173 Active Deacon Rajan MD Active LEVOTHYROXINE SODIUM 200 MCG ORAL TABLET 2 1/4 tablets daily 201 10/30/27 LEVOTHYROXINE SODIUM 24429023102 No Longer Active Deacon Rajan MD Active MULTIVITAMIN & MINERAL ORAL LIQUID 5 ml daily 06/28 MULTIPLE VITAMINS-MINERALS 12319908976 No Longer Active Deacon Rajan MD Active PRILOSEC OTC 20 MG ORAL TABLET DELAYED RELEASE 2 tablets daily 2 OMEPRAZOLE MAGNESIUM 65876603907 No Longer Active Deacon Rajan MD Active CARAFATE 1 GM ORAL TABLET Take one by mouth four times daily 201 10/30/27 SUCRALFATE 89358234921 No Longer Active Deacon Rajan MD Active VICTOZA 18 MG/3ML SUBCUTANEOUS SOLUTION PEN-INJECTOR 1.8 mg mc y LIRAGLUTIDE 17951629700 No Longer Active Deacon Rajan MD Active TIZANIDINE HCL 4 MG ORAL TABLET 1 tablet every 4 hours TIZANIDINE HCL 35582978617 Active Shelia Quezada RN Active OXYCODONE HCL 5 MG ORAL TABLET 1 tablet every 3-4 hours as n eeded for pain OXYCODONE HCL 50201707772 Active Shelia Quezada RN Active NOVOLOG 100 UNIT/ML SUBCUTANEOUS SOLUTION sliding scale INSULIN ASPART 77140765460 Active Shelia Quezada RN Active MELOXICAM 15 MG ORAL TABLET Take one by mouth daily MELOXICAM 17331876546 Active Shelia Quezada RN Active FUROSEMIDE 40 MG ORAL TABLET Take one by mouth daily FUROSEMIDE 84066349598 Active Shelia Quezada RN Active LANTUS 100 UNIT/ML SUBCUTANEOUS SOLUTION 30 units daily at bedtime INSULIN GLARGINE 52003481001 Active Shelia Quezada RN Act johnathon HYDROCODONE-ACETAMINOPHEN 5-325 MG ORAL TABLET 1 every 4 hours as needed for pain HYDROCODONE-ACETAMINOPHEN 68459227806 Active Shelia Quezada RN Active GLUCOPHAGE 1000 MG ORAL TABLET Take one by mouth daily METFORMIN HCL 40795317984 Active Shelia Quezada RN Active COZAAR 50 MG ORAL TABLET 1 1/2 tabs daily LOSAR KOO POTASSIUM 52170256001 Active Shelia Quezada RN Active CELEXA 20 MG ORAL TABLET Take one by mouth daily CITALOPRAM HYDROBROMIDE 82307880676 Active Shelia Quezada RN Active BACTRIM DS 800-160 MG ORAL TABLET by mouth twice a day SULFAMETHOXAZOLE-TRIMETHOPRIM 12739415653 Active Shelia Quezada RN Active AMITRIPTYLINE HCL 75 MG ORAL TABLET Take one by mouth daily at bedtime AMITRIPTYLINE HCL 42871706323 Active Shelia Yuen N Active VICTOZA 18 MG/3ML SUBCUTANEOUS SOLUTION PEN-INJECTOR 1.8 mg mc y VICTOZA 18 MG/3ML SUBCUTANEOUS SOLUTION PEN-INJECTOR LIRAGLUTIDE Inactive CARAFATE 1 GM ORAL TABLET Take one by mouth four times daily 201 10/30/27 CARAFATE 1 GM ORAL TABLET 530634 SUCRALFATE Inacti ve PRILOSEC OTC 20 MG ORAL TABLET DELAYED RELEASE 2 tablets daily 2 PRILOSEC OTC 20 MG ORAL TABLET DELAYED RELEASE OMEPRAZOLE MAGNESIUM Inactive MULTIVITAMIN & MINERAL ORAL LIQUID 5 ml daily 06/28 MULTIVITAMIN & MINERAL ORAL LIQUID MULTIPLE VITAMINS-MINERALS Inactive LEVOTHYROXINE SODIUM 200 MCG ORAL TABLET 2 1/4 tablets daily 201 10/30/27 LEVOTHYROXINE SODIUM 200 MCG ORAL TABLET 362895 LEVOTHY ROXINE SODIUM Inactive COUMADIN 5 MG ORAL TABLET Take one by mouth daily 2018 COUMADIN 5 MG ORAL TABLET 611039 WARFARIN SODIUM Inactive Vital Signs Date Name [...] 11 .6-14.8 platelet count 304 10^3/MM^3 10*3/mm3 049-332 1717/02/13 leukocyte count, blood 6.5 10^3/MM^3 10*3/mm3 4.6-10.2 [...] 11 .6-14.8 platelet count 303 10^3/MM^3 10*3/mm3 900-522 6223/03/13 leukocyte count, blood 7.2 10^3/MM^3 10*3/mm3 4.6-10.2 [...] 11 .6-14.8 platelet count 299 10^3/MM^3 10*3/mm3 162-508 9873/04/09 leukocyte count, blood 8.7 10^3/MM^3 10*3/mm3 4.6-10.2 [...] 11 .6-14.8 platelet count 295 10^3/MM^3 10*3/mm3 673-982 1362/04/24 leukocyte count, blood 8.0 10^3/MM^3 10*3/mm3 4.6-10.2 [...] 11 .6-14.8 platelet count 429 10^3/MM^3 10*3/mm3 433-377 5128/04/29 leukocyte count, blood 9.1 10^3/MM^3 10*3/mm3 4.6-10.2 [...] 11 .6-14.8 platelet count 343 10^3/MM^3 10*3/mm3 471-791 5827/05/08 leukocyte count, blood 8.0 10^3/MM^3 10*3/mm3 4.6-10.2 [...] 11 .6-14.8 platelet count 399 10^3/MM^3 10*3/mm3 142-424 Encounters Code Encounter Date Provider Facility CPT-49985 Level 4 New Patient 16:54:39 CDT Deacon Rajan MD [facility] CPT-25590 Level 2 Est. 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
--- OUTSIDE RECORDS SUMMARY | 2019-07-27 11:47 | XMS REPORT | Clinical Summary ---
Author Author Douglas, Lisandra Pacheco Organization All Address Unknown Phone Unavailable Allergies, Adverse Reactions, Alerts Allergy Name Reaction Description Start Date Severity Status Pr ovider PREDNISONE Mild Active Shreyas Robetrs MD DOXYCYCLINE HYCLATE Mild Active Shreyas Roberts [...] Aleida mckeon MA Iron deficiency anemia, unspecified Medication List Medication Instructions Start Date Stop Date Generic Name NDC Status Provider Patient Instruction COUMADIN 5 MG ORAL TABLET Take one by mouth daily 2018 WARFARIN SODIUM 31395144987 No Longer Active Deacon Rajan MD A ctive LEVO-T 150 MCG ORAL TABLET 3 tab q d LEVOTHYRO XINE SODIUM 06516690362 Active Deacon Rajan MD Active LEVO-T 50 MCG ORAL TABLET 1 q d LEVOTHYROXINE SODIUM 39834224749 Active Deacon Rajan MD Active LEVOTHYROXINE SODIUM 200 MCG ORAL TABLET 2 1/4 tablets daily 201 10/30/27 LEVOTHYROXINE SODIUM 28334326019 No Longer Active Deacon Rjaan MD Active MULTIVITAMIN & MINERAL ORAL LIQUID 5 ml daily 06/28 MULTIPLE VITAMINS-MINERALS 42361576287 No Longer Active Deacon Rajan MD Active PRILOSEC OTC 20 MG ORAL TABLET DELAYED RELEASE 2 tablets daily 2 OMEPRAZOLE MAGNESIUM 63692864633 No Longer Active Deacon Rajan MD Active CARAFATE 1 GM ORAL TABLET Take one by mouth four times daily 201 10/30/27 SUCRALFATE 42995688678 No Longer Active Deacon Rajan MD Active VICTOZA 18 MG/3ML SUBCUTANEOUS SOLUTION PEN-INJECTOR 1.8 mg mc y LIRAGLUTIDE 00288046900 No Longer Active Deacon Rajan MD Active TIZANIDINE HCL 4 MG ORAL TABLET 1 tablet every 4 hours TIZANIDINE HCL 70869053224 Active Shelia Quezada RN Active OXYCODONE HCL 5 MG ORAL TABLET 1 tablet every 3-4 hours as n eeded for pain OXYCODONE HCL 19264019829 Active Shelia Quezada RN Active NOVOLOG 100 UNIT/ML SUBCUTANEOUS SOLUTION sliding scale INSULIN ASPART 04147284584 Active Shelia Quezada RN Active MELOXICAM 15 MG ORAL TABLET Take one by mouth daily MELOXICAM 46327228974 Active Shelia Quezada RN Active FUROSEMIDE 40 MG ORAL TABLET Take one by mouth daily FUROSEMIDE 33038980967 Active Shelia Quezada RN Active LANTUS 100 UNIT/ML SUBCUTANEOUS SOLUTION 30 units daily at bedtime INSULIN GLARGINE 50992290182 Active Shelia Quezada RN Act johnathon HYDROCODONE-ACETAMINOPHEN 5-325 MG ORAL TABLET 1 every 4 hours as needed for pain HYDROCODONE-ACETAMINOPHEN 50083047969 Active Shelia Quezada RN Active GLUCOPHAGE 1000 MG ORAL TABLET Take one by mouth daily METFORMIN HCL 30660276674 Active Shelia Quezada RN Active COZAAR 50 MG ORAL TABLET 1 1/2 tabs daily LOSAR KOO POTASSIUM 60240205217 Active Shelia Quezada RN Active CELEXA 20 MG ORAL TABLET Take one by mouth daily CITALOPRAM HYDROBROMIDE 96440107372 Active Shelia Quezada RN Active BACTRIM DS 800-160 MG ORAL TABLET by mouth twice a day SULFAMETHOXAZOLE-TRIMETHOPRIM 57438776398 Active Shelia Quezada RN Active AMITRIPTYLINE HCL 75 MG ORAL TABLET Take one by mouth daily at bedtime AMITRIPTYLINE HCL 23542161690 Active Shelia Yuen N Active VICTOZA 18 MG/3ML SUBCUTANEOUS SOLUTION PEN-INJECTOR 1.8 mg mc y VICTOZA 18 MG/3ML SUBCUTANEOUS SOLUTION PEN-INJECTOR LIRAGLUTIDE Inactive CARAFATE 1 GM ORAL TABLET Take one by mouth four times daily 201 10/30/27 CARAFATE 1 GM ORAL TABLET 224772 SUCRALFATE Inacti ve PRILOSEC OTC 20 MG ORAL TABLET DELAYED RELEASE 2 tablets daily 2 PRILOSEC OTC 20 MG ORAL TABLET DELAYED RELEASE OMEPRAZOLE MAGNESIUM Inactive MULTIVITAMIN & MINERAL ORAL LIQUID 5 ml daily 06/28 MULTIVITAMIN & MINERAL ORAL LIQUID MULTIPLE VITAMINS-MINERALS Inactive LEVOTHYROXINE SODIUM 200 MCG ORAL TABLET 2 1/4 tablets daily 201 10/30/27 LEVOTHYROXINE SODIUM 200 MCG ORAL TABLET 046947 LEVOTHY ROXINE SODIUM Inactive COUMADIN 5 MG ORAL TABLET Take one by mouth daily 2018 COUMADIN 5 MG ORAL TABLET 176003 WARFARIN SODIUM Inactive Vital Signs Date Name [...] 11 .6-14.8 platelet count 304 10^3/MM^3 10*3/mm3 003-501 3180/02/13 leukocyte count, blood 6.5 10^3/MM^3 10*3/mm3 4.6-10.2 [...] 11 .6-14.8 platelet count 303 10^3/MM^3 10*3/mm3 011-520 2985/03/13 leukocyte count, blood 7.2 10^3/MM^3 10*3/mm3 4.6-10.2 [...] 11 .6-14.8 platelet count 299 10^3/MM^3 10*3/mm3 910-338 0378/04/09 leukocyte count, blood 8.7 10^3/MM^3 10*3/mm3 4.6-10.2 [...] 11 .6-14.8 platelet count 295 10^3/MM^3 10*3/mm3 935-681 3534/04/24 leukocyte count, blood 8.0 10^3/MM^3 10*3/mm3 4.6-10.2 [...] 11 .6-14.8 platelet count 429 10^3/MM^3 10*3/mm3 949-953 3555/04/29 leukocyte count, blood 9.1 10^3/MM^3 10*3/mm3 4.6-10.2 [...] 11 .6-14.8 platelet count 343 10^3/MM^3 10*3/mm3 142-424 Encounters Code Encounter Date Provider Facility [id number] Level 4 New Patient 16:54:39 CDT Deacon Rajan MD [facility] CPT-69869 Level 2 Est. Patient 15:33:16 [employer] Shreyas gillespie MD [facility]
--- OUTSIDE RECORDS SUMMARY | 2019-07-27 11:47 | XMS REPORT | Clinical Summary ---
[...] one by mouth daily 2018 WARFARIN SODIUM [id number] No Longer Active Deacon Rajan MD A ctive LEVO-T 150 MCG ORAL TABLET 3 tab q d LEVOTHYRO XINE SODIUM 86596534829 Active Deacon Rajan MD Active LEVO-T 50 MCG ORAL TABLET 1 q d LEVOTHYROXINE SODIUM 96292896085 Active Deacon Rajan MD Active LEVOTHYROXINE SODIUM 200 MCG ORAL TABLET 2 1/4 tablets daily 201 10/30/27 LEVOTHYROXINE SODIUM 91799334814 No Longer Active Deacon Rajan MD Active MULTIVITAMIN & MINERAL ORAL LIQUID 5 ml daily 06/28 MULTIPLE VITAMINS-MINERALS 09192945145 No Longer Active Deacon Rajan MD Active PRILOSEC OTC 20 MG ORAL TABLET DELAYED RELEASE 2 tablets daily 2 OMEPRAZOLE MAGNESIUM 22951363788 No Longer Active Deacon Rajan MD Active CARAFATE 1 GM ORAL TABLET Take one by mouth four times daily 201 10/30/27 SUCRALFATE 58837491515 No Longer Active Deacon Rajan MD Active VICTOZA 18 MG/3ML SUBCUTANEOUS SOLUTION PEN-INJECTOR 1.8 mg mc y LIRAGLUTIDE 49032995805 No Longer Active Deacon Rajan MD Active TIZANIDINE HCL 4 MG ORAL TABLET 1 tablet every 4 hours TIZANIDINE HCL 33151097414 Active Shelia Quezada RN Active OXYCODONE HCL 5 MG ORAL TABLET 1 tablet every 3-4 hours as n eeded for pain OXYCODONE HCL 25009442851 Active Shelia Quezada RN Active NOVOLOG 100 UNIT/ML SUBCUTANEOUS SOLUTION sliding scale INSULIN ASPART 71025601512 Active Shelia Quezada RN Active MELOXICAM 15 MG ORAL TABLET Take one by mouth daily MELOXICAM 42731644935 Active Shelia Quezada RN Active FUROSEMIDE 40 MG ORAL TABLET Take one by mouth daily FUROSEMIDE 23350852846 Active Shelia Quezada RN Active LANTUS 100 UNIT/ML SUBCUTANEOUS SOLUTION 30 units daily at bedtime INSULIN GLARGINE 57308478880 Active Shelia Quezada RN Act johnathon HYDROCODONE-ACETAMINOPHEN 5-325 MG ORAL TABLET 1 every 4 hours as needed for pain HYDROCODONE-ACETAMINOPHEN 02152158899 Active Shelia Quezada RN Active GLUCOPHAGE 1000 MG ORAL TABLET Take one by mouth daily METFORMIN HCL 17765800264 Active Shelia Quezada RN Active COZAAR 50 MG ORAL TABLET 1 1/2 tabs daily LOSAR KOO POTASSIUM 77748342623 Active Shelia Quezada RN Active CELEXA 20 MG ORAL TABLET Take one by mouth daily CITALOPRAM HYDROBROMIDE 72039404926 Active Shelia Quezada RN Active BACTRIM DS 800-160 MG ORAL TABLET by mouth twice a day SULFAMETHOXAZOLE-TRIMETHOPRIM 76183359373 Active Shelia Quezada RN Active AMITRIPTYLINE HCL 75 MG ORAL TABLET Take one by mouth daily at bedtime AMITRIPTYLINE HCL 32893139295 Active Shelia Yuen N Active VICTOZA 18 MG/3ML SUBCUTANEOUS SOLUTION PEN-INJECTOR 1.8 mg mc y VICTOZA 18 MG/3ML SUBCUTANEOUS SOLUTION PEN-INJECTOR LIRAGLUTIDE Inactive CARAFATE 1 GM ORAL TABLET Take one by mouth four times daily 201 10/30/27 CARAFATE 1 GM ORAL TABLET 011023 SUCRALFATE Inacti ve PRILOSEC OTC 20 MG ORAL TABLET DELAYED RELEASE 2 tablets daily 2 PRILOSEC OTC 20 MG ORAL TABLET DELAYED RELEASE OMEPRAZOLE MAGNESIUM Inactive MULTIVITAMIN & MINERAL ORAL LIQUID 5 ml daily 06/28 MULTIVITAMIN & MINERAL ORAL LIQUID MULTIPLE VITAMINS-MINERALS Inactive LEVOTHYROXINE SODIUM 200 MCG ORAL TABLET 2 1/4 tablets daily 201 10/30/27 LEVOTHYROXINE SODIUM 200 MCG ORAL TABLET 068850 LEVOTHY ROXINE SODIUM Inactive COUMADIN 5 MG ORAL TABLET Take one by mouth daily 2018 COUMADIN 5 MG ORAL TABLET 073947 WARFARIN SODIUM Inactive Vital Signs Date Name [...] 11 .6-14.8 platelet count 304 10^3/MM^3 10*3/mm3 849-979 3716/02/13 leukocyte count, blood 6.5 10^3/MM^3 10*3/mm3 4.6-10.2 [...] 11 .6-14.8 platelet count 303 10^3/MM^3 10*3/mm3 568-319 3532/03/13 leukocyte count, blood 7.2 10^3/MM^3 10*3/mm3 4.6-10.2 [...] 11 .6-14.8 platelet count 299 10^3/MM^3 10*3/mm3 811-754 8110/04/09 leukocyte count, blood 8.7 10^3/MM^3 10*3/mm3 4.6-10.2 [...] 11 .6-14.8 platelet count 295 10^3/MM^3 10*3/mm3 832-126 7666/04/24 leukocyte count, blood 8.0 10^3/MM^3 10*3/mm3 4.6-10.2 [...] 11 .6-14.8 platelet count 429 10^3/MM^3 10*3/mm3 653-868 6875/04/29 leukocyte count, blood 9.1 10^3/MM^3 10*3/mm3 4.6-10.2 [...] 11 .6-14.8 platelet count 343 10^3/MM^3 10*3/mm3 917-496 2080/05/08 leukocyte count, blood 8.0 10^3/MM^3 10*3/mm3 4.6-10.2 [...] 142-424 Encounters Code Encounter Date Provider Facility CPT-77801 Level 4 New Patient 16:54:39 CDT Deacon Rajan MD [facility] CPT-16560 Level 2 Est. 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
--- OUTSIDE RECORDS SUMMARY | 2019-07-27 11:47 | XMS REPORT | Clinical Summary ---
[...] one by mouth daily 2018 WARFARIN SODIUM 84262966654 No Longer Active Deacon Rajan MD A ctive LEVO-T 150 MCG ORAL TABLET 3 tab q d LEVOTHYRO XINE SODIUM 25559517683 Active Deacon Rajan MD Active LEVO-T 50 MCG ORAL TABLET 1 q d LEVOTHYROXINE SODIUM 36993279547 Active Deacon Rajan MD Active LEVOTHYROXINE SODIUM 200 MCG ORAL TABLET 2 1/4 tablets daily 201 10/30/27 LEVOTHYROXINE SODIUM 90582971960 No Longer Active Deacon Rajan MD Active MULTIVITAMIN & MINERAL ORAL LIQUID 5 ml daily 06/28 MULTIPLE VITAMINS-MINERALS 32596212702 No Longer Active Deacon Rajan MD Active PRILOSEC OTC 20 MG ORAL TABLET DELAYED RELEASE 2 tablets daily 2 OMEPRAZOLE MAGNESIUM 97481916617 No Longer Active Deacon Rajan MD Active CARAFATE 1 GM ORAL TABLET Take one by mouth four times daily 201 10/30/27 SUCRALFATE 58516990774 No Longer Active Deacon Rajan MD Active VICTOZA 18 MG/3ML SUBCUTANEOUS SOLUTION PEN-INJECTOR 1.8 mg mc y LIRAGLUTIDE 57508048542 No Longer Active Deacon Rajan MD Active TIZANIDINE HCL 4 MG ORAL TABLET 1 tablet every 4 hours TIZANIDINE HCL 34333730812 Active Shelia Quezada RN Active OXYCODONE HCL 5 MG ORAL TABLET 1 tablet every 3-4 hours as n eeded for pain OXYCODONE HCL 93757083742 Active Shelia Quezada RN Active NOVOLOG 100 UNIT/ML SUBCUTANEOUS SOLUTION sliding scale INSULIN ASPART 21052179834 Active Shelia Quezada RN Active MELOXICAM 15 MG ORAL TABLET Take one by mouth daily MELOXICAM 69671758552 Active Shelia Quezada RN Active FUROSEMIDE 40 MG ORAL TABLET Take one by mouth daily FUROSEMIDE 72668400046 Active Shelia Quezada RN Active LANTUS 100 UNIT/ML SUBCUTANEOUS SOLUTION 30 units daily at bedtime INSULIN GLARGINE 86252995294 Active Shelia Quezada RN Act johnathon HYDROCODONE-ACETAMINOPHEN 5-325 MG ORAL TABLET 1 every 4 hours as needed for pain HYDROCODONE-ACETAMINOPHEN 54214094804 Active Shelia Quezada RN Active GLUCOPHAGE 1000 MG ORAL TABLET Take one by mouth daily METFORMIN HCL 18478006671 Active Shelia Quezada RN Active COZAAR 50 MG ORAL TABLET 1 1/2 tabs daily LOSAR KOO POTASSIUM 77609929517 Active Shelia Quezada RN Active CELEXA 20 MG ORAL TABLET Take one by mouth daily CITALOPRAM HYDROBROMIDE 94304945497 Active Shelia Quezada RN Active BACTRIM DS 800-160 MG ORAL TABLET by mouth twice a day SULFAMETHOXAZOLE-TRIMETHOPRIM 70874335875 Active Shelia Quezada RN Active AMITRIPTYLINE HCL 75 MG ORAL TABLET Take one by mouth daily at bedtime AMITRIPTYLINE HCL 66024715459 Active Shelia Yuen N Active VICTOZA 18 MG/3ML SUBCUTANEOUS SOLUTION PEN-INJECTOR 1.8 mg mc y VICTOZA 18 MG/3ML SUBCUTANEOUS SOLUTION PEN-INJECTOR LIRAGLUTIDE Inactive CARAFATE 1 GM ORAL TABLET Take one by mouth four times daily 201 10/30/27 CARAFATE 1 GM ORAL TABLET 048475 SUCRALFATE Inacti ve PRILOSEC OTC 20 MG ORAL TABLET DELAYED RELEASE 2 tablets daily 2 PRILOSEC OTC 20 MG ORAL TABLET DELAYED RELEASE OMEPRAZOLE MAGNESIUM Inactive MULTIVITAMIN & MINERAL ORAL LIQUID 5 ml daily 06/28 MULTIVITAMIN & MINERAL ORAL LIQUID MULTIPLE VITAMINS-MINERALS Inactive LEVOTHYROXINE SODIUM 200 MCG ORAL TABLET 2 1/4 tablets daily 201 10/30/27 LEVOTHYROXINE SODIUM 200 MCG ORAL TABLET 306943 LEVOTHY ROXINE SODIUM Inactive COUMADIN 5 MG ORAL TABLET Take one by mouth daily 2018 COUMADIN 5 MG ORAL TABLET 149366 WARFARIN SODIUM Inactive Vital Signs Date Name [...] 11 .6-14.8 platelet count 304 10^3/MM^3 10*3/mm3 582-803 8608/02/13 leukocyte count, blood 6.5 10^3/MM^3 10*3/mm3 4.6-10.2 [...] 11 .6-14.8 platelet count 303 10^3/MM^3 10*3/mm3 899-953 2432/03/13 leukocyte count, blood 7.2 10^3/MM^3 10*3/mm3 4.6-10.2 [...] 11 .6-14.8 platelet count 299 10^3/MM^3 10*3/mm3 949-476 2513/04/09 leukocyte count, blood 8.7 10^3/MM^3 10*3/mm3 4.6-10.2 [...] 11 .6-14.8 platelet count 295 10^3/MM^3 10*3/mm3 070-167 0191/04/24 leukocyte count, blood 8.0 10^3/MM^3 10*3/mm3 4.6-10.2 [...] 11 .6-14.8 platelet count 429 10^3/MM^3 10*3/mm3 023-185 2858/04/29 leukocyte count, blood 9.1 10^3/MM^3 10*3/mm3 4.6-10.2 [...] 11 .6-14.8 platelet count 343 10^3/MM^3 10*3/mm3 612-888 1541/05/08 leukocyte count, blood 8.0 10^3/MM^3 10*3/mm3 4.6-10.2 [...] 142-424 Encounters Code Encounter Date Provider Facility CPT-60027 Level 4 New Patient 16:54:39 CDT Deacon Rajan MD [facility] CPT-42038 Level 2 Est. 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
--- OUTSIDE RECORDS SUMMARY | 2019-07-27 11:47 | XMS REPORT | Clinical Summary ---
[...] one by mouth daily 2018 WARFARIN SODIUM 21907192411 No Longer Active Deacon Rajan MD A ctive LEVO-T 150 MCG ORAL TABLET 3 tab q d LEVOTHYRO XINE SODIUM 34994427708 Active Deacon Rajan MD Active LEVO-T 50 MCG ORAL TABLET 1 q d LEVOTHYROXINE SODIUM 85055776703 Active Deacon Rajan MD Active LEVOTHYROXINE SODIUM 200 MCG ORAL TABLET 2 1/4 tablets daily 201 10/30/27 LEVOTHYROXINE SODIUM 92212350588 No Longer Active Deacon Rajan MD Active MULTIVITAMIN & MINERAL ORAL LIQUID 5 ml daily 06/28 MULTIPLE VITAMINS-MINERALS 59429498608 No Longer Active Deacon Rajan MD Active PRILOSEC OTC 20 MG ORAL TABLET DELAYED RELEASE 2 tablets daily 2 OMEPRAZOLE MAGNESIUM 20396787455 No Longer Active Deacon Rajan MD Active CARAFATE 1 GM ORAL TABLET Take one by mouth four times daily 201 10/30/27 SUCRALFATE 86341062424 No Longer Active Deacon Rajan MD Active VICTOZA 18 MG/3ML SUBCUTANEOUS SOLUTION PEN-INJECTOR 1.8 mg mc y LIRAGLUTIDE 41308058984 No Longer Active Deacon Rajan MD Active TIZANIDINE HCL 4 MG ORAL TABLET 1 tablet every 4 hours TIZANIDINE HCL 08774403398 Active Shelia Quezada RN Active OXYCODONE HCL 5 MG ORAL TABLET 1 tablet every 3-4 hours as n eeded for pain OXYCODONE HCL 26167000060 Active Shelia Quezada RN Active NOVOLOG 100 UNIT/ML SUBCUTANEOUS SOLUTION sliding scale INSULIN ASPART 81419687349 Active Shelia Quezada RN Active MELOXICAM 15 MG ORAL TABLET Take one by mouth daily MELOXICAM 58684244194 Active Shelia Quezada RN Active FUROSEMIDE 40 MG ORAL TABLET Take one by mouth daily FUROSEMIDE 22021537603 Active Shelia Quezada RN Active LANTUS 100 UNIT/ML SUBCUTANEOUS SOLUTION 30 units daily at bedtime INSULIN GLARGINE 72668808003 Active Shelia Quezada RN Act johnathon HYDROCODONE-ACETAMINOPHEN 5-325 MG ORAL TABLET 1 every 4 hours as needed for pain HYDROCODONE-ACETAMINOPHEN 58096629454 Active Shelia Quezada RN Active GLUCOPHAGE 1000 MG ORAL TABLET Take one by mouth daily METFORMIN HCL 24677169101 Active Shelia Quezada RN Active COZAAR 50 MG ORAL TABLET 1 1/2 tabs daily LOSAR KOO POTASSIUM 61957067232 Active Shelia Quezada RN Active CELEXA 20 MG ORAL TABLET Take one by mouth daily CITALOPRAM HYDROBROMIDE 32806060194 Active Shelia Quezada RN Active BACTRIM DS 800-160 MG ORAL TABLET by mouth twice a day SULFAMETHOXAZOLE-TRIMETHOPRIM 65246391143 Active Shelia Quezada RN Active AMITRIPTYLINE HCL 75 MG ORAL TABLET Take one by mouth daily at bedtime AMITRIPTYLINE HCL 68598720767 Active Shelia Yuen N Active VICTOZA 18 MG/3ML SUBCUTANEOUS SOLUTION PEN-INJECTOR 1.8 mg mc y VICTOZA 18 MG/3ML SUBCUTANEOUS SOLUTION PEN-INJECTOR LIRAGLUTIDE Inactive CARAFATE 1 GM ORAL TABLET Take one by mouth four times daily 201 10/30/27 CARAFATE 1 GM ORAL TABLET 848627 SUCRALFATE Inacti ve PRILOSEC OTC 20 MG ORAL TABLET DELAYED RELEASE 2 tablets daily 2 PRILOSEC OTC 20 MG ORAL TABLET DELAYED RELEASE OMEPRAZOLE MAGNESIUM Inactive MULTIVITAMIN & MINERAL ORAL LIQUID 5 ml daily 06/28 MULTIVITAMIN & MINERAL ORAL LIQUID MULTIPLE VITAMINS-MINERALS Inactive LEVOTHYROXINE SODIUM 200 MCG ORAL TABLET 2 1/4 tablets daily 201 10/30/27 LEVOTHYROXINE SODIUM 200 MCG ORAL TABLET 023020 LEVOTHY ROXINE SODIUM Inactive COUMADIN 5 MG ORAL TABLET Take one by mouth daily 2018 COUMADIN 5 MG ORAL TABLET 494093 WARFARIN SODIUM Inactive Vital Signs Date Name [...] 11 .6-14.8 platelet count 304 10^3/MM^3 10*3/mm3 615-546 0081/02/13 leukocyte count, blood 6.5 10^3/MM^3 10*3/mm3 4.6-10.2 [...] 11 .6-14.8 platelet count 303 10^3/MM^3 10*3/mm3 766-260 7022/03/13 leukocyte count, blood 7.2 10^3/MM^3 10*3/mm3 4.6-10.2 [...] 11 .6-14.8 platelet count 299 10^3/MM^3 10*3/mm3 677-285 9775/04/09 leukocyte count, blood 8.7 10^3/MM^3 10*3/mm3 4.6-10.2 [...] 11 .6-14.8 platelet count 295 10^3/MM^3 10*3/mm3 054-424 1322/04/24 leukocyte count, blood 8.0 10^3/MM^3 10*3/mm3 4.6-10.2 [...] 11 .6-14.8 platelet count 429 10^3/MM^3 10*3/mm3 665-165 1987/04/29 leukocyte count, blood 9.1 10^3/MM^3 10*3/mm3 4.6-10.2 [...] 11 .6-14.8 platelet count 343 10^3/MM^3 10*3/mm3 109-817 5492/05/08 leukocyte count, blood 8.0 10^3/MM^3 10*3/mm3 4.6-10.2 [...] 142-424 Encounters Code Encounter Date Provider Facility CPT-51780 Level 4 New Patient 16:54:39 CDT Deacon Rajan MD [facility] CPT-89728 Level 2 Est. 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
--- OUTSIDE RECORDS SUMMARY | 2019-07-27 11:48 | XMS REPORT | Clinical Summary ---
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 Iron deficiency anemia 280.9 Active Aleida mckeon MA Iron deficiency anemia, unspecified Medication List Medication Instructions Start Date Stop Date Generic Name NDC Status Provider Patient Instruction VICTOZA 18 MG/3ML SUBCUTANEOUS SOLUTION PEN-INJECTOR 1.8 mg daily 2 LIRAGLUTIDE 97381512419 Active Shelia Quezada RN Active TIZANIDINE HCL 4 MG ORAL TABLET 1 tablet every 4 hours TIZANIDINE HCL 72243855560 Active Shelia Quezada RN Active CARAFATE 1 GM ORAL TABLET Take one by mouth four times daily 03/27 SUCRALFATE 03629299407 Active Shelia Quezada RN Active PRILOSEC OTC 20 MG ORAL TABLET DELAYED RELEASE 2 tablets daily 2018 OMEPRAZOLE MAGNESIUM 78380094234 Active Shelia Quezada RN Active OXYCODONE HCL 5 MG ORAL TABLET 1 tablet every 3-4 hours as n eeded for pain OXYCODONE HCL 12767175799 Active Shelia Quezada RN Active NOVOLOG 100 UNIT/ML SUBCUTANEOUS SOLUTION sliding scale INSULIN ASPART 12950957355 Active Shelia Quezada RN Active MULTIVITAMIN & MINERAL ORAL LIQUID 5 ml daily MULTIPLE VITAMINS-MINERALS 96955808803 Active Shelia Quezada RN Ac tive MELOXICAM 15 MG ORAL TABLET Take one by mouth daily MELOXICAM 10028130651 Active Shelia Quezada RN Active LEVOTHYROXINE SODIUM 200 MCG ORAL TABLET 2 1/4 tablets daily 03/27 LEVOTHYROXINE SODIUM 42888546367 Active Shelia Quezada RN Active FUROSEMIDE 40 MG ORAL TABLET Take one by mouth daily FUROSEMIDE 46706932619 Active Shelia Quezada RN Active LANTUS 100 UNIT/ML SUBCUTANEOUS SOLUTION 30 units daily at bedtime INSULIN GLARGINE 28874632140 Active Shelia Quezada RN Act johnathon HYDROCODONE-ACETAMINOPHEN 5-325 MG ORAL TABLET 1 every 4 hours as needed for pain HYDROCODONE-ACETAMINOPHEN 74199077383 Active Shelia Quezada RN Active GLUCOPHAGE 1000 MG ORAL TABLET Take one by mouth daily METFORMIN HCL 48271865490 Active Shelia Quezada RN Active COZAAR 50 MG ORAL TABLET 1 1/2 tabs daily LOSAR KOO POTASSIUM 76826420377 Active Shelia Quezada RN Active COUMADIN 5 MG ORAL TABLET Take one by mouth daily WARFARIN SODIUM 46030277482 Active Shelia Quezada RN Active CELEXA 20 MG ORAL TABLET Take one by mouth daily CITALOPRAM HYDROBROMIDE 93088562061 Active Shelia Quezada RN Active BACTRIM DS 800-160 MG ORAL TABLET by mouth twice a day SULFAMETHOXAZOLE-TRIMETHOPRIM 22356764340 Active Shelia Quezada RN Active AMITRIPTYLINE HCL 75 MG ORAL TABLET Take one by mouth daily at bedtime AMITRIPTYLINE HCL 12434669927 Active Shelia Yuen N Active Vital Signs Date Name Value Unit Range Description blood pressure, diastolic, repeated by physician 71 [...] 11 .6-14.8 platelet count 304 10^3/MM^3 10*3/mm3 450-605 6037/02/13 leukocyte count, blood 6.5 10^3/MM^3 10*3/mm3 4.6-10.2 [...] 11 .6-14.8 platelet count 303 10^3/MM^3 10*3/mm3 142-424 Encounters Code Encounter Date Provider Facility CPT-12435 Level 2 Est. Patient 15:33:16 ENROLLER Shreyas gillespie MD [facility]
--- OUTSIDE RECORDS SUMMARY | 2019-07-27 11:48 | XMS REPORT | Clinical Summary ---
[...] SOLUTION PEN-INJECTOR 1.8 mg daily 2 LIRAGLUTIDE 39974782958 Active Shelia Quezada RN Active TIZANIDINE HCL 4 MG ORAL TABLET 1 tablet every 4 hours TIZANIDINE HCL 79738402793 Active Shelia Quezada RN Active CARAFATE 1 GM ORAL TABLET Take one by mouth four times daily 03/27 SUCRALFATE 64615471138 Active Shelia Quezada RN Active PRILOSEC OTC 20 MG ORAL TABLET DELAYED RELEASE 2 tablets daily 2018 OMEPRAZOLE MAGNESIUM 70244893791 Active Shelia Quezada RN Active OXYCODONE HCL 5 MG ORAL TABLET 1 tablet every 3-4 hours as n eeded for pain OXYCODONE HCL 67165059654 Active Shelia Quezada RN Active NOVOLOG 100 UNIT/ML SUBCUTANEOUS SOLUTION sliding scale INSULIN ASPART 28003069618 Active Shelia Quezada RN Active MULTIVITAMIN & MINERAL ORAL LIQUID 5 ml daily MULTIPLE VITAMINS-MINERALS 29083245132 Active Shelia Quezada RN Ac tive MELOXICAM 15 MG ORAL TABLET Take one by mouth daily MELOXICAM 98595267463 Active Shelia Quezada RN Active LEVOTHYROXINE SODIUM 200 MCG ORAL TABLET 2 1/4 tablets daily 03/27 LEVOTHYROXINE SODIUM 63825167372 Active Shelia Quezada RN Active FUROSEMIDE 40 MG ORAL TABLET Take one by mouth daily FUROSEMIDE 39082175451 Active Shelia Quezada RN Active LANTUS 100 UNIT/ML SUBCUTANEOUS SOLUTION 30 units daily at bedtime INSULIN GLARGINE 50903319437 Active Shelia Quezada RN Act johnathon HYDROCODONE-ACETAMINOPHEN 5-325 MG ORAL TABLET 1 every 4 hours as needed for pain HYDROCODONE-ACETAMINOPHEN 88356092586 Active Shelia Quezada RN Active GLUCOPHAGE 1000 MG ORAL TABLET Take one by mouth daily METFORMIN HCL 69215739761 Active Shelia Quezada RN Active COZAAR 50 MG ORAL TABLET 1 1/2 tabs daily LOSAR KOO POTASSIUM 24891523642 Active Shelia Quezada RN Active COUMADIN 5 MG ORAL TABLET Take one by mouth daily WARFARIN SODIUM 65012946555 Active Shelia Quezada RN Active CELEXA 20 MG ORAL TABLET Take one by mouth daily CITALOPRAM HYDROBROMIDE 81377417956 Active Shelia Quezada RN Active BACTRIM DS 800-160 MG ORAL TABLET by mouth twice a day SULFAMETHOXAZOLE-TRIMETHOPRIM 49846548378 Active Shelia Quezada RN Active AMITRIPTYLINE HCL 75 MG ORAL TABLET Take one by mouth daily at bedtime AMITRIPTYLINE HCL 93062683692 Active Shelia Yuen N Active Vital Signs [...] 11 .6-14.8 platelet count 304 10^3/MM^3 10*3/mm3 339-387 1967/02/13 leukocyte count, blood 6.5 10^3/MM^3 10*3/mm3 4.6-10.2 [...] 11 .6-14.8 platelet count 303 10^3/MM^3 10*3/mm3 827-535 6298/03/13 leukocyte count, blood 7.2 10^3/MM^3 10*3/mm3 4.6-10.2 [...] 11 .6-14.8 platelet count 299 10^3/MM^3 10*3/mm3 600-786 3622/04/09 leukocyte count, blood 8.7 10^3/MM^3 10*3/mm3 4.6-10.2 [...] 11 .6-14.8 platelet count 295 10^3/MM^3 10*3/mm3 601-102 6009/04/24 leukocyte count, blood 8.0 10^3/MM^3 10*3/mm3 4.6-10.2 [...] 11 .6-14.8 platelet count 429 10^3/MM^3 10*3/mm3 142-424 Encounters Code Encounter Date Provider Facility CPT-99406 Level 2 Est. 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
--- OUTSIDE RECORDS SUMMARY | 2019-07-27 11:48 | XMS REPORT | Clinical Summary ---
[...] SOLUTION PEN-INJECTOR 1.8 mg daily 2 LIRAGLUTIDE 13028431208 Active Shelia Quezada RN Active TIZANIDINE HCL 4 MG ORAL TABLET 1 tablet every 4 hours TIZANIDINE HCL 16307707666 Active Shelia Quezada RN Active CARAFATE 1 GM ORAL TABLET Take one by mouth four times daily 03/27 SUCRALFATE 64917436667 Active Shelia Quezada RN Active PRILOSEC OTC 20 MG ORAL TABLET DELAYED RELEASE 2 tablets daily 2018 OMEPRAZOLE MAGNESIUM 19594823653 Active Shelia Quezada RN Active OXYCODONE HCL 5 MG ORAL TABLET 1 tablet every 3-4 hours as n eeded for pain OXYCODONE HCL 22700433410 Active Shelia Quezada RN Active NOVOLOG 100 UNIT/ML SUBCUTANEOUS SOLUTION sliding scale INSULIN ASPART 62691239011 Active Shelia Quezada RN Active MULTIVITAMIN & MINERAL ORAL LIQUID 5 ml daily MULTIPLE VITAMINS-MINERALS 82047866523 Active Shelia Quezada RN Ac tive MELOXICAM 15 MG ORAL TABLET Take one by mouth daily MELOXICAM 06597143287 Active Shelia Quezada RN Active LEVOTHYROXINE SODIUM 200 MCG ORAL TABLET 2 1/4 tablets daily 03/27 LEVOTHYROXINE SODIUM 75480418620 Active Shelia Quezada RN Active FUROSEMIDE 40 MG ORAL TABLET Take one by mouth daily FUROSEMIDE 06699190382 Active Shelia Quezada RN Active LANTUS 100 UNIT/ML SUBCUTANEOUS SOLUTION 30 units daily at bedtime INSULIN GLARGINE 99226120569 Active Shelia Quezada RN Act johnathon HYDROCODONE-ACETAMINOPHEN 5-325 MG ORAL TABLET 1 every 4 hours as needed for pain HYDROCODONE-ACETAMINOPHEN 35022069875 Active Shelia Quezada RN Active GLUCOPHAGE 1000 MG ORAL TABLET Take one by mouth daily METFORMIN HCL 78017132214 Active Shelia Quezada RN Active COZAAR 50 MG ORAL TABLET 1 1/2 tabs daily LOSAR KOO POTASSIUM 78288230852 Active Shelia Quezada RN Active COUMADIN 5 MG ORAL TABLET Take one by mouth daily WARFARIN SODIUM 09918393845 Active Shelia Quezada RN Active CELEXA 20 MG ORAL TABLET Take one by mouth daily CITALOPRAM HYDROBROMIDE 29590555935 Active Shelia Quezada RN Active BACTRIM DS 800-160 MG ORAL TABLET by mouth twice a day SULFAMETHOXAZOLE-TRIMETHOPRIM 41155147025 Active Shelia Quezada RN Active AMITRIPTYLINE HCL 75 MG ORAL TABLET Take one by mouth daily at bedtime AMITRIPTYLINE HCL 54041688415 Active Shelia Yuen N Active Vital Signs [...] 11 .6-14.8 platelet count 304 10^3/MM^3 10*3/mm3 445-677 9538/02/13 leukocyte count, blood 6.5 10^3/MM^3 10*3/mm3 4.6-10.2 [...] 142-424 Encounters Code Encounter Date Provider Facility CPT-07886 Level 2 Est. 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
--- OUTSIDE RECORDS SUMMARY | 2019-07-27 11:48 | XMS REPORT | Clinical Summary ---
[...] SOLUTION PEN-INJECTOR 1.8 mg daily 2 LIRAGLUTIDE 19128731516 Active Shelia Quezada RN Active TIZANIDINE HCL 4 MG ORAL TABLET 1 tablet every 4 hours TIZANIDINE HCL 50558714253 Active Shelia Quezada RN Active CARAFATE 1 GM ORAL TABLET Take one by mouth four times daily 03/27 SUCRALFATE 06471988822 Active Shelia Quezada RN Active PRILOSEC OTC 20 MG ORAL TABLET DELAYED RELEASE 2 tablets daily 2018 OMEPRAZOLE MAGNESIUM 76715981531 Active Shelia Quezada RN Active OXYCODONE HCL 5 MG ORAL TABLET 1 tablet every 3-4 hours as n eeded for pain OXYCODONE HCL 39949011298 Active Shelia Quezada RN Active NOVOLOG 100 UNIT/ML SUBCUTANEOUS SOLUTION sliding scale INSULIN ASPART 88945887995 Active Shelia Quezada RN Active MULTIVITAMIN & MINERAL ORAL LIQUID 5 ml daily MULTIPLE VITAMINS-MINERALS 35829927630 Active Shelia Quezada RN Ac tive MELOXICAM 15 MG ORAL TABLET Take one by mouth daily MELOXICAM 33018754477 Active Shelia Quezada RN Active LEVOTHYROXINE SODIUM 200 MCG ORAL TABLET 2 1/4 tablets daily 03/27 LEVOTHYROXINE SODIUM 33951750208 Active Shelia Quezada RN Active FUROSEMIDE 40 MG ORAL TABLET Take one by mouth daily FUROSEMIDE 32167103266 Active Shelia Quezada RN Active LANTUS 100 UNIT/ML SUBCUTANEOUS SOLUTION 30 units daily at bedtime INSULIN GLARGINE 87183786458 Active Shelia Quezada RN Act johnathon HYDROCODONE-ACETAMINOPHEN 5-325 MG ORAL TABLET 1 every 4 hours as needed for pain HYDROCODONE-ACETAMINOPHEN 95568828449 Active Shelia Quezada RN Active GLUCOPHAGE 1000 MG ORAL TABLET Take one by mouth daily METFORMIN HCL 14088495053 Active Shelia Quezada RN Active COZAAR 50 MG ORAL TABLET 1 1/2 tabs daily LOSAR KOO POTASSIUM 34586056443 Active Shelia Quezada RN Active COUMADIN 5 MG ORAL TABLET Take one by mouth daily WARFARIN SODIUM 75381480365 Active Shelia Quezada RN Active CELEXA 20 MG ORAL TABLET Take one by mouth daily CITALOPRAM HYDROBROMIDE 80178173932 Active Shelia Quezada RN Active BACTRIM DS 800-160 MG ORAL TABLET by mouth twice a day SULFAMETHOXAZOLE-TRIMETHOPRIM 07508564467 Active Shelia Quezada RN Active AMITRIPTYLINE HCL 75 MG ORAL TABLET Take one by mouth daily at bedtime AMITRIPTYLINE HCL 81796906929 Active Shelia Yuen N Active Vital Signs [...] 11 .6-14.8 platelet count 304 10^3/MM^3 10*3/mm3 156-007 9425/02/13 leukocyte count, blood 6.5 10^3/MM^3 10*3/mm3 4.6-10.2 [...] 11 .6-14.8 platelet count 303 10^3/MM^3 10*3/mm3 048-545 5665/03/13 leukocyte count, blood 7.2 10^3/MM^3 10*3/mm3 4.6-10.2 [...] 11 .6-14.8 platelet count 299 10^3/MM^3 10*3/mm3 142-424 Encounters Code Encounter Date Provider Facility CPT-[id number] Level 2 Est. 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
--- OUTSIDE RECORDS SUMMARY | 2019-07-27 11:48 | XMS REPORT | Clinical Summary ---
[...] SOLUTION PEN-INJECTOR 1.8 mg daily 2 LIRAGLUTIDE 41023333722 Active Shelia Quezada RN Active TIZANIDINE HCL 4 MG ORAL TABLET 1 tablet every 4 hours TIZANIDINE HCL 35929715989 Active Shelia Quezada RN Active CARAFATE 1 GM ORAL TABLET Take one by mouth four times daily 03/27 SUCRALFATE 53541089467 Active Shelia Quezada RN Active PRILOSEC OTC 20 MG ORAL TABLET DELAYED RELEASE 2 tablets daily 2018 OMEPRAZOLE MAGNESIUM 23821426450 Active Shelia Quezada RN Active OXYCODONE HCL 5 MG ORAL TABLET 1 tablet every 3-4 hours as n eeded for pain OXYCODONE HCL 98986608839 Active Shelia Quezada RN Active NOVOLOG 100 UNIT/ML SUBCUTANEOUS SOLUTION sliding scale INSULIN ASPART 37382106739 Active Shelia Quezada RN Active MULTIVITAMIN & MINERAL ORAL LIQUID 5 ml daily MULTIPLE VITAMINS-MINERALS 36189576561 Active Shelia Quezada RN Ac tive MELOXICAM 15 MG ORAL TABLET Take one by mouth daily MELOXICAM 94949251719 Active Shelia Quezada RN Active LEVOTHYROXINE SODIUM 200 MCG ORAL TABLET 2 1/4 tablets daily 03/27 LEVOTHYROXINE SODIUM 51612478953 Active Shelia Queazda RN Active FUROSEMIDE 40 MG ORAL TABLET Take one by mouth daily FUROSEMIDE 47982430235 Active Shelia Quezada RN Active LANTUS 100 UNIT/ML SUBCUTANEOUS SOLUTION 30 units daily at bedtime INSULIN GLARGINE 89996742120 Active Shelia Quezada RN Act johnathon HYDROCODONE-ACETAMINOPHEN 5-325 MG ORAL TABLET 1 every 4 hours as needed for pain HYDROCODONE-ACETAMINOPHEN 87360856653 Active Shelia Quezada RN Active GLUCOPHAGE 1000 MG ORAL TABLET Take one by mouth daily METFORMIN HCL 16283460530 Active Shelia Quezada RN Active COZAAR 50 MG ORAL TABLET 1 1/2 tabs daily LOSAR KOO POTASSIUM 90672588183 Active Shelia Quezada RN Active COUMADIN 5 MG ORAL TABLET Take one by mouth daily WARFARIN SODIUM 87761362823 Active Shelia Quezada RN Active CELEXA 20 MG ORAL TABLET Take one by mouth daily CITALOPRAM HYDROBROMIDE 32854877362 Active Shelia Quezada RN Active BACTRIM DS 800-160 MG ORAL TABLET by mouth twice a day SULFAMETHOXAZOLE-TRIMETHOPRIM 32495592907 Active Shelia Quezada RN Active AMITRIPTYLINE HCL 75 MG ORAL TABLET Take one by mouth daily at bedtime AMITRIPTYLINE HCL 59145263243 Active Shelia Yuen N Active Vital Signs [...] 11 .6-14.8 platelet count 304 10^3/MM^3 10*3/mm3 727-538 6846/02/13 leukocyte count, blood 6.5 10^3/MM^3 10*3/mm3 4.6-10.2 [...] 11 .6-14.8 platelet count 303 10^3/MM^3 10*3/mm3 658-485 7088/03/13 leukocyte count, blood 7.2 10^3/MM^3 10*3/mm3 4.6-10.2 [...] 142-424 Encounters Code Encounter Date Provider Facility CPT-18468 Level 2 Est. 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
--- OUTSIDE RECORDS SUMMARY | 2019-07-27 11:48 | XMS REPORT | Clinical Summary ---
[...] one by mouth daily 2018 WARFARIN SODIUM 62443907301 No Longer Active Deacon Rajan MD A ctive LEVO-T 150 MCG ORAL TABLET 3 tab q d LEVOTHYRO XINE SODIUM 76856673400 Active Deacon Rajan MD Active LEVO-T 50 MCG ORAL TABLET 1 q d LEVOTHYROXINE SODIUM 10803022810 Active Deacon Rajan MD Active LEVOTHYROXINE SODIUM 200 MCG ORAL TABLET 2 1/4 tablets daily 201 10/30/27 LEVOTHYROXINE SODIUM 99464770097 No Longer Active Deacon Rajan MD Active MULTIVITAMIN & MINERAL ORAL LIQUID 5 ml daily 06/28 MULTIPLE VITAMINS-MINERALS 35536943424 No Longer Active Deacon Rajan MD Active PRILOSEC OTC 20 MG ORAL TABLET DELAYED RELEASE 2 tablets daily 2 OMEPRAZOLE MAGNESIUM 99352957113 No Longer Active Deacon Rajan MD Active CARAFATE 1 GM ORAL TABLET Take one by mouth four times daily 201 10/30/27 SUCRALFATE 28479836604 No Longer Active Deacon Rajan MD Active VICTOZA 18 MG/3ML SUBCUTANEOUS SOLUTION PEN-INJECTOR 1.8 mg mc y LIRAGLUTIDE 77868556903 No Longer Active Deacon Rajan MD Active TIZANIDINE HCL 4 MG ORAL TABLET 1 tablet every 4 hours TIZANIDINE HCL 70281677985 Active Shelia Quezada RN Active OXYCODONE HCL 5 MG ORAL TABLET 1 tablet every 3-4 hours as n eeded for pain OXYCODONE HCL 91859987108 Active Sehlia Quezada RN Active NOVOLOG 100 UNIT/ML SUBCUTANEOUS SOLUTION sliding scale INSULIN ASPART 98094217409 Active Shelia Quezada RN Active MELOXICAM 15 MG ORAL TABLET Take one by mouth daily MELOXICAM 33743765098 Active Shelia Quezada RN Active FUROSEMIDE 40 MG ORAL TABLET Take one by mouth daily FUROSEMIDE 66308680707 Active Shelia Quezada RN Active LANTUS 100 UNIT/ML SUBCUTANEOUS SOLUTION 30 units daily at bedtime INSULIN GLARGINE 23344732269 Active Shelia Quezada RN Act johnathon HYDROCODONE-ACETAMINOPHEN 5-325 MG ORAL TABLET 1 every 4 hours as needed for pain HYDROCODONE-ACETAMINOPHEN 10056975152 Active Shelia Quezada RN Active GLUCOPHAGE 1000 MG ORAL TABLET Take one by mouth daily METFORMIN HCL 28675268921 Active Shelia Quezada RN Active COZAAR 50 MG ORAL TABLET 1 1/2 tabs daily LOSAR KOO POTASSIUM 42755128016 Active Shelia Quezada RN Active CELEXA 20 MG ORAL TABLET Take one by mouth daily CITALOPRAM HYDROBROMIDE 97623432397 Active Shelia Quezada RN Active BACTRIM DS 800-160 MG ORAL TABLET by mouth twice a day SULFAMETHOXAZOLE-TRIMETHOPRIM 55393638184 Active Shelia Quezada RN Active AMITRIPTYLINE HCL 75 MG ORAL TABLET Take one by mouth daily at bedtime AMITRIPTYLINE HCL 48069120387 Active Shelia Yuen N Active VICTOZA 18 MG/3ML SUBCUTANEOUS SOLUTION PEN-INJECTOR 1.8 mg mc y VICTOZA 18 MG/3ML SUBCUTANEOUS SOLUTION PEN-INJECTOR LIRAGLUTIDE Inactive CARAFATE 1 GM ORAL TABLET Take one by mouth four times daily 201 10/30/27 CARAFATE 1 GM ORAL TABLET 128811 SUCRALFATE Inacti ve PRILOSEC OTC 20 MG ORAL TABLET DELAYED RELEASE 2 tablets daily 2 PRILOSEC OTC 20 MG ORAL TABLET DELAYED RELEASE OMEPRAZOLE MAGNESIUM Inactive MULTIVITAMIN & MINERAL ORAL LIQUID 5 ml daily 06/28 MULTIVITAMIN & MINERAL ORAL LIQUID MULTIPLE VITAMINS-MINERALS Inactive LEVOTHYROXINE SODIUM 200 MCG ORAL TABLET 2 1/4 tablets daily 201 10/30/27 LEVOTHYROXINE SODIUM 200 MCG ORAL TABLET 656542 LEVOTHY ROXINE SODIUM Inactive COUMADIN 5 MG ORAL TABLET Take one by mouth daily 2018 COUMADIN 5 MG ORAL TABLET 998264 WARFARIN SODIUM Inactive Vital Signs Date Name [...] Description Lab Report: CBC W/DIFF - Hematology red blood cell distribution width 25.7 % 11 .6-14.8 platelet count 304 10^3/MM^3 10*3/mm3 876-100 3494/02/01 erythrocyte (RBC) count 3.75 10^6/MM^3 10*6/mm3 3.80-5.8 0 lymphocytes as percent of blood leukocytes 14.4 % 20.5-51.1 monocytes as percent of blood leukocytes 9.5 % 1.7-9.3 neutrophils as percent of blood leukocytes 71.1 % 42.2-75.2 leukocyte count, blood 5.6 10^3/MM^3 10*3/mm3 4.6-10.2 mean corpuscular hemoglobin concentration, RBC 28.6 G/DL % 31.8-35.4 mean corpuscular hemoglobin, RBC 26.1 pg 27. 0-31.2 mean corpuscular volume, RBC 91 fL 80-97 hematocrit, blood 34.2 % 37.0-47.0 hemoglobin, blood 9.8 g/dL 12.0-16.0 red blood cell distribution width 23.0 % 11 .6-14.8 platelet count 303 10^3/MM^3 10*3/mm3 583-870 1432/02/13 leukocyte count, blood 6.5 10^3/MM^3 10*3/mm3 4.6-10.2 [...] 11 .6-14.8 platelet count 299 10^3/MM^3 10*3/mm3 472-114 2609/03/13 neutrophils as percent of blood leukocytes 73.3 % 42.2-75.2 monocytes as percent of blood leukocytes 9.1 % 1.7-9.3 lymphocytes as percent of blood leukocytes 13.1 % 20.5-51.1 erythrocyte (RBC) count 3.09 10^6/MM^3 10*6/mm3 3.80-5.8 0 leukocyte count, blood 7.2 10^3/MM^3 10*3/mm3 4.6-10.2 hematocrit, blood 30.1 % 37.0-47.0 mean corpuscular volume, RBC 97 fL 80-97 mean corpuscular hemoglobin, RBC 28.8 pg 27. 0-31.2 mean corpuscular hemoglobin concentration, RBC 29.6 G/DL % 31.8-35.4 hemoglobin, blood 8.9 g/dL 12.0-16.0 red blood cell distribution width 18.2 % 11 .6-14.8 platelet count 295 10^3/MM^3 10*3/mm3 414-315 4365/04/09 neutrophils as percent of blood leukocytes 73.0 % 42.2-75.2 monocytes as percent of blood leukocytes 9.9 % 1.7-9.3 lymphocytes as percent of blood leukocytes 13.9 % 20.5-51.1 erythrocyte (RBC) count 2.42 10^6/MM^3 10*6/mm3 3.80-5.8 0 leukocyte count, blood 8.7 10^3/MM^3 10*3/mm3 4.6-10.2 hematocrit, blood 24.2 % 37.0-47.0 mean corpuscular volume, RBC 100 fL 80-97 mean corpuscular hemoglobin, RBC 29.6 pg 27. 0-31.2 mean corpuscular hemoglobin concentration, RBC 29.5 G/DL % 31.8-35.4 mean corpuscular hemoglobin concentration, RBC 28.4 G/DL % 31.8-35.4 red blood cell distribution width 20.2 % 11 .6-14.8 platelet count 429 10^3/MM^3 10*3/mm3 111-788 4919/04/24 neutrophils as percent of blood leukocytes 66.8 % 42.2-75.2 monocytes as percent of blood leukocytes 10.4 % 1.7-9.3 lymphocytes as percent of blood leukocytes 18.1 % 20.5-51.1 erythrocyte (RBC) count 1.69 10^6/MM^3 10*6/mm3 3.80-5.8 0 leukocyte count, blood 8.0 10^3/MM^3 10*3/mm3 4.6-10.2 hemoglobin, blood 7.1 g/dL 12.0-16.0 hematocrit, blood 17.2 % 37.0-47.0 mean corpuscular volume, RBC 102 fL 80-97 mean corpuscular hemoglobin, RBC 29.0 pg 27. 0-31.2 hemoglobin, blood 4.9 g/dL 12.0-16.0 red blood cell distribution width 22.4 % 11 .6-14.8 platelet count 343 10^3/MM^3 10*3/mm3 669-929 5398/04/29 mean corpuscular volume, RBC 102 fL 80-97 mean corpuscular hemoglobin, RBC 29.1 pg 27. 0-31.2 lymphocytes as percent of blood leukocytes 16.3 % 20.5-51.1 erythrocyte (RBC) count 2.31 10^6/MM^3 10*6/mm3 3.80-5.8 0 mean corpuscular hemoglobin concentration, RBC 28.7 G/DL % 31.8-35.4 hemoglobin, blood 6.7 g/dL 12.0-16.0 hematocrit, blood 23.4 % 37.0-47.0 monocytes as percent of blood leukocytes 7.7 % 1.7-9.3 leukocyte count, blood 9.1 10^3/MM^3 10*3/mm3 4.6-10.2 neutrophils as percent of blood leukocytes 73.1 % 42.2-75.2 Encounters Code Encounter Date Provider Facility CPT-70645 Level 4 New Patient 16:54:39 CDT Deacon Rajan MD [facility] CPT-25260 Level 2 Est. 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
--- OUTSIDE RECORDS SUMMARY | 2019-07-27 11:48 | XMS REPORT | Clinical Summary ---
[...] SOLUTION PEN-INJECTOR 1.8 mg daily 2 LIRAGLUTIDE 65700340850 Active Shelia Quezada RN Active TIZANIDINE HCL 4 MG ORAL TABLET 1 tablet every 4 hours TIZANIDINE HCL 32533190450 Active Shelia Quezada RN Active CARAFATE 1 GM ORAL TABLET Take one by mouth four times daily 03/27 SUCRALFATE 33701694586 Active Shelia Quezada RN Active PRILOSEC OTC 20 MG ORAL TABLET DELAYED RELEASE 2 tablets daily 2018 OMEPRAZOLE MAGNESIUM 48605053276 Active Shelia Quezada RN Active OXYCODONE HCL 5 MG ORAL TABLET 1 tablet every 3-4 hours as n eeded for pain OXYCODONE HCL 30318099902 Active Shelia Quezada RN Active NOVOLOG 100 UNIT/ML SUBCUTANEOUS SOLUTION sliding scale INSULIN ASPART 30950370426 Active Shelia Quezada RN Active MULTIVITAMIN & MINERAL ORAL LIQUID 5 ml daily MULTIPLE VITAMINS-MINERALS 21658692143 Active Shelia Quezada RN Ac tive MELOXICAM 15 MG ORAL TABLET Take one by mouth daily MELOXICAM 94709965942 Active Shelia Quezada RN Active LEVOTHYROXINE SODIUM 200 MCG ORAL TABLET 2 1/4 tablets daily 03/27 LEVOTHYROXINE SODIUM 39614775233 Active Shelia Quezada RN Active FUROSEMIDE 40 MG ORAL TABLET Take one by mouth daily FUROSEMIDE 57430509109 Active Shelia Quezada RN Active LANTUS 100 UNIT/ML SUBCUTANEOUS SOLUTION 30 units daily at bedtime INSULIN GLARGINE 34486794709 Active Shelia Quezada RN Act johnathon HYDROCODONE-ACETAMINOPHEN 5-325 MG ORAL TABLET 1 every 4 hours as needed for pain HYDROCODONE-ACETAMINOPHEN 97301080967 Active Shelia Quezada RN Active GLUCOPHAGE 1000 MG ORAL TABLET Take one by mouth daily METFORMIN HCL 23420832950 Active Shelia Quezada RN Active COZAAR 50 MG ORAL TABLET 1 1/2 tabs daily LOSAR KOO POTASSIUM 56282773493 Active Shelia Quezada RN Active COUMADIN 5 MG ORAL TABLET Take one by mouth daily WARFARIN SODIUM 92182122426 Active Shelia Quezada RN Active CELEXA 20 MG ORAL TABLET Take one by mouth daily CITALOPRAM HYDROBROMIDE 84538520989 Active Shelia Quezada RN Active BACTRIM DS 800-160 MG ORAL TABLET by mouth twice a day SULFAMETHOXAZOLE-TRIMETHOPRIM 47127308029 Active Shelia Quezada RN Active AMITRIPTYLINE HCL 75 MG ORAL TABLET Take one by mouth daily at bedtime AMITRIPTYLINE HCL 97515555961 Active Shelia Yuen N Active Vital Signs [...] 11 .6-14.8 platelet count 304 10^3/MM^3 10*3/mm3 886-974 8516/02/13 leukocyte count, blood 6.5 10^3/MM^3 10*3/mm3 4.6-10.2 [...] 11 .6-14.8 platelet count 303 10^3/MM^3 10*3/mm3 554-759 9944/03/13 leukocyte count, blood 7.2 10^3/MM^3 10*3/mm3 4.6-10.2 [...] 11 .6-14.8 platelet count 299 10^3/MM^3 10*3/mm3 257-633 8708/04/09 leukocyte count, blood 8.7 10^3/MM^3 10*3/mm3 4.6-10.2 [...] 11 .6-14.8 platelet count 295 10^3/MM^3 10*3/mm3 142-424 Encounters Code Encounter Date Provider Facility CPT-54517 Level 2 Est. 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 [place]
--- OUTSIDE RECORDS SUMMARY | 2019-07-27 11:48 | XMS REPORT | Clinical Summary ---
[...] SOLUTION PEN-INJECTOR 1.8 mg daily 2 LIRAGLUTIDE 51664133504 Active Shelia Quezada RN Active TIZANIDINE HCL 4 MG ORAL TABLET 1 tablet every 4 hours TIZANIDINE HCL 19312442508 Active Shelia Quezada RN Active CARAFATE 1 GM ORAL TABLET Take one by mouth four times daily 03/27 SUCRALFATE 51241882793 Active Shelia Quezada RN Active PRILOSEC OTC 20 MG ORAL TABLET DELAYED RELEASE 2 tablets daily 2018 OMEPRAZOLE MAGNESIUM 58314092705 Active Shelia Quezada RN Active OXYCODONE HCL 5 MG ORAL TABLET 1 tablet every 3-4 hours as n eeded for pain OXYCODONE HCL 73275449515 Active Shelia Quezada RN Active NOVOLOG 100 UNIT/ML SUBCUTANEOUS SOLUTION sliding scale INSULIN ASPART 23150692412 Active Shelia Quezada RN Active MULTIVITAMIN & MINERAL ORAL LIQUID 5 ml daily MULTIPLE VITAMINS-MINERALS 64375725953 Active Shelia Quezada RN Ac tive MELOXICAM 15 MG ORAL TABLET Take one by mouth daily MELOXICAM 97270311777 Active Shelia Quezada RN Active LEVOTHYROXINE SODIUM 200 MCG ORAL TABLET 2 1/4 tablets daily 03/27 LEVOTHYROXINE SODIUM 86479894727 Active Shelia Quezada RN Active FUROSEMIDE 40 MG ORAL TABLET Take one by mouth daily FUROSEMIDE 65495046769 Active Shelia Quezada RN Active LANTUS 100 UNIT/ML SUBCUTANEOUS SOLUTION 30 units daily at bedtime INSULIN GLARGINE 54641476405 Active Shelia Quezada RN Act johnathon HYDROCODONE-ACETAMINOPHEN 5-325 MG ORAL TABLET 1 every 4 hours as needed for pain HYDROCODONE-ACETAMINOPHEN 50322718146 Active Shelia Quezada RN Active GLUCOPHAGE 1000 MG ORAL TABLET Take one by mouth daily METFORMIN HCL 32963287760 Active Shelia Quezada RN Active COZAAR 50 MG ORAL TABLET 1 1/2 tabs daily LOSAR KOO POTASSIUM 90736925705 Active Shelia Quezada RN Active COUMADIN 5 MG ORAL TABLET Take one by mouth daily WARFARIN SODIUM 69361708927 Active Shelia Quezada RN Active CELEXA 20 MG ORAL TABLET Take one by mouth daily CITALOPRAM HYDROBROMIDE 92457010971 Active Shelia Quezada RN Active BACTRIM DS 800-160 MG ORAL TABLET by mouth twice a day SULFAMETHOXAZOLE-TRIMETHOPRIM 46696511998 Active Shelia Quezada RN Active AMITRIPTYLINE HCL 75 MG ORAL TABLET Take one by mouth daily at bedtime AMITRIPTYLINE HCL 95012680697 Active Shelia Yuen N Active Vital Signs [...] 11 .6-14.8 platelet count 304 10^3/MM^3 10*3/mm3 774-460 3802/02/13 leukocyte count, blood 6.5 10^3/MM^3 10*3/mm3 4.6-10.2 [...] 11 .6-14.8 platelet count 303 10^3/MM^3 10*3/mm3 097-194 9622/03/13 leukocyte count, blood 7.2 10^3/MM^3 10*3/mm3 4.6-10.2 [...] 11 .6-14.8 platelet count 299 10^3/MM^3 10*3/mm3 892-797 9090/04/09 leukocyte count, blood 8.7 10^3/MM^3 10*3/mm3 4.6-10.2 [...] 11 .6-14.8 platelet count 295 10^3/MM^3 10*3/mm3 531-201 8615/04/24 leukocyte count, blood 8.0 10^3/MM^3 10*3/mm3 4.6-10.2 [...] 11 .6-14.8 platelet count 429 10^3/MM^3 10*3/mm3 490-497 4450/04/29 leukocyte count, blood 9.1 10^3/MM^3 10*3/mm3 4.6-10.2 [...] 142-424 Encounters Code Encounter Date Provider Facility CPT-73052 Level 2 Est. 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
--- OUTSIDE RECORDS SUMMARY | 2019-07-27 11:49 | XMS REPORT | Clinical Summary ---
Author Author Lisandra Cole Organization All Address Unknown Phone Unavailable Allergies, Adverse Reactions, Alerts Allergy Name Reaction Description Start Date Severity Status Pr ovider Allergies Unknown Conditions or Problems Problem Name Problem Code Onset Date Status Entry Date Provider Comment Standard Description Annotate Problems Unknown Active Medication List Medication Instructions Start Date Stop Date Generic Name NDC Status Provider Patient Instruction VICTOZA 18 MG/3ML SUBCUTANEOUS SOLUTION PEN-INJECTOR 1.8 mg daily 2 LIRAGLUTIDE 53257272279 Active Shelia Quezada RN Active TIZANIDINE HCL 4 MG ORAL TABLET 1 tablet every 4 hours TIZANIDINE HCL 32710660773 Active Shelia Quezada RN Active CARAFATE 1 GM ORAL TABLET Take one by mouth four times daily 03/27 SUCRALFATE 81880869964 Active Shelia Quezada RN Active PRILOSEC OTC 20 MG ORAL TABLET DELAYED RELEASE 2 tablets daily 2018 OMEPRAZOLE MAGNESIUM 76948827920 Active Shelia Quezada RN Active OXYCODONE HCL 5 MG ORAL TABLET 1 tablet every 3-4 hours as n eeded for pain OXYCODONE HCL 55873998123 Active Shelia Quezada RN Active NOVOLOG 100 UNIT/ML SUBCUTANEOUS SOLUTION sliding scale INSULIN ASPART 14041601360 Active Shelia Quezada RN Active MULTIVITAMIN & MINERAL ORAL LIQUID 5 ml daily MULTIPLE VITAMINS-MINERALS 67634069501 Active Shelia Quezada RN Ac tive MELOXICAM 15 MG ORAL TABLET Take one by mouth daily MELOXICAM 58977136888 Active Shelia Quezada RN Active LEVOTHYROXINE SODIUM 200 MCG ORAL TABLET 2 1/4 tablets daily 03/27 LEVOTHYROXINE SODIUM 06599722908 Active Shelia Quezada RN Active FUROSEMIDE 40 MG ORAL TABLET Take one by mouth daily FUROSEMIDE 01380652744 Active Shelia Quezada RN Active LANTUS 100 UNIT/ML SUBCUTANEOUS SOLUTION 30 units daily at bedtime INSULIN GLARGINE 60568390879 Active Shelia Quezada RN Act johnathon HYDROCODONE-ACETAMINOPHEN 5-325 MG ORAL TABLET 1 every 4 hours as needed for pain HYDROCODONE-ACETAMINOPHEN 89590228528 Active Shelia Quezada RN Active GLUCOPHAGE 1000 MG ORAL TABLET Take one by mouth daily METFORMIN HCL 20463489655 Active Shelia Quezada RN Active COZAAR 50 MG ORAL TABLET 1 1/2 tabs daily LOSAR KOO POTASSIUM 20208517023 Active Shelia Quezada RN Active COUMADIN 5 MG ORAL TABLET Take one by mouth daily WARFARIN SODIUM 78318350614 Active Shelia Quezada RN Active CELEXA 20 MG ORAL TABLET Take one by mouth daily CITALOPRAM HYDROBROMIDE 98321817305 Active Shelia Quezada RN Active BACTRIM DS 800-160 MG ORAL TABLET by mouth twice a day SULFAMETHOXAZOLE-TRIMETHOPRIM 54149461062 Active Shelia Quezada RN Active AMITRIPTYLINE HCL 75 MG ORAL TABLET Take one by mouth daily at bedtime AMITRIPTYLINE HCL 86437476156 Active Shelia Trejo Active
--- OUTSIDE RECORDS SUMMARY | 2019-07-27 11:49 | XMS REPORT | Clinical Summary ---
[...] SOLUTION PEN-INJECTOR 1.8 mg daily 2 LIRAGLUTIDE 36280741082 Active Shelia Quezada RN Active TIZANIDINE HCL 4 MG ORAL TABLET 1 tablet every 4 hours TIZANIDINE HCL 78350504050 Active Shelia Quezada RN Active CARAFATE 1 GM ORAL TABLET Take one by mouth four times daily 03/27 SUCRALFATE 10979762915 Active Shelia Quezada RN Active PRILOSEC OTC 20 MG ORAL TABLET DELAYED RELEASE 2 tablets daily 2018 OMEPRAZOLE MAGNESIUM 43488011700 Active Shelia Quezada RN Active OXYCODONE HCL 5 MG ORAL TABLET 1 tablet every 3-4 hours as n eeded for pain OXYCODONE HCL 57040335309 Active Shelia Quezada RN Active NOVOLOG 100 UNIT/ML SUBCUTANEOUS SOLUTION sliding scale INSULIN ASPART 58476772161 Active Shelia Quezada RN Active MULTIVITAMIN & MINERAL ORAL LIQUID 5 ml daily MULTIPLE VITAMINS-MINERALS 16946175862 Active Shelia Quezada RN Ac tive MELOXICAM 15 MG ORAL TABLET Take one by mouth daily MELOXICAM 01645371182 Active Shelia Quezada RN Active LEVOTHYROXINE SODIUM 200 MCG ORAL TABLET 2 1/4 tablets daily 03/27 LEVOTHYROXINE SODIUM 10899049951 Active Shelia Quezada RN Active FUROSEMIDE 40 MG ORAL TABLET Take one by mouth daily FUROSEMIDE 95244240573 Active Shelia Quezada RN Active LANTUS 100 UNIT/ML SUBCUTANEOUS SOLUTION 30 units daily at bedtime INSULIN GLARGINE 42197598614 Active Shelia Quezada RN Act johnathon HYDROCODONE-ACETAMINOPHEN 5-325 MG ORAL TABLET 1 every 4 hours as needed for pain HYDROCODONE-ACETAMINOPHEN 10419651917 Active Shelia Quezada RN Active GLUCOPHAGE 1000 MG ORAL TABLET Take one by mouth daily METFORMIN HCL 53973251366 Active Shelia Quezada RN Active COZAAR 50 MG ORAL TABLET 1 1/2 tabs daily LOSAR KOO POTASSIUM 54117830890 Active Shelia Quezada RN Active COUMADIN 5 MG ORAL TABLET Take one by mouth daily WARFARIN SODIUM 39903789513 Active Shelia Quezada RN Active CELEXA 20 MG ORAL TABLET Take one by mouth daily CITALOPRAM HYDROBROMIDE 90217357619 Active Shelia Quezada RN Active BACTRIM DS 800-160 MG ORAL TABLET by mouth twice a day SULFAMETHOXAZOLE-TRIMETHOPRIM 69305094189 Active Shelia Quezada RN Active AMITRIPTYLINE HCL 75 MG ORAL TABLET Take one by mouth daily at bedtime AMITRIPTYLINE HCL 38778287660 Active Shelia Trejo Active
--- OUTSIDE RECORDS SUMMARY | 2019-07-27 11:49 | XMS REPORT | Clinical Summary ---
[...] SOLUTION PEN-INJECTOR 1.8 mg daily 2 LIRAGLUTIDE 52722824841 Active Shelia Quezada RN Active TIZANIDINE HCL 4 MG ORAL TABLET 1 tablet every 4 hours TIZANIDINE HCL 36585174628 Active Shelia Quezada RN Active CARAFATE 1 GM ORAL TABLET Take one by mouth four times daily 03/27 SUCRALFATE 11219654274 Active Shelia Quezada RN Active PRILOSEC OTC 20 MG ORAL TABLET DELAYED RELEASE 2 tablets daily 2018 OMEPRAZOLE MAGNESIUM 21193253951 Active Shelia Quezada RN Active OXYCODONE HCL 5 MG ORAL TABLET 1 tablet every 3-4 hours as n eeded for pain OXYCODONE HCL 88204593375 Active Shelia Quezada RN Active NOVOLOG 100 UNIT/ML SUBCUTANEOUS SOLUTION sliding scale INSULIN ASPART 10898253526 Active Shelia Quezada RN Active MULTIVITAMIN & MINERAL ORAL LIQUID 5 ml daily MULTIPLE VITAMINS-MINERALS 71494025989 Active Shelia Quezada RN Ac tive MELOXICAM 15 MG ORAL TABLET Take one by mouth daily MELOXICAM 18513581767 Active Shelia Quezada RN Active LEVOTHYROXINE SODIUM 200 MCG ORAL TABLET 2 1/4 tablets daily 03/27 LEVOTHYROXINE SODIUM 09707251432 Active Shelia Quezada RN Active FUROSEMIDE 40 MG ORAL TABLET Take one by mouth daily FUROSEMIDE 71864356941 Active Shelia Quezada RN Active LANTUS 100 UNIT/ML SUBCUTANEOUS SOLUTION 30 units daily at bedtime INSULIN GLARGINE 55847154785 Active Shelia Quezada RN Act johnathon HYDROCODONE-ACETAMINOPHEN 5-325 MG ORAL TABLET 1 every 4 hours as needed for pain HYDROCODONE-ACETAMINOPHEN 91902628914 Active Shelia Quezada RN Active GLUCOPHAGE 1000 MG ORAL TABLET Take one by mouth daily METFORMIN HCL 42968568918 Active Shelia Quezada RN Active COZAAR 50 MG ORAL TABLET 1 1/2 tabs daily LOSAR KOO POTASSIUM 29006457203 Active Shelia Quezada RN Active COUMADIN 5 MG ORAL TABLET Take one by mouth daily WARFARIN SODIUM 39314691736 Active Shelia Quezada RN Active CELEXA 20 MG ORAL TABLET Take one by mouth daily CITALOPRAM HYDROBROMIDE 85242223639 Active Shelia Quezada RN Active BACTRIM DS 800-160 MG ORAL TABLET by mouth twice a day SULFAMETHOXAZOLE-TRIMETHOPRIM 27140449474 Active Shelia Quezada RN Active AMITRIPTYLINE HCL 75 MG ORAL TABLET Take one by mouth daily at bedtime AMITRIPTYLINE HCL 67756729403 Active Shelia Yuen N Active Vital Signs [...] 11 .6-14.8 platelet count 304 10^3/MM^3 10*3/mm3 142-424 Encounters Code Encounter Date Provider Facility [id number] Level 2 Est. Patient 15:33:16 [facility] Shreyas gillespie MD [facility]
--- OUTSIDE RECORDS SUMMARY | 2019-07-27 11:49 | XMS REPORT | Clinical Summary ---
[...] SOLUTION PEN-INJECTOR 1.8 mg daily 2 LIRAGLUTIDE 43198600521 Active Shelia Quezada RN Active TIZANIDINE HCL 4 MG ORAL TABLET 1 tablet every 4 hours TIZANIDINE HCL 03351150010 Active Shelia Quezada RN Active CARAFATE 1 GM ORAL TABLET Take one by mouth four times daily 03/27 SUCRALFATE 83975244318 Active Shelia Quezada RN Active PRILOSEC OTC 20 MG ORAL TABLET DELAYED RELEASE 2 tablets daily 2018 OMEPRAZOLE MAGNESIUM 24780138890 Active Shelia Quezada RN Active OXYCODONE HCL 5 MG ORAL TABLET 1 tablet every 3-4 hours as n eeded for pain OXYCODONE HCL 96968223404 Active Shelia Quezada RN Active NOVOLOG 100 UNIT/ML SUBCUTANEOUS SOLUTION sliding scale INSULIN ASPART 50200216992 Active Shelia Quezada RN Active MULTIVITAMIN & MINERAL ORAL LIQUID 5 ml daily MULTIPLE VITAMINS-MINERALS 80949085193 Active Shelia Quezada RN Ac tive MELOXICAM 15 MG ORAL TABLET Take one by mouth daily MELOXICAM 14340222171 Active Shelia Quezada RN Active LEVOTHYROXINE SODIUM 200 MCG ORAL TABLET 2 1/4 tablets daily 03/27 LEVOTHYROXINE SODIUM 66400065034 Active Shelia Quezada RN Active FUROSEMIDE 40 MG ORAL TABLET Take one by mouth daily FUROSEMIDE 53598992422 Active Shelia Quezada RN Active LANTUS 100 UNIT/ML SUBCUTANEOUS SOLUTION 30 units daily at bedtime INSULIN GLARGINE 27287092328 Active Shelia Quezada RN Act johnathon HYDROCODONE-ACETAMINOPHEN 5-325 MG ORAL TABLET 1 every 4 hours as needed for pain HYDROCODONE-ACETAMINOPHEN 79267162188 Active Shelia Quezada RN Active GLUCOPHAGE 1000 MG ORAL TABLET Take one by mouth daily METFORMIN HCL 51209646608 Active Shelia Quezada RN Active COZAAR 50 MG ORAL TABLET 1 1/2 tabs daily LOSAR KOO POTASSIUM 48236900935 Active Shelia Quezada RN Active COUMADIN 5 MG ORAL TABLET Take one by mouth daily WARFARIN SODIUM 02067191590 Active Shelia Quezada RN Active CELEXA 20 MG ORAL TABLET Take one by mouth daily CITALOPRAM HYDROBROMIDE 85242935308 Active Shelia Quezada RN Active BACTRIM DS 800-160 MG ORAL TABLET by mouth twice a day SULFAMETHOXAZOLE-TRIMETHOPRIM 33231415625 Active Shelia Quezada RN Active AMITRIPTYLINE HCL 75 MG ORAL TABLET Take one by mouth daily at bedtime AMITRIPTYLINE HCL 23016217711 Active Shelia Yuen N Active Vital Signs [...] 142-424 Encounters Code Encounter Date Provider Facility [id number] Level 2 Est. Patient 15:33:16 [employer]ES [employer]PRESENT[employer] Shreyas gillespie MD [facility]
--- OUTSIDE RECORDS SUMMARY | 2019-07-27 11:49 | XMS REPORT | Clinical Summary ---
[...] SOLUTION PEN-INJECTOR 1.8 mg daily 2 LIRAGLUTIDE 77760303730 Active Shelia Quezada RN Active TIZANIDINE HCL 4 MG ORAL TABLET 1 tablet every 4 hours TIZANIDINE HCL 50814409438 Active Shelia Quezada RN Active CARAFATE 1 GM ORAL TABLET Take one by mouth four times daily 03/27 SUCRALFATE 58456190887 Active Shelia Quezada RN Active PRILOSEC OTC 20 MG ORAL TABLET DELAYED RELEASE 2 tablets daily 2018 OMEPRAZOLE MAGNESIUM 00990216363 Active Shelia Quezada RN Active OXYCODONE HCL 5 MG ORAL TABLET 1 tablet every 3-4 hours as n eeded for pain OXYCODONE HCL 86643058749 Active Shelia Quezada RN Active NOVOLOG 100 UNIT/ML SUBCUTANEOUS SOLUTION sliding scale INSULIN ASPART 97369115436 Active Shelia Quezada RN Active MULTIVITAMIN & MINERAL ORAL LIQUID 5 ml daily MULTIPLE VITAMINS-MINERALS 48119610218 Active Shelia Quezada RN Ac tive MELOXICAM 15 MG ORAL TABLET Take one by mouth daily MELOXICAM 62977072806 Active Shelia Quezada RN Active LEVOTHYROXINE SODIUM 200 MCG ORAL TABLET 2 1/4 tablets daily 03/27 LEVOTHYROXINE SODIUM 62045735217 Active Shelia Quezada RN Active FUROSEMIDE 40 MG ORAL TABLET Take one by mouth daily FUROSEMIDE 18361100100 Active Shelia Quezada RN Active LANTUS 100 UNIT/ML SUBCUTANEOUS SOLUTION 30 units daily at bedtime INSULIN GLARGINE 80040283707 Active Shelia Quezada RN Act johnathon HYDROCODONE-ACETAMINOPHEN 5-325 MG ORAL TABLET 1 every 4 hours as needed for pain HYDROCODONE-ACETAMINOPHEN 26046606285 Active Shelia Quezada RN Active GLUCOPHAGE 1000 MG ORAL TABLET Take one by mouth daily METFORMIN HCL 00244545549 Active Shelia Quezada RN Active COZAAR 50 MG ORAL TABLET 1 1/2 tabs daily LOSAR KOO POTASSIUM 97188113238 Active Shelia Quezada RN Active COUMADIN 5 MG ORAL TABLET Take one by mouth daily WARFARIN SODIUM 02429453815 Active Shelia Quezada RN Active CELEXA 20 MG ORAL TABLET Take one by mouth daily CITALOPRAM HYDROBROMIDE 20229144358 Active Shelia Quezada RN Active BACTRIM DS 800-160 MG ORAL TABLET by mouth twice a day SULFAMETHOXAZOLE-TRIMETHOPRIM 99710200536 Active Shelia Quezada RN Active AMITRIPTYLINE HCL 75 MG ORAL TABLET Take one by mouth daily at bedtime AMITRIPTYLINE HCL 26699009078 Active Shelia Yuen N Active Vital Signs [...] weight E&M 246 [lb_av] Weight Measure d Encounters Code Encounter Date Provider Facility [id number] Level 2 Est. 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
--- OUTSIDE RECORDS SUMMARY | 2019-07-27 11:49 | XMS REPORT | Clinical Summary ---
[...] SOLUTION PEN-INJECTOR 1.8 mg daily 2 LIRAGLUTIDE 44645890159 Active Shelia Quezada RN Active TIZANIDINE HCL 4 MG ORAL TABLET 1 tablet every 4 hours TIZANIDINE HCL 00240796929 Active Shelia Quezada RN Active CARAFATE 1 GM ORAL TABLET Take one by mouth four times daily 03/27 SUCRALFATE 68405152584 Active Shelia Quezada RN Active PRILOSEC OTC 20 MG ORAL TABLET DELAYED RELEASE 2 tablets daily 2018 OMEPRAZOLE MAGNESIUM 27204304883 Active Shelia Quezada RN Active OXYCODONE HCL 5 MG ORAL TABLET 1 tablet every 3-4 hours as n eeded for pain OXYCODONE HCL 02302081963 Active Shelia Quezada RN Active NOVOLOG 100 UNIT/ML SUBCUTANEOUS SOLUTION sliding scale INSULIN ASPART 15650058939 Active Shelia Quezada RN Active MULTIVITAMIN & MINERAL ORAL LIQUID 5 ml daily MULTIPLE VITAMINS-MINERALS 76783074790 Active Shelia Quezada RN Ac tive MELOXICAM 15 MG ORAL TABLET Take one by mouth daily MELOXICAM 09998961181 Active Shelia Quezada RN Active LEVOTHYROXINE SODIUM 200 MCG ORAL TABLET 2 1/4 tablets daily 03/27 LEVOTHYROXINE SODIUM 65281392966 Active Shelia Quezada RN Active FUROSEMIDE 40 MG ORAL TABLET Take one by mouth daily FUROSEMIDE 43098079867 Active Shelia Quezada RN Active LANTUS 100 UNIT/ML SUBCUTANEOUS SOLUTION 30 units daily at bedtime INSULIN GLARGINE 94019880466 Active Shelia Quezada RN Act johnathon HYDROCODONE-ACETAMINOPHEN 5-325 MG ORAL TABLET 1 every 4 hours as needed for pain HYDROCODONE-ACETAMINOPHEN 98950023894 Active Shelia Quezada RN Active GLUCOPHAGE 1000 MG ORAL TABLET Take one by mouth daily METFORMIN HCL 16590507901 Active Shelia Quezada RN Active COZAAR 50 MG ORAL TABLET 1 1/2 tabs daily LOSAR KOO POTASSIUM 89849111728 Active Shelia Quezada RN Active COUMADIN 5 MG ORAL TABLET Take one by mouth daily WARFARIN SODIUM 29709355453 Active Shelia Quezada RN Active CELEXA 20 MG ORAL TABLET Take one by mouth daily CITALOPRAM HYDROBROMIDE 13068698061 Active Shelia Quezada RN Active BACTRIM DS 800-160 MG ORAL TABLET by mouth twice a day SULFAMETHOXAZOLE-TRIMETHOPRIM 95431394324 Active Shelia Quezada RN Active AMITRIPTYLINE HCL 75 MG ORAL TABLET Take one by mouth daily at bedtime AMITRIPTYLINE HCL 55084153904 Active Shelia Yuen N Active Vital Signs [...] 142-424 Encounters Code Encounter Date Provider Facility [id number] Level 2 Est. Patient 15:33:16 [employer] Shreyas gilles[facility]
--- OUTSIDE RECORDS SUMMARY | 2019-07-27 11:49 | XMS REPORT | Clinical Summary ---
[...] e Shreyas Roberts MD Hereditary hemorrhagic telangiectasia Medication List Medication Instructions Start Date Stop Date Generic Name NDC Status Provider Patient Instruction VICTOZA 18 MG/3ML SUBCUTANEOUS SOLUTION PEN-INJECTOR 1.8 mg daily 2 LIRAGLUTIDE 98109778616 Active Shelia Quezada RN Active TIZANIDINE HCL 4 MG ORAL TABLET 1 tablet every 4 hours TIZANIDINE HCL 24363422003 Active Shelia Quezada RN Active CARAFATE 1 GM ORAL TABLET Take one by mouth four times daily 03/27 SUCRALFATE 50071091985 Active Shelia Quezada RN Active PRILOSEC OTC 20 MG ORAL TABLET DELAYED RELEASE 2 tablets daily 2018 OMEPRAZOLE MAGNESIUM 47650923378 Active Shelia Quezada RN Active OXYCODONE HCL 5 MG ORAL TABLET 1 tablet every 3-4 hours as n eeded for pain OXYCODONE HCL 01886800402 Active Shelia Quezada RN Active NOVOLOG 100 UNIT/ML SUBCUTANEOUS SOLUTION sliding scale INSULIN ASPART 03212317843 Active Shelia Quezada RN Active MULTIVITAMIN & MINERAL ORAL LIQUID 5 ml daily MULTIPLE VITAMINS-MINERALS 57912615503 Active Shelia Quezada RN Ac tive MELOXICAM 15 MG ORAL TABLET Take one by mouth daily MELOXICAM 68585819288 Active Shelia Quezada RN Active LEVOTHYROXINE SODIUM 200 MCG ORAL TABLET 2 1/4 tablets daily 03/27 LEVOTHYROXINE SODIUM 20072405939 Active Sheila Quezada RN Active FUROSEMIDE 40 MG ORAL TABLET Take one by mouth daily FUROSEMIDE 67090462677 Active Shelia Quezada RN Active LANTUS 100 UNIT/ML SUBCUTANEOUS SOLUTION 30 units daily at bedtime INSULIN GLARGINE 13719890716 Active Shelia Quezada RN Act johnathon HYDROCODONE-ACETAMINOPHEN 5-325 MG ORAL TABLET 1 every 4 hours as needed for pain HYDROCODONE-ACETAMINOPHEN 63580461304 Active Shelia Quezada RN Active GLUCOPHAGE 1000 MG ORAL TABLET Take one by mouth daily METFORMIN HCL 26746991851 Active Shelia Quezada RN Active COZAAR 50 MG ORAL TABLET 1 1/2 tabs daily LOSAR KOO POTASSIUM 42040449268 Active Shelia Quezada RN Active COUMADIN 5 MG ORAL TABLET Take one by mouth daily WARFARIN SODIUM 03289161398 Active Shelia Quezada RN Active CELEXA 20 MG ORAL TABLET Take one by mouth daily CITALOPRAM HYDROBROMIDE 58057766307 Active Shelia Quezada RN Active BACTRIM DS 800-160 MG ORAL TABLET by mouth twice a day SULFAMETHOXAZOLE-TRIMETHOPRIM 93882176824 Active Shelia Quezada RN Active AMITRIPTYLINE HCL 75 MG ORAL TABLET Take one by mouth daily at bedtime AMITRIPTYLINE HCL 03846537943 Active Shelia Yuen N Active Vital Signs [...] d Encounters Code Encounter Date Provider Facility CPT-[id number] Level 2 Est. 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
--- OUTSIDE RECORDS SUMMARY | 2019-07-27 11:49 | XMS REPORT | Clinical Summary ---
[...] SOLUTION PEN-INJECTOR 1.8 mg daily 2 LIRAGLUTIDE 88014925288 Active Shelia Quezada RN Active TIZANIDINE HCL 4 MG ORAL TABLET 1 tablet every 4 hours TIZANIDINE HCL 56797846258 Active Shelia Quezada RN Active CARAFATE 1 GM ORAL TABLET Take one by mouth four times daily 03/27 SUCRALFATE 79658954795 Active Shelia Quezada RN Active PRILOSEC OTC 20 MG ORAL TABLET DELAYED RELEASE 2 tablets daily 2018 OMEPRAZOLE MAGNESIUM 09073819560 Active Shelia Quezada RN Active OXYCODONE HCL 5 MG ORAL TABLET 1 tablet every 3-4 hours as n eeded for pain OXYCODONE HCL 89491201118 Active Shelia Quezada RN Active NOVOLOG 100 UNIT/ML SUBCUTANEOUS SOLUTION sliding scale INSULIN ASPART 45455567581 Active Shelia Quezada RN Active MULTIVITAMIN & MINERAL ORAL LIQUID 5 ml daily MULTIPLE VITAMINS-MINERALS 60765967160 Active Shelia Quezada RN Ac tive MELOXICAM 15 MG ORAL TABLET Take one by mouth daily MELOXICAM 43555290577 Active Shelia Quezada RN Active LEVOTHYROXINE SODIUM 200 MCG ORAL TABLET 2 1/4 tablets daily 03/27 LEVOTHYROXINE SODIUM 98898406056 Active Shelia Quezada RN Active FUROSEMIDE 40 MG ORAL TABLET Take one by mouth daily FUROSEMIDE 63416242714 Active Shelia Quezada RN Active LANTUS 100 UNIT/ML SUBCUTANEOUS SOLUTION 30 units daily at bedtime INSULIN GLARGINE 37376084154 Active Shelia Quezada RN Act johnathon HYDROCODONE-ACETAMINOPHEN 5-325 MG ORAL TABLET 1 every 4 hours as needed for pain HYDROCODONE-ACETAMINOPHEN 55662077134 Active Shelia Quezada RN Active GLUCOPHAGE 1000 MG ORAL TABLET Take one by mouth daily METFORMIN HCL 28999186725 Active Shelia Quezada RN Active COZAAR 50 MG ORAL TABLET 1 1/2 tabs daily LOSAR KOO POTASSIUM 62986323507 Active Shelia Quezada RN Active COUMADIN 5 MG ORAL TABLET Take one by mouth daily WARFARIN SODIUM 80571917196 Active Shelia Quezada RN Active CELEXA 20 MG ORAL TABLET Take one by mouth daily CITALOPRAM HYDROBROMIDE 43579459048 Active Shelia Quezada RN Active BACTRIM DS 800-160 MG ORAL TABLET by mouth twice a day SULFAMETHOXAZOLE-TRIMETHOPRIM 94246016157 Active Shelia Quezada RN Active AMITRIPTYLINE HCL 75 MG ORAL TABLET Take one by mouth daily at bedtime AMITRIPTYLINE HCL 52054375987 Active Shelia Yuen N Active Vital Signs [...] d Encounters Code Encounter Date Provider Facility CPT-[id number] Level 2 Est. 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
--- OUTSIDE RECORDS SUMMARY | 2019-07-27 11:49 | XMS REPORT | Clinical Summary ---
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 Medication List Medication Instructions Start Date Stop Date Generic Name NDC Status Provider Patient Instruction VICTOZA 18 MG/3ML SUBCUTANEOUS SOLUTION PEN-INJECTOR 1.8 mg daily 2 LIRAGLUTIDE 26593587617 Active Shelia Quezada RN Active TIZANIDINE HCL 4 MG ORAL TABLET 1 tablet every 4 hours TIZANIDINE HCL 31469042315 Active Shelia Quezada RN Active CARAFATE 1 GM ORAL TABLET Take one by mouth four times daily 03/27 SUCRALFATE 70776752686 Active Shelia Quezada RN Active PRILOSEC OTC 20 MG ORAL TABLET DELAYED RELEASE 2 tablets daily 2018 OMEPRAZOLE MAGNESIUM 06459589678 Active Shelia Qeuzada RN Active OXYCODONE HCL 5 MG ORAL TABLET 1 tablet every 3-4 hours as n eeded for pain OXYCODONE HCL 34251692483 Active Shelia Quezada RN Active NOVOLOG 100 UNIT/ML SUBCUTANEOUS SOLUTION sliding scale INSULIN ASPART 62162761569 Active Shelia Quezada RN Active MULTIVITAMIN & MINERAL ORAL LIQUID 5 ml daily MULTIPLE VITAMINS-MINERALS 30456698229 Active Shelia Quezada RN Ac tive MELOXICAM 15 MG ORAL TABLET Take one by mouth daily MELOXICAM 71862968309 Active Shelia Quezada RN Active LEVOTHYROXINE SODIUM 200 MCG ORAL TABLET 2 1/4 tablets daily 03/27 LEVOTHYROXINE SODIUM 71050029633 Active Shelia Quezada RN Active FUROSEMIDE 40 MG ORAL TABLET Take one by mouth daily FUROSEMIDE 90980776168 Active Shelia Quezada RN Active LANTUS 100 UNIT/ML SUBCUTANEOUS SOLUTION 30 units daily at bedtime INSULIN GLARGINE 96346928956 Active Shelia Quezada RN Act johnathon HYDROCODONE-ACETAMINOPHEN 5-325 MG ORAL TABLET 1 every 4 hours as needed for pain HYDROCODONE-ACETAMINOPHEN 99539821096 Active Shelia Quezada RN Active GLUCOPHAGE 1000 MG ORAL TABLET Take one by mouth daily METFORMIN HCL 29793555800 Active Shelia Quezada RN Active COZAAR 50 MG ORAL TABLET 1 1/2 tabs daily LOSAR KOO POTASSIUM 16829351312 Active Shelia Quezada RN Active COUMADIN 5 MG ORAL TABLET Take one by mouth daily WARFARIN SODIUM 48845101186 Active Shelia Quezada RN Active CELEXA 20 MG ORAL TABLET Take one by mouth daily CITALOPRAM HYDROBROMIDE 21555922357 Active Shelia Quezada RN Active BACTRIM DS 800-160 MG ORAL TABLET by mouth twice a day SULFAMETHOXAZOLE-TRIMETHOPRIM 25110365499 Active Shelia Quezada RN Active AMITRIPTYLINE HCL 75 MG ORAL TABLET Take one by mouth daily at bedtime AMITRIPTYLINE HCL 63628621440 Active Shelia Yuen N Active Vital Signs [...] d Encounters Code Encounter Date Provider Facility CPT-70031 Level 2 Est. 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
--- OUTSIDE RECORDS SUMMARY | 2019-07-27 11:49 | XMS REPORT | Clinical Summary ---
[...] SOLUTION PEN-INJECTOR 1.8 mg daily 2 LIRAGLUTIDE 42270724858 Active Shelia Quezada RN Active TIZANIDINE HCL 4 MG ORAL TABLET 1 tablet every 4 hours TIZANIDINE HCL 18252382906 Active Shelia Quezada RN Active CARAFATE 1 GM ORAL TABLET Take one by mouth four times daily 03/27 SUCRALFATE 23883420861 Active Shelia Quezada RN Active PRILOSEC OTC 20 MG ORAL TABLET DELAYED RELEASE 2 tablets daily 2018 OMEPRAZOLE MAGNESIUM 11864957290 Active Shelia Quezada RN Active OXYCODONE HCL 5 MG ORAL TABLET 1 tablet every 3-4 hours as n eeded for pain OXYCODONE HCL 54703119715 Active Shelia Quezada RN Active NOVOLOG 100 UNIT/ML SUBCUTANEOUS SOLUTION sliding scale INSULIN ASPART 31937359228 Active Shelia Quezada RN Active MULTIVITAMIN & MINERAL ORAL LIQUID 5 ml daily MULTIPLE VITAMINS-MINERALS 43298330276 Active Shelia Quezada RN Ac tive MELOXICAM 15 MG ORAL TABLET Take one by mouth daily MELOXICAM 14680000436 Active Shelia Quezada RN Active LEVOTHYROXINE SODIUM 200 MCG ORAL TABLET 2 1/4 tablets daily 03/27 LEVOTHYROXINE SODIUM 37901850456 Active Shelia Quezada RN Active FUROSEMIDE 40 MG ORAL TABLET Take one by mouth daily FUROSEMIDE 31724388037 Active Shelia Quezada RN Active LANTUS 100 UNIT/ML SUBCUTANEOUS SOLUTION 30 units daily at bedtime INSULIN GLARGINE 49401702049 Active Shelia Quezada RN Act johnathon HYDROCODONE-ACETAMINOPHEN 5-325 MG ORAL TABLET 1 every 4 hours as needed for pain HYDROCODONE-ACETAMINOPHEN 10883628198 Active Shelia Quezada RN Active GLUCOPHAGE 1000 MG ORAL TABLET Take one by mouth daily METFORMIN HCL 77729500967 Active Shelia Quezada RN Active COZAAR 50 MG ORAL TABLET 1 1/2 tabs daily LOSAR KOO POTASSIUM 93955357791 Active Shelia Quezada RN Active COUMADIN 5 MG ORAL TABLET Take one by mouth daily WARFARIN SODIUM 63780327097 Active Shelia Quezaad RN Active CELEXA 20 MG ORAL TABLET Take one by mouth daily CITALOPRAM HYDROBROMIDE 89892306264 Active Shelia Quezada RN Active BACTRIM DS 800-160 MG ORAL TABLET by mouth twice a day SULFAMETHOXAZOLE-TRIMETHOPRIM 82155753728 Active Shelia Quezada RN Active AMITRIPTYLINE HCL 75 MG ORAL TABLET Take one by mouth daily at bedtime AMITRIPTYLINE HCL 31235003590 Active Shelia Yuen N Active Vital Signs [...] 142-424 Encounters Code Encounter Date Provider Facility CPT-32297 Level 2 Est. 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
--- OUTSIDE RECORDS SUMMARY | 2019-07-27 11:50 | XMS REPORT | Continuity of Care Document ---
Author Author [facility] Address [address] [place] [address] Phone Care Team Providers Care Deputy Coroner Investigator Name Role Phone , PCP Unavailable Lito Beltran Attphys Allergies, Adverse Reactions, Alerts Allergen Type Severity Reaction Last Updated Verified Status prednisone Allergy Severe "THROAT CLOSES UP" February 01, 2019 8:12am Yes Active doxycycline Allergy Swelling of Lip/Tongue/Throat February 01, 2019 8:12am Yes Active lisinopril Allergy Cough February 01, 2019 8:12am Yes Active zolpidem Allergy Agitated February 01, 2019 8:12am Yes Active Medications Medication Status Dose Units Route Sig Qty Days Start Date End Date Instructions Meloxicam Discontinued 15 MG Oral Daily December 16, 2018 7:28am December 26, 2018 12:11pm Sulfamethoxazole-Trimethoprim Active 1 TAB Oral Q12H December 16, 2018 7:28am Hydrocodone-Acetaminophen Discontinued 0.5 - 1 TAB Oral Q6H December 16, 2018 7 :28am December 26, 2018 12:11pm Losartan Active 100 MG Oral Daily December 16, 2018 10:37am Citalopram Active 40 MG Oral Bedtime December 16, 2018 11:10am Levothyroxine Discontinued 50 MCG Oral Daily December 16, 2018 11:10am December 20, 2018 4:34pm Levothyroxine Active 450 MCG Oral Daily December 16, 2018 11:10am Lactobacillus Rhamnosus Gg Active 1 CAP Oral Twice a Day December 16, 2018 1 1:10am Potassium Chloride Discontinued 10 MEQ Oral Daily December 16, 2018 11:28am December 26, 2018 12:11pm Insulin Aspart U-100 Discontinued 20 UNIT Subcutaneous Twice a Day December 16, 2018 1 1:28am December 26, 2018 12:11pm Gabapentin Active 300 MG Oral Daily December 20, 2018 1:03pm Sucralfate Discontinued 1 GM Oral Four Times Daily December 20, 2018 1:05pm December 26, 2018 12:11pm Phytonadione (Vitamin K1) Discontinued 300 MCG Oral Daily December 20, 2018 1 :05pm December 26, 2018 12:11pm Levothyroxine Active 50 MCG Oral Daily December 21, 2018 2:23pm TAKE W/ 450MCG TABLET FOR TOTAL DOSE OF 500MCG Cyanocobalamin (Vitamin B-12) Active 500 MCG Oral Daily December 26, 2018 12:05pm Folic Acid Active 1 MG Oral Daily December 26, 2018 12:05pm Pnv,Calcium 23-Pnby-Wnsdd Acid Active 1 TAB Oral Daily December 26, 2018 12:05pm Hydrocodone-Acetaminophen Active 1 TAB Oral Every 6 Hours January 29, 2019 3 :00pm Losartan Discontinued 75 MG Oral Daily October 17, 2017 1:35pm October 27, 2017 11:03am Furosemide Discontinued 40 MG Oral Daily October 17, 2017 1:35pm October 27, 2017 11:03am Tizanidine Discontinued 4 MG Oral Q8H October 17, 2017 1:35pm October 27, 2017 11:03am Levothyroxine Discontinued 300 MCG Oral Daily October 17, 2017 1:35pm October 27, 2017 11:03am Meloxicam Discontinued 15 MG Oral Daily October 17, 2017 1:35pm October 27, 2017 11:03am Hydrocodone-Acetaminophen Discontinued 0.5 - 1 TAB Oral Q6H October 17, 2017 1: 35pm October 27, 2017 11:03am Amitriptyline Discontinued 50 MG Oral Bedtime October 17, 2017 1:35pm October 27, 2017 11:03am Levothyroxine Discontinued 100 MCG Oral Daily October 17, 2017 1:35pm October 27, 2017 11:03am Citalopram Discontinued 20 MG Oral Bedtime October 17, 2017 1:35pm October 27, 2017 11:03am Pantoprazole Discontinued 40 MG Oral Daily October 17, 2017 1:35pm October 27, 2017 11:03am Metformin Discontinued 1 000 MG Oral Twice a Day October 17, 2017 1:35pm October 27, 2017 11:03am Docusate Sodium Discontinued 100 MG Oral Twice a Day October 17, 2017 1:35pm October 27, 2017 11:03am Insulin Aspart U-100 Discontinued 15 UNIT Subcutaneous Three Times Daily with Meals October 17, 2017 1:35pm October 27, 2017 11:03am Insulin Glargine Discontinued 35 UNIT Subcutaneous Bedtim e October 17, 2017 1: 35pm October 27, 2017 11:03am Cholecalciferol (Vitamin D3) Discontinued 2000 UNIT Oral Daily October 17, 2017 1: 35pm October 27, 2017 11:03am Furosemide Discontinued 20 MG Oral Daily 0 October 27, 2017 10:55am November 10, 2017 12:13pm Amitriptyline Discontinued 75 MG Oral Bedtime 0 October 27, 2017 10:55am November 10, 2017 12:13pm Losartan Discontinued 150 MG Oral Daily 0 October 27, 2017 10:57am November 10, 2017 12:13pm Levothyroxine Discontinued 400 MCG Oral 0600 0 October 27, 2017 10:57am November 10, 2017 12:30pm Tizanidine Active 4 MG Oral Q8H November 10, 2017 11:59am Meloxicam Discontinued 15 MG Oral Daily November 10, 2017 11:59am November 18, 2017 10:47am Hydrocodone-Acetaminophen Discontinued 0.5 - 1 TAB Oral Every 6 Hours November 10, 2017 11:59am November 18, 2017 10:47am Citalopram Discontinued 20 MG Oral Bedtime November 10, 2017 11:59am November 18, 2017 10:47am Pantoprazole Active 40 MG Oral Daily November 10, 2017 11:59am Docusate Sodium Active 1 00 MG Oral Twice a Day November 10, 2017 11:59am Insulin Aspart U-100 Discontinued 15 UNIT Subcutaneous Three Times a Day November 10, 2017 11:59am November 18, 2017 10:47am Insulin Glargine Discontinued 35 UNIT Subcutaneous Bedtim e November 10, 2017 11:59am November 18, 2017 10:47am Cholecalciferol (Vitamin D3) Active 2000 UNIT Oral Daily November 10, 2017 11:59am Losartan Discontinued 75 MG Oral Daily November 10, 2017 12:13pm November 18, 2017 10:47am Furosemide Discontinued 40 MG Oral Daily November 10, 2017 12:13pm December 26, 2018 12:11pm Amitriptyline Discontinued 50 MG Oral Bedtime November 10, 2017 12:13pm November 18, 2017 10:47am Amitriptyline Active 75 MG Oral Bedtime 30 November 18, 2017 9:20am Duloxetine Discontinued 60 MG Oral Daily 30 November 18, 2017 9:22am December 26, 2018 12:11pm Metformin Active 1000 MG Oral Twice a Day 60 November 18, 2017 9:23am Problems Active Problems Medical Problem Onset Date Status Stage II pressure ulcer Active Above-knee amputation of right lower extremity Active B12 deficiency Active DVT (deep venous thrombosis) Active Type 2 diabetes mellitus Active Depression Active Hypothyroidism Active 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 Non-healing open wound of right groin Active Iron deficiency anemia Active Ankle pain, right Acti ve Personal history of peptic ulcer disease Active GERD (gastroesophageal reflux disease) Active Chronic bronchitis Act johnathon Hypertension Active Abdominal wound dehiscence Active Inactive/Resolved Problems Medical Problem Onset Date Status MSSA bacteremia Resolv ed Epistaxis Resolved GI bleeding Resolved Sepsis Resolved Intermittent epigastric abdominal pain Resolved Acute blood loss anemia Resolved Procedures Procedure Date Performed Status Nasal Cautery for Hemorrhage Control (Not Applicable) February 01, 2019 10:40am completed Relevant Diagnostic Tests and/or Laboratory Data Laboratory Results Test Date/Time Result Interpretation Reference Range Result Comment Performing Site Bedside Glucose February 01, 2019 8:15am 113 mg/dL 70-99 Point of Care Testing, [facility] [address] [facility] [address] Health Concerns Health Concerns may be documented in an alternate section. Advance Directives Advance Directive Response Recorded Date/Time Advance Directive on File? No November 08, 2017 10:08am Encounters Encounter Location(s) Ar rival/Admit Date Discharge/Depart Date Provider(s) Departed Surgical Day Care [facility] February 01, 2019 8:03am February 012018 1:32pm Derian Morse Assessments No Assessments Information Available Family History Relationship Condition A ge at Onset Recorded Date/Time Unknown Family History U nknown December 15, 2018 4:05pm Functional Status No Functional Status information available Goals Acute Goals Problem: Risk of Post Op Complications r elated to: Endoscopic Control of Epistaxis Goal: Patient will remain free of post op complications. Plan: Refer to patient instructions provided. Immunizations No Immunization Information Available Mental Status No Mental Status Information Available Medical Equipment No Medical Equipment Information available Insurance Providers Guarantor Lisandra Marshall Address [address] [facility] [address] Contact Info. Home Phone: Payer Policy Id Coverage Id Subscriber's Name Subscriber Id Effective Date Expiration Date [employer] [id number] Lisandra Marshall [id number] [employer] Senior Supplemental [id number] Lisandra Marshall [id number] Medicare [id number] Lisandra Marshall [id number] Medicaid [id number] Lisandra Marshall [id number] 2009 Self Pay Self N/A Plan of Treatment Future Tests Future scheduled test information is unavailable Pending Tests Pending diagnostic test information is unavailable Future Visits Future appointment information is unavailable Referrals to Other Providers Reason for Referral Referral Start Date Provider Provider Conta ct Information Provider Address Outpatient Physical Therapy OTHER OTHER Appointment Location: [address] [facility] Bebo Stallworth MD Work Phone: [address] [address] Patient needs CBC, CMP, CRP, ESR, INR on 11/21 Ma tiffanie John MD Work Phone: [address] [place] [address] DR.NONE WATTNONE OTHER OTHER Appointment location: [address] [id number] 03 Bebo Stallworth MD Work Phone: [address] [phone] [facility] DR.NONE OATES Arrive to appointment by 2:20 pm Johnathan Winn MD Work Phone: [address] [place] [facility] [address] Murali John MD Work Phone: [address] [place], [place] [phone] Derian Morse Work Phone: [address] [facility], [place] [address] [facility] [address] Murali John MD Work Phone: [address] [place] [address] [facility] [address] Appointment location: [address] [facility] Bebo Stallworth MD Work Phone: [address] [facility]. [facility] [address] Future Procedures Future procedure information is unavailable Future Medications Future medication information is unavailable Patient Instructions Gastroesophageal Reflux Disease (ED) Retiro de material de osteosntesis (DC ) Warm Compress or Soak (DC) Cephalexin (By mouth) (Bio-Cef, Keflex) Sucralfate (By mouth) (Carafate) Amitriptyline (By mouth) (Sentravil PM-25) Warfarin (By mouth) (Coumadin, Jantoven) Morphine, Rapid Release (By mouth) (Roxanol) Fentanyl (Absorbed through the skin) (Duragesic, Ionsys, Novaplus... Gabapentin (By mouth) (Neurontin, FusePaq Fanatrex, Gralise,... Morphine (By injection) (Astramorph/PF, Duramorph, Infumorph 200,... Losartan (By mouth) (Cozaar) Metformin (By mouth) (Glucophage, Glucophage XR, Fortamet, Appformin) Morphine, Slow Release (By mouth) (AVINza, Sophia, MS Contin,... Duloxetine (By mouth) (Cymbalta, Irenka) Sitagliptin (By mouth) (Januvia) Iron Rich Diet (DC) Iron Deficiency Anemia (DC) Vitamin K in Foods (DC) Anemia (DC) Wound Dehiscence (ED) Aspirin (By mouth) (Evelyne Extra Strength , Evelyne Aspirin Children's,... Folic Acid (By mouth) (FA-8, Falessa, Folacin-800, Methylfolate) Oxycodone, Rapid Release (By mouth) (ETH-Oxydose, Oxy IR,... Polyethylene Glycol 3350 (By mouth) (MiraLAX, Healthylax... Above the Knee Amputation (DC) [facility] General Surgery Dismissal Instructio ns Social History Smoking Status Status Date of Observation Ex-smoker (finding) February 01 11:52am Observation Status Observation Response Waqas e of Response quit date 3 years ago Oc tober 2018 4:05pm second hand exposure No February 01, 2019 11:52am alcohol intake occasionally February 01, 2019 11:52am household members spouse December 15, 2018 4:05pm service No Octo 2018 4:05pm Recent Travel No December 15, 2018 4:05pm current occupational status disabled December 15, 2018 4:05pm current occupational exposures/hazards No December 15, 2018 4:05pm Assigned Sex Female Vital Signs Vital Reading Result Ref erence Range Collection Date/Time Height 67 [in_i] January 29, 2019 3:05pm Weight 170.00 [lb_av] February 01, 2019 8:15am Body Temperature 97.4 [degF] 97.5-99.5 February 01, 2019 12:05pm Heart Rate 93 /min 60-90 February 01, 2019 1:05pm Respiratory rate 16 /min 12-20 February 01, 2019 1:05pm Oxygen saturation by Pulse oximetry 91 % 90- 100 February 01, 2019 1:05pm BP Systolic 136 mm[Hg] 1 00-160 February 01, 2019 1:05pm BP Diastolic 67 mm[Hg] 5 0-80 February 01, 2019 1:05pm Hospital Discharge Instructions Additional Instructions SINUS SURGERY 1. You can expect to experience nasal congestion and pressure for 1-2 weeks foll owing surgery. 2. It is not unusual to have a fever 1-7 days after surgery. Increasing your flu id intake will help reduce your fever. Call the office if your temperature is higher than 101.5 F. 3. You will have minimal bleeding 1-5 days after surgery. This should turn from red in color to a clear watery drainage wit a pink tinge. 4. Use saline nasal spray to keep the nostrils moist and help with the congestio n. This can be purchased from the pharmacy of your choice without a prescription. 5. Please rest during the first 2-3 days after surgery; it will help to reduce p ain and swelling. 6. Comfort measures may include: cool compresses, humidification, and elevation of the head of the bed or use a recliner (avoid lying flat), adequate fluid intake, and a quiet env ironment. 9. Avoid nose blowing and bending forward. Cough and/or sneeze with your mouth o pen for the first week after surgery. 11. Report signs and symptoms of infection, bleeding, visual problems, increased swelling and/or pain. 12. Aspirin products should not be used unless otherwise directed by your physic diana. 13. For Adults-It is not safe to drive while taking a narcotic pain reliever. Yo u should have a city bus driver if you have taken a pain pill in the past 8 hours. 14. For Adults-You should not drive for 24 hours after anesthesia. 15. If you have any questions or concerns please call the office at [phone] . Follow Up Office Appointment: February 13 at 2:30 p.m Please arrive 15 minutes prior to appointment time.
--- OUTSIDE RECORDS SUMMARY | 2019-07-27 11:50 | XMS REPORT | Continuity of Care Document ---
Author Author [facility] Address [address] [place] [address] Phone Care Team Providers [facility] Director Name Role Phone , NONE PCP Unavailable Alberto Dela Cruz Admphys Alberto Dela Cruz Attphys Allergies, Adverse Reactions, Alerts Allergen Type Severity Reaction Last Updated Verified Status prednisone Allergy Severe "THROAT CLOSES UP" May 28, 2017 Yes Active doxycycline Allergy Swelling of Lip/Tongue/Throat May 282017 Yes Active lisinopril Allergy Cough May 28, 2017 Yes Ac tive zolpidem Allergy Agitated May 28, 2017 Yes Act johnathon Medications Medication Status Dose Units Route Sig Qty Days Start Date End Date Instructions Meloxicam Discontinued 15 MG Oral Daily December 16, 2018 7:28am December 26, 2018 12:11pm Sulfamethoxazole-Trimethoprim Active 1 TAB Oral Q12H December 16, 2018 7:28am Hydrocodone-Acetaminophen Discontinued 0.5 - 1 TAB Oral Q6H December 16, 2018 7:28December 26, 2018 12:11pm Losartan Active 100 MG Oral Daily December 16, 2018 10: 37am Citalopram Active 20 MG Oral Bedtime December 16, 2018 11:10am Levothyroxine Discontinued 50 MCG Oral Daily Octo 2018 11:10am December 20, 2018 4:34pm Levothyroxine Active 450 MCG Oral Daily December 16 11:10am Lactobacillus Rhamnosus Gg Active 1 CAP Oral Twice a Day December 16, 2018 11:10am Potassium Chloride Discontinued 10 MEQ Oral Daily December 16, 2018 11:28am December 26, 2018 12:11pm Insulin Aspart U-100 Discontinued 20 UNIT Subcutaneous Twice a D ay December 16, 2018 11:28am December 26, 2018 12:11pm Gabapentin Active 300 MG Oral Daily December 20, 2018 1 :03pm Sucralfate Discontinued 1 GM Oral Four Times Daily December 20, 2018 1:05pm December 26, 2018 12:11pm Phytonadione (Vitamin K1) Discontinued 300 MCG Oral Daily December 20, 2018 1:05pm December 26, 2018 12:11pm Levothyroxine Active 50 MCG Oral Daily December 21 2:23pm TAKE W/ 450MCG TABLET FOR TOTAL DOSE OF 500MCG Polyethylene Glycol 3350 Active 17 GM Oral Twice a Day 0 December 26, 2018 12:05pm Cyanocobalamin (Vitamin B-12) Active 500 MCG Oral Daily December 26, 2018 12:05pm Aspirin Active 81 MG Oral Twice a Day 0 December 26 12:05pm Folic Acid Active 1 MG Oral Daily December 26, 2018 1 2:05pm Oxycodone Active 5 MG Oral Every 4 Hours December 26, 2018 12:05pm Pnv,Calcium 30-Payd-Yuxib Acid Active 1 TAB Oral Daily 3 0 December 26, 2018 12:05pm Losartan Discontinued 75 MG Oral Daily October 172017 1:35pm October 27, 2017 11:03am Furosemide Discontinued 40 MG Oral Daily October 17, 2017 1:35pm October 27, 2017 11:03am Tizanidine Discontinued 4 MG Oral Q8H October 17, 2017 1:35pm October 27, 2017 11:03am Levothyroxine Discontinued 300 MCG Oral Daily 2017 1:35pm October 27, 2017 11:03am Meloxicam Discontinued 15 MG Oral Daily September 292017 1:35pm October 27, 2017 11:03am Hydrocodone-Acetaminophen Discontinued 0.5 - 1 TAB Oral Q6H October 17, 2017 1:35pm October 27, 2017 11:03am Amitriptyline Discontinued 50 MG Oral Bedtime Sep 1:35pm October 27, 2017 11:03am Levothyroxine Discontinued 100 MCG Oral Daily 2017 1:35pm October 27, 2017 11:03am Citalopram Discontinued 20 MG Oral Bedtime October 17, 2017 1:35pm October 27, 2017 11:03am Pantoprazole Discontinued 40 MG Oral Daily 2017 1:35pm October 27, 2017 11:03am Metformin Discontinued 1000 MG Oral Twice a Day Sep 1:35pm October 27, 2017 11:03am Docusate Sodium Discontinued 100 MG Oral Twice a Day October 17, 2017 1:35pm October 27, 2017 11:03am Insulin Aspart U-100 Discontinued 15 UNIT Subcutaneous Three Times Daily with Meals October 17, 2017 1:35pm October 27 8 11:03am Insulin Glargine Discontinued 35 UNIT Subcutaneous Bedtime October 17, 2017 1:35pm October 27, 2017 11:03am Cholecalciferol (Vitamin D3) Discontinued 2000 UNIT Oral Daily October 17, 2017 1:35pm October 27, 2017 11:03am Furosemide Discontinued 20 MG Oral Daily 0 October 27, 2017 10:55am November 10, 2017 12:13pm Amitriptyline Discontinued 75 MG Oral Bedtime 0 Sep 10:55am November 10, 2017 12:13pm Losartan Discontinued 150 MG Oral Daily 0 October 272017 10:57am November 10, 2017 12:13pm Levothyroxine Discontinued 400 MCG Oral 0600 0 2017 10:57am November 10, 2017 12:30pm Tizanidine Active 4 MG Oral Q8H November 10, 2017 11:59am Meloxicam Discontinued 15 MG Oral Daily 2017 11:59am November 18, 2017 10:47am Hydrocodone-Acetaminophen Discontinued 0.5 - 1 TAB Oral Every 6 H November 10, 2017 11:59am November 18, 2017 10:47am Citalopram Discontinued 20 MG Oral Bedtime 2017 11:59am November 18, 2017 10:47am Pantoprazole Active 40 MG Oral Daily November 10 11:59am Docusate Sodium Active 100 MG Oral Twice a Day Sep tember 2017 11:59am Insulin Aspart U-100 Discontinued 15 UNIT Subcutaneous Three Franc es a Day November 10, 2017 11:59am November 18, 2017 10:47am Insulin Glargine Discontinued 35 UNIT Subcutaneous Bedtime November 10, 2017 11:59am November 18, 2017 10:47am Cholecalciferol (Vitamin D3) Active 2000 UNIT Oral Daily November 10, 2017 11:59am Losartan Discontinued 75 MG Oral Daily November 10, 2017 12:13pm November 18, 2017 10:47am Furosemide Discontinued 40 MG Oral Daily er 2017 12:13pm December 26, 2018 12:11pm Amitriptyline Discontinued 50 MG Oral Bedtime Sep tember 2017 12:13pm November 18, 2017 10:47am Amitriptyline Active 75 MG Oral Bedtime 30 November 18, 2017 9:20am Duloxetine Discontinued 60 MG Oral Daily 30 er 2017 9:22am December 26, 2018 12:11pm Metformin [...] Active Non-healing open wound of right groin Ac tive Iron deficiency anemia Active Ankle pain, right Active Personal history of peptic ulcer disease Active GERD (gastroesophageal reflux disease) A ctive Chronic bronchitis Active Hypertension Active Abdominal wound dehiscence Active Inactive/Resolved Problems Medical Problem Onset Date Status MSSA bacteremia Resolved Epistaxis Resolved GI bleeding Resolved Sepsis Resolved Intermittent epigastric abdominal pain R esolved Acute blood loss anemia Resolved Procedures No procedure information available. Relevant Diagnostic Tests and/or Laboratory Data Laboratory Results Test Date/Time Result Interpretation Reference Range Result Co mment Performing Site White Blood Count December 25, 2018 5:11am 7.1 10^3/uL 4.5- 11.[address] [address] Red Blood Count December 25, 2018 5:11am 2.87 10^6/uL 3.50- 5.[address] [address] Hemoglobin December 25, 2018 5:11am 9.4 g/dL 12.0-16.[address] [address] Hematocrit December 25, 2018 5:11am 29.0 % 36-[address] [address] Mean Corpuscular Volume December 25, 2018 5:11am 101.2 fL 79-99 [facility], [address] [place] [address] Mean Corpuscular Hemoglobin December 25, 2018 5:11am 32.8 pg 25.0-34.0 [facility], [address] [place] [address] Mean Corpuscular Hemoglobin Concent December 25, 2018 5:11am 32.4 g/dL 31.0-36.0 [facility], [address] [place] [address] Red Cell Distribution Width December 25, 2018 5:11am 17.4 % 11.0-15.0 [facility], [address] [place] [address] Platelet Count December 25, 2018 5:11am 357 10^3 uL 130-400 [facility], [address] [place] [address] Mean Platelet Volume December 25, 2018 5:11am 7.7 fL 7.0 -11.0 [facility], [address] [place] [address] Neutrophils (%) (Auto) December 18, 2018 6:03am 57.2 % 4 3.0-72.0 [facility], [address] [place] [address] Lymphocytes (%) (Auto) December 18, 2018 6:03am 18.8 % 1 5.0-45.0 [facility], [address] [place] [address] Monocytes (%) (Auto) December 18, 2018 6:03am 14.7 % 1.0 -12.0 [facility], [address] [place] [address] Eosinophils (%) (Auto) December 18, 2018 6:03am 8.2 % 0 .0-6.0 [facility], [address] [place] [address] Basophils (%) (Auto) December 18, 2018 6:03am 1.1 % 0.0 -2.0 [facility], [address] [place] [address] Neutrophils # (Auto) December 18, 2018 6:03am 3.6 10^3 uL 1 .0-8.0 [facility], [address] [place] [address] Lymphocytes # (Auto) December 18, 2018 6:03am 1.2 10^3 uL 1 .0-3.0 [facility], [address] [place] [address] Monocytes # (Auto) December 18, 2018 6:03am 0.9 10^3 uL 0.0 -1.0 [facility], [address] [place] [address] Eosinophils # (Auto) December 18, 2018 6:03am 0.5 10^3 uL 0 .0-0.4 [facility], [address] [place] [address] Basophils # (Auto) December 18, 2018 6:03am 0.1 10^3 uL 0.0 -0.2 [facility], [address] [place] [address] Neutrophils % (Manual) December 25, 2018 5:11am 65.0 % 5 0-65 [facility], [address] [place], [place] [phone] Band Neutrophils % (Manual) December 20, 2018 5:59am 2.0 % 0-10 [facility], [address] [place] [address] Lymphocytes % (Manual) December 25, 2018 5:11am 16.0 % 1 5-45 [facility], [address] [place] [address] Monocytes % (Manual) December 25, 2018 5:11am 6.0 % 0-1 0 [facility], [address] [place], [place] [phone] Eosinophils % (Manual) December 25, 2018 5:11am 13.0 % 0 -5 [facility], [address] [place] [address] Neutrophils # (Manual) December 25, 2018 5:11am 4.6 # 1 .0-8.0 [facility], [address] [place] [address] Lymphocytes # (Manual) December 25, 2018 5:11am 1.1 # 1 .0-3.0 [facility], [address] [place] [address] Monocytes # (Manual) December 25, 2018 5:11am 0.4 # 0.0 -1.0 [facility], [address] [place] [address] Eosinophils # (Manual) December 25, 2018 5:11am 0.9 # 0 .0-0.4 [facility], [address] [place] [address] Hypochromasia December 20, 2018 5:59am 1+ [facility], [address] [place] [address] Anisocytosis December 25, 2018 5:11am 1+ [facility], [address] [place] [address] Macrocytosis December 25, 2018 5:11am 1+ [facility], [address] [place] [address] Sodium Level December 25, 2018 5:11am 138 mmol/L 135-150 [facility], [address] [place] [address] Potassium Level December 25, 2018 5:11am 4.6 mmol/L 3.4-5.2 [facility], [address] [place] [address] Chloride Level December 25, 2018 5:11am 105 mmol/L 100-112 [facility], [address] [place] [address] Carbon Dioxide Level December 25, 2018 5:11am 24 mEq/L 18- 30 [facility], [address] [place] [address] Anion Gap December 25, 2018 5:11am 9 mmol/L 8-11 [facility], [address] [place] [address] Blood Urea Nitrogen December 25, 2018 5:11am 35 mg/dL 5-21 [facility], [address] [place] [address] Creatinine December 25, 2018 5:11am 1.17 mg/dL 0.60-1.30 [facility], [address] [place] [address] Glomerular Filtration Rate Calc December 25, 2018 5:11am 47 mL/Min The GFR is not validated for use in drug dosing adjustments.Continue to use estimated creatinine clearance per dosingreference text.Chronic Kidney Disease is defined as either kidney damage ora GFR less than 60 ml/min that persists for at least 3months. Stage 3 = 30-59 ml/min Stage 4 = 15-29 ml/min Stage 5 = <15 ml/min [facility], [address] [place] [address] Glucose Level December 25, 2018 5:11am 96 mg/dL 70-99 [facility], [address] [place] [address] Calcium Level December 25, 2018 5:11am 9.2 mg/dL 8.6-10.5 [facility], [facility] [address] [address] Thyroid Stimulating Hormone (Reflex December 18, 2018 6:03am 1.111 uIU/mL 0.35-4.[address] [address] Health Concerns No known health concerns documented Advance Directives Advance Directive Response Recorded Date/Time Advance Directive on File? No October 10:08am Encounters Encounter Location(s) Arrival/Admit Date Discharge/Depart Date Provider(s) Discharged Inpatient [address] [facility] November 08, 2017 10:00am November 18, 2017 11:15am Alberto Graham Discharged Inpatient [address] [facility] December 15, 2018 3:59pm December 27, 2018 9:38am Alberto Graham Assessments No Assessments Information Available Family History Relationship Condition Age at Onset Recorded Date/Ti me Unknown Family History Unknown December 15 4:05pm Functional Status Observation Response Date Recorded Bathing Ability Standby Assistance December 27, 2018 1 0:03am Upper Body Dressing Ability Independent November 10:03am Eating (Feeding) Ability Independent December 27 019 10:03am Toileting Ability Independent December 27, 2018 1 0:03am Ambulation Ability Standby Assistance December 27, 2018 1 0:03am Goals Acute Goals Problem: Weakness Goal: Increased strength. Plan: Refer to patient instructions provided. Immunizations No Immunization Information Available Mental Status Observation Response Date Recorded Neurological exam IM alert December 26, 2018 12:24pm oriented X3 December 26, 2018 1 2:24pm moving all extremities December 26 9 12:24pm normal speech December 26, 2018 1 2:24pm Medical Equipment No Medical Equipment Information available Insurance Providers Guarantor Lisandra Marshall Address [address] [facility] [address] Contact Info. Home Phone: Payer Policy Id Coverage Id Subscriber's Name Subscriber Id Effect johnathon Date Expiration Date [employer] [id number] Lisandra Marshall [id number] [employer] Senior Supplemental [id number] Lisandra Marshall [id number] Medicare [id number] Lisandra Marshall [id number] Medicaid [id number] Lisandra Marshall [id number] 2009 Self Pay Self N/A Plan of Treatment Future Tests Future scheduled test information is unavailable Pending Tests Pending diagnostic test information is unavailable Future Visits Future appointment information is unavailable Referrals to Other Providers Reason for Referral Referral Start Date Provider Provider Conta ct Information Provider Address Arrive to appointment by 2:20 pm Alpa Mann Work P fernando: [address] [place]. [address] [facility] [address] J Self [employer] Work Phone: [phone] [facility] [address] [place] [facility] Work Phone: [phone] [facility], [place] [address] [facility] [address] Future Procedures Future procedure information is unavailable Future Medications Future medication information is unavailable Patient Instructions Aspirin (By mouth) (Evelyne Extra Strength , Evelyne Aspirin Children's,... Folic Acid (By mouth) (FA-8, Falessa, Folacin-800, Methylfolate) Oxycodone, Rapid Release (By mouth) (ETH-Oxydose, Oxy IR,... Polyethylene Glycol 3350 (By mouth) (MiraLAX, Healthylax... Above the Knee Amputation (DC) Social History Smoking Status Status Date of Observation Ex-smoker (finding) December 15, 2018 4:05pm Observation Status Observation Response Date of Response quit date 3 years ago December 15, 2018 4 :05pm household members spouse December 15, 2018 4 :05pm service No December 15, 2018 4 :05pm Recent Travel No December 15, 2018 4 :05pm current occupational status disabled November 4:05pm current occupational exposures/hazards No O ct2018 4:05pm Assigned Sex Female Vital Signs Vital Reading Result Reference Range Collection Date/ Time Height 70 [in_i] December 18 11:17am Weight 174.00 [lb_av] December 24 5:00am Body Temperature 97.8 [degF] 97.5-99.5 December 27, 2 019 7:00am Heart Rate 92 /min 60-90 December 27 7:52am Respiratory rate 16 /min 12-December 27, 2 019 7:00am Oxygen saturation by Pulse oximetry 100 % 90-100 December 27, 2018 7:00am BP Systolic 118 mm[Hg] 100-160 December 27 7:52am BP Diastolic 60 mm[Hg] 50-80 December 27 7:52am BMI (Body Mass Index) 28.3 kg/m2 December 182018 11:17am Hospital Discharge Instructions Additional Instructions Diet and activity as tolerated Call Riddhi JACINTO at to reschedule your appointment
--- OUTSIDE RECORDS SUMMARY | 2019-07-27 11:50 | XMS REPORT | Continuity of Care Document ---
[facility] Address [address] [place] [address] Care Team Providers Care Impersonator Character Name Role Phone Self, Murali Cobb PCP Unavailable Sergio Cummings Rndphys Unavailable Allergies, Adverse Reactions, Alerts Allergen Type Severity Reaction Last Updated Verified Status prednisone Allergy Severe "THROAT CLOSES UP" May 28, 2017 Y Active doxycycline Allergy Swelling of Lip/Tongue/Throat April Y Active lisinopril Allergy Cough May 28, 2017 Y Acti ve zolpidem Allergy Agitated May 28, 2017 Y Activ e Medications Active Medications Medication Dose Units Route Sig Qty Start Date Status In structions Tizanidine 4 MG Oral Q8H PRN November 10, 2017 Ac tive Pantoprazole 40 MG Oral Daily November 10, 2017 Active Docusate Sodium 100 MG Oral Twice a Day October Active Cholecalciferol (Vitamin D3) 2000 UNIT Oral Daily Sep 2017 Active Furosemide 40 MG Oral Daily PRN November 10, 2017 Active Levothyroxine 400 MCG Oral Daily November 10, 2017 Active Fentanyl 25 MCG Transdermal Q72H November 15, 2017 Active Morphine 15 MG Oral Every 3 Hours PRN November 15, 2017 Active Amitriptyline 75 MG Oral Bedtime 30 November 18, 2017 Active Cephalexin 1000 MG Oral Three Times a Day 180 October 302017 Active Losartan 150 MG Oral Daily 45 November 18, 2017 Acti ve Duloxetine 60 MG Oral Daily 30 November 18, 2017 Ac tive Gabapentin 300 MG Oral Three Times a Day 90 October 302017 Active Metformin 1000 MG Oral Twice a Day 60 November 18, 2017 Active Rifampin 450 MG Oral Twice a Day 180 November 18, 2017 Active Sitagliptin [Januvia] 100 MG Oral Daily 30 November 18, 2017 Active Warfarin [Coumadin] 20 MG Oral 1600 10 October Active Get INR checked at Dr. John's office and they will refill Sucralfate 1 GM Oral Bedtime 14 November 18, 2017 Ac tay Discontinued Medications Medication Dose Units Route Sig Qty Start Date Discontinued Waqas e Status Instructions Losartan 75 MG Oral Daily October 17, 2017 October 27 18 Discontinued Furosemide 40 MG Oral Daily PRN October 17, 2017 September 302017 Discontinued Tizanidine 4 MG Oral Q8H PRN October 17, 2017 October 27, 2017 Discontinued Levothyroxine 300 MCG Oral Daily October 17, 2017 September 302017 Discontinued Meloxicam 15 MG Oral Daily October 17, 2017 October 27 Discontinued Hydrocodone-Acetaminophen 0.5 - 1 TAB Oral Q6H PRN October 17, 2017 October 27, 2017 Discontinued Amitriptyline 50 MG Oral Bedtime October 17, 2017 October 27, 2017 Discontinued Levothyroxine 100 MCG Oral Daily October 17, 2017 September 302017 Discontinued Citalopram 20 MG Oral Bedtime October 17, 2017 October 27, 2017 Discontinued Pantoprazole 40 MG Oral Daily October 17, 2017September Discontinued Metformin 1000 MG Oral Twice a Day October 17, 2017 Au sabine 2017 Discontinued Docusate Sodium 100 MG Oral Twice a Day October 17October 27, 2017 Discontinued Insulin Aspart U-100 [Novolog Flexpen U-100 Insulin] 15 U NIT Subcutaneous Three Times Daily with Meals October 17, 2017 October 27, 2017 Discontinued Insulin Glargine [Lantus Solostar U-100 Insulin] 35 UNIT S ubcutaneous Bedtime October 17, 2017 October 27, 2017 Discontinued Cholecalciferol (Vitamin D3) 2000 UNIT Oral Daily Aug ust 2017October 27, 2017 Discontinued Furosemide 20 MG Oral Daily PRN 0 October 27, 2017 Sep tember 2017 Discontinued Amitriptyline 75 MG Oral Bedtime 0 October 27, 2017 Se ptember 2017 Discontinued Losartan 150 MG Oral Daily 0 October 27, 2017 November 10, 2017 Discontinued Levothyroxine 400 MCG Oral 0600 0 October 27, 2017 Se ptember 2017 Discontinued Meloxicam 15 MG Oral Daily November 10, 2017 November 18, 2017 Discontinued Hydrocodone-Acetaminophen 0.5 - 1 TAB Oral Every 6 Hours PRN November 10, 2017 November 18, 2017 Discontinued Citalopram 20 MG Oral Bedtime November 10, 2017 Se ptember 2017 Discontinued Insulin Aspart U-100 [Novolog Flexpen U-100 Insulin] 15 U NIT Subcutaneous Three Times a Day November 10, 2017 November 18, 2017 Discontinued Insulin Glargine [Lantus Solostar U-100 Insulin] 35 UNIT S ubcutaneous Bedtime November 10, 2017 November 18, 2017 Discontinued Losartan 75 MG Oral Daily November 10, 2017 November 18, 2017 Discontinued Amitriptyline 50 MG Oral Bedtime November 10, 2017 November 18, 2017 Discontinued Problem List Active Problems Medical Problem Onset Date Status B12 deficiency Active DVT (deep venous thrombosis) [...] Acute blood loss anemia Resolved Procedures No known history of procedures. Relevant Diagnostic Tests and/or Laboratory Data Discharge Summary Encounter: Discharged Inpatient Admit Date: November 08, 2017 10:00am Discharge Date: November 18, 2017 11:15am [address] [id number] Summary Patient: Lisandra Marshall MR#: [id number]: [id number] Acct:[id number]/Sex: 62 / F Adm/Svc Date: 11/08/17Loc: 2S REHAB Discharge Date:11/18/[address]: Gladys Dela Cruz DO DS: Providers Date of admission: 11/08/17 10:00 Primary care physician: Murali John MD Consults: 11/08/17 13:53 Consult to Dietitian [CONS] Routine Reason:: Eval and treat Consult to OT: [CONS] Routine Reason:: Evaluate pt, develop/implement careplan; adaptive equipment per therapist. Consult to Physical Therapy [CONS] Routine Reason:: PT eval and treat Consult to Solid Waste Division Supervisor [CONS] Routine Reason For Exam: Assist with discharge planning Consult to Speech Therapy [CONS] Routine Reason:: ST eval and treat Date of discharge: 11/18/17 DS: Summary Hospital course: This is a 62-year-old female with past medical history of right hip and knee replacements as well as diabetes, hypertension, asthma, COPD, anemia and previous TIA. She was admitted to on 726 as a transfer from [facility] in [facility]. She originally presented to [facility] in [facility] with right-sided weakness and inability to move. She was found to be septic and transferred to [facility] in [place] where she had MSSA bacteremia and sepsis secondary to infected right hip and joint prosthesis. She was transferred to for definitive orthopedic management once her sepsis had resolved. Infectious disease saw the patient at . There she was started on Ancef and rifampin. On 09/30 patient had irrigation and debridement of the right hip. On 10/03 she had further irrigation and debridement of the right hip as well as I&D of the right knee with polyethylene insert change in I&D of the right groin abscess she went back to the OR again on 10/07 with I&D of the right hip with reimplantation of right total hip arthroplasty and repacking of the right groin abscess. Patient's course was complicated by severe pain and the pain team at was consulted. Patient also had some hypoxia related to fluid overload. ID recommended 6 weeks of IV antibiotics starting on 10/07 with an end date of 11/17. They also recommend prolonged antibiotics suppression with rifampin for at minimum of 6 months. She was severely weak after all of her surgery and debilitated. Physical medicine and rehab was consulted and recommended further rehabilitation. She had difficulty with her pain while on skilled. She was started on fentanyl patch and switched to morphine from oxycodone. She also had severely flat affect and her anti-depressant was changed. She progressed slowly with therapy. Her right ankle pain was a limiting factor. She continued her antibiotics. Wound culture showed pseudomonas and she will be treated with levaquin for 1 week for this. She did have a significant hemoglobin drop and required [address] Sinclair was consulted and performed an EGD on 10/19 which showed gastric ulcer. Her PPI was continued and she was started on carafate. Her therapeutic lovenox was changed to DVT doses and her coumadin was continued. Her INR is not yet therapeutic. Her repeat US continued to not rule out DVT. She followed up with on 10/28 with ortho and ID. She was able to perform car transfer with PT and will be able to be transferred out of the car at . Her appointments went well and she was readmitted to [facility] on 10/28 after her appointments. She progressed well while on [facility] and continued her IV antibiotics. She was able to start taking steps and her activity tolerance and pain control improved to the point that she was reevaluated for rehab and felt to be a good candidate. The patient arrived in a fair condition to our facility. The patient was evaluated by PT, OT and speech therapy with appropriate treatment plans made and initiated. The patient had bowel and bladder programs initiated as well as evaluation by nutrition. Patient was to receive 24 hour rehab nursing. The patient was felt to be capable of tolerating 3 hours of therapy daily. The patient was noted to remain stable of the day of admission. Patient continued to have right ankle pain and was transitioned from a Cam walker to an air splint. This did seem to give her adequate support but allowed her to move better. She continued to receive her IV antibiotics for infected prosthetics. We were in frequent contact with her infection disease doctor Dr. Sterling in [place]. Her pain control did improve and she was continued on her fentanyl patch and oral morphine. Due to the rifampin, we had significant difficulty with her INR being therapeutic. This required multiple adjustments of her Coumadin and frequent monitoring. She also became anemic again prior to discharge and was transfused another unit of packed red blood cells. She does have outpatient follow-up with hematology. Her grandson was getting on the so her goal was to discharge on the to that she could attend his wedding. We were able to meet this goal for her. There was concern about her ability to do shower transfers and therefore home health was ordered. She does have follow-up arranged with for orthopedics and infectious disease. We also got her follow-up with her primary care and hematology. Due to her poor activity tolerance and concerns for falls, she was discharged at a wheelchair level. The patient progressed towards her goals and ultimately attained these to the point that they were able to return home and pursue outpatient therapies to facilitate their ongoing recovery. Patient was discharged home on the as planned. The patient was weightbearing as tolerated and was to use wheelchair within the home. FIM Scores: Patients eating score improved. She remained at minimal assistance supervision level for grooming dressing and toileting. She did improve significantly with transfers being modified independence for bed and chair as well as toilet. She was supervision level for tub transfer. She was able to self propel the wheelchair greater than 150 feet the patient's pain was controlled at discharge. The patient was felt to have had an good response to rehab interventions with ongoing improvement anticipated on an outpatient basis. Total Discharge Time Greater than 30 minutes Exam Vital Signs: Temp Pulse Resp BP Pulse Ox 97.1 F L 93 H 16 144/66 95 11/18/17 07:28 11/18/17 07:28 11/18/17 07:28 11/18/17 07:28 11/18/17 08:13 Constitutional Present no acute distress and cooperative Routine Respiratory Exam Present CTA bilaterally; Absent accessory muscle use Routine Cardiovascular Exam Present RRR; Absent murmur Routine Abdominal Exam Present soft and normoactive bowel sounds; Absent tenderness Routine Extremities Exam Present edema and full ROM Routine Skin Exam Present intact, dry and warm; Absent rash Routine Neurological Exam Present alert, oriented X3, moving all extremities and normal speech; Absent motor deficit Routine Psychiatric Exam Present normal affect and normal thought process DS: Data Labs on day of discharge: Labs from last 24 hours 11/18/17 11/18/17 11/18/17 06:20 06:20 06:13 Hgb 7.4 L Hct 24.7 L PT 27.0 H INR 2.51 H POC Glucose 90 Blood Type Rho(D) Type Pat RBC Antigen Screen Antibody Screen Antibody Identification Direct Antiglob Test Blood Bank Wristband ID Crossmatch ([facility]) 11/17/17 11/17/17 11/17/17 20:30 16:28 11:39 Hgb Hct PT INR POC Glucose 174 H 151 H 116 H Blood Type Rho(D) Type Pat RBC Antigen Screen Antibody Screen Antibody Identification Direct Antiglob Test Blood Bank Wristband ID Crossmatch ([facility]) 11/16/17 10:15 Hgb Hct PT INR POC Glucose Blood Type A Positive Rho(D) Type Positive Pat RBC Antigen Screen Cancelled Antibody Screen POSITIVE Antibody Identification Anti-K Direct Antiglob Test Negative Blood Bank Wristband ID be [id number] Crossmatch ([facility]) See Detail Assessment and Plan (1) 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: Current visit: No Status: Acute (2) 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: Current visit: No Status: Acute (3) Ankle pain, right: Current visit: No Status: Acute (4) GI bleeding: Current visit: No Status: Resolved (5) Acute blood loss anemia: Current visit: No Status: Resolved (6) DVT (deep venous thrombosis): Current visit: No Status: Acute (7) Iron deficiency anemia: Current visit: No Status: Chronic (8) Hypothyroidism: Current visit: No Status: Chronic (9) Hypertension: Current visit: No Status: Chronic (10) HHT (hereditary hemorrhagic telangi ectasia): Current visit: No Status: Chronic (11) GERD (gastroesophageal reflux disea se): Current visit: No Status: Chronic (12) Type 2 diabetes mellitus: Current visit: No Status: Chronic (13) Depression: Current visit: No Status: Chronic (14) B12 deficiency: Current visit: No Status: Chronic (15) Chronic bronchitis: Current visit: No Status: Chronic Assessment/Plan Plan: Discharge Plan Discharge Patient Disposition: Home Health Service Discharge Location: Home Primary Care Provider: Murali John Admit Provider: Gladys Dela Cruz Attending Provider: Gladys Dela Cruz Admit Date/Time: 11/08/17 10:00 Service: Rehabilitation Discharge Orders: Discharge Order (Routine); Ordered 11/18/17 Ordered By: Gladys Dela Cruz [facility] Discharge Services (Routine); Ordered 11/18/17 Ordered By: Gladys Dela Cruz Prescriptions: New fentanyl 25 mcg/hr Patch 72 Hour 25 mcg Transdermal Q72H Qty: 10 RF: 0 morphine 15 mg Tablet 15 mg PO Q3HR PRNQty: 90 RF: 0 amitriptyline 75 mg tablet 75 mg PO BEDTIME Qty: 30 RF: 0 cephalexin 500 mg Capsule 1,000 mg PO TID Qty: 180 RF: 0 losartan 100 mg tablet 150 mg PO DAILY Qty: 45 RF: 0 duloxetine 60 mg Capsule,Delayed Release(Dr/Ec) 60 mg PO DAILY Qty: 30 RF: 0 gabapentin 300 mg capsule 300 mg PO TID Qty: 90 RF: 0 metformin 1,000 mg tablet 1,000 mg PO BID Qty: 60 RF: 0 rifampin 150 mg capsule 450 mg PO BID Qty: 180 RF: 0 sitagliptin [Januvia] 100 mg Tablet 100 mg PO DAILY Qty: 30 RF: 0 warfarin [Coumadin] 10 mg Tablet 20 mg PO 1600 Qty: 10 RF: 0 sucralfate 1 gram tablet 1 gm PO BEDTIME Qty: 14 RF: 0 Continue tizanidine 4 mg Tablet 4 mg PO Q8H PRNRF: 0 pantoprazole 40 mg Tablet,Delayed Release (Dr/Ec) 40 mg PO DAILY RF: 0 docusate sodium 100 mg Tablet 100 mg PO BID RF: 0 cholecalciferol (vitamin D3) 2,000 unit Tablet 2,000 unit PO DAILY RF: 0 furosemide 40 mg tablet 40 mg PO DAILY PRNRF: 0 levothyroxine 200 mcg tablet 400 mcg PO DAILY RF: 0 Discontinued meloxicam 15 mg Tablet 15 mg PO DAILY RF: 0 hydrocodone-acetaminophen 10-325 mg Tablet 0.5 - 1 tab PO Q6HR MDD 4 tabs PRNRF: 0 citalopram 20 mg Tablet 20 mg PO BEDTIME RF: 0 insulin aspart U-100 [Novolog Flexpen U-100 Insulin] 100 unit/mL Insulin Pen 15 unit SUBCUT TID RF: 0 insulin glargine [Lantus Solostar U-100 Insulin] 100 unit/mL (3 mL) Insulin Pen 35 unit SUBCUT BEDTIME RF: 0 losartan 50 mg tablet 75 mg PO DAILY RF: 0 amitriptyline 25 mg tablet 50 mg PO BEDTIME RF: 0 Condition: Improved Diet/Activity/Additional Instructions: Diet and activity as tolerated Recommend overnight oximetry study after discharge Problems, home medications and medication allergies reviewed?: Yes Follow up care ordered?: Yes Referrals: MONA, [Non billed provider] - 11/22/17 12:00 pm (Outpatient Physical Therapy [facility] [address] [place] [address] Arrive @11:45 Appt is with Jt) Bebo Stallworth MD [Non-Staff] - 11/25/17 9:40 am (Appointment Location: [address] [place] [address] disease [address] Sterling at this appointment as well ) Murali John MD [Primary Care Provider] - Call for Appointment (Patient needs CBC, CMP, CRP, ESR, INR o n 11/[address] Sterling [phone]) Instructions: Cephalexin (By mouth) (MEFS), Sucralfate (By mouth) (MEFS), Amitriptyline (By mouth) (MEFS), Warfarin (By mouth) (MEFS), Morphine, Rapid Release (By mouth) (MEFS), Fentanyl (Absorbed through the skin) (MEFS), Gabapentin (By mouth) (MEFS), Morphine (By injection) (MEFS), Losartan ([place]) (MEFS), Metformin (By mouth) (MEFS), Morphine, Slow Release (By mouth) (MEFS), Duloxetine ([place]) (MEFS), Sitagliptin (By mouth) (MEFS), Iron Rich Diet (DC), Iron Deficiency Anemia (DC), Vitamin K in Foods (DC), Anemia (DC) Interventions: REHAB Discharge Last Done: 11/18/17 10:30 Discharge Assessment Last Done: 11/18/17 10:36 Care Plan Goals: infection of the hardware in knee and hip. will be on rifampin until april. take with applesauce to swallow more easily your urine will continue to be orange in color. follow up with doctor for possible oxygen needs at night. may need to schedule an overnight oximetry with pcp. pain management. take pain medications as prescribed. take off fentanyl patch tuesday11/20/17 and put new patch on. check blood sugars regularly and take oral medications as prescribed. Discharge Date/Time: 11/18/17 11:15 Documented By: Gladys Dela Cruz 11/18/17 0858 Signed By: <Electronically signed by Gladys Dela Cruz> 11/25/17 0816 cc: Murali John MD~ Advance Directives Advance Directive Response Recorded Date/Time Advance Directive on File? No November 08, 2017 10:08am Chief Complaint and Reason for Visit Encounter Admit Date Chief Complaint Reason for Visit Departed Emergency August 30, 2018 5:28pm post operative complaints Hospital Discharge Instructions Additional Discharge Instructions Moist dressings to t he wound area 3 times a day and follow-up with your general surgeon Instruction/Education Provided Wound Dehiscence (ED) Problem: Wound/Laceration Goal: Wound Repair. Return to ADLs. Plan: Refer to patient instructions provided. Hospital Discharge Medications Medication Dose Units Route Sig Qty Days Order Date Status In structions Losartan 75 MG Oral Daily October 17, 2017 Discon tinued Furosemide 40 MG Oral Daily PRN October 17, 2017 D iscontinued Tizanidine 4 MG Oral Q8H PRN October 17, 2017 Dis continued Levothyroxine 300 MCG Oral Daily October 17, 2017 D iscontinued Meloxicam 15 MG Oral Daily October 17, 2017 Disco ntinued Hydrocodone-Acetaminophen 0.5 - 1 TAB Oral Q6H PRN October 17, 2017 Discontinued Amitriptyline 50 MG Oral Bedtime October 17, 2017 Discontinued Levothyroxine 100 MCG Oral Daily October 17, 2017 D iscontinued Citalopram 20 MG Oral Bedtime October 17, 2017 Dis continued Pantoprazole 40 MG Oral Daily October 17, 2017 Di scontinued Metformin 1000 MG Oral Twice a Day October 17, 2017 Discontinued Docusate Sodium 100 MG Oral Twice a Day October 17, 2017 Discontinued Insulin Aspart U-100 15 UNIT Subcutaneous Three Times Daily with Meals October 17, 2017 Discontinued Insulin Glargine 35 UNIT Subcutaneous Bedtime October 17, 2017 Discontinued Cholecalciferol (Vitamin D3) 2000 UNIT Oral Daily October 17, 2017 Discontinued Furosemide 20 MG Oral Daily PRN 0 October 27, 2017 D iscontinued Amitriptyline 75 MG Oral Bedtime 0 October 27, 2017 Discontinued Losartan 150 MG Oral Daily 0 October 27, 2017 Discon tinued Levothyroxine 400 MCG Oral 0600 0 October 27, 2017 D iscontinued Tizanidine 4 MG Oral Q8H PRN November 10, 2017 Active Meloxicam 15 MG Oral Daily November 10, 2017 Di scontinued Hydrocodone-Acetaminophen 0.5 - 1 TAB Oral Every 6 Hours PRN November 10, 2017 Discontinued Citalopram 20 MG Oral Bedtime November 10, 2017 Discontinued Pantoprazole 40 MG Oral Daily November 10, 2017 Active Docusate Sodium 100 MG Oral Twice a Day November 10, 2017 Active Insulin Aspart U-100 15 UNIT Subcutaneous Three Times a Day November 10, 2017 Discontinued Insulin Glargine 35 UNIT Subcutaneous Bedtime Se ptember 2017 Discontinued Cholecalciferol (Vitamin D3) 2000 UNIT Oral Daily Se ptember 2017 Active Losartan 75 MG Oral Daily November 10, 2017 Dis continued Furosemide 40 MG Oral Daily PRN November 10 8 Active Amitriptyline 50 MG Oral Bedtime November 10 18 Discontinued Levothyroxine 400 MCG Oral Daily November 10 8 Active Fentanyl 25 MCG Transdermal Q72H 10 November 15 8 Active Morphine 15 MG Oral Every 3 Hours PRN 90 October 292017 Active Amitriptyline 75 MG Oral Bedtime 30 November 18 18 Active Cephalexin 1000 MG Oral Three Times a Day 180 November 18, 2017 Active Losartan 150 MG Oral Daily 45 November 18, 2017 Act johnathon Duloxetine 60 MG Oral Daily 30 November 18, 2017 A ctive Gabapentin 300 MG Oral Three Times a Day 90 November 18, 2017 Active Metformin 1000 MG Oral Twice a Day 60 November 18 18 Active Rifampin 450 MG Oral Twice a Day 180 November 18 8 Active Sitagliptin 100 MG Oral Daily 30 November 18, 2017 Active Warfarin 20 MG Oral 1600 10 November 18, 2017 Act johnathon Get INR checked at Dr. John's office and they will refill Sucralfate 1 GM Oral Bedtime 14 November 18, 2017 Active Encounters Encounter Facility Location Admit/Visit Date Discharge/Departure Date Attending Provider Departed Emergency [facility] Emergency Department J eugene 2018 5:28pm August 30, 2018 5:57pm Discharged Inpatient [address] Inpatient Re hab November 08, 2017 10:00am November 18, 2017 11:15am Gladys Dela Cruz Family History Query Response Instance Date Recorded Comment Family History cancer diabetes renal disease August 30, 2018 5:44pm Functional Status No known functional status. Immunizations No known immunizations. Payers Payer Name Policy Type Covered Republican Covered Republican Id Relationship Sub scriber Subscriber Id [employer] Preferred Provider Organization (PPO) Lisandra Marshall L [id number] Self / Same As Patient Lisandra Lesterlyle [id number] Medicare Medicare Part A Lisandra Lesterlyle [id number] Self / Same As Pat ient Lisandra Lesterlyle [id number] Medicaid Medicaid Lisandra Lesterlyle [id number] Self / Same As Patient Ada hill Joanna [id number] Self Pay Plan of Care Instructions Wound Dehiscence (ED) Problem: Wound/Laceration Goal: Wound Repair. Return to ADLs. Plan: Refer to patient instructions provided. Social History Query Response Date Recorded Comment Recent Travel No August 30, 2018 5:44pm current occupational exposures/hazards No August 30 019 5:44pm current occupational status disabled August 30, 2018 5:44pm household members spouse August 30, 2018 5:44pm service No August 30, 2018 5:44pm substance use type does not use August 30, 2018 5:44pm Query Response Start Date Stop Date Smoking Status Former smoker Vital Signs Vital Reading Result Reference Range Collection Date/ Time Height 5 ft 10 in August 30, 2018 5:3 9pm Weight 201 lb August 30, 2018 5:3 9pm Temperature 96.9 F 97.5 F-99.5 F August 30, 2018 5:3 6pm Pulse 86 BPM 60-90 August 30, 2018 5:3 6pm Respiration 20 RPM 12-20 August 30, 2018 5:3 6pm Pulse Oximetry 98 % 90-100 August 30, 2018 5:3 6pm Blood Pressure Systolic 140 100-160 August 30, 2018 5:36pm Blood Pressure Diastolic 60 50-80 August 30, 2018 5:36pm Body Mass Index 28.8 August 30, 2018 5:3 9pm
--- OUTSIDE RECORDS SUMMARY | 2019-07-27 11:50 | XMS REPORT | Continuity of Care Document ---
Author [facility] Address [address] [place] [address] Care Team Providers Care Director Of Donor Relations Name Role Phone Self, Murali Cobb PCP [...] 10:00am Discharge Date: November 18, 2017 11:15am [address] [id number] Summary Patient: Lisanrda Marshall MR#: [id number]: 1955 Acct:[id number]/Sex: 62 / F Adm/Svc Date: 11/08/17Loc: 2S [...] Reason:: PT eval and treat Consult to Simulation Specialist [CONS] Routine Reason For Exam: Assist with [...] to on 726 as a transfer from [facility] in [facility]. She originally presented to [facility] in [facility] with right-sided weakness and inability to move. She was found to be septic and transferred to [facility] in [place] where she had MSSA bacteremia and sepsis [...] went well and she was readmitted to [facility] on 10/28 after her appointments. She progressed well while on [facility] and continued her IV antibiotics. She was [...] her infection disease doctor Dr. Sterling in [place]. Her pain control did improve and she [...] Antiglob Test Blood Bank Wristband ID Crossmatch ([facility]) 11/17/17 11/17/17 11/17/17 20:30 16:28 11:39 Hgb Hct PT INR POC Glucose 174 H 151 H 116 H Blood Type Rho(D) Type Pat RBC Antigen Screen Antibody Screen Antibody Identification Direct Antiglob Test Blood Bank Wristband ID Crossmatch ([facility]) 11/16/17 10:15 Hgb Hct PT INR POC Glucose Blood Type A Positive Rho(D) Type Positive Pat RBC Antigen Screen Cancelled Antibody Screen POSITIVE Antibody Identification Anti-K Direct Antiglob Test Negative Blood Bank Wristband ID be [id number] Crossmatch ([facility]) See Detail Assessment and Plan (1) Infection [...] Ordered 11/18/17 Ordered By: Gladys Dela Cruz [facility] Discharge Services (Routine); Ordered 11/18/17 Ordered By: [...] - 11/22/17 12:00 pm (Outpatient Physical Therapy [facility] [address] [place] [address] Arrive @11:45 Appt is with Jt) Bebo Stallworth MD [Non-Staff] - 11/25/17 9:40 am (Appointment Location: [address] [place] [address] [address] Sterling at this appointment as well ) Murali John MD [Primary Care Provider] - Call for Appointment (Patient needs CBC, CMP, CRP, ESR, INR o n 11/[address] Sterling [phone]) Instructions: Cephalexin (By mouth) (MEFS), Sucralfate (By [...] Date Discharge/Departure Date Attending Provider Departed Emergency [facility] Emergency Department J eugene 2018 5:28pm August 30, 2018 5:57pm Discharged Inpatient [address] Inpatient Re hab November 08, 2017 [...] Preferred Provider Organization (PPO) Lisandra Marshall [id number] Self / Same As Patient Lisandra Lesterlyle [id number] Medicare Medicare Part A Lisandra Lesterlyle [id number] Self / Same As Pat ient Lisandra Lesterlyle [id number] Medicaid Medicaid Lisandra Lesterlyle [id number] Self / Same As Patient Ada hill Joanna [id number] Self Pay Plan of Care Instructions Wound [...]
--- NOTE | 2019-07-27 11:51 | Diagnostic Imaging Report ---
INDICATION: Lethargy and low blood pressure. Time of exam 11:30 AM Comparison is made with prior chest from 05/22/2018. Heart size is stable. Right chest wall port has tip overlying the SVC right atrial junction. Embolization coils overlie the right mid chest. The lungs appear to be clear. No infiltrates are seen. There is no effusion or pneumothorax. IMPRESSION: Stable chest. No acute feature is detected. Dictated by: Dictated on workstation # [id number]
--- OUTSIDE RECORDS SUMMARY | 2019-07-27 11:51 | XMS REPORT | Continuity of Care Document ---
Author Author [facility] Address [address] [place] [address] Care Team Providers Care Internal Investigator Name Role Phone , PCP Unavailable Gladys Dela Cruz Admphys Gladys Dela Cruz Attphys Allergies, Adverse Reactions, Alerts [...] Units Route Sig Qty Start Date Status Lactobacillus Rhamnosus Gg [Culturelle] 1 CAP Oral Twice a Day November 07, 2017 Active Furosemide 20 MG Oral Daily PRN 0 October 27, 2017 Act johnathon Acetaminophen [Mapap Extra Strength] 1000 MG Oral Thr ee Times a Day 0 October 27, 2017 Active Amitriptyline 75 MG Oral Bedtime 0 October 27, 2017 Ac tive Gabapentin 100 MG Oral Three Times a Day 0 October 27, 2017 Active Insulin Lispro [Humalog U-100 Insulin] 5 UNITS Scruggs bcutaneous Three Times Daily with Meals 0 October 27, 2017 Active Fentanyl 25 MCG Transdermal Q72H 0 October 27, 2017 Act johnathon Enoxaparin 40 MG Subcutaneous Daily 0 October 27, 2017 Active Duloxetine 60 MG Oral Daily 0 October 27, 2017 Activ e Insulin Detemir U-100 [Levemir U-100 Insulin] 8 UNITS Subc utaneous Bedtime 0 October 27, 2017 Active Losartan 150 MG Oral Daily 0 October 27, 2017 Active Sucralfate 1 GM Oral Bedtime 0 October 27, 2017 Activ e Rifampin 300 MG Oral Every 12 Hours 0 October 27, 2017 Active Rifampin 150 MG Oral Twice a Day 0 October 27, 2017 Act johnathon Levothyroxine 400 MCG Oral 0600 0 October 27, 2017 Ac tive Morphine 15 MG Oral Every 3 Hours PRN 8 October 27 18 Active Metformin 1000 MG Oral Twice a Day 0 October 27, 2017 Ac tive Chsbddswzzet-Lvfn-Ikerx Acid [Certavite-Antioxidant] 1 TAB Oral DAILY@1200 0 October 27, 2017 Active Warfarin [Coumadin] 10 MG Oral 1600 0 October 27 018 Active Discontinued Medications Medication Dose Units Route Sig Qty Start Date Discontinu ed Date Status Losartan 75 MG Oral Daily October 17, 2017 October 27, 2017 Discontinued Furosemide 40 MG Oral Daily PRN October 17, 2017Sep ust 2017 Discontinued Tizanidine 4 MG Oral Q8H PRN October 17, 2017 Augus t 2017 Discontinued Levothyroxine 300 MCG Oral Daily October 17, 2017 Au sabine 2017 Discontinued Meloxicam 15 MG Oral Daily October 17, 2017 October 27, 2017 Discontinued Hydrocodone-Acetaminophen 0.5 - 1 TAB Oral Q6H PRN October 17, 2017 October 27, 2017 Discontinued Amitriptyline 50 MG Oral Bedtime October 17, 2017 Au sabine 2017 Discontinued Levothyroxine 100 MCG Oral Daily October 17, 2017 Au sabine 2017 Discontinued Citalopram 20 MG Oral Bedtime October 17, 2017 Augus t 2017 Discontinued Pantoprazole 40 MG Oral Daily October 17, 2017Sep ust 2017 Discontinued Metformin 1000 MG Oral Twice a Day October 17, 2017 Au sabine 2017 Discontinued Docusate Sodium 100 MG Oral Twice a Day October 17 018 October 27, 2017 Discontinued Insulin Aspart U-100 [Novolog Flexpen U-100 Insulin] 15 U NIT Subcutaneous Three Times Daily with Meals October 17, 2017 October 27, 2017 Discontin ued Insulin Glargine [Lantus Solostar U-100 Insulin] 35 UNIT S ubcutaneous Bedtime October 17, 2017 October 27, 2017 Discontinued Cholecalciferol (Vitamin D3) 2000 UNIT Oral Daily Sep us2017October 27, 2017 Discontinued Problem List Active Problems Medical Problem Onset Date Status MSSA bacteremia Active Epistaxis Active GI bleeding Active B12 deficiency Active DVT (deep venous thrombosis) Active Type 2 diabetes mellitus Active Depression Active Hypothyroidism Active 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 Ref. Range Result Comment White Blood Count November 07, 2017 4:52am 5.5 10^3/uL 4. 5-11.0 Red Blood Count November 07, 2017 4:52am 3.03 10^6/uL Low 3.5 0-5.40 Hemoglobin November 07, 2017 4:52am 8.1 g/dL Low 12.0-16.0 Hematocrit November 07, 2017 4:52am 27.1 % Low 36-48 Mean Corpuscular Volume November 07, 2017 4:52am 89.7 fL 79-99 Mean Corpuscular Hemoglobin November 07, 2017 4:52am 26.9 pg 25.0-34.0 Mean Corpuscular Hemoglobin Concent November 07, 2017 4:52am 29.9 g/dL Low 31.0-36.0 Red Cell Distribution Width November 07, 2017 4:52am 20.6 % High 11.0-15.0 Platelet Count November 07, 2017 4:52am 253 10^3 uL 130-4 00 Mean Platelet Volume November 07, 2017 4:52am 8.0 fL 7.0-11.0 Neutrophils % (Manual) November 07, 2017 4:52am 56.0 % 50-65 Band Neutrophils % (Manual) November 07, 2017 4:52am 2.0 % 0-10 Lymphocytes % (Manual) November 07, 2017 4:52am 24.0 % 15-45 Monocytes % (Manual) November 07, 2017 4:52am 13.0 % High 0-10 Eosinophils % (Manual) November 07, 2017 4:52am 5.0 % 0-5 Basophils % (Manual) October 29, 2017 6:40am 4.0 % High 0 -2 Neutrophils # (Manual) November 07, 2017 4:52am 3.2 # 1.0-8.0 Lymphocytes # (Manual) November 07, 2017 4:52am 1.3 # 1.0-3.0 Monocytes # (Manual) November 07, 2017 4:52am 0.7 # 0.0-1.0 Eosinophils # (Manual) November 07, 2017 4:52am 0.3 # 0.0-0.4 Basophils # (Manual) October 29, 2017 6:40am 0.3 # High 0 .0-0.2 Polychromasia November 07, 2017 4:52am 1+ Anisocytosis November 07, 2017 4:52am 2+ Erythrocyte Sedimentation Rate November 07, 2017 4:52am 76 mm/Hr H igh 0-20 Prothrombin Time November 07, 2017 4:52am 22.2 Seconds High 11 .9-14.4 INR International Normalized Ratio November 07, 2017 4:52am 1.96 High 0.89-1.13 Therapeutic Range: Prophylaxis - Thrombosis 2.0-3.0 Mechanical Heart Valves 2.5-3.5 Myocardial Infarction 2.0-3.0 Sodium Level November 07, 2017 4:52am 140 mmol/L 135-150 Potassium Level November 07, 2017 4:52am 4.0 mmol/L 3.4-5 .2 Chloride Level November 07, 2017 4:52am 104 mmol/L 100-11 2 Carbon Dioxide Level November 07, 2017 4:52am 26 mEq/L 18-30 Anion Gap November 07, 2017 4:52am 10 mmol/L 8-11 Blood Urea Nitrogen November 07, 2017 4:52am 10 mg/dL 5 -21 Creatinine November 07, 2017 4:52am 0.54 mg/dL Low 0.60-1.30 Glomerular Filtration Rate Calc November 07, 2017 4:52am > 60 mL/Min The GFR is not validated for use in drug dosing adjustments. Continue to use estimated creatinine clearance per dosing reference text. Chronic Kidney Disease is defined as either kidney damage or a GFR less than 60 ml/min that persists for at least 3 months. Stage 3 = 30-59 ml/min Stage 4 = 15-29 ml/min Stage 5 = <15 ml/min Glucose Level November 07, 2017 4:52am 74 mg/dL 70-99 Bedside Glucose November 08, 2017 6:23am 78 mg/dL 70-99 Calcium Level November 07, 2017 4:52am 8.5 mg/dL Low 8.6-10. 5 Total Bilirubin November 07, 2017 4:52am 0.3 mg/dL 0.0-1 .2 Aspartate Amino Transf (AST/SGOT) November 07, 2017 4:52am 9 U/L 6-37 Alanine Aminotransferase (ALT/SGPT) November 07, 2017 4:52am < 8 U/L Low 12-78 C-Reactive Protein, Quantitative November 07, 2017 4:52am 44.1 mg/L High Total Protein November 07, 2017 4:52am 6.3 g/dL Low 6.4-8.2 Albumin November 07, 2017 4:52am 2.0 g/dL Low 3.3-4.5 Albumin/Globulin Ratio November 07, 2017 4:52am 0.5 Low 0.7-2.0 Alkaline Phosphatase November 07, 2017 4:52am 104 U/L 50-136 Discharge Summary Encounter: Admit Date: Discharge Date: [facility] [address] [place] [address] Discharge Summary Patient: Lisandra Marshall MR#: [id number] : 1955 Acct:[id number] Age/Sex: 62 / F Adm/Svc Date: 10/14/17 Loc: 2S MS Discharge Date: Attending Dr: Gladys Dela Cruz DO DS: Providers Date of admission: 10/14/17 14:20 Primary care physician: Consults: 10/14/17 14:20 Consult to Dietitian [CONS] Routine Reason:: Eval and treat Consult to OT: [CONS] Routine Reason:: Evaluate pt, develop/implement careplan; adaptive equipment per therapist. Consult to Physical Therapy [CONS] Routine Reason:: PT eval and treat 10/18/17 10:59 Consult to Physician [CONS] Routine Consulting Provider: Kian Sinclair Reason For Exam: GI bleeding 10/18/17 11:00 Consult to Physician [CONS] Routine Consulting Provider: Sahran Duron Reason For Exam: Right ankle pain, severe 10/24/17 09:21 Evaluate for Rehab Services [CONS] Routine Evaluate for Skilled or Rehab:: Rehab Date of discharge: 10/27/17 DS: Summary Hospital course: This is a 62-year-old female with past medical history of right hip and knee replacements as well as diabetes, hypertension, asthma, COPD, anemia and previous TIA. She was admitted to on 726 as a transfer from [facility] in [facility]. She originally presented to [facility] in [facility] with right-sided weakness and inability to move. She was found to be septic and transferred to [facility] in [place] where she had MSSA bacteremia and sepsis [...] also had severely flat affect and her anti- depressant was changed. She progressed slowly with therapy. [...] continued to not rule out DVT. She has follow up with on 10/28 with ortho and ID. She was able to perform car transfer with PT and will be able to be transferred out of the car at . The plan is to readmit her to swing bed 10/28 after her appointments. She will have edgar placed for transfer due to risk of fall while getting to the bathroom without trained staff present for entire trip. Risk and benefit were analyzed and benefit of catheter outweighs risk. Time Spent with Patient Greater than 30 minutes Exam Vital Signs: Temp Pulse Resp BP Pulse Ox 97.9 F 76 20 120/78 95 10/26/17 19:36 10/27/17 07:00 10/27/17 07:00 10/27/17 07:00 10/27/17 07:41 Constitutional Present mild distress (related to pain), obese, chronically ill appearing and cooperative Routine Respiratory Exam Present CTA bilaterally Routine Cardiovascular Exam Present RRR Routine Abdominal Exam Present soft and normoactive bowel sounds; Absent tenderness, rebound and guarding Routine Extremities Exam Present edema; Absent full ROM Routine Skin Exam Present intact, dry and warm; Absent rash Routine Neurological Exam Present alert, oriented X3, moving all extremities and normal speech; Absent motor deficit Routine Psychiatric Exam Present normal thought process and depressed DS: Data Labs on day of discharge: Labs from last 24 hours 10/27/17 10/27/17 10/26/17 06:22 04:54 20:20 Hgb 7.9 L Hct 26.5 L POC Glucose 96 135 H 10/26/17 10/26/17 16:44 11:24 Hgb Hct POC Glucose 126 H 135 H Assessment and Plan (1) MSSA bacteremia: Current visit: Yes Status: Acute (2) 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: Current visit: Yes Status: Acute (3) 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: Current visit: Yes Status: Acute (4) Sepsis: Current visit: Yes Status: Resolved (5) Iron deficiency anemia: Current visit: Yes Status: Chronic (6) Hypothyroidism: Current visit: Yes Status: Chronic (7) Hypertension: Current visit: Yes Status: Chronic (8) HHT (hereditary hemorrhagic telangie ctasia): Current visit: Yes Status: Chronic (9) GERD (gastroesophageal reflux diseas e): Current visit: Yes Status: Chronic (10) Type 2 diabetes mellitus: Current visit: Yes Status: Chronic (11) Depression: Current visit: Yes Status: Chronic (12) B12 deficiency: Current visit: Yes Status: Chronic (13) Chronic bronchitis: Current visit: Yes Status: Chronic (14) Intermittent epigastric abdominal p ain: Current visit: No Status: Resolved (15) Diabetes mellitus: Current visit: No Status: Deleted (16) Hypothyroidism (acquired): Current visit: No Status: Deleted (17) DVT (deep venous thrombosis): Current visit: Yes Status: Acute (18) Personal history of peptic ulcer di lacye: Current visit: Yes Status: Acute (19) Ankle pain, right: Current visit: No Status: Acute (20) Non-healing open wound of right bhupinder in: Current visit: Yes Status: Acute Assessment/Plan Plan: Discharge Plan Discharge Patient Disposition: Xfer Other Primary Care Provider: , Admit Provider: Gladys Dela Cruz Attending Provider: Gladys Dela Cruz Admit Date/Time: 10/14/17 14:20 Service: Skilled Care Discharge Orders: Discharge Order (Routine); Ordered 10/28/17 Ordered By: Gladys Dela Cruz Prescriptions: New furosemide 40 mg Tablet 20 mg PO DAILY PRNQty: 0 RF: 0 acetaminophen [Mapap Extra Strength] 500 mg Tablet 1,000 mg PO TID Qty: 0 RF: 0 amitriptyline 25 mg Tablet 75 mg PO BEDTIME Qty: 0 RF: 0 gabapentin 100 mg Capsule 100 mg PO TID Qty: 0 RF: 0 insulin lispro [Humalog U-100 Insulin] 100 unit/mL Solution 5 units subcut TID WM Qty: 0 RF: 0 fentanyl 25 mcg/hr Patch 72 Hour 25 mcg Transdermal Q72H Qty: 0 RF: 0 enoxaparin 40 mg/0.4 mL Syringe 40 mg subcut DAILY Qty: 0 RF: 0 duloxetine 60 mg Capsule,Delayed Release(Dr/Ec) 60 mg PO DAILY Qty: 0 RF: 0 insulin detemir U-100 [Levemir U-100 Insulin] 100 unit/mL Solution 8 units subcut BEDTIME Qty: 0 RF: 0 losartan 50 mg Tablet 150 mg PO DAILY Qty: 0 RF: 0 sucralfate 100 mg/mL Suspension 1 g PO BEDTIME Qty: 0 RF: 0 rifampin 300 mg Capsule 300 mg PO Q12HR Qty: 0 RF: 0 rifampin 150 mg Capsule 150 mg PO BID Qty: 0 RF: 0 levothyroxine 200 mcg Tablet 400 mcg PO 0600 Qty: 0 RF: 0 morphine 15 mg Tablet 15 mg PO Q3HR PRNQty: 8 RF: 0 metformin 500 mg Tablet Extended Release 24 Hr 1,000 mg PO BID Qty: 0 RF: 0 qrvkjyfykwqw-kpzc-bilcj acid [Certavite-Antioxidant] 18-400 mg-mcg Tablet 1 tab PO DAILY@1200 Qty: 0 RF: 0 Lactobacillus Rhamnosus [Culturelle] 1 ea PO BID Qty: 0 RF: 0 warfarin [Coumadin] 10 mg Tablet 10 mg PO 1600 Qty: 0 RF: 0 Discontinued losartan 50 mg Tablet 75 mg PO DAILY RF: 0 furosemide 40 mg Tablet 40 mg PO DAILY PRNRF: 0 tizanidine 4 mg tablet 4 mg PO Q8H PRNRF: 0 levothyroxine 300 mcg Tablet 300 mcg PO DAILY RF: 0 meloxicam 15 mg tablet 15 mg PO DAILY RF: 0 hydrocodone-acetaminophen 10-325 mg tablet 0.5 - 1 tab PO Q6H MDD 4 TABS PRNRF: 0 amitriptyline 50 mg tablet 50 mg PO BEDTIME RF: 0 levothyroxine 100 mcg Tablet 100 mcg PO DAILY RF: 0 citalopram 20 mg tablet 20 mg PO BEDTIME RF: 0 pantoprazole 40 mg tablet,delayed release (DR/EC) 40 mg PO DAILY RF: 0 metformin 1,000 mg Tablet 1,000 mg PO BID RF: 0 docusate sodium 100 mg Tablet 100 mg PO BID RF: 0 insulin aspart U-100 [Novolog Flexpen U-100 Insulin] 100 unit/mL Insulin Pen 15 unit SUBCUT TID WM RF: 0 insulin glargine [Lantus Solostar U-100 Insulin] 100 unit/mL (3 mL) Insulin Pen 35 unit SUBCUT BEDTIME RF: 0 cholecalciferol (vitamin D3) 2,000 unit Tablet 2,000 unit PO DAILY RF: 0 Condition: Satisfactory Diet/Activity/Additional Instructions: Return to skilled after [facility] appointments Problems, home medications and medication allergies reviewed?: Yes Follow up care ordered?: No Referrals: , [Primary Care Provider] - OTHER,OTHER [Non billed provider] - Bebo Stallworth MD [Non-Staff] - 10/28/17 8:30 am (Appointment location: [address] [place] [address] ) Documented By: Gladys Dela Cruz 10/27/17 1103 Signed By: <Electronically signed by Gladys Dela Cruz> 10/27/17 1530 cc: , ~ Advance Directives Advance Directive Response Recorded Date/Time Advance Directive on File? No October 28 2:09pm Chief Complaint and Reason for Visit Encounter Admit Date Chief Complaint Reason for Visit Discharged Inpatient October 28, 2017 2:04pm [facility] Discharge Instructions No known hospital discharge instructions. Hospital Discharge Medications Medication Dose Units Route Sig Qty Days Order Date Status In structions Lactobacillus Rhamnosus Gg 1 CAP Oral Twice a Day November 07, 2017 Active Losartan 75 MG Oral Daily October 17, [...] Oral Daily PRN 0 October 27, 2017 A ctive Acetaminophen 1000 MG Oral Three Times a Day 0 October 27, 2017 Active Amitriptyline 75 MG Oral Bedtime 0 October 27, 2017 Active Gabapentin 100 MG Oral Three Times a Day 0 September Active Insulin Lispro 5 UNITS Subcutaneous Three Times Daily with Meals 0 October 27, 2017 Active Fentanyl 25 MCG Transdermal Q72H 0 October 27, 2017 A ctive Enoxaparin 40 MG Subcutaneous Daily 0 October 27 8 Active Duloxetine 60 MG Oral Daily 0 October 27, 2017 Acti ve Insulin Detemir U-100 8 UNITS Subcutaneous Bedtime 0 2017 Active Losartan 150 MG Oral Daily 0 October 27, 2017 Active Sucralfate 1 GM Oral Bedtime 0 October 27, 2017 Act johnathon Rifampin 300 MG Oral Every 12 Hours 0 October 27 Active Rifampin 150 MG Oral Twice a Day 0 October 27, 2017 A ctive Levothyroxine 400 MCG Oral 0600 0 October 27, 2017 A ctive Morphine 15 MG Oral Every 3 Hours PRN 8 October 27, 2017 Active Metformin 1000 MG Oral Twice a Day 0 October 27, 2017 Active Cyuqdssozfla-Epev-Bilin Acid 1 TAB Oral DAILY@1200 0 October 27, 2017 Active Warfarin 10 MG Oral 1600 0 October 27, 2017 Active Encounters Encounter Facility Location Admit/Visit Date Discharge/Departure Date Attending Provider Admitted Inpatient [address] Inpatient Reha b November 08, 2017 10:00am Gladys Dela Cruz Registered Inpatient [facility] November 05, 2017 2:48pm KARLEE WATERS Discharged Inpatient [address] Medical/Surg ical October 28, 2017 2:04pm November 08, 2017 10:05am Gladys Dela Cruz Encounter Diagnosis Onset Date Epistaxis Family History Query Response Instance Date Recorded Comment Family History cancer diabetes renal disease October 28, 2017 2:09pm Functional Status No known functional status. Immunizations No known immunizations. Payers Payer Name Policy Type Covered Green Party Covered Green Party Id Relationship Sub scriber Subscriber Id [employer] Preferred Provider Organization (PPO) Lisandra Marshall [facility] [id number] Self / Same As Patient Lisandra Marshall [id number] Medicare Medicare Part A Lisandra Marshall [id number] Self / Same As Pat ient Lisandra Lesterlyle [id number] Medicaid Medicaid Lisandra Marshall [id number] Self / Same As Patient Ada Lesterlyle [id number] Self Pay Plan of Care No Known Plan of Care Information Social History Query Response Date Recorded Comment household members spouse October 28, 2017 3:48pm Query Response Start Date Stop Date Smoking Status Current every day smoker Vital Signs Vital Reading Result Reference Range Collection Date/ Time Height 5 ft 7 in October 29 8:56am Weight 253 lb 12.8 oz November 06 12:15pm Temperature 98.4 F 97.5 F-99.5 F November 08 7:05am Pulse 99 BPM 60-90 November 08 9:33am Respiration 16 RPM -November 08 7:05am Pulse Oximetry 93 % 90-100 November 08 7:05am Blood Pressure Systolic 154 100-160 [facility] 2017 9:33am Blood Pressure Diastolic 63 50-80 [facility] 2017 9:33am Body Mass Index 42.5 October 29 8 8:56am
--- OUTSIDE RECORDS SUMMARY | 2019-07-27 11:51 | XMS REPORT | Continuity of Care Document ---
[facility] Address [address] [place] [address] Care Team Providers Care Environmental Remediation Specialist Name Role Phone Self, Murali Cobb PCP Gladys Dela Cruz Admphys Gladys Dela Cruz [...] 2017 Active Fentanyl 25 MCG Transdermal Q72H 10 November 15, 2017 Active Morphine 15 MG Oral Every 3 Hours PRN 90 November 15, 2017 Active Amitriptyline 75 MG [...] will refill Sucralfate 1 GM Oral Bedtime November 18, 2017 Froylan cross Discontinued Medications Medication Dose Units Route Sig [...] Oral Daily October 17, 2017 October 27 018 Discontinued Hydrocodone-Acetaminophen 0.5 - 1 TAB Oral [...] Twice a Day October 17, 2017 Au 2017 Discontinued Docusate Sodium 100 MG Oral [...] procedures. Relevant Diagnostic Tests and/or Laboratory Data Laboratory Results Test Date/Time Result Interp. Ref. Range Result Comment White Blood Count November 14, 2017 5:34am 6.5 10^3/uL 4. 5-11.0 Red Blood Count November 14, 2017 5:34am 2.84 10^6/uL Low 3.5 0-5.40 Hemoglobin November 18, 2017 6:20am 7.4 g/dL Low 12.0-16.0 Hematocrit November 18, 2017 6:20am 24.7 % Low 36-48 Mean Corpuscular Volume November 14, 2017 5:34am 86.6 fL 79-99 Mean Corpuscular Hemoglobin November 14, 2017 5:34am 26.2 pg 25.0-34.0 Mean Corpuscular Hemoglobin Concent November 14, 2017 5:34am 30.3 g/dL Low 31.0-36.0 Red Cell Distribution Width November 14, 2017 5:34am 19.7 % High 11.0-15.0 Platelet Count November 14, 2017 5:34am 321 10^3 uL 130-4 00 Mean Platelet Volume November 14, 2017 5:34am 7.8 fL 7.0-11.0 Neutrophils % (Manual) November 14, 2017 5:34am 48.0 % Low 50-65 Band Neutrophils % (Manual) November 14, 2017 5:34am 2.0 % 0-10 Lymphocytes % (Manual) November 14, 2017 5:34am 32.0 % 15-45 Monocytes % (Manual) November 14, 2017 5:34am 5.0 % 0-10 Eosinophils % (Manual) November 14, 2017 5:34am 9.0 % High 0-5 Basophils % (Manual) November 14, 2017 5:34am 4.0 % High 0-2 Neutrophils # (Manual) November 14, 2017 5:34am 3.3 # 1.0-8.0 Lymphocytes # (Manual) November 14, 2017 5:34am 2.1 # 1.0-3.0 Monocytes # (Manual) November 14, 2017 5:34am 0.3 # 0.0-1.0 Eosinophils # (Manual) November 14, 2017 5:34am 0.6 # High 0.0-0.4 Basophils # (Manual) November 14, 2017 5:34am 0.3 # High 0.0-0.2 Anisocytosis November 14, 2017 5:34am 2+ Erythrocyte Sedimentation Rate November 14, 2017 5:34am 105 mm/Hr H igh 0-20 Prothrombin Time November 18, 2017 6:20am 27.0 Seconds High 11 .9-14.4 INR International Normalized Ratio November 18, 2017 6:20am 2.51 High 0.89-1.13 Therapeutic Range: Prophylaxis - Thrombosis 2.0-3.0 Mechanical Heart Valves 2.5-3.5 Myocardial Infarction 2.0-3.0 Sodium Level November 14, 2017 5:34am 137 mmol/L 135-150 Potassium Level November 14, 2017 5:34am 4.8 mmol/L 3.4-5 .2 Chloride Level November 14, 2017 5:34am 103 mmol/L 100-11 2 Carbon Dioxide Level November 14, 2017 5:34am 24 mEq/L 18-30 Anion Gap November 14, 2017 5:34am 10 mmol/L 8-11 Blood Urea Nitrogen November 14, 2017 5:34am 14 mg/dL 5 -21 Creatinine November 14, 2017 5:34am 0.60 mg/dL 0.60-1.30 Glomerular Filtration Rate Calc November 14, 2017 5:34am > 60 mL/Min The GFR is not [...] 5 = <15 ml/min Glucose Level November 14, 2017 5:34am 111 mg/dL High 70-99 Bedside Glucose November 18, 2017 6:13am 90 mg/dL 70-99 Calcium Level November 14, 2017 5:34am 9.0 mg/dL 8.6-10. 5 Total Bilirubin November 14, 2017 5:34am 0.3 mg/dL 0.0-1 .2 Aspartate Amino Transf (AST/SGOT) November 14, 2017 5:34am 14 U/L 6-37 Alanine Aminotransferase (ALT/SGPT) November 14, 2017 5:34am < 8 U/L Low 12-78 C-Reactive Protein, Quantitative November 14, 2017 5:34am 99.7 mg/L High Total Protein November 14, 2017 5:34am 7.1 g/dL 6.4-8.2 Albumin November 14, 2017 5:34am 2.2 g/dL Low 3.3-4.5 Albumin/Globulin Ratio November 14, 2017 5:34am 0.4 Low 0.7-2.0 Alkaline Phosphatase November 14, 2017 5:34am 109 U/L 50-136 Discharge Summary Encounter: Admit Date: Discharge Date: [facility] [address] [place] [address] Discharge Summary Patient: Lisandra Marshall MR#: [id number] : 1955 Acct:[id number] Age/Sex: 62 / F Adm/Svc Date: 10/28/17 Loc: 2S MS Discharge Date:11/08/[address]: Gladys Dela Cruz DO DS: Providers <DIANNE BRANCH APRN - Last Filed: 11/08/17 17:05> Date of admission: 10/28/17 14:04 Primary care physician: Admitting clinician: KARLEE WATERS MD Consults: 10/28/17 13:59 Consult to Dietitian [CONS] Routine Reason:: Eval and treat Consult to OT: [CONS] Routine Reason:: Evaluate pt, develop/implement careplan; adaptive equipment per therapist. Consult to Physical Therapy [CONS] Routine Reason:: PT eval and treat 11/01/17 14:06 Evaluate for Rehab Services [CONS] Routine Evaluate for Skilled or Rehab:: Rehab Attending physician on discharge: Gladys Dela Cruz DO Discharging Clinician: DIANNE BRANCH APRN Date of discharge: 11/08/17 DS: Summary <DIANNE BRANCH APRN - Last Filed: 11/08/17 17:05> Hospital course: This is a 62-year-old female with past medical history of right hip and knee replacements as well as diabetes, hypertension, asthma, COPD, anemia and previous TIA. She was admitted to on 09/22/17 as a transfer from [facility] in [facility]. She originally presented to [facility] in [facility] with right-sided weakness and inability to move. She was found to be septic and transferred to [facility] in [place] where she had MSSA bacteremia and sepsis secondary to infected right hip and joint prosthesis. She was transferred to for definitive orthopedic management once her sepsis had resolved. Infectious disease saw the patient at . There she was started on Ancef and rifampin. On 09/30/17 patient had irrigation and debridement of the right hip. On 10/03/17 she had further irrigation and debridement of the right hip as well as I&D of the right knee with polyethylene insert change in I&D of the right groin abscess she went back to the OR again on 10/07 with I&D of the right hip with reimplantation of right total hip arthroplasty and repacking of the right groin abscess. ID recommended 6 weeks of IV antibiotics starting on 10/07 with an end date of 11/17. They also recommend prolonged antibiotics suppression with rifampin for at minimum of 6 months. She was severely weak after all of her surgery and debilitated. Patient's course was further complicated by severe pain and the pain team at was consulted. Further therapy and rehabilitation was recommended and patient was transferred to [facility] for skilled services. She had difficulty with her pain while on skilled. She was started on fentanyl patch and switched to morphine from oxycodone. She also had severely flat affect and her anti- depressant was changed. She progressed slowly with therapy. Her right ankle pain was a limiting factor. She continued her antibiotics. She did have a significant hemoglobin drop [...] rule out DVT. She followed up with LILLIAN barker and ID on 10/28/17 with recommendations to continue plan as detailed above. Patient was readmitted to [facility] on 10/28/17 following her appointments as planned. She progressed well while on [facility] where her activity tolerance and pain controlled improved to the point that she was re-evaluated for inpatient rehabilitation services and was felt to be a good candidate. Today, patient is sitting up in her wheelchair when the hospitalist services entered the room. She reports that her pain has still been predominently well controlled and she feels like she is making improvements. She denies any concerns currently. Patient will be discharged from [facility] and admitted to inpatient rehab. Patient verbalizes understanding and is in agreement with the plan of care. Time Spent with Patient Less than 30 minutes <Gladys Dela Cruz DO - Last Filed: 11/10/17 07:42> Hospital course: Patient independently seen and examined by me. I have reviewed the [employer] note and agree with above. Patient is feeling well and has been improving. She does admit to more ankle pain since she tried to walk without her boot yesterday. Exam <DIANNE BRANCH APRN - Last Filed: 11/08/17 17:05> Vital Signs: Temp Pulse Resp BP Pulse Ox 98.4 F 99 H 16 154/63 93 11/08/17 07:05 11/08/17 09:33 11/08/17 07:05 11/08/17 09:33 11/08/17 07:05 Constitutional Present no acute distress, obese and cooperative Routine HEENT Exam Head: Present normocephalic and atraumatic Eye: Present PERRL ENT: Present mucous membranes moist Routine Respiratory Exam Present CTA bilaterally; Absent rhonchi, wheezes and crackles Routine Cardiovascular Exam Present RRR, S1 and S2; Absent murmur Routine Abdominal Exam Present soft and normoactive bowel sounds; Absent tenderness and distended Routine Extremities Exam Present edema, pulses intact (+2radial/1+DP bilaterally), normal capillary refill and other (right ankle cam boot intact) Routine Skin Exam Present dry, warm, normal turgor and wounds Routine Neurological Exam Present alert, oriented X3, moving all extremities, hearing grossly intact and other (no gross CN or sensiomotor deficits) Routine Psychiatric Exam Present normal affect, normal thought process and cooperative DS: Data <DIANNE BRANCH APRN - Last Filed: 11/08/17 17:05> Labs on day of discharge: Labs from last 24 hours 11/08/17 11/07/17 11/07/17 06:23 20:21 16:58 POC Glucose 78 162 H 153 H 11/07/17 11:19 POC Glucose 122 H Assessment and Plan <DIANNE BRANCH APRN - Last Filed: 11/08/17 17:05> (1) Non-healing open wound of right groi n: (2) Ankle pain, right: (3) Personal history of peptic ulcer dis ease: (4) DVT (deep venous thrombosis): (5) 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): (13) Iron deficiency anemia: Discharge Plan Discharge Patient Disposition: Xfer Inpatient Rehab Fac [facility] Primary Care Provider: DR.NONE ИВАН Admit Provider: Gladys Dela Cruz Attending Provider: Gladys Dela Cruz Admit Date/Time: 10/28/17 14:04 Service: Skilled Care Referrals: Bebo Stallworth MD [Non-Staff] - 11/25/17 9:40 am (Appointment location: [address] [place] [address] [id number]) Discharge Date/Time: 11/08/17 10:05 Documented By: Dianne Branch 11/08/17 1116 Signed By: <Electronically signed by Dianne Branch> 11/08/17 1705 <Electronically signed by Gladys Dela Cruz> 11/10/17 0743 <Electronically signed by Gladys Dela Cruz DO> 11/10/17 0743 cc: , ~ Advance Directives Advance Directive Response Recorded Date/Time Advance Directive on File? No November 08, 2017 10:08am Hospital Discharge Instructions Additional Discharge Instructions Diet and activity as tolerated Recommend overnight oximetry study after discharge Instruction/Education Provided Cephalexin (By mouth) ( MEFS) Sucralfate (By mouth) (MEFS) Amitriptyline (By mouth) (MEFS) Warfarin (By mouth) (MEFS) Morphine, Rapid Release (By mouth) (MEFS) Fentanyl (Absorbed through the skin) (MEFS) Gabapentin (By mouth) (MEFS) Morphine (By injection) (MEFS) Losartan (By mouth) (MEFS) Metformin (By mouth) (MEFS) Morphine, Slow Release (By mouth) (MEFS) Duloxetine (By mouth) (MEFS) Sitagliptin (By mouth) (MEFS) Iron Rich Diet (DC) Iron Deficiency Anemia (DC) Vitamin K in Foods (DC) Anemia (DC) infection of the hardware in knee and [...] regularly and take oral medications as prescribed. Hospital Discharge Medications Medication Dose Units Route [...] Insulin Glargine 35 UNIT Subcutaneous Bedtime Se pt2017 Discontinued Cholecalciferol (Vitamin D3) 2000 UNIT Oral Daily Se 2017 Active Losartan 75 MG Oral Daily [...] Location Admit/Visit Date Discharge/Departure Date Attending Provider Discharged Inpatient [address] November 08, 2017 10:00am November 18, 2017 11:15am Gladys Dela Cruz Family History Query Response Instance Date Recorded Comment Family History cancer diabetes renal disease November 08, 2017 10:08am Functional Status No known functional status. Immunizations No known immunizations. Payers Payer Name Policy Type Covered Libertarian Covered Libertarian Id Relationship Sub scriber Subscriber Id [employer] Preferred Provider Organization (PPO) Lisandra Marshall [facility] [id number] Self / Same As Patient Lisandra Marshall [id number] Medicare Medicare Part A Lisandra Marshall [id number] Self / Same As Pat ient Lisandra Marshall [id number] Medicaid Medicaid Lisandra Marshall [id number] Self / Same As Patient Ada Lesterlyle [id number] Self Pay Plan of Care Instructions Cephalexin (By mouth) (MEFS) Sucralfate (By mouth) (MEFS) Amitriptyline (By mouth) (MEFS) Warfarin (By mouth) (MEFS) Morphine, Rapid Release (By mouth) (MEFS) Fentanyl (Absorbed through the skin) (MEFS) Gabapentin (By mouth) (MEFS) Morphine (By injection) (MEFS) Losartan (By mouth) (MEFS) Metformin (By mouth) (MEFS) Morphine, Slow Release (By mouth) (MEFS) Duloxetine (By mouth) (MEFS) Sitagliptin (By mouth) (MEFS) Iron Rich Diet (DC) Iron Deficiency Anemia (DC) Vitamin K in Foods (DC) Anemia (DC) infection of the hardware in knee and [...] regularly and take oral medications as prescribed. Social History Query Response Date Recorded Comment Recent Travel No November 08, 2017 10:08am current occupational exposures/hazards No November 08, 2017 10:08am current occupational status disabled November 08, 2017 1 0:08am household members spouse November 08, 2017 2:43pm service No November 08, 2017 10:08am Query Response Start Date Stop Date Smoking Status Current every day smoker Vital Signs Vital Reading Result Reference Range Collection Date/ Time Height 5 ft 7 in November 08 4:03pm Weight 265 lb 4 oz November 13 5:19am Temperature 97.1 F 97.5 F-99.5 F November 18 7:28am Pulse 93 BPM 60-90 November 18 7:28am Respiration 16 RPM -November 18 7:28am Pulse Oximetry 95 % 90-100 November 18 8:13am Blood Pressure Systolic 144 100-160 [facility] 2017 7:28am Blood Pressure Diastolic 66 50-80 [facility] 2017 7:28am Body Mass Index 40.8 November 08 4:03pm
--- OUTSIDE RECORDS SUMMARY | 2019-07-27 11:51 | XMS REPORT | Continuity of Care Document ---
Author Author [facility] Address [address] [place] [address] Care Team Providers Care Distribution Warehouse Manager Name Role Phone Unavailable Unavailable Allergies, Adverse Reactions, Alerts Allergen Type [...] Oral Bedtime 14 November 18, 2017 Ac tive Discontinued Medications Medication Dose Units Route Sig [...] Tests and/or Laboratory Data Discharge Summary Encounter: Admit Date: Discharge Date: [facility] [address] [place] [address] Discharge Summary Patient: Lisandra Marshall MR#: [id number] : 1955 Acct:[id number] Age/Sex: 62 / F Adm/Svc Date: 11/08/17 Loc: 2S REHAB Discharge Date:11/18/[address]: Gladys Dela Cruz DO DS: Providers Date of admission: 11/08/17 10:00 Primary care physician: Murali John MD Consults: 11/08/17 13:53 Consult to Dietitian [CONS] Routine Reason:: Eval and treat Consult to OT: [CONS] Routine Reason:: Evaluate pt, develop/implement careplan; adaptive equipment per therapist. Consult to Physical Therapy [CONS] Routine Reason:: PT eval and treat Consult to Clip Bolter And Wrapper [CONS] Routine Reason For Exam: Assist with [...] to on 726 as a transfer from [facility] in [facility]. She originally presented to [facility] in [facility] with right-sided weakness and inability to move. She was found to be septic and transferred to [facility] in [place] where she had MSSA bacteremia and sepsis [...] went well and she was readmitted to [facility] on 10/28 after her appointments. She progressed well while on skilled and continued her IV antibiotics. She was [...] her infection disease doctor Dr. Sterling in [place]. Her pain control did improve and she [...] Antiglob Test Blood Bank Wristband ID Crossmatch ([facility]) 11/17/17 11/17/17 11/17/17 20:30 16:28 11:39 Hgb Hct PT INR POC Glucose 174 H 151 H 116 H Blood Type Rho(D) Type Pat RBC Antigen Screen Antibody Screen Antibody Identification Direct Antiglob Test Blood Bank Wristband ID Crossmatch ([facility]) 11/16/17 10:15 Hgb Hct PT INR POC Glucose Blood Type A Positive Rho(D) Type Positive Pat RBC Antigen Screen Cancelled Antibody Screen POSITIVE Antibody Identification Anti-K Direct Antiglob Test Negative Blood Bank Wristband ID be [id number] Crossmatch ([facility]) See Detail Assessment and Plan (1) Infection [...] Ordered 11/18/17 Ordered By: Gladys Dela Cruz [facility] Discharge Services (Routine); Ordered 11/18/17 Ordered By: [...] - 11/22/17 12:00 pm (Outpatient Physical Therapy [facility] [address] [place] [id number] Arrive @11:45 Appt is with Jt) Bebo Stallworth MD [Non-Staff] - 11/25/17 9:40 am (Appointment Location: [address] [place] [address] Will [address] disease [address] Sterling at this appointment as well ) Murali John MD [Primary Care Provider] - Call for Appointment (Patient needs CBC, CMP, CRP, ESR, INR o n 11/[address] Sterling [phone]) Instructions: Cephalexin (By mouth) (MEFS), Sucralfate (By mouth) (MEFS), Amitriptyline (By mouth) (MEFS), Warfarin (By mouth) (MEFS), Morp denzel, Rapid Release (By mouth) (MEFS), Fentanyl (Absorbed through the skin) (MEFS), Gabapentin (By mouth) (MEFS), Morphine (By injection) (MEFS), Losartan ( By mouth) (MEFS), Metformin (By mouth) (MEFS), Morphine, Slow Release (By mouth) (MEFS), Duloxetine (By mouth) (MEFS), Sitagliptin (By mouth ) (MEFS), Iron Rich Diet (DC), Iron Deficiency [...] Cruz> 11/25/17 0816 cc: Murali John MD~ Hospital Discharge Instructions No known hospital discharge [...] 15 MG Oral Every 3 Hours PRN October 292017 Active Amitriptyline 75 MG Oral [...] 1 GM Oral Bedtime November 18, 2017 Active Functional Status No known functional status. Immunizations No known immunizations. Payers Payer Name Policy Type Covered Green Party Covered Green Party Id Relationship Sub scriber Subscriber Id [employer] Preferred Provider Organization (PPO) Lisandra SHORTL [id number] Self / Same As Patient Lisandra Marshall [id number] Medicare Medicare Part A Lisandra Marshall [id number] Self / Same As Pat ient Lisandra Marshall [id number] Medicaid Medicaid Lisandra Marshall [id number] Self / Same As Patient Ada Marshall [id number] Self Pay Plan of Care No Known Plan of Care Information Social History No known social history. Vital Signs No known vital signs results.
--- OUTSIDE RECORDS SUMMARY | 2019-07-27 11:51 | XMS REPORT | Continuity of Care Document ---
[facility] Address [address] [place] [address] Care Team Providers Care Director Translational Name Role Phone , PCP Unavailable Gladys Dela Cruz Admphys Gladys Dela Cruz Attphys Sharan Duron Rndphys Kian Sinclair Rndphys Allergies, Adverse Reactions, Alerts Allergen Type Severity Reaction Last Updated Verified Status prednisone Allergy Severe "THROAT CLOSES UP" May 28, 2017 Y Active doxycycline Allergy Swelling of Lip/Tongue/Throat April Y Active lisinopril Allergy Cough May 28, 2017 Y Acti ve zolpidem Allergy Agitated May 28, 2017 Y Activ e Medications Active Medications Medication Dose Units Route Sig Qty Start Date Status Furosemide 20 MG Oral Daily PRN 0 [...] Day 0 October 27, 2017 Ac tive Cxxfzvwixjsf-Sesc-Khueb Acid [Certavite-Antioxidant] 1 TAB Oral DAILY@1200 0 October 27, 2017 Active Lactobacillus Rhamnosus [Culturelle] 1 ea Oral Twice a Day 0 October 27, 2017 Active Warfarin [Coumadin] [...] MCG Oral Daily October 17, 2017 Au [facility] 2017 Discontinued Meloxicam 15 MG Oral Daily [...] 40 MG Oral Daily October 17, 2017Sep us2017 Discontinued Metformin 1000 MG Oral Twice a [...] (Vitamin D3) 2000 UNIT Oral Daily Aug us2017October 27, 2017 Discontinued Problem List Active Problems Medical Problem Onset Date Status MSSA bacteremia Active GI bleeding Active B12 deficiency Active [...] pain R esolved Procedures Procedure Date Status Provider(s) EGD (esophagogastroduodenoscopy) October 19, 2017 completed Kian Sinclair Gram Stain October 24, 2017 completed Anaerobic Culture October 24, 2017 completed US venous doppler LE RT October 20, 2017 completed XR knee RT 1-2V October 17, 2017 completed XR ankle RT 2V October 17, 2017 completed XR hip RT pelvis 2-3V October 17, 2017 completed XR chest 1V October 16, 2017 completed Relevant Diagnostic Tests and/or Laboratory Data Laboratory Results Test Date/Time Result Interp. Ref. Range Result Comment White Blood Count October 25, 2017 5:52am 7.2 10^3/uL 4.5-1 1.0 Red Blood Count October 25, 2017 5:52am 2.97 10^6/uL Low 3.50-5 .40 Hemoglobin October 27, 2017 4:54am 7.9 g/dL Low 12.0-16.0 Hematocrit October 27, 2017 4:54am 26.5 % Low 36-48 Mean Corpuscular Volume October 25, 2017 5:52am 86.1 fL 79-99 Mean Corpuscular Hemoglobin October 25, 2017 5:52am 26.7 pg 25.0-34.0 Mean Corpuscular Hemoglobin Concent October 25, 2017 5:52am 31.1 g/d L 31.0-36.0 Red Cell Distribution Width October 25, 2017 5:52am 17.9 % High 11.0-15.0 Platelet Count October 25, 2017 5:52am 256 10^3 uL 130-400 Mean Platelet Volume October 25, 2017 5:52am 8.1 fL 7.0 -11.0 Neutrophils % (Manual) October 25, 2017 5:52am 64.0 % 5 0-65 Band Neutrophils % (Manual) October 24, 2017 6:05am 1.0 % 0-10 Lymphocytes % (Manual) October 25, 2017 5:52am 20.0 % 1 5-45 Monocytes % (Manual) October 25, 2017 5:52am 11.0 % High 0-1 0 Eosinophils % (Manual) October 25, 2017 5:52am 3.0 % 0 -5 Basophils % (Manual) October 25, 2017 5:52am 2.0 % 0-2 Neutrophils # (Manual) October 25, 2017 5:52am 4.6 # 1 .0-8.0 Lymphocytes # (Manual) October 25, 2017 5:52am 1.4 # 1 .0-3.0 Monocytes # (Manual) October 25, 2017 5:52am 0.8 # 0.0 -1.0 Eosinophils # (Manual) October 25, 2017 5:52am 0.2 # 0 .0-0.4 Basophils # (Manual) October 25, 2017 5:52am 0.1 # 0.0 -0.2 Reactive Lymphocytes % (Manual) October 18, 2017 6:05am 1.0 % Nucleated Red Blood Cells/100 WBC October 14, 2017 2:38pm 1 # Polychromasia October 24, 2017 6:05am 1+ Hypochromasia October 25, 2017 5:52am 2+ Poikilocytosis October 16, 2017 7:20am 1+ Anisocytosis October 25, 2017 5:52am 2+ Erythrocyte Sedimentation Rate October 24, 2017 6:05am 104 mm/Hr High 0-20 Pathologist Review (Hematology) October 22, 2017 7:20pm See comment THIS IS A CORRECTED RESULT FOR DATE [] and TIME [] Path Review previously reported as: To Follow Prothrombin Time October 26, 2017 4:58am 17.3 Seconds High 11.9- 14.4 INR International Normalized Ratio October 26, 2017 4:58am 1.43 High 0.89-1.13 Therapeutic Range: Prophylaxis - Thrombosis 2.0-3.0 Mechanical Heart Valves 2.5-3.5 Myocardial Infarction 2.0-3.0 Sodium Level October 24, 2017 6:05am 136 mmol/L 135-150 Potassium Level October 24, 2017 6:05am 5.2 mmol/L 3.4-5.2 Chloride Level October 24, 2017 6:05am 101 mmol/L 100-112 Carbon Dioxide Level October 24, 2017 6:05am 24 mEq/L 18- 30 Anion Gap October 24, 2017 6:05am 11 mmol/L 8-11 Blood Urea Nitrogen October 24, 2017 6:05am 24 mg/dL High 5-21 Creatinine October 24, 2017 6:05am 0.57 mg/dL Low 0.60-1.30 Glomerular Filtration Rate Calc October 24, 2017 6:05am > 60 mL/Min The GFR is not [...] Stage 5 = <15 ml/min Glucose Level October 24, 2017 6:05am 78 mg/dL 70-99 Bedside Glucose October 27, 2017 8:28pm 122 mg/dL High 70-99 Uric Acid October 14, 2017 2:38pm 2.8 mg/dL Low 3.5-7.4 Calcium Level October 24, 2017 6:05am 8.7 mg/dL 8.6-10.5 Total Bilirubin October 24, 2017 6:05am 0.2 mg/dL 0.0-1.2 Aspartate Amino Transf (AST/SGOT) October 24, 2017 6:05am 12 U/L 6-37 Alanine Aminotransferase (ALT/SGPT) October 24, 2017 6:05am < 8 U/L Low 12-78 C-Reactive Protein, Quantitative October 24, 2017 6:05am 67.9 mg/L Hi gh Total Protein October 24, 2017 6:05am 6.5 g/dL 6.4-8.2 Albumin October 24, 2017 6:05am 1.9 g/dL Low 3.3-4.5 Albumin/Globulin Ratio October 24, 2017 6:05am 0.4 Low 0 .7-2.0 Alkaline Phosphatase October 24, 2017 6:05am 127 U/L 50- 136 Stool Occult Blood (IFOB) October 18, 2017 9:50am Positive Microbiology Results Procedure Source Result Collection Date/Time Result Date/Time Anaerobic Culture Groin No results entered October 24, 2017 1 0:15am Gram Stain Groin No results entered October 24, 2017 10:15a m Discharge Summary Encounter: Discharged Inpatient Admit Date: October 14, 2017 2:20pm Discharge Date: October 28, 2017 6:23am [facility] [address] [place] [address] Discharge Summary Patient: Lisandra Marshall MR#: [id number] : 1955 Acct:[id number] Age/Sex: 62 / F Adm/Svc Date: 10/14/17 [...] Consult to Physician [CONS] Routine Consulting Provider: Sharan Duron Reason For Exam: Right ankle pain, [...] on 726 as a transfer from [facility] in [facility]. She originally presented to [facility] in [facility] with right-sided weakness and inability to move. She was found to be septic and transferred to [facility] in [place] where she had MSSA bacteremia and sepsis [...] (18) Personal history of peptic ulcer di sease: Current visit: Yes Status: Acute (19) Ankle [...] mg PO BID Qty: 0 RF: 0 ovxnrttyfvbo-ypli-fnaqp acid [Certavite-Antioxidant] 18-400 mg-mcg Tablet 1 tab [...] No Referrals: , [Primary Care Provider] - OTHER, [Non billed provider] - Bebo Stallworth MD [Non-Staff] - 10/28/17 8:30 am (Appointment location: [address] [place] [address] ) Documented By: Gladys Dela Cruz 10/27/17 1103 Signed By: <Electronically signed by Gladys Dela Cruz> 10/27/17 1531 cc: , ~ Advance Directives Advance Directive Response Recorded Date/Time Advance Directive on File? 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 MSSA bacteremia Non-healing open wound of right groin Personal history of peptic ulcer disease B12 deficiency Chronic bronchitis Depression GERD (gastroesophageal reflux disease) HHT (hereditary hemorrhagic telangiectasia) Hypertension Hypothyroidism Iron deficiency anemia Type 2 diabetes mellitus Sepsis Hospital Discharge Instructions Additional Discharge Instructions Return to skilled af ter [facility] appointments Instruction/Education Provided Hardware Removal (DC) Warm Compress or Soak (DC) Hospital Discharge Medications Medication Dose Units Route [...] Oral Every 12 Hours 0 October 27 8 Active Rifampin 150 MG Oral Twice a Day 0 October 27, 2017 A ctive Levothyroxine 400 MCG Oral 0600 0 October 27, 2017 A ctive Morphine 15 MG Oral Every 3 Hours PRN 8 October 27, 2017 Active Metformin 1000 MG Oral Twice a Day 0 October 27, 2017 Active Ejmdbwwkovuc-Azsw-Grplx Acid 1 TAB Oral DAILY@1200 0 October 27, 2017 Active Lactobacillus Rhamnosus 1 ea Oral Twice a Day 0 Au 2017 Active Warfarin 10 MG Oral 1600 0 October 27, 2017 Active Encounters Encounter Facility Location Admit/Visit Date Discharge/Departure Date Attending Provider Registered Inpatient [facility] October 24, 2017 5:39pm Kian Sinclair Discharged Inpatient [address] Medical/Surg ical October 14, 2017 2:20pm October 28, 2017 6:23am Gladys Dela Cruz Encounter Diagnosis Onset Date Acute blood loss anemia DVT (deep venous thrombosis) GI bleeding 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 Immunizations No known immunizations. Payers Payer Name Policy Type Covered Libertarian Covered Libertarian Id Relationship Sub scriber Subscriber Id [employer] Preferred Provider Organization (PPO) Lisandra Marshall [facility] [id number] Self / Same As Patient Lisandra Marshall [id number] Medicare Medicare Part A Lisandra Marshall [id number] Self / Same As Pat ient Lisandra Lesterlyle [id number] Medicaid Medicaid Lisandra Lesterlyle [id number] Self / Same As Patient [place] Joanna [id number] Self Pay Plan of Care Instructions Hardware Removal (DC) Warm Compress or Soak (DC) Social History Query Response Date Recorded Comment household members spouse October 24, 2017 5:43pm Query Response Start Date Stop Date Smoking Status Current every day smoker Vital Signs Vital Reading Result Reference Range Collection Date/ Time Height 5 ft 7 in October 15, 2017 11:40am Weight 248 lb October 15, 2017 11:40am Temperature 97.9 F 97.5 F-99.5 F October 28, 2017 5:47am Pulse 90 BPM 60-90 October 28, 2017 5:47am Respiration 18 RPM 12-20 October 28, 2017 5:47am Pulse Oximetry 88 % 90-100 October 27, 2017 7:00pm Blood Pressure Systolic 108 100-160 September 302017 5:47am Blood Pressure Diastolic 59 50-80 October 28, 2017 5:47am Body Mass Index 38.8 October 15, 2017 11:40am
--- OUTSIDE RECORDS SUMMARY | 2019-07-27 11:51 | XMS REPORT | Continuity of Care Document ---
Author Author [facility] Address [address] [place] [address] Care Team Providers Care Gameplay Engineer Name Role Phone Mariam العراقي Rndphys NONE, NONE PCP Unavailable Allergies, Adverse Reactions, Alerts Allergen Type Severity Reaction Last Updated Verified Status prednisone Allergy Severe "THROAT CLOSES UP" May 28, 2017 Y Active doxycycline Allergy Swelling of Lip/Tongue/Throat April Y Active lisinopril Allergy Cough May 28, 2017 Y Acti ve zolpidem Allergy Agitated May 28, 2017 Y Activ e Medications No medication information available. Problem List Active Problems Medical Problem Onset Date Status Hypothyroidism (acquired) Active Diabetes mellitus Active Intermittent epigastric abdominal pain A ctive Procedures Procedure Date Status XR chest 1V May 28, 2017 completed Relevant Diagnostic Tests and/or Laboratory Data Laboratory Results Test Date/Time Result Interp. Ref. Range Result Comment White Blood Count May 28, 2017 9:00pm 10.8 10^3/uL 4.5-1 1.0 Red Blood Count May 28, 2017 9:00pm 4.58 10^6/uL 3.50-5. 40 Hemoglobin May 28, 2017 9:00pm 12.0 g/dL 12.0-16.0 Hematocrit May 28, 2017 9:00pm 38.4 % 36-48 Mean Corpuscular Volume May 28, 2017 9:00pm 83.8 fL 7 9-99 Mean Corpuscular Hemoglobin May 28, 2017 9:00pm 26.2 pg 25.0-34.0 Mean Corpuscular Hemoglobin Concent May 28, 2017 9:00pm 31.3 g/dL 31.0-36.0 Red Cell Distribution Width May 28, 2017 9:00pm 20.7 % High 11.0-15.0 Platelet Count May 28, 2017 9:00pm 357 10^3 uL 130-400 Mean Platelet Volume May 28, 2017 9:00pm 8.1 fL 7.0- 11.0 Neutrophils % (Manual) May 28, 2017 9:00pm 71.0 % High 50 -65 Band Neutrophils % (Manual) May 28, 2017 9:00pm 2.0 % 0-10 Lymphocytes % (Manual) May 28, 2017 9:00pm 24.0 % 15 -45 Monocytes % (Manual) May 28, 2017 9:00pm 3.0 % 0-10 Neutrophils # (Manual) May 28, 2017 9:00pm 7.9 # 1. 0-8.0 Lymphocytes # (Manual) May 28, 2017 9:00pm 2.6 # 1. 0-3.0 Monocytes # (Manual) May 28, 2017 9:00pm 0.3 # 0.0- 1.0 Prothrombin Time May 28, 2017 9:00pm 12.9 Seconds 11.9-1 4.4 INR International Normalized Ratio May 28, 2017 9:00pm 0.99 0.89-1.13 Therapeutic Range: Prophylaxis - Thrombosis 2.0-3.0 Mechanical Heart Valves 2.5-3.5 Myocardial Infarction 2.0-3.0 Activated Partial Thromboplast Time May 28, 2017 9:00pm 31.7 Seco nds 23.9-34.0 Sodium Level May 28, 2017 9:00pm 137 mmol/L 135-150 Potassium Level May 28, 2017 9:00pm 4.3 mmol/L 3.4-5.2 Chloride Level May 28, 2017 9:00pm 98 mmol/L Low 100-112 Carbon Dioxide Level May 28, 2017 9:00pm 28 mEq/L 18-3 0 Anion Gap May 28, 2017 9:00pm 11 mmol/L 8-11 Blood Urea Nitrogen May 28, 2017 9:00pm 25 mg/dL High 5-21 Creatinine May 28, 2017 9:00pm 1.23 mg/dL 0.60-1.30 Glomerular Filtration Rate Calc May 28, 2017 9:00pm 44 mL/Min The GFR is not validated for use in drug dosing adjustments. Continue to use estimated creatinine clearance per dosing reference text. Chronic Kidney Disease is defined as either kidney damage or a GFR less than 60 ml/min that persists for at least 3 months. Stage 3 = 30-59 ml/min Stage 4 = 15-29 ml/min Stage 5 = <15 ml/min Glucose Level May 28, 2017 9:00pm 186 mg/dL High 70-99 Calcium Level May 28, 2017 9:00pm 9.6 mg/dL 8.6-10.5 Total Bilirubin May 28, 2017 9:00pm 0.8 mg/dL 0.0-1.2 Aspartate Amino Transf (AST/SGOT) May 28, 2017 9:00pm 13 U/L 6-37 Alanine Aminotransferase (ALT/SGPT) May 28, 2017 9:00pm < 8 U/L Low 12-78 Troponin I May 28, 2017 9:00pm 0.01 ng/mL 0.00-0.05 B-Type Natriuretic Peptide May 28, 2017 9:00pm 46.4 pg/mL Total Protein May 28, 2017 9:00pm 8.3 g/dL High 6.4-8.2 Albumin May 28, 2017 9:00pm 3.4 g/dL 3.3-4.5 Albumin/Globulin Ratio May 28, 2017 9:00pm 0.7 0. 7-2.0 Alkaline Phosphatase May 28, 2017 9:00pm 117 U/L 50-1 36 Lipase May 28, 2017 9:00pm 19 U/L 8-78 Thyroid Stimulating Hormone (TSH) May 28, 2017 9:00pm 21.56 uIU/m L High 0.35-4.94 Chief Complaint and Reason for Visit Encounter Admit Date Chief Complaint Reason for Visit Departed Emergency May 28, 2017 8:38pm Chest Pain Hospital Discharge Instructions Additional Discharge Instructions You should be exerci sing anti-reflux measures. Your blood sugar was 183 which puts you in the diabetic range. You have an underactive thyroid and you must switch to name brand thyroid replacement. [place] with your pharmacist to see if you can Get Synthroid. It is more predictable in terms of absorption. See your doctor next week or return to ER Instruction/Education Provided Gastroesophageal Reflux Disease (ED) Problem: Chest Pain Goal: Relief of chest pain, rule out cardiac event Plan: Refer to patient instructions provided. Encounters Encounter Facility Location Admit/Visit Date Discharge/Departure Date Attending Provider Departed Emergency [facility] Emergency Department [facility] 2017 8:38pm May 28, 2017 11:11pm Functional Status No known functional status. Immunizations No known immunizations. Payers Payer Name Policy Type Covered Libertarian Covered Libertarian Id Relationship Sub scriber Subscriber Id [employer] Preferred Provider Organization (PPO) Lisandra Marshall [facility] [id number] Self / Same As Patient Lisandra Marshall [id number] Medicare Medicare Part A Lisandra Marshall [id number] Self / Same As Dianne ent Lisandra Marshall [id number] Medicaid Medicaid Lisandra Marshall [id number] Self / Same As Patient Ada Marshall [id number] Self Pay Plan of Care Instructions Gastroesophageal Reflux Disease (ED) Problem: Chest Pain Goal: Relief of chest pain, rule out cardiac event Plan: Refer to patient instructions provided. Social History Query Response Start Date Stop Date Smoking Status Current every day smoker Vital Signs Vital Reading Result Reference Range Collection Date/ Time Height 5 ft 10 in May 28, 2017 8 :46pm Weight 240 lb May 28, 2017 8 :46pm Temperature 98.6 F 97.5 F-99.5 F May 28, 2017 8 :53pm Pulse 106 BPM 60-90 May 28, 2017 1 1:00pm Respiration 16 RPM 12-20 May 28, 2017 1 1:00pm Pulse Oximetry 92 % 90-100 May 28, 2017 1 1:00pm Blood Pressure Systolic 120 100-160 April 11:00pm Blood Pressure Diastolic 67 50-80 April 302017 11:00pm Body Mass Index 34.4 May 28, 2017 8 :46pm
--- OUTSIDE RECORDS SUMMARY | 2019-07-27 11:52 | XMS REPORT | Continuity of Care Document ---
Author Organization Unknown Address Unknown Phone Unavailable Allergies Active Description Code Type Severity Reaction Onset Reported/Identified Relationship to Patient Clinical Status Yes Ambien Drug N/A N/A Yes Ambien Drug Moderate 4683974 Yes doxycycline Drug N/A N/A Yes doxycycline Drug Mod erate [id number] Yes lisinopril Drug N/A N/A Yes lisinopril Drug Mild [id number] Yes lisinopril Drug Mild N/A Yes predniSONE Drug N/A N/A Yes predniSONE Drug Severe [id number] Yes doxycycline doxycycline Allergy N/A Swelling of Lip/Tongue/Throat 02/01/2019 Yes lisinopril lisinopril Allergy N/A Cough 02/01/2019 Yes prednisone prednisone Allergy Severe "THROAT CLOSES UP" 02/01/2019 Yes zolpidem zolpidem Allergy N/A Agitated 02/01/2019 Medications Medication Packaging Start Date St op Date Route Dosage Sig docusate sodium Tablet 11/10/2017 PO 100 mg cholecalciferol (vitamin D3) Tablet 11/10/2017 PO 2000 unit levothyroxine Tablet 11/10/2017 PO 400 mcg tizanidine Tablet 11/10/2017 PO 4 mg pantoprazole Tablet,De layed Release (/Ec) 11/10/2017 PO 40 mg furosemide Tablet 11/10/2017 PO 40 mg fentanyl Patch 72 Hour 11/15/2017 Transdermal 25 mcg morphine Tablet 2017 PO 15 mg metformin Tablet 11/18 PO 1000 MG gabapentin Capsule 11/18/2017 PO 300 MG losartan Tablet 2017 PO 150 MG amitriptyline Tablet 11/18/2017 PO 75 MG duloxetine Capsule,Del ayed Release(/Ec) 11/18/2017 PO 60 mg rifampin Capsule 11/18 PO 450 MG cephalexin Capsule 11/18/2017 PO 1000 mg sucralfate Tablet 11/18/2017 PO 1 GM warfarin Tablet 2017 PO 20 mg sitagliptin Tablet 11/18/2017 PO 100 mg Lactobacillus rhamnosus GG C apsule 12/16/2018 PO 1 cap sulfamethoxazole-trimethoprim Tablet 12/16/2018 PO 1 tab citalopram Tablet 12/16/2018 PO 20 mg levothyroxine Tablet 12/16/2018 PO 450 mcg losartan Tablet 2018 PO 100 mg gabapentin Capsule 12/20/2018 PO 300 mg levothyroxine Tablet 12/21/2018 PO 50 mcg PNV,calcium 66-uwcp-pajua acid Tablet 12/26/2018 PO 1 tab folic acid Tablet 12/26/2018 PO 1 mg cyanocobalamin (vitamin B-12) Tablet 12/26/2018 PO 500 mcg polyethylene glycol 3350 Powder In Packet 12/26/2018 PO 17 g oxycodone Tablet 12/26 PO 5 mg aspirin Tablet,Chewable 12/26/2018 PO 81 mg Problems Date Dx Coded Attending Type Code Diagnosis Diagnosed By 10/18/2017 Gladys Dela Cruz DO A4 1.9 Sepsis, unspecified organism 10/18/2017 Gladys Dela Cruz DO D5 0.9 Iron deficiency anemia, unspecified 10/18/2017 Gladys Dela Cruz DO D6 2 Acute posthemorrhagic anemia 10/18/2017 Gladys Dela Cruz DO E0 3.9 Hypothyroidism, unspecified 10/18/2017 Gladys Dela Cruz DO E11.65 Type 2 diabetes mellitus with hyperglycemia 10/18/2017 Gladys Dela Cruz DO E1 1.9 Type 2 diabetes mellitus without complications 10/18/2017 Gladys Dela Cruz DO E5 3.8 Deficiency of other specified B group vitamins 10/18/2017 Gladys Dela Cruz DO F3 2.9 Major depressive disorder, single episode, unspecified 10/18/2017 Gladys Dela Cruz DO I1 0 Essential (primary) hypertension 10/18/2017 Gladys Dela Cruz DO 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 10/18/2017 Gladys Dela Cruz DO I82.409 Acute embolism and thrombosis of unspecified deep vein s of u 10/18/2017 Gladys Dela Cruz DO J4 2 Unspecified chronic bronchitis 10/18/2017 Gladys Dela Cruz DO K2 1.9 Gastro-esophageal reflux disease without esophagitis 10/18/2017 Gladys Dela Cruz DO K9 2.2 Gastrointestinal hemorrhage, unspecified 10/18/2017 Jose De Jesus BERMUDEZ Gladys K W R10.13 Epigastric pain 10/18/2017 Gladys Dela Cruz DO K W R78.81 Bacteremia 10/18/2017 Jose De Jesus BERMUDEZ Gladys K W T84.51XA Infection and inflammatory reaction due to internal ri ght hi 10/18/2017 Gladys Dela Cruz DO K W T84.53XA Infection and inflammatory reaction due to internal ri ght kn 10/18/2017 Gladys Dela Cruz DO K W A4 1.9 Sepsis, unspecified organism 10/18/2017 Gladys Dela Cruz DO K W D5 0.9 Iron deficiency anemia, unspecified 10/18/2017 Gladys Dela Cruz DO K W D6 2 Acute posthemorrhagic anemia 10/18/2017 Gladys Dela Cruz DO K W E0 3.9 Hypothyroidism, unspecified 10/18/2017 Jose De Jesus BERMUDEZ Gladys K W E11.65 Type 2 diabetes mellitus with hyperglycemia 10/18/2017 Gladys Dela Cruz DO K W E1 1.9 Type 2 diabetes mellitus without complications 10/18/2017 Gladys Dela Cruz DO K W E5 3.8 Deficiency of other specified B group vitamins 10/18/2017 Jose De Jesus BERMUDEZ Gladys K W F3 2.9 Major depressive disorder, single episode, unspecified 10/18/2017 Gladys Dela Cruz DO K W I1 0 Essential (primary) hypertension 10/18/2017 Gladys Dela Cruz DO K W 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 10/18/2017 Gladys Dela Cruz DO K W I82.409 Acute embolism and thrombosis of unspecified deep vein s of u 10/18/2017 Gladys Dela Cruz DO K W J4 2 Unspecified chronic bronchitis 10/18/2017 Gladsy Dela Cruz DO K W K2 1.9 Gastro-esophageal reflux disease without esophagitis 10/18/2017 Gladys Dela Cruz DO K W K9 2.2 Gastrointestinal hemorrhage, unspecified 10/18/2017 Gladys Dela Cruz DO K W R10.13 Epigastric pain 10/18/2017 Gladys Dela Cruz DO K W R78.81 Bacteremia 10/18/2017 Gladys Dela Cruz DO K W T84.51XA Infection and inflammatory reaction due to internal ri ght hi 10/18/2017 Gladys Dela Cruz DO T84.53XA Infection and inflammatory reaction due to internal ri ght kn 10/19/2017 Gladys Dela Cruz DO A4 1.9 Sepsis, unspecified organism 10/19/2017 Gladys Dela Cruz DO D5 0.9 Iron deficiency anemia, unspecified 10/19/2017 Gladys Dela Cruz DO D6 2 Acute posthemorrhagic anemia 10/19/2017 Gladys Dela Cruz DO E0 3.9 Hypothyroidism, unspecified 10/19/2017 Gladys Dela Cruz DO E11.65 Type 2 diabetes mellitus with hyperglycemia 10/19/2017 Gladys Dela Cruz DO E1 1.9 Type 2 diabetes mellitus without complications 10/19/2017 Gladys Dela Cruz DO E5 3.8 Deficiency of other specified B group vitamins 10/19/2017 Gladys Dela Cruz DO F3 2.9 Major depressive disorder, single episode, unspecified 10/19/2017 Gladys Dela Cruz DO W I1 0 Essential (primary) hypertension 10/19/2017 Gladys Dela Cruz DO 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 10/19/2017 Gladys Dela Cruz DO I82.409 Acute embolism and thrombosis of unspecified deep vein s of u 10/19/2017 Gladys Dela Cruz DO J4 2 Unspecified chronic bronchitis 10/19/2017 Gladys Dela Cruz DO K2 1.9 Gastro-esophageal reflux disease without esophagitis 10/19/2017 Gladys Dela Cruz DO K9 2.2 Gastrointestinal hemorrhage, unspecified 10/19/2017 Gladys Dela Cruz DO M25.571 Pain in right ankle and joints of right foot 10/19/2017 Gladys Dela Cruz DO R10.13 Epigastric pain 10/19/2017 Gladys Dela Cruz DO R78.81 Bacteremia 10/19/2017 Gladys Dela Cruz DO T84.51XA Infection and inflammatory reaction due to internal ri ght hi 10/19/2017 Gladys Dela Cruz DO T84.53XA Infection and inflammatory reaction due to internal ri ght kn 10/19/2017 Gladys Dela Cruz DO Z87.11 Personal history of peptic ulcer disease 10/27/2017 [place] DO, Gladys K W A4 1.9 Sepsis, unspecified organism 10/27/2017 Jose De Jesus DO Gladys K W D5 0.9 Iron deficiency anemia, unspecified 10/27/2017 Jose De Jesus DO Gladys K W D6 2 Acute posthemorrhagic anemia 10/27/2017 Jose De Jesus DO Gladys K W E0 3.9 Hypothyroidism, unspecified 10/27/2017 Jose De Jesus DO Gladys K W E11.65 Type 2 diabetes mellitus with hyperglycemia 10/27/2017 Jose De Jesus DO Gladys K W E1 1.9 Type 2 diabetes mellitus without complications 10/27/2017 Jose De Jesus DO Gladys K W E5 3.8 Deficiency of other specified B group vitamins 10/27/2017 Jose De Jesus BERMUDEZ Gladys K W F3 2.9 Major depressive disorder, single episode, unspecified 10/27/2017 Jose De Jesus BERMUDEZ Gladys K W I1 0 Essential (primary) hypertension 10/27/2017 Jose De Jesus BERMUDEZ Gladys K W 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 10/27/2017 Jose De Jesus BERMUDEZ Gladys K W I82.409 Acute embolism and thrombosis of unspecified deep vein s of u 10/27/2017 Jose De Jesus BERMUDEZ Gladys K W J4 2 Unspecified chronic bronchitis 10/27/2017 Jose De Jesus BERMUDEZ Gladys K W K2 1.9 Gastro-esophageal reflux disease without esophagitis 10/27/2017 Jose De Jesus BERMUDEZ Gladys K W K9 2.2 Gastrointestinal hemorrhage, unspecified 10/27/2017 Jose De Jesus BERMUDEZ Gladys K W M25.571 Pain in right ankle and joints of right foot 10/27/2017 Jose De Jesus BERMUDEZ Gladys K W R10.13 Epigastric pain 10/27/2017 Jose De Jesus BERMUDEZ Gladys K W R78.81 Bacteremia 10/27/2017 Jose De Jesus BERMUDEZ Gladys K W S31.103A Unspecified open wound of abdominal wall, right lower quadra 10/27/2017 Jose De Jesus BERMUDEZ Gladys K W T84.51XA Infection and inflammatory reaction due to internal ri ght hi 10/27/2017 Jose De Jesus BERMUDEZ Gladys K W T84.53XA Infection and inflammatory reaction due to internal ri ght kn 10/27/2017 Jose De Jesus BERMUDEZ Gladys K W Z87.11 Personal history of peptic ulcer disease 10/28/2017 [place] DO, Gladys K W A4 1.9 Sepsis, unspecified organism 10/28/2017 Jose De Jesus BERMUDEZ Gladys K W D5 0.9 Iron deficiency anemia, unspecified 10/28/2017 Jose De Jesus BERMUDEZ Gladys K W D6 2 Acute posthemorrhagic anemia 10/28/2017 Jose De Jesus BERMUDEZ Gladys K W E0 3.9 Hypothyroidism, unspecified 10/28/2017 Jose De Jesus BERMUDEZ Gladys K W E11.65 Type 2 diabetes mellitus with hyperglycemia 10/28/2017 Jose De Jesus BERMUDEZ Gladys K W E1 1.9 Type 2 diabetes mellitus without complications 10/28/2017 Jose De Jesus BERMUDEZ Gladys K W E5 3.8 Deficiency of other specified B group vitamins 10/28/2017 Jose De Jesus BERMUDEZ Gladys K W F3 2.9 Major depressive disorder, single episode, unspecified 10/28/2017 Jose De Jesus BERMUDEZ Gladys K W I1 0 Essential (primary) hypertension 10/28/2017 Jose De Jesus BERMUDEZ Gladys K W 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81 Bacteremia 10/28/2017 Jose De Jesus BERMUDEZ Gladys K W S31.103A Unspecified open wound of abdominal wall, right lower quadra 10/28/2017 Jose De Jesus BERMUDEZ Gladys K W T84.51XA Infection and inflammatory reaction due to internal ri ght hi 10/28/2017 Jose De Jesus BERMUDEZ Gladys K W T84.53XA Infection and inflammatory reaction due to internal ri ght kn 10/28/2017 Jose De Jesus BERMUDEZ Gladys K W Z87.11 Personal history of peptic ulcer disease 11/08/2017 Gladys Dela Cruz DO K W D5 0.9 Iron deficiency anemia, unspecified 11/08/2017 Jose De Jesus DO Gladys K W E0 3.9 Hypothyroidism, unspecified 11/08/2017 [place] DO Gladys K W E1 1.9 Type 2 diabetes mellitus without complications 11/08/2017 Jose De Jesus DO Gladys K W I1 0 Essential (primary) hypertension 11/08/2017 Jose De Jesus DO Gladys K W 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 11/08/2017 Jose De Jesus DO Gladys K W I82.409 Acute embolism and thrombosis of unspecified deep vein s of u 11/08/2017 Jose De Jesus DO Gladys K W K2 1.9 Gastro-esophageal reflux disease without esophagitis 11/08/2017 Jose De Jesus DO Gladys K W M25.571 Pain in right ankle and joints of right foot 11/08/2017 Gladys Dela Cruz DO K W R0 4.0 Epistaxis 11/08/2017 Gladys Dela Cruz DO K W R78.81 Bacteremia 11/08/2017 Jose De Jesus BERMUDEZ Gladys K W S31.103A Unspecified open wound of abdominal wall, right lower quadra 11/08/2017 Jose De Jesus DO Gladys K W T84.51XA Infection and inflammatory reaction due to internal ri ght hi 11/08/2017 Jose De Jesus DO Gladys K W T84.53XA Infection and inflammatory reaction due to internal ri ght kn 11/08/2017 Jose De Jesus DO Gladys K W Z87.11 Personal history of peptic ulcer disease 11/08/2017 Gladys Dela Cruz DO K F D5 0.9 Iron deficiency anemia, unspecified 11/08/2017 Jose De Jesus DOGladys K F E0 3.9 Hypothyroidism, unspecified 11/08/2017 Jose De Jesus DO Gladys K F E1 1.9 Type 2 diabetes mellitus without complications 11/08/2017 Jose De Jesus DO Gladys K F I1 0 Essential (primary) hypertension 11/08/2017 Jose De Jesus DO Gladys K F 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 11/08/2017 Jose De Jesus DO Gladys K F I82.409 Acute embolism and thrombosis of unspeci fied deep veins of unspecified lower extremity 11/08/2017 Jose De Jesus DO Gladys K F K2 1.9 Gastro-esophageal reflux disease without esophagitis 11/08/2017 Jose De Jesus DO, Gladys K F M25.571 Pain in right ankle and joints of right foot 11/08/2017 Gladys Dela Cruz DO R0 4.0 Epistaxis 11/08/2017 Gladys Dela Cruz DO R78.81 Bacteremia 11/08/2017 Gladys Dela Cruz DO T84.51XA Infection and inflammatory reaction due to internal right hip prosthesis, initial encounter 11/08/2017 Gladys Dela Cruz DO T84.53XA Infection and inflammatory reaction due to internal right knee prosthesis, initial encounter 11/08/2017 Gladys Dela Cruz DO Z87.11 Personal history of peptic ulcer disease 11/08/2017 Gladys Del aCruz DO D5 0.9 Iron deficiency anemia, unspecified 11/08/2017 Gladys Dela Cruz DO D6 2 Acute posthemorrhagic anemia 11/08/2017 Gladys Dela Cruz DO W E0 3.9 Hypothyroidism, unspecified 11/08/2017 Gladys Dela Cruz DO E1 1.9 Type 2 diabetes mellitus without complications 11/08/2017 Gladys Dela Cruz DO E5 3.8 Deficiency of other specified B group vitamins 11/08/2017 Gladys Dela Cruz DO F3 2.9 Major depressive disorder, single episode, unspecified 11/08/2017 Gladys Dela Cruz DO I1 0 Essential (primary) hypertension 11/08/2017 Gladys Dela Cruz DO 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 11/08/2017 Gladys Dela Cruz DO I82.409 Acute embolism and thrombosis of unspecified deep vein s of u 11/08/2017 Gladys Dela Cruz DO J4 2 Unspecified chronic bronchitis 11/08/2017 Gladys Dela Cruz DO K2 1.9 Gastro-esophageal reflux disease without esophagitis 11/08/2017 Gladys Dela Cruz DO K9 2.2 Gastrointestinal hemorrhage, unspecified 11/08/2017 Gladys Dela Cruz DO M25.571 Pain in right ankle and joints of right foot 11/08/2017 Gladys Dela Cruz DO T84.51XA Infection and inflammatory reaction due to internal ri ght hi 11/08/2017 Gladys Dela Cruz DO T84.53XA Infection and inflammatory reaction due to internal ri ght kn 11/10/2017 [place] DO, Gladys K W D5 0.9 Iron deficiency anemia, unspecified 11/10/2017 [place] DO, Gladys K W D6 2 Acute posthemorrhagic anemia 11/10/2017 [place] DO, Gladys K W E0 3.9 Hypothyroidism, unspecified 11/10/2017 [place] DO, Gladys K W E1 1.9 Type 2 diabetes mellitus without complications 11/10/2017 [place] DO, Gladys K W E5 3.8 Deficiency of other specified B group vitamins 11/10/2017 [place] DO, Gladys K W F3 2.9 Major depressive disorder, single episode, unspecified 11/10/2017 [place] DO, Gladys K W I1 0 Essential (primary) hypertension 11/10/2017 [place] DO, Gladys K W 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 11/10/2017 [place] DO, Gladys K W I82.409 Acute embolism and thrombosis of unspeci fied deep veins of unspecified lower extremity 11/10/2017 [place] DO, Gladys K W J4 2 Unspecified chronic bronchitis 11/10/2017 [place] DO, Gladys K W K2 1.9 Gastro-esophageal reflux disease without esophagitis 11/10/2017 [place] DO, Gladys K W K9 2.2 Gastrointestinal hemorrhage, unspecified 11/10/2017 [place] DO, Gladys K W M25.571 Pain in right ankle and joints of right foot 11/10/2017 [place] DO, Gladys K W T84.51XA Infection and inflammatory reaction due to internal right hip prosthesis, initial encounter 11/10/2017 [place] DO, Gladys K W T84.53XA Infection and inflammatory reaction due to internal right knee prosthesis, initial encounter 11/11/2017 [place] DO, Gladys K W D5 0.9 Iron deficiency anemia, unspecified 11/11/2017 [place] DO, Gladys K W D6 2 Acute posthemorrhagic anemia 11/11/2017 [place] DO, Gladys K W E0 3.9 Hypothyroidism, unspecified 11/11/2017 [place] DO, Gladys K W E1 1.9 Type 2 diabetes mellitus without complications 11/11/2017 [place] DO, Gladys K W E5 3.8 Deficiency of other specified B group vitamins 11/11/2017 [place] DO, Gladys K W F3 2.9 Major depressive disorder, single episode, unspecified 11/11/2017 Jose De Jesus BERMUDEZ Gladys K W I1 0 Essential (primary) hypertension 11/11/2017 Jose De Jesus BERMUDEZ Gladys K W 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 11/11/2017 Jose De Jesus BERMUDEZ Gladys K W I82.409 Acute embolism and thrombosis of unspeci fied deep veins of unspecified lower extremity 11/11/2017 Gladys Dela Cruz DO K W J4 2 Unspecified chronic bronchitis 11/11/2017 Jose De Jesus BERMUDEZ Gladys K W K2 1.9 Gastro-esophageal reflux disease without esophagitis 11/11/2017 Jose De Jesus BERMUDEZ Gladys K W K9 2.2 Gastrointestinal hemorrhage, unspecified 11/11/2017 Gladys Dela Cruz DO K W M25.571 Pain in right ankle and joints of right foot 11/11/2017 Jose De Jesus BERMUDEZ Gladys K W T84.51XA Infection and inflammatory reaction due to internal right hip prosthesis, initial encounter 11/11/2017 Gladys Dela Cruz DO K W T84.53XA Infection and inflammatory reaction due to internal right knee prosthesis, initial encounter 11/11/2017 Gladys Dela Cruz DO K W D5 0.9 Iron deficiency anemia, unspecified 11/11/2017 Jose De Jeuss BERMUDEZ Gladys K W D6 2 Acute posthemorrhagic anemia 11/11/2017 Jose De Jesus BERMUDEZ Alana K W E0 3.9 Hypothyroidism, unspecified 11/11/2017 Jose De Jesus BEMRUDEZ Gladys K W E1 1.9 Type 2 diabetes mellitus without complications 11/11/2017 Gladys Dela Cruz DO K W E5 3.8 Deficiency of other specified B group vitamins 11/11/2017 Gladys Dela Cruz DO K W F3 2.9 Major depressive disorder, single episode, unspecified 11/11/2017 Gladys Dela Cruz DO K W I1 0 Essential (primary) hypertension 11/11/2017 Gladys Dela Cruz DO K W 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 11/11/2017 Gladys Dela Cruz DO K W I82.409 Acute embolism and thrombosis of unspeci fied deep veins of unspecified lower extremity 11/11/2017 Jose De Jesus BERMUDEZ Gladys K W J4 2 Unspecified chronic bronchitis 11/11/2017 Jose De Jesus BERMUDEZ Gladys K W K2 1.9 Gastro-esophageal reflux disease without esophagitis 11/11/2017 Gladys Dela Cruz DO K9 2.2 Gastrointestinal hemorrhage, unspecified 11/11/2017 Gladys Dela Cruz DO M25.571 Pain in right ankle and joints of right foot 11/11/2017 Gladys Dela Cruz DO T84.51XA Infection and inflammatory reaction due to internal right hip prosthesis, initial encounter 11/11/2017 Gladys Dela Cruz DO T84.53XA Infection and inflammatory reaction due to internal right knee prosthesis, initial encounter 11/14/2017 Gladys Dela Cruz DO D5 0.9 Iron deficiency anemia, unspecified 11/14/2017 Gladys Dela Cruz DO D6 2 Acute posthemorrhagic anemia 11/14/2017 Gladys Dela Cruz DO K W E0 3.9 Hypothyroidism, unspecified 11/14/2017 Gladys Dela Cruz DO K W E1 1.9 Type 2 diabetes mellitus without complications 11/14/2017 Gladys Dela Cruz DO E5 3.8 Deficiency of other specified B group vitamins 11/14/2017 Gladys Dela Cruz DO K Cj F3 2.9 Major depressive disorder, single episode, unspecified 11/14/2017 Gladys Dela Cruz DO K W I1 0 Essential (primary) hypertension 11/14/2017 Gladys Dela Cruz DO 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 11/14/2017 Gladys Dela Cruz DO I82.409 Acute embolism and thrombosis of unspeci fied deep veins of unspecified lower extremity 11/14/2017 Gladys Dela Cruz DO J4 2 Unspecified chronic bronchitis 11/14/2017 Gladys Dela Cruz DO K2 1.9 Gastro-esophageal reflux disease without esophagitis 11/14/2017 Gladys Dela Cruz DO K9 2.2 Gastrointestinal hemorrhage, unspecified 11/14/2017 Gladys Dela Cruz DO M25.571 Pain in right ankle and joints of right foot 11/14/2017 Gladys Dela Cruz DO T84.51XA Infection and inflammatory reaction due to internal right hip prosthesis, initial encounter 11/14/2017 Galdys Dela Cruz DO T84.53XA Infection and inflammatory reaction due to internal right knee prosthesis, initial encounter 11/14/2017 Gladys Dela Cruz DO W D5 0.9 Iron deficiency anemia, unspecified 11/14/2017 [place] DO, Gladys K W D6 2 Acute posthemorrhagic anemia 11/14/2017 [place] DO, Gladys K W E0 3.9 Hypothyroidism, unspecified 11/14/2017 [place] DO, Gladys K W E1 1.9 Type 2 diabetes mellitus without complications 11/14/2017 [place] DO, Gladys K W E5 3.8 Deficiency of other specified B group vitamins 11/14/2017 [place] DO Gladys K W F3 2.9 Major depressive disorder, single episode, unspecified 11/14/2017 [place] DO, Gladys K W I1 0 Essential (primary) hypertension 11/14/2017 [place] DO Gladys K W 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 11/14/2017 [place] DO Gladys K W I82.409 Acute embolism and thrombosis of unspeci fied deep veins of unspecified lower extremity 11/14/2017 Jose De Jesus DO Gladys K W J4 2 Unspecified chronic bronchitis 11/14/2017 Jose De Jesus DO Gladys K W K2 1.9 Gastro-esophageal reflux disease without esophagitis 11/14/2017 Jose De Jesus DO Gladys K W K9 2.2 Gastrointestinal hemorrhage, unspecified 11/14/2017 [place] DO Gladys K W M25.571 Pain in right ankle and joints of right foot 11/14/2017 Jose De Jesus DO Gladys K W T84.51XA Infection and inflammatory reaction due to internal right hip prosthesis, initial encounter 11/14/2017 Jose De Jesus DO Gladys K W T84.53XA Infection and inflammatory reaction due to internal right knee prosthesis, initial encounter 11/14/2017 Jose De Jesus BERMUDEZ Gladys K W D5 0.9 Iron deficiency anemia, unspecified 11/14/2017 [place] DO Gladys K W D6 2 Acute posthemorrhagic anemia 11/14/2017 [place] DO Gladys K W E0 3.9 Hypothyroidism, unspecified 11/14/2017 [place] DO, Gladys K W E1 1.9 Type 2 diabetes mellitus without complications 11/14/2017 [place] DO, Gladys K W E5 3.8 Deficiency of other specified B group vitamins 11/14/2017 [place] DO Gladys K W F3 2.9 Major depressive disorder, single episode, unspecified 11/14/2017 [place] DO Gladys K W I1 0 Essential (primary) hypertension 11/14/2017 Jose De Jesus BERMUDEZ Gladys K W 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 11/14/2017 Jose De Jesus BERMUDEZ Gladys K W I82.409 Acute embolism and thrombosis of unspeci fied deep veins of unspecified lower extremity 11/14/2017 Gladys Dela Cruz DO K W J4 2 Unspecified chronic bronchitis 11/14/2017 Gladys Dela Cruz DO K W K2 1.9 Gastro-esophageal reflux disease without esophagitis 11/14/2017 Gladys Dela Cruz DO K W K9 2.2 Gastrointestinal hemorrhage, unspecified 11/14/2017 Gladys Dela Cruz DO K W M25.571 Pain in right ankle and joints of right foot 11/14/2017 Gladys Dela Cruz DO K W T84.51XA Infection and inflammatory reaction due to internal right hip prosthesis, initial encounter 11/14/2017 Gladys Dela Cruz DO K W T84.53XA Infection and inflammatory reaction due to internal right knee prosthesis, initial encounter 11/18/2017 Gladys Dela Cruz DO K W D5 0.9 Iron deficiency anemia, unspecified 11/18/2017 Gladys Dela Cruz DO K W D6 2 Acute posthemorrhagic anemia 11/18/2017 Gladys Dela Cruz DO K W E0 3.9 Hypothyroidism, unspecified 11/18/2017 Gladys Dela Cruz DO K W E1 1.9 Type 2 diabetes mellitus without complications 11/18/2017 Gladys Dela Cruz DO K W E5 3.8 Deficiency of other specified B group vitamins 11/18/2017 Gladys Dela Cruz DO K W F3 2.9 Major depressive disorder, single episode, unspecified 11/18/2017 Gladys Dela Cruz DO K W I1 0 Essential (primary) hypertension 11/18/2017 Gladys Dela Cruz DO K W 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 11/18/2017 Gladys Dela Cruz DO K W I82.409 Acute embolism and thrombosis of unspeci fied deep veins of unspecified lower extremity 11/18/2017 Gladys Dela Cruz DO K W J4 2 Unspecified chronic bronchitis 11/18/2017 Jose De Jesus BERMUDEZ Gladys K W K2 1.9 Gastro-esophageal reflux disease without esophagitis 11/18/2017 Gladys Dela Cruz DO K W K9 2.2 Gastrointestinal hemorrhage, unspecified 11/18/2017 Gladys Dela Cruz DO M25.571 Pain in right ankle and joints of right foot 11/18/2017 Gladys Dela Cruz DO T84.51XA Infection and inflammatory reaction due to internal right hip prosthesis, initial encounter 11/18/2017 Gladys Dela Cruz DO T84.53XA Infection and inflammatory reaction due to internal right knee prosthesis, initial encounter 11/18/2017 Gladys Dela Cruz DO D5 0.9 Iron deficiency anemia, unspecified 11/18/2017 Gladys Dela Cruz DO W D6 2 Acute posthemorrhagic anemia 11/18/2017 Gladys Dela Crzu DO W E0 3.9 Hypothyroidism, unspecified 11/18/2017 Gladys Dela Cruz DO E1 1.9 Type 2 diabetes mellitus without complications 11/18/2017 Gladys Dela Cruz DO E5 3.8 Deficiency of other specified B group vitamins 11/18/2017 Gladys Dela Cruz DO W F3 2.9 Major depressive disorder, single episode, unspecified 11/18/2017 Gladys Dela Cruz DO W I1 0 Essential (primary) hypertension 11/18/2017 Gladys Dela Cruz DO 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 11/18/2017 Gladys Dela Cruz DO I82.409 Acute embolism and thrombosis of unspeci fied deep veins of unspecified lower extremity 11/18/2017 Gladys Dela Cruz DO J4 2 Unspecified chronic bronchitis 11/18/2017 Gladys Dela Cruz DO K2 1.9 Gastro-esophageal reflux disease without esophagitis 11/18/2017 Gladys Dela Cruz DO K9 2.2 Gastrointestinal hemorrhage, unspecified 11/18/2017 Gladys Dela Cruz DO M25.571 Pain in right ankle and joints of right foot 11/18/2017 Gladys Dela Cruz DO T84.51XA Infection and inflammatory reaction due to internal right hip prosthesis, initial encounter 11/18/2017 Gladys Dela Cruz DO T84.53XA Infection and inflammatory reaction due to internal right knee prosthesis, initial encounter 03/28/2018 Deacon Ring MD E66.01 Morbid obesity due to excess calories 03/28/2018 Deacon Ring MD 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 03/28/2018 Deacon Ring MD Z68.36 BMI 36-36.9 03/31/2018 Deacon Ring MD D50.9 Iron deficiency anemia 05/23/2018 CONCHITA, MIKE LIGHT CLEANER Ot I51.7 CARDIOMEGALY 05/23/2018 CONCHITA, MIKE LIGHT CLEANER Ot J06.9 ACUTE UPPER RESPIRATORY INFECTION, UNSPE 05/23/2018 CONCHITA, MIKE LIGHT CLEANER Ot Z95.82 8 PRESENCE OF OTHER VASCULAR IMPLANTS AND 05/25/2018 CONCHITA, MIKE LIGHT CLEANER Ot I51.7 CARDIOMEGALY 05/25/2018 CONCHITA, MIKE LIGHT CLEANER Ot J06.9 ACUTE UPPER RESPIRATORY INFECTION, UNSPE 05/25/2018 CONCHITA, MIKE LIGHT CLEANER Ot Z95.82 8 PRESENCE OF OTHER VASCULAR IMPLANTS AND 06/15/2018 CONCHITA, MIKE LIGHT CLEANER Ot I51.7 CARDIOMEGALY 06/15/2018 CONCHITA, MIKE LIGHT CLEANER Ot J06.9 ACUTE UPPER RESPIRATORY INFECTION, UNSPE 06/15/2018 CONCHITA, MIKE LIGHT CLEANER Ot Z95.82 8 PRESENCE OF OTHER VASCULAR IMPLANTS AND 06/28/2018 Deacon Ring MD E66.9 Obesity Class I (BMI 30-34.9) 06/28/2018 Deacon Ring MD Z68.30 BMI 30-30.9 07/07/2018 Deacon Ring MD D63.1 Anemia due to CKD 08/02/2018 SENG BRAND Final D62 Acute posthemorrhagic anemia 08/02/2018 SENG BRAND Final K25.9 Gastric ulcer, unspecified as acute or chronic, without hemorrhage or perforation 08/02/2018 SENG BRAND Final K31.1 Adult hypertrophic pyloric stenosis 08/02/2018 SENG BRAND Final K92.2 Gastrointestinal hemorrhage, unspecified 08/02/2018 SENG BRAND Reason For Visit R07.9 Chest pain, unspecified 08/02/2018 MILIND CLAY Final D64. 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) 12/18/2018 Longwilder DO Gladys K W D6 2 Acute posthemorrhagic anemia 12/18/2018 Longwell DO, Gladys K W E0 3.9 Hypothyroidism, unspecified 12/18/2018 Longwell DO, Gladys K W E11.65 Type 2 diabetes mellitus with hyperglycemia 12/18/2018 Longwilder DO Gladys K W F33.41 Major depressive disorder, recurrent, in partial remis freddy 12/18/2018 Longwell DO, Gladys K W I1 0 Essential (primary) hypertension 12/18/2018 Longwilder DO Gladys K W 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 12/18/2018 Longwilder DO Gladys K W K2 1.0 Gastro-esophageal reflux disease with esophagitis 12/18/2018 Longwilder DO Gladys K W L89.152 Pressure ulcer of sacral region, stage 2 12/18/2018 Jose De Jesus DO Gladys K W 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 12/18/2018 Jose De Jesus DO, Gladys K W T84.53XS Infection and inflammatory reaction due to internal ri ght kn 12/22/2018 Jose De Jesus DO Gladys K W 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) 12/22/2018 Longwilder DO Gladys K W D6 2 Acute posthemorrhagic anemia 12/22/2018 Longwell DO, Gladys K W E0 3.9 Hypothyroidism, unspecified 12/22/2018 Longwell DO Gladys K W E11.65 Type 2 diabetes mellitus with hyperglycemia 12/22/2018 Longwilder DO Gladys K W F33.41 Major depressive disorder, recurrent, in partial remis freddy 12/22/2018 Longwell DO Gladys K W I1 0 Essential (primary) hypertension 12/22/2018 Longwell DO Gladys K W 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 12/22/2018 Gladys Dela Cruz DO K W K2 1.0 Gastro-esophageal reflux disease with esophagitis 12/22/2018 Gladys Dela Cruz DO K W L89.152 Pressure ulcer of sacral region, stage 2 12/22/2018 Gladys Dela Cruz DO K W 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 12/22/2018 Jose De Jesus DO Gladys K W T84.53XD Infection and inflammatory reaction due to internal right knee prosthesis, subsequent encounter 12/22/2018 Jose De Jesus BERMUDEZ Gladys K W T84.53XS Infection and inflammatory reaction due to internal right knee prosthesis, sequela 12/26/2018 Jose De Jesus DO Gladys K W 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) 12/26/2018 Jose De Jesus BERMUDEZ Gladys K W D6 2 Acute posthemorrhagic anemia 12/26/2018 Jose De Jesus DO Gladys K W E0 3.9 Hypothyroidism, unspecified 12/26/2018 Gladys Dela Cruz DO K W E11.65 Type 2 diabetes mellitus with hyperglycemia 12/26/2018 Gladys Dela Cruz DO K W F33.41 Major depressive disorder, recurrent, in partial remis freddy 12/26/2018 Gladys Dela Cruz DO K W I1 0 Essential (primary) hypertension 12/26/2018 Gladys Dela Cruz DO 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 12/26/2018 Gladys Dela Cruz DO K W K2 1.0 Gastro-esophageal reflux disease with esophagitis 12/26/2018 Gladys Dela Cruz DO K W L89.152 Pressure ulcer of sacral region, stage 2 12/26/2018 Gladys Dela Cruz DO W 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 12/26/2018 Gladys Dela Curz DO K W T84.53XD Infection and inflammatory reaction due to internal right knee prosthesis, subsequent encounter 12/26/2018 Jose De Jesus BERMUDEZ Gladys K W T84.53XS Infection and inflammatory reaction due to internal right knee prosthesis, sequela 12/26/2018 Jose De Jesus DO Gladys K W 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) 12/26/2018 Jose De Jesus BERMUDEZ Gladys K W D6 2 Acute posthemorrhagic anemia 12/26/2018 Jose De Jesus BERMUDEZ Gladys K W E0 3.9 Hypothyroidism, unspecified 12/26/2018 Longwell DO Gladys K W E11.65 Type 2 diabetes mellitus with hyperglycemia 12/26/2018 Longwilder DO Gladys K W F33.41 Major depressive disorder, recurrent, in partial remis freddy 12/26/2018 Longwell DO Gladys K W I1 0 Essential (primary) hypertension 12/26/2018 Longwell DO Gladys K W 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 12/26/2018 Longwell DO Gladys K W K2 1.0 Gastro-esophageal reflux disease with esophagitis 12/26/2018 Longwell DO Gladys K W L89.152 Pressure ulcer of sacral region, stage 2 12/26/2018 Longwilder DO Gladys K W 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 12/26/2018 Longwell DO Gladys K W T84.53XD Infection and inflammatory reaction due to internal right knee prosthesis, subsequent encounter 12/26/2018 Jose De Jesus DOGladys K W T84.53XS Infection and inflammatory reaction due to internal right knee prosthesis, sequela 12/27/2018 Jose De Jesus DOGladys K W 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) 12/27/2018 Gladys Dela Cruz DO K W D6 2 Acute posthemorrhagic anemia 12/27/2018 Jose De Jesus DOGladys K W E0 3.9 Hypothyroidism, unspecified 12/27/2018 Longwell DO Gladys K W E11.65 Type 2 diabetes mellitus with hyperglycemia 12/27/2018 Jose De Jesus DOGladys K W F33.41 Major depressive disorder, recurrent, in partial remis freddy 12/27/2018 Longwilder DO Gladys K W I1 0 Essential (primary) hypertension 12/27/2018 Longwell DO Gladys K W 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 12/27/2018 Longwell DO Gladys K W K2 1.0 Gastro-esophageal reflux disease with esophagitis 12/27/2018 Longwell DO Gladys K W L89.152 Pressure ulcer of sacral region, stage 2 12/27/2018 Longwell DO Gladys K W 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 12/27/2018 Longwell DO Gladys K W T84.53XD Infection and inflammatory reaction due to internal right knee prosthesis, subsequent encounter 12/27/2018 Gladys Dela Cruz DO T84.53XS Infection and inflammatory reaction due to internal right knee prosthesis, sequela 12/27/2018 Gladys Dela Cruz DO 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) 12/27/2018 Gladys Dela Cruz DO D6 2 Acute posthemorrhagic anemia 12/27/2018 Gladys Dela Cruz DO E0 3.9 Hypothyroidism, unspecified 12/27/2018 Gladys Dela Cruz DO E11.65 Type 2 diabetes mellitus with hyperglycemia 12/27/2018 Gladys Dela Cruz DO F33.41 Major depressive disorder, recurrent, in partial remis freddy 12/27/2018 Gladys Dela Cruz DO I1 0 Essential (primary) hypertension 12/27/2018 Gladys Dela Cruz DO 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 12/27/2018 Gladys Dela Cruz DO K2 1.0 Gastro-esophageal reflux disease with esophagitis 12/27/2018 Gladys Dela Cruz DO L89.152 Pressure ulcer of sacral region, stage 2 12/27/2018 Gladys Dela Cruz DO 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 12/27/2018 Gladys Dela Cruz DO T84.53XD Infection and inflammatory reaction due to internal right knee prosthesis, subsequent encounter 12/27/2018 Gladys Dela Cruz DO T84.53XS Infection and inflammatory reaction due to internal right knee prosthesis, sequela 01/11/2019 Lito Menard MD R04.0 Epistaxis 01/26/2019 Lito Menard MD R04.0 Epistaxis 01/29/2019 Lito Menard MD R04.0 Epistaxis 02/01/2019 Lito Menard MD R04.0 Epistaxis 02/01/2019 Lito Menard MD R04.0 Epistaxis 02/01/2019 Lito Menard MD R04.0 Epistaxis Procedures Code Description [place] [id number] [employer] L/SINUS ENDOSCOPY SURG 02/01/2019 Results Test Result Range Complete Blood Count Man Dif - 05/28/17 21:00 HEMOGLOBIN 12.0 g/dL 12.0-16.0 PLATELET COUNT 357 10 3 uL 130-400 WHITE BLOOD CELL COUNT 10.8 10 3/uL 4.5- 11.0 HEMATOCRIT 38.4 % 36-48 MEAN CORPUSCULAR VOLUME 83.8 fL 79-99 MEAN CORPUSCULAR HEMOGLOBIN 26.2 pg 25 .0-34.0 MEAN CELL HEMOGLOBIN CONC. 31.3 g/dL 31. 0-36.0 RED CELL DISTRIBUTION WIDTH 20.7 % 11 .0-15.0 MEAN PLATELET VOLUME 8.1 fL 7.0-11.0 Red Blood Count 4.58 10 6/uL 3.50-5.40 Neutrophils % (Manual) 71.0 % 50-65 Band Neutrophils %(Manual) 2.0 % 0-1 0 Lymphocytes % (Manual) 24.0 % 15-45 Monocytes % (Manual) 3.0 % 0-10 Neutrophils # (Manual) 7.9 # 1.0-8.0 Lymphocytes # (Manual) 2.6 # 1.0-3.0 Monocytes # (Manual) 0.3 # 0.0-1.0 Prothrombin Time INR - 05/28/17 21:00 PROTIME INR 12.9 Seconds 11.9-14.4 INR Needed? 0.99 0.89-1.13 APTT - 05/28/17 21:00 APTT 31.7 Seconds 23.9-34.0 B-Type Natriuretic Peptide - 05/28/17 21 :00 B-Type Natriuretic Peptide 46.4 pg/mL < 100 Comprehensive Metabolic Panel - 05/28/17 21:00 BILIRUBIN TOTAL 0.8 mg/dL 0.0-1.2 BUN 25 mg/dL 5-21 CHLORIDE 98 mmol/L 100-112 CARBON DIOXIDE 28 mEq/L 18-30 POTASSIUM 4.3 mmol/L 3.4-5.2 SODIUM 137 mmol/L 135-150 GFR ESTIMATE 44 mL/Min > 60 Anion Gap 11 mmol/L 8-11 Creatinine 1.23 mg/dL 0.60-1.30 Glucose 186 mg/dL 70-99 Calcium 9.6 mg/dL 8.6-10.5 Aspartate Amino Transferase 13 U/L 6- 37 Alanine Aminotransferase < 8 U/L 12-78 Total Protein 8.3 g/dL 6.4-8.2 Albumin 3.4 g/dL 3.3-4.5 Albumin/Globulin Ratio 0.7 0.7-2.0 Alkaline Phosphatase 117 U/L 50-136 Troponin I (x1) - 05/28/17 21:00 TROPONIN-I ONLY 0.01 ng/mL 0.00-0.05 Lipase - 05/28/17 21:00 Lipase 19 U/L 8-78 Thyroid Stimulating Hormone - 05/28/17 2 1:00 THYROID STIM HORMONE 21.56 uIU/mL 0.35-4 .94 Type And Screen - 10/18/17 11:22 WRISTBAND #: BE [id number] NRG PATIENT BLOOD TYPE-ABO/RH A Positive NR G RH Positive NRG Antibody Screen-Gel NEGATIVE NRG RBC, Leukocyte Reduced - 10/18/17 11:22 RBC, Leukocyte Reduced TRANSFUSED PRODUCT: R BC, Leukocyte Reduced COUNT: 2 NRG Fingerstick Blood Sugar - 10/21/17 11:00 Fingerstick Blood Sugar 66 mg/dL 70-99 Fingerstick Blood Sugar - 10/21/17 11:24 Fingerstick Blood Sugar 59 mg/dL 70-99 Fingerstick Blood Sugar - 10/21/17 11:54 Fingerstick Blood Sugar 115 mg/dL 70-99 Fingerstick Blood Sugar - 10/21/17 16:11 Fingerstick Blood Sugar 128 mg/dL 70-99 Fingerstick Blood Sugar - 10/21/17 20:57 Fingerstick Blood Sugar 163 mg/dL 70-99 Fingerstick Blood Sugar - 10/22/17 05:41 Fingerstick Blood Sugar 104 mg/dL 70-99 Fingerstick Blood Sugar - 10/22/17 11:32 Fingerstick Blood Sugar 153 mg/dL 70-99 Fingerstick Blood Sugar - 10/22/17 16:37 Fingerstick Blood Sugar 149 mg/dL 70-99 Complete Blood Count Man [facility] - 10/22/17 19:20 HEMOGLOBIN 7.5 g/dL 12.0-16.0 PLATELET COUNT 253 10 3 uL 130-400 WHITE BLOOD CELL COUNT 9.0 10 3/uL 4.5-1 1.0 HYPOCYTOSIS 2+ HEMATOCRIT 24.3 % 36-48 MEAN CORPUSCULAR VOLUME 87.8 fL 79-99 MEAN CORPUSCULAR HEMOGLOBIN 27.1 pg 25 .0-34.0 MEAN CELL HEMOGLOBIN CONC. 30.9 g/dL 31. 0-36.0 RED CELL DISTRIBUTION WIDTH 17.8 % 11 .0-15.0 MEAN PLATELET VOLUME 8.3 fL 7.0-11.0 Red Blood Count 2.77 10 6/uL 3.50-5.40 Neutrophils % (Manual) 64.0 % 50-65 Band Neutrophils %(Manual) 6.0 % 0-1 0 Lymphocytes % (Manual) 17.0 % 15-45 Monocytes % (Manual) 10.0 % 0-10 Eosinophils % (Manual) 2.0 % 0-5 Basophils % (Manual) 1.0 % 0-2 Neutrophils # (Manual) 6.3 # 1.0-8.0 Lymphocytes # (Manual) 1.5 # 1.0-3.0 Monocytes # (Manual) 0.9 # 0.0-1.0 Eosinophils # (Manual) 0.2 # 0.0-0.4 Basophils # (Manual) 0.1 # 0.0-0.2 Anisocytosis 2+ CBC Pathology Review NR Basic Metabolic Panel - 10/22/17 19:20 BUN 31 mg/dL 5-21 CHLORIDE 99 mmol/L 100-112 CARBON DIOXIDE 24 mEq/L 18-30 POTASSIUM 5.4 mmol/L 3.4-5.2 SODIUM 133 mmol/L 135-150 GFR ESTIMATE > 60 mL/Min > 60 Anion Gap 10 mmol/L 8-11 Creatinine 0.69 mg/dL 0.60-1.30 Glucose 165 mg/dL 70-99 Calcium 8.6 mg/dL 8.6-10.5 Fingerstick Blood Sugar - 10/22/17 21:41 Fingerstick Blood Sugar 148 mg/dL 70- Fingerstick Blood Sugar - 10/23/17 06:37 Fingerstick Blood Sugar 100 mg/dL 70-99 Fingerstick Blood Sugar - 10/23/17 11:31 Fingerstick Blood Sugar 97 mg/dL 70-99 Fingerstick Blood Sugar - 10/23/17 16:29 Fingerstick Blood Sugar 103 mg/dL 70-99 Fingerstick Blood Sugar - 10/23/17 20:32 Fingerstick Blood Sugar 136 mg/dL 70-99 Complete Blood Count [facility] - 10/24/17 06:05 HEMOGLOBIN 6.9 g/dL 12.0-16.0 PLATELET COUNT 244 10 3 uL 130-400 WHITE BLOOD CELL COUNT 6.6 10 3/uL 4.5-1 1.0 HYPOCYTOSIS 3+ HEMATOCRIT 22.3 % 36-48 MEAN CORPUSCULAR VOLUME 87.0 fL 79-99 MEAN CORPUSCULAR HEMOGLOBIN 26.9 pg 25 .0-34.0 MEAN CELL HEMOGLOBIN CONC. 30.9 g/dL 31. 0-36.0 RED CELL DISTRIBUTION WIDTH 18.1 % 11 .0-15.0 MEAN PLATELET VOLUME 8.2 fL 7.0-11.0 Red Blood Count 2.56 10 6/uL 3.50-5.40 Neutrophils % (Manual) 65.0 % 50-65 Band Neutrophils %(Manual) 1.0 % 0-1 0 Lymphocytes % (Manual) 14.0 % 15-45 Monocytes % (Manual) 13.0 % 0-10 Eosinophils % (Manual) 6.0 % 0-5 Basophils % (Manual) 1.0 % 0-2 Neutrophils # (Manual) 4.4 # 1.0-8.0 Lymphocytes # (Manual) 0.9 # 1.0-3.0 Monocytes # (Manual) 0.9 # 0.0-1.0 Eosinophils # (Manual) 0.4 # 0.0-0.4 Basophils # (Manual) 0.1 # 0.0-0.2 Polychromasia 1+ ABSENT Anisocytosis 2+ Erythrocyte Sedimentation Rate - 8 06:05 Erythrocyte Sedimentation Rate 104 mm/Hr 0-20 Prothrombin Time INR - 10/24/17 06:05 PROTIME INR 16.8 Seconds 11.9-14.4 INR Needed? 1.38 0.89-1.13 Comprehensive Metabolic Panel - 10/24/17 06:05 BILIRUBIN TOTAL 0.2 mg/dL 0.0-1.2 BUN 24 mg/dL 5-21 CHLORIDE 101 mmol/L 100-112 CARBON DIOXIDE 24 mEq/L 18-30 POTASSIUM 5.2 mmol/L 3.4-5.2 SODIUM 136 mmol/L 135-150 GFR ESTIMATE > 60 mL/Min > 60 Anion Gap 11 mmol/L 8-11 Creatinine 0.57 mg/dL 0.60-1.30 Glucose 78 mg/dL 70-99 Calcium 8.7 mg/dL 8.6-10.5 Aspartate Amino Transferase 12 U/L 6- 37 Alanine Aminotransferase < 8 U/L 12-78 Total Protein 6.5 g/dL 6.4-8.2 Albumin 1.9 g/dL 3.3-4.5 Albumin/Globulin Ratio 0.4 0.7-2.0 Alkaline Phosphatase 127 U/L 50-136 C-Reactive Protein - 10/24/17 06:05 C-REACTIVE PROTEIN 67.9 mg/L <= 5.0 Fingerstick Blood Sugar - 10/24/17 06:26 Fingerstick Blood Sugar 74 mg/dL 70-99 Type And Screen - 10/24/17 09:30 WRISTBAND #: BE [id number] NRG PATIENT BLOOD TYPE-ABO/RH A Positive NR G RH Positive NRG Antibody Screen-Gel NEGATIVE NRG RBC, Leukocyte Reduced - 10/24/17 09:30 RBC, Leukocyte Reduced TRANSFUSED PRODUCT: R BC, Leukocyte Reduced COUNT: 1 NRG Deep Wound Culture & Smear - 10/24/17 10 :15 WHITE BLOOD CELL COUNT Rare (0-1/Oil Immersion Fie ld) NRG JATINDER SCREEN W/RFLX TO TITER,IFA NRG Gram Stain NRG Wound Culture - Deep NRG Epithelial Cells: None seen NRG Morphology: (R) No organisms seen NRG Morphology: (R) VERY RARE AMOUNT Gram negative casi s NRG Day 1 10/25/17 NRG Report: (R) Testing in progress NRG Result: (R) No growth NRG Fingerstick Blood Sugar - 10/24/17 11:49 Fingerstick Blood Sugar 99 mg/dL 70-99 Fingerstick Blood Sugar - 10/24/17 16:59 Fingerstick Blood Sugar 131 mg/dL 70-99 Fingerstick Blood Sugar - 10/24/17 20:51 Fingerstick Blood Sugar 162 mg/dL 70-99 Complete Blood Count Man [facility] - 10/25/17 05:52 HEMOGLOBIN 7.9 g/dL 12.0-16.0 PLATELET COUNT 256 10 3 uL 130-400 WHITE BLOOD CELL COUNT 7.2 10 3/uL 4.5-1 1.0 HYPOCYTOSIS 2+ HEMATOCRIT 25.6 % 36-48 MEAN CORPUSCULAR VOLUME 86.1 fL 79-99 MEAN CORPUSCULAR HEMOGLOBIN 26.7 pg 25 .0-34.0 MEAN CELL HEMOGLOBIN CONC. 31.1 g/dL 31. 0-36.0 RED CELL DISTRIBUTION WIDTH 17.9 % 11 .0-15.0 MEAN PLATELET VOLUME 8.1 fL 7.0-11.0 Red Blood Count 2.97 10 6/uL 3.50-5.40 Neutrophils % (Manual) 64.0 % 50-65 Lymphocytes % (Manual) 20.0 % 15-45 Monocytes % (Manual) 11.0 % 0-10 Eosinophils % (Manual) 3.0 % 0-5 Basophils % (Manual) 2.0 % 0-2 Neutrophils # (Manual) 4.6 # 1.0-8.0 Lymphocytes # (Manual) 1.4 # 1.0-3.0 Monocytes # (Manual) 0.8 # 0.0-1.0 Eosinophils # (Manual) 0.2 # 0.0-0.4 Basophils # (Manual) 0.1 # 0.0-0.2 Anisocytosis 2+ Fingerstick Blood Sugar - 10/25/17 06:26 Fingerstick Blood Sugar 114 mg/dL - Fingerstick Blood Sugar - 10/25/17 11:16 Fingerstick Blood Sugar 124 mg/dL - Fingerstick Blood Sugar - 10/25/17 15:14 Fingerstick Blood Sugar 139 mg/dL - Fingerstick Blood Sugar - 10/25/17 20:45 Fingerstick Blood Sugar 154 mg/dL 70- Hemoglobin and Hematocrit - 10/27/17 04: 54 HEMOGLOBIN 7.9 g/dL 12.0-16.0 HEMATOCRIT 26.5 % 36-48 Fingerstick Blood Sugar - 10/27/17 06:22 Fingerstick Blood Sugar 96 mg/dL - Fingerstick Blood Sugar - 10/27/17 11:06 Fingerstick Blood Sugar 129 mg/dL -99 Fingerstick Blood Sugar - 10/27/17 16:19 Fingerstick Blood Sugar 128 mg/dL -99 Fingerstick Blood Sugar - 10/27/17 20:28 Fingerstick Blood Sugar 122 mg/dL 70-99 Urinalysis w/microscopic - 10/28/17 05:3 0 URINE MICROSCOP Microscopic Results NRG WBC 5-9 0 - 4 RBC 0-2 0 - 5 BACTERIA Trace Neg - Trace MUCUS THREADS 2+ None Seen GLUCOSE Negative Negative KETONE 1+ Negative SPECIFIC GRAVIT 1.020 1.010-1.025 NITRITE Negative Negative BLOOD Negative Negative Color, Urine Yellow Yellow Appearance, Urine Slightly Cloudy Clear pH, Urine 5.5 4.5 - 7.5 Protein, Urine Negative Neg-Trace Bilirubin, Urine Negative Negative Urobilinogen, Urine 0.2 <=1.0 Leukocyte Esterase,Urine Trace Negat johnathon Squamous Epithelial Cell,Urine 0-2 5 - 10 Hyaline Casts, Urine 5-10 0 - 4 Urinalysis Cult if Indicated - 10/28/17 05:30 Culture Indicated,Urine Not Indicated N RG Prothrombin Time INR - 10/28/17 05:37 PROTIME INR 18.4 Seconds 11.9-14.4 INR Needed? 1.55 0.89-1.13 Fingerstick Blood Sugar - 10/28/17 15:58 Fingerstick Blood Sugar 150 mg/dL 70-99 Fingerstick Blood Sugar - 10/28/17 20:30 Fingerstick Blood Sugar 159 mg/dL 70-99 Complete Blood Count Man [facility] - 10/29/17 06:40 HEMOGLOBIN 7.9 g/dL 12.0-16.0 PLATELET COUNT 260 10 3 uL 130-400 WHITE BLOOD CELL COUNT 6.6 10 3/uL 4.5-1 1.0 HEMATOCRIT 25.8 % 36-48 MEAN CORPUSCULAR VOLUME 91.5 fL 79-99 MEAN CORPUSCULAR HEMOGLOBIN 27.8 pg 25 .0-34.0 MEAN CELL HEMOGLOBIN CONC. 30.4 g/dL 31. 0-36.0 RED CELL DISTRIBUTION WIDTH 20.2 % 11 .0-15.0 MEAN PLATELET VOLUME 8.4 fL 7.0-11.0 Red Blood Count 2.83 10 6/uL 3.50-5.40 Basic Metabolic Panel - 10/29/17 06:40 BUN 12 mg/dL 5-21 CHLORIDE 102 mmol/L 100-112 CARBON DIOXIDE 25 mEq/L 18-30 POTASSIUM 4.3 mmol/L 3.4-5.2 SODIUM 137 mmol/L 135-150 GFR ESTIMATE > 60 mL/Min > 60 Anion Gap 10 mmol/L 8-11 Creatinine 0.55 mg/dL 0.60-1.30 Glucose 86 mg/dL 70-99 Calcium 8.7 mg/dL 8.6-10.5 Complete Blood Count Man [facility] - 10/29/17 06:40 HEMOGLOBIN 7.9 g/dL 12.0-16.0 PLATELET COUNT 260 10 3 uL 130-400 WHITE BLOOD CELL COUNT 6.6 10 3/uL 4.5-1 1.0 HEMATOCRIT 25.8 % 36-48 MEAN CORPUSCULAR VOLUME 91.5 fL 79-99 MEAN CORPUSCULAR HEMOGLOBIN 27.8 pg 25 .0-34.0 MEAN CELL HEMOGLOBIN CONC. 30.4 g/dL 31. 0-36.0 RED CELL DISTRIBUTION WIDTH 20.2 % 11 .0-15.0 MEAN PLATELET VOLUME 8.4 fL 7.0-11.0 Red Blood Count 2.83 10 6/uL 3.50-5.40 Neutrophils % (Manual) 61.0 % 50-65 Band Neutrophils %(Manual) 1.0 % 0-1 0 Lymphocytes % (Manual) 17.0 % 15-45 Monocytes % (Manual) 8.0 % 0-10 Eosinophils % (Manual) 9.0 % 0-5 Basophils % (Manual) 4.0 % 0-2 Neutrophils # (Manual) 4.1 # 1.0-8.0 Lymphocytes # (Manual) 1.1 # 1.0-3.0 Monocytes # (Manual) 0.5 # 0.0-1.0 Eosinophils # (Manual) 0.6 # 0.0-0.4 Basophils # (Manual) 0.3 # 0.0-0.2 Polychromasia 1+ ABSENT Anisocytosis 2+ Fingerstick Blood Sugar - 10/29/17 06:42 Fingerstick Blood Sugar 82 mg/dL 70-99 Prothrombin Time INR - 10/29/17 06:44 PROTIME INR 20.6 Seconds 11.5-14.0 INR Needed? 1.78 0.87-1.13 Fingerstick Blood Sugar - 10/29/17 11:08 Fingerstick Blood Sugar 68 mg/dL 70-99 Fingerstick Blood Sugar - 10/29/17 11:28 Fingerstick Blood Sugar 66 mg/dL 70-99 Fingerstick Blood Sugar - 10/29/17 11:45 Fingerstick Blood Sugar 78 mg/dL 70-99 Hemoglobin and Hematocrit - 10/29/17 13: 32 HEMOGLOBIN 8.4 g/dL 12.0-16.0 HEMATOCRIT 27.5 % 36-48 Fingerstick Blood Sugar - 10/29/17 16:29 Fingerstick Blood Sugar 102 mg/dL 70-99 Fingerstick Blood Sugar - 10/29/17 21:14 Fingerstick Blood Sugar 134 mg/dL 70-99 Fingerstick Blood Sugar - 10/30/17 06:36 Fingerstick Blood Sugar 74 mg/dL 70-99 Fingerstick Blood Sugar - 10/30/17 11:11 Fingerstick Blood Sugar 83 mg/dL 70-99 Fingerstick Blood Sugar - 10/30/17 16:05 Fingerstick Blood Sugar 108 mg/dL 70-99 Fingerstick Blood Sugar - 10/30/17 20:21 Fingerstick Blood Sugar 125 mg/dL 70-99 Complete Blood Count Yasmany Salas - 10/31/17 04:55 HEMOGLOBIN 8.3 g/dL 12.0-16.0 PLATELET COUNT 275 10 3 uL 130-400 WHITE BLOOD CELL COUNT 6.9 10 3/uL 4.5-1 1.0 HEMATOCRIT 27.3 % 36-48 MEAN CORPUSCULAR VOLUME 92.1 fL 79-99 MEAN CORPUSCULAR HEMOGLOBIN 28.0 pg 25 .0-34.0 MEAN CELL HEMOGLOBIN CONC. 30.4 g/dL 31. 0-36.0 RED CELL DISTRIBUTION WIDTH 22.8 % 11 .0-15.0 MEAN PLATELET VOLUME 8.2 fL 7.0-11.0 Red Blood Count 2.97 10 6/uL 3.50-5.40 Neutrophils % (Manual) 59.0 % 50-65 Band Neutrophils %(Manual) 1.0 % 0-1 0 Lymphocytes % (Manual) 27.0 % 15-45 Monocytes % (Manual) 10.0 % 0-10 Eosinophils % (Manual) 3.0 % 0-5 Neutrophils # (Manual) 4.1 # 1.0-8.0 Lymphocytes # (Manual) 1.9 # 1.0-3.0 Monocytes # (Manual) 0.7 # 0.0-1.0 Eosinophils # (Manual) 0.2 # 0.0-0.4 Polychromasia 1+ ABSENT Anisocytosis 3+ Prothrombin Time INR - 10/31/17 04:55 PROTIME INR 18.3 Seconds 11.5-14.0 INR Needed? 1.54 0.87-1.13 C-Reactive Protein - 10/31/17 04:55 C-REACTIVE PROTEIN 58.4 mg/L <= 5.0 Comprehensive Metabolic Panel - 10/31/17 04:55 BILIRUBIN TOTAL 0.4 mg/dL 0.0-1.2 BUN 9 mg/dL 5-21 CHLORIDE 101 mmol/L 100-112 CARBON DIOXIDE 27 mEq/L 18-30 POTASSIUM 4.3 mmol/L 3.4-5.2 SODIUM 137 mmol/L 135-150 GFR ESTIMATE > 60 mL/Min > 60 Anion Gap 9 mmol/L 8-11 Creatinine 0.49 mg/dL 0.60-1.30 Glucose 77 mg/dL 70-99 Calcium 8.6 mg/dL 8.6-10.5 Aspartate Amino Transferase 12 U/L 6- 37 Alanine Aminotransferase < 8 U/L 12-78 Total Protein 6.7 g/dL 6.4-8.2 Albumin 2.0 g/dL 3.3-4.5 Albumin/Globulin Ratio 0.4 0.7-2.0 Alkaline Phosphatase 117 U/L 50-136 Erythrocyte Sedimentation Rate - 8 04:55 Erythrocyte Sedimentation Rate 87 mm/Hr 0-20 Fingerstick Blood Sugar - 10/31/17 06:39 Fingerstick Blood Sugar 81 mg/dL 70-99 Fingerstick Blood Sugar - 10/31/17 11:07 Fingerstick Blood Sugar 98 mg/dL 70-99 Fingerstick Blood Sugar - 10/31/17 16:17 Fingerstick Blood Sugar 111 mg/dL 70-99 Fingerstick Blood Sugar - 10/31/17 20:25 Fingerstick Blood Sugar 135 mg/dL 70-99 Fingerstick Blood Sugar - 11/01/17 06:32 Fingerstick Blood Sugar 81 mg/dL 70-99 Fingerstick Blood Sugar - 11/01/17 11:01 Fingerstick Blood Sugar 106 mg/dL 70-99 Fingerstick Blood Sugar - 11/01/17 17:20 Fingerstick Blood Sugar 110 mg/dL 70-99 Fingerstick Blood Sugar - 11/01/17 20:26 Fingerstick Blood Sugar 109 mg/dL 70-99 Prothrombin Time INR - 11/02/17 04:37 PROTIME INR 25.1 Seconds 11.9-14.4 INR Needed? 2.29 0.89-1.13 Fingerstick Blood Sugar - 11/02/17 06:29 Fingerstick Blood Sugar 91 mg/dL 70-99 Fingerstick Blood Sugar - 11/02/17 11:16 Fingerstick Blood Sugar 103 mg/dL 70-99 Fingerstick Blood Sugar - 11/02/17 15:21 Fingerstick Blood Sugar 114 mg/dL 70-99 Fingerstick Blood Sugar - 11/02/17 20:40 Fingerstick Blood Sugar 119 mg/dL 70-99 Fingerstick Blood Sugar - 11/03/17 06:03 Fingerstick Blood Sugar 88 mg/dL 70-99 Fingerstick Blood Sugar - 11/03/17 11:40 Fingerstick Blood Sugar 129 mg/dL 70-99 Fingerstick Blood Sugar - 11/03/17 17:05 Fingerstick Blood Sugar 94 mg/dL 70-99 Fingerstick Blood Sugar - 11/03/17 20:41 Fingerstick Blood Sugar 109 mg/dL 70-99 Prothrombin Time INR - 11/04/17 04:46 PROTIME INR 27.1 Seconds 11.9-14.4 INR Needed? 2.52 0.89-1.13 Fingerstick Blood Sugar - 11/04/17 06:12 Fingerstick Blood Sugar 83 mg/dL 70-99 Fingerstick Blood Sugar - 11/04/17 11:51 Fingerstick Blood Sugar 55 mg/dL 70-99 Fingerstick Blood Sugar - 11/04/17 14:47 Fingerstick Blood Sugar 103 mg/dL 70-99 Fingerstick Blood Sugar - 11/04/17 20:23 Fingerstick Blood Sugar 124 mg/dL 70-99 Fingerstick Blood Sugar - 11/05/17 06:15 Fingerstick Blood Sugar 89 mg/dL 70-99 Fingerstick Blood Sugar - 11/05/17 12:04 Fingerstick Blood Sugar 115 mg/dL 70-99 Complete Blood Count - 11/05/17 15:00 HEMOGLOBIN 9.1 g/dL 12.0-16.0 PLATELET COUNT 270 10 3 uL 130-400 WHITE BLOOD CELL COUNT 7.0 10 3/uL 4.5-1 1.0 HEMATOCRIT 29.9 % 36-48 MEAN CORPUSCULAR VOLUME 89.8 fL 79-99 MEAN CORPUSCULAR HEMOGLOBIN 27.2 pg 25 .0-34.0 MEAN CELL HEMOGLOBIN CONC. 30.3 g/dL 31. 0-36.0 RED CELL DISTRIBUTION WIDTH 21.1 % 11 .0-15.0 MEAN PLATELET VOLUME 7.8 fL 7.0-11.0 Red Blood Count 3.33 10 6/uL 3.50-5.40 Prothrombin Time INR - 11/05/17 15:00 PROTIME INR 23.5 Seconds 11.9-14.4 INR Needed? 2.11 0.89-1.13 Comprehensive Metabolic Panel - 11/05/17 15:00 BILIRUBIN TOTAL 0.3 mg/dL 0.0-1.2 BUN 7 mg/dL 5-21 CHLORIDE 101 mmol/L 100-112 CARBON DIOXIDE 24 mEq/L 18-30 POTASSIUM 4.1 mmol/L 3.4-5.2 SODIUM 138 mmol/L 135-150 GFR ESTIMATE > 60 mL/Min > 60 Anion Gap 13 mmol/L 8-11 Creatinine 0.63 mg/dL 0.60-1.30 Glucose 131 mg/dL 70-99 Calcium 8.5 mg/dL 8.6-10.5 Aspartate Amino Transferase 14 U/L 6- 37 Alanine Aminotransferase < 8 U/L 12-78 Total Protein 6.9 g/dL 6.4-8.2 Albumin 2.1 g/dL 3.3-4.5 Albumin/Globulin Ratio 0.4 0.7-2.0 Alkaline Phosphatase 109 U/L 50-136 Fingerstick Blood Sugar - 11/05/17 16:59 Fingerstick Blood Sugar 116 mg/dL 70-99 Fingerstick Blood Sugar - 11/05/17 21:09 Fingerstick Blood Sugar 136 mg/dL 70-99 Fingerstick Blood Sugar - 11/06/17 06:11 Fingerstick Blood Sugar 80 mg/dL 70-99 Fingerstick Blood Sugar - 11/06/17 11:03 Fingerstick Blood Sugar 102 mg/dL 70-99 Fingerstick Blood Sugar - 11/06/17 16:31 Fingerstick Blood Sugar 142 mg/dL -99 Fingerstick Blood Sugar - 11/06/17 20:54 Fingerstick Blood Sugar 122 mg/dL 70-99 Complete Blood Count [facility] - 11/07/17 04:52 HEMOGLOBIN 8.1 g/dL 12.0-16.0 PLATELET COUNT 253 10 3 uL 130-400 WHITE BLOOD CELL COUNT 5.5 10 3/uL 4.5-1 1.0 HEMATOCRIT 27.1 % 36-48 MEAN CORPUSCULAR VOLUME 89.7 fL 79-99 MEAN CORPUSCULAR HEMOGLOBIN 26.9 pg 25 .0-34.0 MEAN CELL HEMOGLOBIN CONC. 29.9 g/dL 31. 0-36.0 RED CELL DISTRIBUTION WIDTH 20.6 % 11 .0-15.0 MEAN PLATELET VOLUME 8.0 fL 7.0-11.0 Red Blood Count 3.03 10 6/uL 3.50-5.40 Neutrophils % (Manual) 56.0 % 50-65 Band Neutrophils %(Manual) 2.0 % 0-1 0 Lymphocytes % (Manual) 24.0 % 15-45 Monocytes % (Manual) 13.0 % 0-10 Eosinophils % (Manual) 5.0 % 0-5 Neutrophils # (Manual) 3.2 # 1.0-8.0 Lymphocytes # (Manual) 1.3 # 1.0-3.0 Monocytes # (Manual) 0.7 # 0.0-1.0 Eosinophils # (Manual) 0.3 # 0.0-0.4 Polychromasia 1+ ABSENT Anisocytosis 2+ C-Reactive Protein - 11/07/17 04:52 C-REACTIVE PROTEIN 44.1 mg/L <= 5.0 Prothrombin Time INR - 11/07/17 04:52 PROTIME INR 22.2 Seconds 11.9-14.4 INR Needed? 1.96 0.89-1.13 Comprehensive Metabolic Panel - 11/07/17 04:52 BILIRUBIN TOTAL 0.3 mg/dL 0.0-1.2 BUN 10 mg/dL 5-21 CHLORIDE 104 mmol/L 100-112 CARBON DIOXIDE 26 mEq/L 18-30 POTASSIUM 4.0 mmol/L 3.4-5.2 SODIUM 140 mmol/L 135-150 GFR ESTIMATE > 60 mL/Min > 60 Anion Gap 10 mmol/L 8-11 Creatinine 0.54 mg/dL 0.60-1.30 Glucose 74 mg/dL 70-99 Calcium 8.5 mg/dL 8.6-10.5 Aspartate Amino Transferase 9 U/L 6- 37 Alanine Aminotransferase < 8 U/L 12-78 Total Protein 6.3 g/dL 6.4-8.2 Albumin 2.0 g/dL 3.3-4.5 Albumin/Globulin Ratio 0.5 0.7-2.0 Alkaline Phosphatase 104 U/L 50-136 Erythrocyte Sedimentation Rate - 8 04:52 Erythrocyte Sedimentation Rate 76 mm/Hr 0-20 Fingerstick Blood Sugar - 11/07/17 05:57 Fingerstick Blood Sugar 61 mg/dL 70-99 Fingerstick Blood Sugar - 11/07/17 06:20 Fingerstick Blood Sugar 83 mg/dL 70-99 Fingerstick Blood Sugar - 11/07/17 11:19 Fingerstick Blood Sugar 122 mg/dL 70-99 Fingerstick Blood Sugar - 11/07/17 16:58 Fingerstick Blood Sugar 153 mg/dL 70-99 Fingerstick Blood Sugar - 11/07/17 20:21 Fingerstick Blood Sugar 162 mg/dL 70-99 Fingerstick Blood Sugar - 11/08/17 06:23 Fingerstick Blood Sugar 78 mg/dL 70-99 Fingerstick Blood Sugar - 11/08/17 11:48 Fingerstick Blood Sugar 95 mg/dL 70-99 Fingerstick Blood Sugar - 11/08/17 15:30 Fingerstick Blood Sugar 111 mg/dL 70-99 Fingerstick Blood Sugar - 11/08/17 20:06 Fingerstick Blood Sugar 120 mg/dL 70-99 Prothrombin Time INR - 11/09/17 04:25 PROTIME INR 24.2 Seconds 11.9-14.4 INR Needed? 2.19 0.89-1.13 Fingerstick Blood Sugar - 11/09/17 06:20 Fingerstick Blood Sugar 102 mg/dL 70-99 Fingerstick Blood Sugar - 11/09/17 12:25 Fingerstick Blood Sugar 138 mg/dL 70-99 Fingerstick Blood Sugar - 11/09/17 16:30 Fingerstick Blood Sugar 138 mg/dL 70-99 Fingerstick Blood Sugar - 11/09/17 20:38 Fingerstick Blood Sugar 172 mg/dL 70-99 Fingerstick Blood Sugar - 11/10/17 06:10 Fingerstick Blood Sugar 124 mg/dL 70-99 Fingerstick Blood Sugar - 11/10/17 11:08 Fingerstick Blood Sugar 148 mg/dL 70-99 Fingerstick Blood Sugar - 11/10/17 17:16 Fingerstick Blood Sugar 237 mg/dL 70-99 Fingerstick Blood Sugar - 11/10/17 20:19 Fingerstick Blood Sugar 126 mg/dL 70-99 Prothrombin Time INR - 11/11/17 04:58 PROTIME INR 24.0 Seconds 11.9-14.4 INR Needed? 2.17 0.89-1.13 Fingerstick Blood Sugar - 11/11/17 06:09 Fingerstick Blood Sugar 109 mg/dL 70-99 Fingerstick Blood Sugar - 11/11/17 12:14 Fingerstick Blood Sugar 124 mg/dL 70-99 Fingerstick Blood Sugar - 11/11/17 16:29 Fingerstick Blood Sugar 123 mg/dL -99 Fingerstick Blood Sugar - 11/11/17 20:57 Fingerstick Blood Sugar 131 mg/dL -99 Fingerstick Blood Sugar - 11/12/17 06:29 Fingerstick Blood Sugar 102 mg/dL -99 Fingerstick Blood Sugar - 11/12/17 11:09 Fingerstick Blood Sugar 150 mg/dL -99 Fingerstick Blood Sugar - 11/12/17 16:21 Fingerstick Blood Sugar 156 mg/dL -99 Fingerstick Blood Sugar - 11/12/17 20:46 Fingerstick Blood Sugar 171 mg/dL -99 Fingerstick Blood Sugar - 11/13/17 06:05 Fingerstick Blood Sugar 114 mg/dL 70-99 Fingerstick Blood Sugar - 11/13/17 11:10 Fingerstick Blood Sugar 142 mg/dL - Fingerstick Blood Sugar - 11/13/17 16:16 Fingerstick Blood Sugar 152 mg/dL -99 Fingerstick Blood Sugar - 11/13/17 20:39 Fingerstick Blood Sugar 202 mg/dL 70-99 Complete Blood Count [facility] - 11/14/17 05:34 HEMOGLOBIN 7.4 g/dL 12.0-16.0 PLATELET COUNT 321 10 3 uL 130-400 WHITE BLOOD CELL COUNT 6.5 10 3/uL 4.5-1 1.0 HEMATOCRIT 24.6 % 36-48 MEAN CORPUSCULAR VOLUME 86.6 fL 79-99 MEAN CORPUSCULAR HEMOGLOBIN 26.2 pg 25 .0-34.0 MEAN CELL HEMOGLOBIN CONC. 30.3 g/dL 31. 0-36.0 RED CELL DISTRIBUTION WIDTH 19.7 % 11 .0-15.0 MEAN PLATELET VOLUME 7.8 fL 7.0-11.0 Red Blood Count 2.84 10 6/uL 3.50-5.40 Neutrophils % (Manual) 48.0 % 50-65 Band Neutrophils %(Manual) 2.0 % 0-1 0 Lymphocytes % (Manual) 32.0 % 15-45 Monocytes % (Manual) 5.0 % 0-10 Eosinophils % (Manual) 9.0 % 0-5 Basophils % (Manual) 4.0 % 0-2 Neutrophils # (Manual) 3.3 # 1.0-8.0 Lymphocytes # (Manual) 2.1 # 1.0-3.0 Monocytes # (Manual) 0.3 # 0.0-1.0 Eosinophils # (Manual) 0.6 # 0.0-0.4 Basophils # (Manual) 0.3 # 0.0-0.2 Anisocytosis 2+ Erythrocyte Sedimentation Rate - 8 05:34 Erythrocyte Sedimentation Rate 105 mm/Hr 0-20 Comprehensive Metabolic Panel - 11/14/17 05:34 BILIRUBIN TOTAL 0.3 mg/dL 0.0-1.2 BUN 14 mg/dL 5-21 CHLORIDE 103 mmol/L 100-112 CARBON DIOXIDE 24 mEq/L 18-30 POTASSIUM 4.8 mmol/L 3.4-5.2 SODIUM 137 mmol/L 135-150 GFR ESTIMATE > 60 mL/Min > 60 Anion Gap 10 mmol/L 8-11 Creatinine 0.60 mg/dL 0.60-1.30 Glucose 111 mg/dL 70-99 Calcium 9.0 mg/dL 8.6-10.5 Aspartate Amino Transferase 14 U/L 6- 37 Alanine Aminotransferase < 8 U/L 12-78 Total Protein 7.1 g/dL 6.4-8.2 Albumin 2.2 g/dL 3.3-4.5 Albumin/Globulin Ratio 0.4 0.7-2.0 Alkaline Phosphatase 109 U/L 50-136 C-Reactive Protein - 11/14/17 05:34 C-REACTIVE PROTEIN 99.7 mg/L <= 5.0 Prothrombin Time INR - 11/14/17 05:34 PROTIME INR 18.0 Seconds 11.9-14.4 INR Needed? 1.51 0.89-1.13 Fingerstick Blood Sugar - 11/14/17 06:18 Fingerstick Blood Sugar 113 mg/dL 70-99 Fingerstick Blood Sugar - 11/14/17 11:52 Fingerstick Blood Sugar 133 mg/dL 70-99 Fingerstick Blood Sugar - 11/14/17 16:46 Fingerstick Blood Sugar 148 mg/dL 70-99 Fingerstick Blood Sugar - 11/14/17 20:09 Fingerstick Blood Sugar 207 mg/dL 70-99 Fingerstick Blood Sugar - 11/15/17 05:33 Fingerstick Blood Sugar 95 mg/dL - Fingerstick Blood Sugar - 11/15/17 07:37 Fingerstick Blood Sugar 122 mg/dL - Fingerstick Blood Sugar - 11/15/17 11:27 Fingerstick Blood Sugar 135 mg/dL Fingerstick Blood Sugar - 11/15/17 16:43 Fingerstick Blood Sugar 141 mg/dL Fingerstick Blood Sugar - 11/15/17 20:20 Fingerstick Blood Sugar 130 mg/dL 70 Hemoglobin and Hematocrit - 11/16/17 06: 10 HEMOGLOBIN 7.0 g/dL 12.0-16.0 HEMATOCRIT 23.3 % 36-48 Prothrombin Time INR - 11/16/17 06:10 PROTIME INR 20.5 Seconds 11.9-14.4 INR Needed? 1.78 0.89-1.13 Fingerstick Blood Sugar - 11/16/17 06:30 Fingerstick Blood Sugar 125 mg/dL Type And Screen - 11/16/17 10:15 WRISTBAND #: be [id number] NRG PATIENT BLOOD TYPE-ABO/RH A Positive NR G RH Positive NRG Antibody Screen-Gel POSITIVE NRG Antibody Identification - 11/16/17 10:15 Antibody Identification Anti-K NRG Direct Nneka - 11/16/17 10:15 STEF Result Negative Negative RBC, Leukocyte Reduced - 11/16/17 10:15 RBC, Leukocyte Reduced TRANSFUSED PRODUCT: R BC, Leukocyte Reduced COUNT: 1 NRG Fingerstick Blood Sugar - 11/16/17 11:06 Fingerstick Blood Sugar 115 mg/dL Fingerstick Blood Sugar - 11/16/17 15:10 Fingerstick Blood Sugar 129 mg/dL Fingerstick Blood Sugar - 11/16/17 20:39 Fingerstick Blood Sugar 177 mg/dL Fingerstick Blood Sugar - 11/17/17 06:14 Fingerstick Blood Sugar 75 mg/dL Fingerstick Blood Sugar - 11/17/17 11:39 Fingerstick Blood Sugar 116 mg/dL Fingerstick Blood Sugar - 11/17/17 16:28 Fingerstick Blood Sugar 151 mg/dL 70-99 Fingerstick Blood Sugar - 11/17/17 20:30 Fingerstick Blood Sugar 174 mg/dL 70-99 Fingerstick Blood Sugar - 11/18/17 06:13 Fingerstick Blood Sugar 90 mg/dL 70-99 Hemoglobin and Hematocrit - 11/18/17 06: 20 HEMOGLOBIN 7.4 g/dL 12.0-16.0 HEMATOCRIT 24.7 % 36-48 Prothrombin Time INR - 11/18/17 06:20 PROTIME INR 27.0 Seconds 11.9-14.4 INR Needed? 2.51 0.89-1.13 CBC w/MANUAL DIFF - 05/22/18 12:00 WHITE BLOOD CELL COUNT 6.3 Thousand/uL 3 .8-10.8 RED BLOOD CELL COUNT 3.24 Million/uL 3.8 0-5.10 HEMOGLOBIN 9.7 g/dL 11.7-15.5 HEMATOCRIT 31.6 % 35.0-45.0 MCV 97.5 fL 80.0-100.0 MCH 29.9 pg 27.0-33.0 MCHC 30.7 g/dL 32.0-36.0 RDW 17.6 % 11.0-15.0 PLATELET COUNT 456 Thousand/uL 140-400 MPV 9.7 fL 7.5-12.5 ABSOLUTE NEUTROPHILS 4725 cells/uL 1500- 7800 ABSOLUTE MONOCYTES 630 cells/uL 200-950 ABSOLUTE EOSINOPHILS 0 cells/uL 15-500 ABSOLUTE BASOPHILS 126 cells/uL 0-200 NEUTROPHILS 75.0 % NRG LYMPHOCYTES 13.0 % NRG MONOCYTES 10.0 % NRG EOSINOPHILS 0 % NRG BASOPHILS 2.0 % NRG ABSOLUTE LYMPHOCYTES 819 cells/uL 850-39 00 CBC MORPHOLOGY NORMAL COMMENT(S) NRG CMP - 07/05/18 15:25 GLUCOSE 109 mg/dL 65-99 UREA NITROGEN (BUN) 20 mg/dL 7-25 CREATININE 1.13 mg/dL 0.50-0.99 eGFR NON-AFR. ALGERIAN 52 mL/min/1.73m2 > OR = 60 eGFR 60 mL/min/1.73m2 > OR = 60 BUN/CREATININE RATIO 18 (calc) 6-22 SODIUM 137 mmol/L 135-146 POTASSIUM 4.8 mmol/L 3.5-5.3 CHLORIDE 103 mmol/L 98-110 CARBON DIOXIDE 28 mmol/L 20-32 CALCIUM 9.0 mg/dL 8.6-10.4 PROTEIN, TOTAL 6.7 g/dL 6.1-8.1 ALBUMIN 3.3 g/dL 3.6-5.1 GLOBULIN 3.4 g/dL (calc) 1.9-3.7 ALBUMIN/GLOBULIN RATIO 1.0 (calc) 1.0-2. 5 BILIRUBIN, TOTAL 0.4 mg/dL 0.2-1.2 ALKALINE PHOSPHATASE 89 U/L 33-130 AST 13 U/L 10-35 ALT 8 U/L 6-29 CBC - 07/05/18 15:25 WHITE BLOOD CELL COUNT 9.2 Thousand/uL 3 .8-10.8 RED BLOOD CELL COUNT 3.19 Million/uL 3.8 0-5.10 HEMOGLOBIN 9.5 g/dL 11.7-15.5 HEMATOCRIT 30.2 % 35.0-45.0 MCV 94.7 fL 80.0-100.0 MCH 29.8 pg 27.0-33.0 MCHC 31.5 g/dL 32.0-36.0 RDW 16.6 % 11.0-15.0 PLATELET COUNT 496 Thousand/uL 140-400 MPV 9.5 fL 7.5-12.5 ABSOLUTE NEUTROPHILS 6376 cells/uL 1500- 7800 ABSOLUTE LYMPHOCYTES 1573 cells/uL 850-3 900 ABSOLUTE MONOCYTES 736 cells/uL 200-950 ABSOLUTE EOSINOPHILS 396 cells/uL 15-500 ABSOLUTE BASOPHILS 120 cells/uL 0-200 NEUTROPHILS 69.3 % NRG LYMPHOCYTES 17.1 % NRG MONOCYTES 8.0 % NRG EOSINOPHILS 4.3 % NRG BASOPHILS 1.3 % NRG VITAMIN B12/FOLATE, SERUM PANEL - 15:25 VITAMIN B12 344 pg/mL 200-1100 FOLATE, SERUM 1.2 ng/mL NRG FERRITIN, SERUM - 07/05/18 15:25 FERRITIN 674 ng/mL 20-288 A1C - 07/05/18 15:25 HEMOGLOBIN A1c 5.8 % of total Hgb <5.7 CBC - 10/10/18 11:30 WHITE BLOOD CELL COUNT 5.7 Thousand/uL 3 .8-10.8 RED BLOOD CELL COUNT 3.15 Million/uL 3.8 0-5.10 HEMOGLOBIN 9.8 g/dL 11.7-15.5 HEMATOCRIT 31.7 % 35.0-45.0 MCV 100.6 fL 80.0-100.0 MCH 31.1 pg 27.0-33.0 MCHC 30.9 g/dL 32.0-36.0 RDW 16.9 % 11.0-15.0 PLATELET COUNT 312 Thousand/uL 140-400 MPV 9.5 fL 7.5-12.5 ABSOLUTE NEUTROPHILS 3939 cells/uL 1500- 7800 ABSOLUTE LYMPHOCYTES 906 cells/uL 850-39 00 ABSOLUTE MONOCYTES 559 cells/uL 200-950 ABSOLUTE EOSINOPHILS 257 cells/uL 15-500 ABSOLUTE BASOPHILS 40 cells/uL 0-200 NEUTROPHILS 69.1 % NRG LYMPHOCYTES 15.9 % NRG MONOCYTES 9.8 % NRG EOSINOPHILS 4.5 % NRG BASOPHILS 0.7 % NRG A1C - 10/10/18 11:30 HEMOGLOBIN A1c 5.1 % of total Hgb <5.7 COMPLETE BLOOD COUNT W/DIFF - 12/18/18 0 6:03 HEMOGLOBIN 9.3 g/dL 12.0-16.0 PLATELET COUNT 272 10 3 uL 130-400 WHITE BLOOD CELL COUNT 6.3 10 3/uL 4.5-1 1.0 NEUTROPHIL% 57.2 % 43.0-72.0 LYMPHOCYTE% 18.8 % 15.0-45.0 MONOCYT% 14.7 % 1.0-12.0 EOSINOPHIL% 8.2 % 0.0-6.0 BASOPHIL% 1.1 % 0.0-2.0 NEUTROPHIL# 3.6 10 3 uL 1.0-8.0 LYMPHOCYTE# 1.2 10 3 uL 1.0-3.0 MONOCYTE# 0.9 10 3 uL 0.0-1.0 EOSINOPHIL# 0.5 10 3 uL 0.0-0.4 BASOPHIL# 0.1 10 3 uL 0.0-0.2 HEMATOCRIT 29.0 % 36-48 MEAN CORPUSCULAR VOLUME 100.0 fL 79-99 MEAN CORPUSCULAR HEMOGLOBIN 32.1 pg 25 .0-34.0 MEAN CELL HEMOGLOBIN CONC. 32.0 g/dL 31. 0-36.0 RED CELL DISTRIBUTION WIDTH 16.8 % 11 .0-15.0 MEAN PLATELET VOLUME 7.9 fL 7.0-11.0 Red Blood Count 2.90 10 6/uL 3.50-5.40 Basic Metabolic Panel - 12/18/18 06:03 BUN 23 mg/dL 5-21 CHLORIDE 104 mmol/L 100-112 CARBON DIOXIDE 26 mEq/L 18-30 POTASSIUM 4.6 mmol/L 3.4-5.2 SODIUM 138 mmol/L 135-150 GFR ESTIMATE > 60 mL/Min > 60 Anion Gap 8 mmol/L 8-11 Creatinine 0.72 mg/dL 0.60-1.30 Glucose 97 mg/dL 70-99 Calcium 9.2 mg/dL 8.6-10.5 TSH w/Reflex Free T4 - 12/18/18 06:03 TSH - REFLEX T4 1.111 uIU/mL 0.35-4.94 Complete Blood Count Man Dif - 12/20/18 05:59 HEMOGLOBIN 9.7 g/dL 12.0-16.0 PLATELET COUNT 310 10 3 uL 130-400 WHITE BLOOD CELL COUNT 6.7 10 3/uL 4.5-1 1.0 HYPOCYTOSIS 1+ HEMATOCRIT 30.2 % 36-48 MEAN CORPUSCULAR VOLUME 101.1 fL 79-99 MEAN CORPUSCULAR HEMOGLOBIN 32.6 pg 25 .0-34.0 MEAN CELL HEMOGLOBIN CONC. 32.2 g/dL 31. 0-36.0 RED CELL DISTRIBUTION WIDTH 16.8 % 11 .0-15.0 MEAN PLATELET VOLUME 7.8 fL 7.0-11.0 Red Blood Count 2.99 10 6/uL 3.50-5.40 Neutrophils % (Manual) 58.0 % 50-65 Band Neutrophils %(Manual) 2.0 % 0-1 0 Lymphocytes % (Manual) 19.0 % 15-45 Monocytes % (Manual) 12.0 % 0-10 Eosinophils % (Manual) 9.0 % 0-5 Neutrophils # (Manual) 4.0 # 1.0-8.0 Lymphocytes # (Manual) 1.3 # 1.0-3.0 Monocytes # (Manual) 0.8 # 0.0-1.0 Eosinophils # (Manual) 0.6 # 0.0-0.4 Anisocytosis 1+ Macrocytosis 1+ Complete Blood Count Man Dif - 12/25/18 05:11 HEMOGLOBIN 9.4 g/dL 12.0-16.0 PLATELET COUNT 357 10 3 uL 130-400 WHITE BLOOD CELL COUNT 7.1 10 3/uL 4.5-1 1.0 HEMATOCRIT 29.0 % 36-48 MEAN CORPUSCULAR VOLUME 101.2 fL 79-99 MEAN CORPUSCULAR HEMOGLOBIN 32.8 pg 25 .0-34.0 MEAN CELL HEMOGLOBIN CONC. 32.4 g/dL 31. 0-36.0 RED CELL DISTRIBUTION WIDTH 17.4 % 11 .0-15.0 MEAN PLATELET VOLUME 7.7 fL 7.0-11.0 Red Blood Count 2.87 10 6/uL 3.50-5.40 Basic Metabolic Panel - 12/25/18 05:11 BUN 35 mg/dL 5-21 CHLORIDE 105 mmol/L 100-112 CARBON DIOXIDE 24 mEq/L 18-30 POTASSIUM 4.6 mmol/L 3.4-5.2 SODIUM 138 mmol/L 135-150 GFR ESTIMATE 47 mL/Min > 60 Anion Gap 9 mmol/L 8-11 Creatinine 1.17 mg/dL 0.60-1.30 Glucose 96 mg/dL 70-99 Calcium 9.2 mg/dL 8.6-10.5 Complete Blood Count [facility] - 12/25/18 05:11 HEMOGLOBIN 9.4 g/dL 12.0-16.0 PLATELET COUNT 357 10 3 uL 130-400 WHITE BLOOD CELL COUNT 7.1 10 3/uL 4.5-1 1.0 HEMATOCRIT 29.0 % 36-48 MEAN CORPUSCULAR VOLUME 101.2 fL 79-99 MEAN CORPUSCULAR HEMOGLOBIN 32.8 pg 25 .0-34.0 MEAN CELL HEMOGLOBIN CONC. 32.4 g/dL 31. 0-36.0 RED CELL DISTRIBUTION WIDTH 17.4 % 11 .0-15.0 MEAN PLATELET VOLUME 7.7 fL 7.0-11.0 Red Blood Count 2.87 10 6/uL 3.50-5.40 Neutrophils % (Manual) 65.0 % 50-65 Lymphocytes % (Manual) 16.0 % 15-45 Monocytes % (Manual) 6.0 % 0-10 Eosinophils % (Manual) 13.0 % 0-5 Neutrophils # (Manual) 4.6 # 1.0-8.0 Lymphocytes # (Manual) 1.1 # 1.0-3.0 Monocytes # (Manual) 0.4 # 0.0-1.0 Eosinophils # (Manual) 0.9 # 0.0-0.4 Anisocytosis 1+ Macrocytosis 1+ PDM - 09 PANEL (PROFILE 1) - 01/11/19 09 :33 Prescribed Drug 1 Hydrocodone NRG Creatinine 77.4 mg/dL > or = 20.0 pH 5.8 4.5-9.0 Oxidant NEGATIVE mcg/mL <200 Amphetamines NEGATIVE ng/mL <500 medMATCH Amphetamines CONSISTENT NRG Benzodiazepines NEGATIVE ng/mL <100 medMATCH Benzodiazepines CONSISTENT NRG Marijuana Metabolite NEGATIVE ng/mL <20 medMATCH Marijuana Metab CONSISTENT NRG Cocaine Metabolite NEGATIVE ng/mL <150 medMATCH Cocaine Metab CONSISTENT NRG Opiates POSITIVE ng/mL <100 Oxycodone NEGATIVE ng/mL <100 medMATCH Oxycodone CONSISTENT NRG COMMENT NRG Codeine NEGATIVE ng/mL <50 medMATCH Codeine CONSISTENT NRG Hydrocodone 3362 ng/mL <50 medMATCH Hydrocodone CONSISTENT NRG Hydromorphone 64 ng/mL <50 medMATCH Hydromorphone CONSISTENT NRG Morphine NEGATIVE ng/mL <50 medMATCH Morphine CONSISTENT NRG Norhydrocodone 3801 ng/mL <50 medMATCH Norhydrocodone CONSISTENT NRG Prescribed Drug 2 Gabapentin NRG Barbiturates NEGATIVE ng/mL <300 medMATCH Barbiturates CONSISTENT NRG Methadone Metabolite NEGATIVE ng/mL <100 medMATCH Methadone Metab CONSISTENT NRG Phencyclidine NEGATIVE ng/mL <25 medMATCH Phencyclidine CONSISTENT NRG A1C - 01/11/19 09:33 HEMOGLOBIN A1c 4.8 % of total Hgb <5.7 Fingerstick Blood Sugar - 02/01/19 08:15 Fingerstick Blood Sugar 113 mg/dL 70-99 CMP - 03/21/19 12:24 GLUCOSE 118 mg/dL 65-99 UREA NITROGEN (BUN) 40 mg/dL 7-25 CREATININE 1.15 mg/dL 0.50-0.99 eGFR NON-AFR. ALGERIAN 50 mL/min/1.73m2 > OR = 60 eGFR 58 mL/min/1.73m2 > OR = 60 BUN/CREATININE RATIO 35 (calc) 6-22 SODIUM 137 mmol/L 135-146 POTASSIUM 5.9 mmol/L 3.5-5.3 CHLORIDE 108 mmol/L 98-110 CARBON DIOXIDE 21 mmol/L 20-32 CALCIUM 9.1 mg/dL 8.6-10.4 PROTEIN, TOTAL 5.9 g/dL 6.1-8.1 ALBUMIN 3.2 g/dL 3.6-5.1 GLOBULIN 2.7 g/dL (calc) 1.9-3.7 ALBUMIN/GLOBULIN RATIO 1.2 (calc) 1.0-2. 5 BILIRUBIN, TOTAL 0.3 mg/dL 0.2-1.2 ALKALINE PHOSPHATASE 112 U/L 33-130 AST 48 U/L 10-35 ALT 26 U/L 08-26 [facility] 03/28/19 13:27 GLUCOSE 147 mg/dL 65-99 UREA NITROGEN (BUN) 21 mg/dL 7-25 CREATININE 0.71 mg/dL 0.50-0.99 eGFR NON-AFR. ALGERIAN 90 mL/min/1.73m2 > OR = 60 eGFR 104 mL/min/1.73m2 > OR = 60 BUN/CREATININE RATIO NOT APPLICABLE (calc) 6-22 SODIUM 141 mmol/L 135-146 POTASSIUM 5.4 mmol/L 3.5-5.3 CHLORIDE 110 mmol/L 98-110 CARBON DIOXIDE 24 mmol/L 20-32 CALCIUM 8.9 mg/dL 8.6-10.4 PROTEIN, TOTAL 5.9 g/dL 6.1-8.1 ALBUMIN 3.1 g/dL 3.6-5.1 GLOBULIN 2.8 g/dL (calc) 1.9-3.7 ALBUMIN/GLOBULIN RATIO 1.1 (calc) 1.0-2. 5 BILIRUBIN, TOTAL 0.3 mg/dL 0.2-1.2 ALKALINE PHOSPHATASE 94 U/L 33-130 AST 15 U/L 10-35 ALT 12 U/L 08-26 [facility] 04/11/19 09:08 GLUCOSE 150 mg/dL 65-99 UREA NITROGEN (BUN) 25 mg/dL 7-25 CREATININE 0.78 mg/dL 0.50-0.99 eGFR NON-AFR. ALGERIAN 80 mL/min/1.73m2 > OR = 60 eGFR 93 mL/min/1.73m2 > OR = 60 BUN/CREATININE RATIO NOT APPLICABLE (calc) 6-22 SODIUM 140 mmol/L 135-146 POTASSIUM 5.4 mmol/L 3.5-5.3 CHLORIDE 109 mmol/L 98-110 CARBON DIOXIDE 24 mmol/L 20-32 CALCIUM 9.4 mg/dL 8.6-10.4 PROTEIN, TOTAL 5.8 g/dL 6.1-8.1 ALBUMIN 3.3 g/dL 3.6-5.1 GLOBULIN 2.5 g/dL (calc) 1.9-3.7 ALBUMIN/GLOBULIN RATIO 1.3 (calc) 1.0-2. 5 BILIRUBIN, TOTAL 0.3 mg/dL 0.2-1.2 ALKALINE PHOSPHATASE 121 U/L 37-153 AST 22 U/L 10-35 ALT 24 U/L 6-29 CBC - 04/11/19 09:08 WHITE BLOOD CELL COUNT 5.4 Thousand/uL 3 .8-10.8 RED BLOOD CELL COUNT 3.37 Million/uL 3.8 0-5.10 HEMOGLOBIN 9.6 g/dL 11.7-15.5 HEMATOCRIT 31.5 % 35.0-45.0 MCV 93.5 fL 80.0-100.0 MCH 28.5 pg 27.0-33.0 MCHC 30.5 g/dL 32.0-36.0 RDW 14.6 % 11.0-15.0 PLATELET COUNT 241 Thousand/uL 140-400 MPV 11.0 fL 7.5-12.5 ABSOLUTE NEUTROPHILS 3532 cells/uL 1500- 7800 ABSOLUTE LYMPHOCYTES 918 cells/uL 850-39 00 ABSOLUTE MONOCYTES 702 cells/uL 200-950 ABSOLUTE EOSINOPHILS 200 cells/uL 15-500 ABSOLUTE BASOPHILS 49 cells/uL 0-200 NEUTROPHILS 65.4 % NRG LYMPHOCYTES 17.0 % NRG MONOCYTES 13.0 % NRG EOSINOPHILS 3.7 % NRG BASOPHILS 0.9 % NRG A1C - 04/11/19 09:08 HEMOGLOBIN A1c 6.4 % of total Hgb <5.7 Radiology Report from [id number] on 21:25:00 [facility] [address] [place] [address] XRay Report Signed Patient: Lisandra Marshall MR#: [id number] : 1955 Acct:[id number] Age/Sex: 62 / F ADM Date: 05/28/17 Loc: ED Attending Provider: Ordering Provider: Mariam العراقي Date of Service: 05/28/17 Procedure(s): XR chest 1V Accession Number(s): [id number] EXAM: Chest x-ray INDICATION: Epigastric pain TECHNIQUE: Portable AP view of the chest. COMPARISON: None FINDINGS: Lines and tubes: None Lungs: The lungs are clear. Vascular coils project over the right hilum. Pleura: There is no pleural effusion or pneumothorax. Cardiac: The heart size is normal. Vessels: The great vessels appear unremarkable. Mediastinum: There is no hilar or mediastinal mass. Osseous: No acute osseous abnormalities. IMPRESSION: No active cardiopulmonary disease. Dictated By: Dusty Correia Signed By: [id number] DD/ 22 TD/TT: Embedded Software Developer: [email or web address] cc: , ; Dusty Correia; Mariam العراقي Radiology Report from [facility] on 2017 11:01:00 [facility] [address] [place] [address] XRay Report Signed Patient: Lisandra Marshall MR#: [id number] : 1955 Acct:[id number] Age/Sex: 62 / F ADM Date: 10/28/17 Loc: MS 285-A Attending Provider: Gladys Dela Cruz DO Ordering Provider: Leland Harp MD Date of Service: 11/05/17 Procedure(s): XR sinus min 3V Accession Number(s): [id number] ADDENDUM: <Addendum Signed by AVELINO GOODWIN MD at 12/02/2017 9:41:00 AM Technique: Three views of the paranasal sinuses. Addendum End> Indication: Nosebleeds. Comparison: None. Technique: Three views of the skull. Findings: The bones are normally mineralized. No fracture or dislocation. The patient is edentulous. No opacification of the paranasal sinuses. No soft tissue abnormality. Impression: Unremarkable radiographs of the skull. Amended in [employer] by AVELINO GOODWIN MD at 12/02/2017 9:41:00 AM Dictated By: Avelino Goodwin Signed By: 12/02/[id number] DD/ TD/TT: Embedded Software Developer: BRIA cc: , ; Leland Harp MD Encounters ACCT No. Visit Date/Time Discharge Status Pt. Type Provider Facility Loc./Unit Complaint [id number] 03/29/2019 13:30:00 03/29/2019 23:59: 59 CLS Outpatient SELF, GIANNI Matson [facility] [id number] 04/11/2019 08:40:00 Document Registration [id number] 03/28/2019 13:00:00 Document Registration [id number] 03/21/2019 10:45:00 Document Registration [id number] 01/11/2019 09:00:00 Document Registration [id number] 10/10/2018 11:00:00 Document Registration [id number] 07/05/2018 15:20:00 Document Registration [id number] 05/22/2018 11:00:00 Document Registration [email or web address] 11/16/2018 03:52:32 ACT Document Registration [id number] 07/12/2019 10:35:03 ACT Unknown Satinder PUGH, Deacon [id number] 02/01/2019 08:03:00 23:59:59 CLS Outpatient Derian PUGH, Lito [facility] [id number] 12/15/2018 15:59:00 019 09:38:00 DIS Inpatient [facility] 2S REHAB [id number] 08/30/2018 17:28:00 019 17:57:00 DIS Emergency Zoila PUGH, Sergio Ceja [facility] ED post operative complaints [id number] 11/08/2017 10:00:00 018 11:15:00 DIS Inpatient [facility] 2S REHAB [id number] 10/28/2017 14:04:00 018 10:05:00 DIS Inpatient [address] [place] [id number] 10/14/2017 14:20:00 018 06:23:00 DIS Inpatient [address] [place] [id number] 05/28/2017 20:38:00 Document Registration [id number] 04/19/2019 11:19:00 020 23:59:59 CLS Outpatient SELF GIANNI PUGH [facility] RAD FS M25.512 [id number] 05/22/2018 11:56:00 019 23:59:59 CLS Outpatient MIKE ARANGO [facility] RAD FS J06.9 [id number] 08/31/2018 01:46:00 9 23:59:59 CLS Emergency JACKIEARJUNTEVINSUAD [facility] [place] ED ER [id number] 08/02/2018 20:36:28 9 23:59:59 DIS Outpatient MILIND CLAY [facility] [id number] 08/02/2018 09:32:00 9 23:59:59 CLS Emergency SENG BRAND [facility] ED ED Visit [id number] 06/06/2018 09:25:35 9 23:59:59 DIS Outpatient ASHVIN MCCAIN [facility] LAB [id number] 03/13/2017 21:07:49 8 23:59:59 DIS Outpatient STAR MCKEON [facility] [id number] 03/13/2017 17:49:00 8 23:59:59 CLS Emergency [facility] ED ed visit [id number] 08/09/2018 09:25:38 Inpatient DEACON RING [facility] [place] MS ops [id number] 08/01/2018 16:02:08 Document Registration [id number] 07/05/2018 14:08:15 Document Registration [id number] 06/28/2018 16:59:48 Document Registration [id number] 03/28/2018 15:36:56 Document Registration [id number] 03/13/2017 20:08:04 Document Registration
[2019-07-27] MEDS ORDERED: NS IV 1000 ML 1,000 ML ONE ×2 (11:54→15:04)
[2019-07-27 12:12] LABS: CREATININE SERUM 1.08 MG/DL (0.60-1.30); POTASSIUM 5.7 MMOL/L (3.6-5.0)
[2019-07-27 12:13] LABS: ALBUMIN 2.9 GM/DL (3.2-4.5); BILIRUBIN,TOTAL 0.2 MG/DL (0.1-1.0); CALCIUM 9.1 MG/DL (8.5-10.1); MAGNESIUM 1.6 MG/DL (1.6-2.4); TOTAL PROTEIN 5.9 GM/DL (6.4-8.2)
[2019-07-27] MEDS ORDERED: NS IV 1000 ML 1,000 ML IV SCH ×2 (12:15→14:45)
--- NOTE | 2019-07-27 13:05 | NUR ---
This RN spoke with patients and updated him of patients potential admission to the hospital.
--- NOTE | 2019-07-27 13:24 | NUR ---
Called supervisor adult education to notify of need for bed assignment.
[2019-07-27 13:44] LABS: CLARITY,URINE CLEAR; COLOR,URINE YELLOW
[2019-07-27 13:45] LABS: BACTERIA,URINE NEGATIVE /HPF; BILIRUBIN,URINE NEGATIVE (NEGATIVE); GLUCOSE, URINE (UA) NEGATIVE (NEGATIVE); HYALINE CASTS, URINE 0-2 /LPF; KETONES,URINE NEGATIVE (NEGATIVE); LEUKOCYTE ESTERASE ,URINE TRACE (NEGATIVE); NITRITE,URINE NEGATIVE (NEGATIVE); PH,URINE 5.5 (5-9); PROTEIN,URINE NEGATIVE (NEGATIVE); SQUAMOUS EPITHELIAL CELL,UR 0-2 /HPF
[2019-07-27] MEDS ORDERED: inSUlin (REGULAR) HUMAN 1 UNIT/0.01 ML (CHARGE PER UNIT) IV ONE (13:45)
[2019-07-27] MEDS ORDERED: cefTRIAXone FOR IV USE 1,000 MG in WATER (STERILE) FOR INJECTION 10 ML IV ONE (13:45)
[2019-07-27] MEDS ORDERED: DEXTROSE 50% 50 ML (IMS) SYR IV ONE ×2 (13:45→16:45)
[2019-07-27] MEDS ORDERED: cefTRIAXone 1,000 MG IV (ROCEPHIN) VIAL ONE (13:47)
[2019-07-27] MEDS ORDERED: WATER (STERILE) FOR INJECTION 10 ML ONE (13:47)
--- OUTSIDE RECORDS SUMMARY | 2019-07-27 14:49 | XMS REPORT | Continuity of Care Document ---
Author Organization Unknown Address Unknown Phone Unavailable Allergies Active Description Code Type Severity Reaction Onset Reported/Identified Relationship to Patient Clinical Status Yes Ambien Drug N/A N/A Yes Ambien Drug Moderate 4082784 Yes doxycycline Drug N/A N/A Yes doxycycline Drug Mod erate 434040897 Yes lisinopril Drug N/A N/A Yes lisinopril Drug Mild 67422485 Yes lisinopril Drug Mild N/A Yes predniSONE Drug N/A N/A Yes predniSONE Drug Severe 17633635 Yes doxycycline doxycycline Allergy N/A Swelling of [...] levothyroxine Tablet 12/21/2018 PO 50 mcg PNV,calcium 65-yrec-ykvxa acid Tablet 12/26/2018 PO 1 tab folic [...] vein s of u 10/18/2017 Gladys Dela Curz DO K W J4 2 Unspecified chronic bronchitis 10/18/2017 Gladys Dela Cruz DO K W K2 [...] ulcer disease 11/08/2017 Gladys Dela Cruz DO D5 0.9 Iron [...] internal right knee prosthesis, initial encounter 11/11/2017 Gladsy Dela Cruz DO K W D5 0.9 Iron deficiency anemia, unspecified 11/11/2017 Jose De Jesus BERMUDEZ Gladys K W D6 2 Acute posthemorrhagic anemia 11/11/2017 Jose De Jesus BERMUDEZ Alana K W E0 3.9 Hypothyroidism, unspecified 11/11/2017 Jose De Jesus BERMUDEZ Gladys [...] initial encounter 11/14/2017 Gladys Dela Cruz DO T84.53XA Infection and [...] posthemorrhagic anemia 11/18/2017 Gladys Dela Cruz DO W E0 3.9 Hypothyroidism, unspecified 11/18/2017 [...] D50.9 Iron deficiency anemia 05/23/2018 CONCHITA, MIKE BEHAVIORAL HEALTH ASSOCIATE Ot I51.7 CARDIOMEGALY 05/23/2018 CONCHITA, MIKE BEHAVIORAL HEALTH ASSOCIATE Ot J06.9 ACUTE UPPER RESPIRATORY INFECTION, UNSPE 05/23/2018 CONCHITA, MIKE BEHAVIORAL HEALTH ASSOCIATE Ot Z95.82 8 PRESENCE OF OTHER VASCULAR IMPLANTS AND 05/25/2018 CONCHITA, MIKE BEHAVIORAL HEALTH ASSOCIATE Ot I51.7 CARDIOMEGALY 05/25/2018 CONCHITA, MIKE BEHAVIORAL HEALTH ASSOCIATE Ot J06.9 ACUTE UPPER RESPIRATORY INFECTION, UNSPE 05/25/2018 CONCHITA, MIKE BEHAVIORAL HEALTH ASSOCIATE Ot Z95.82 8 PRESENCE OF OTHER VASCULAR IMPLANTS AND 06/15/2018 CONCHITA, MIKE BEHAVIORAL HEALTH ASSOCIATE Ot I51.7 CARDIOMEGALY 06/15/2018 CONCHITA, MIKE BEHAVIORAL HEALTH ASSOCIATE Ot J06.9 ACUTE UPPER RESPIRATORY INFECTION, UNSPE 06/15/2018 CONCHITA, MIKE BEHAVIORAL HEALTH ASSOCIATE Ot Z95.82 8 PRESENCE OF OTHER VASCULAR [...] right h ip and 12/26/2018 Gladys Dela Cruz DO K W T84.53XD Infection and inflammatory [...] Code Description [place] [address] [facility] L/SINUS ENDOSCOPY SURG 02/01/2019 Results Test [...] Screen - 10/18/17 11:22 WRISTBAND #: BE [id number] NRG PATIENT BLOOD TYPE-ABO/RH A Positive NR [...] 149 mg/dL 70-99 Complete Blood Count [facility] - 10/22/17 19:20 HEMOGLOBIN 7.5 g/dL 12.0-16.0 [...] Sugar 136 mg/dL 70-99 Complete Blood Count [facility] - 10/24/17 06:05 HEMOGLOBIN 6.9 g/dL [...] Screen - 10/24/17 09:30 WRISTBAND #: BE [id number] NRG PATIENT BLOOD TYPE-ABO/RH A Positive NR [...] 162 mg/dL 70-99 Complete Blood Count [facility] - 10/25/17 05:52 HEMOGLOBIN 7.9 g/dL 12.0-16.0 [...] 159 mg/dL 70-99 Complete Blood Count [facility] - 10/29/17 06:40 HEMOGLOBIN 7.9 g/dL 12.0-16.0 [...] 8.7 mg/dL 8.6-10.5 Complete Blood Count [facility] - 10/29/17 06:40 HEMOGLOBIN 7.9 g/dL 12.0-16.0 [...] Sugar 122 mg/dL 70-99 Complete Blood Count [facility] - 11/07/17 04:52 HEMOGLOBIN 8.1 g/dL [...] Sugar 202 mg/dL 70-99 Complete Blood Count [facility] - 11/14/17 05:34 HEMOGLOBIN 7.4 g/dL [...] Screen - 11/16/17 10:15 WRISTBAND #: be [id number] NRG PATIENT BLOOD TYPE-ABO/RH A Positive NR [...] 7-25 CREATININE 1.13 mg/dL 0.50-0.99 eGFR NON-AFR. FILIPINO 52 mL/min/1.73m2 > OR = 60 eGFR [...] Calcium 9.2 mg/dL 8.6-10.5 Complete Blood Count [facility] - 12/25/18 05:11 HEMOGLOBIN 9.4 g/dL [...] 7-25 CREATININE 1.15 mg/dL 0.50-0.99 eGFR NON-AFR. FILIPINO 50 mL/min/1.73m2 > OR = 60 eGFR [...] 48 U/L 10-35 ALT 26 U/L 08-26 [facility] 03/28/19 13:27 GLUCOSE 147 mg/dL 65-99 UREA NITROGEN (BUN) 21 mg/dL 7-25 CREATININE 0.71 mg/dL 0.50-0.99 eGFR NON-AFR. FILIPINO 90 mL/min/1.73m2 > OR = 60 eGFR [...] 15 U/L 10-35 ALT 12 U/L 08-26 [facility] 04/11/19 09:08 GLUCOSE 150 mg/dL 65-99 UREA NITROGEN (BUN) 25 mg/dL 7-25 CREATININE 0.78 mg/dL 0.50-0.99 eGFR NON-AFR. FILIPINO 80 mL/min/1.73m2 > OR = 60 eGFR [...] A1c 6.4 % of total Hgb <5.7 CMP - 07/24/19 12:09 GLUCOSE 101 mg/dL 65-99 UREA NITROGEN (BUN) 24 mg/dL 7-25 CREATININE 0.75 mg/dL 0.50-0.99 eGFR NON-AFR. FILIPINO 84 mL/min/1.73m2 > OR = 60 eGFR 98 mL/min/1.73m2 > OR = 60 BUN/CREATININE RATIO NOT APPLICABLE (calc) 6-22 SODIUM 140 mmol/L 135-146 POTASSIUM 4.6 mmol/L 3.5-5.3 CHLORIDE 108 mmol/L 98-110 CARBON DIOXIDE 22 mmol/L 20-32 CALCIUM 8.9 mg/dL 8.6-10.4 PROTEIN, TOTAL 5.9 g/dL 6.1-8.1 ALBUMIN 3.2 g/dL 3.6-5.1 GLOBULIN 2.7 g/dL (calc) 1.9-3.7 ALBUMIN/GLOBULIN RATIO 1.2 (calc) 1.0-2. 5 BILIRUBIN, TOTAL 0.3 mg/dL 0.2-1.2 ALKALINE PHOSPHATASE 108 U/L 37-153 AST 20 U/L 10-35 ALT 18 U/L 6-29 CBC - 07/24/19 12:09 WHITE BLOOD CELL COUNT 5.9 Thousand/uL 3 .8-10.8 RED BLOOD CELL COUNT 3.44 Million/uL 3.8 0-5.10 HEMOGLOBIN 9.1 g/dL 11.7-15.5 HEMATOCRIT 30.0 % 35.0-45.0 MCV 87.2 fL 80.0-100.0 MCH 26.5 pg 27.0-33.0 MCHC 30.3 g/dL 32.0-36.0 RDW 14.9 % 11.0-15.0 PLATELET COUNT 235 Thousand/uL 140-400 MPV 10.6 fL 7.5-12.5 ABSOLUTE NEUTROPHILS 3971 cells/uL 1500- 7800 ABSOLUTE LYMPHOCYTES 844 cells/uL 850-39 00 ABSOLUTE MONOCYTES 814 cells/uL 200-950 ABSOLUTE EOSINOPHILS 230 cells/uL 15-500 ABSOLUTE BASOPHILS 41 cells/uL 0-200 NEUTROPHILS 67.3 % NRG LYMPHOCYTES 14.3 % NRG MONOCYTES 13.8 % NRG EOSINOPHILS 3.9 % NRG BASOPHILS 0.7 % NRG A1C - 07/24/19 12:09 HEMOGLOBIN A1c 6.7 % of total Hgb <5.7 Radiology Report from [id number] on 21:25:00 [facility] [address] [place] [address] XRay Report Signed Patient: Lisandra Marshall MR#: [id number] : 1955 Acct:[id number] Age/Sex: 62 / F ADM Date: 05/28/17 Loc: ED Attending Provider: Ordering Provider: Mariam العراقي Date of Service: 05/28/17 Procedure(s): XR chest 1V Accession Number(s): [id number] EXAM: Chest x-ray INDICATION: Epigastric pain TECHNIQUE: [...] Correia Signed By: 05/28/172122 DD/ 22 TD/TT: Linemarker: MERCEDES cc: ,NONE ; Dusty Correia; Mariam العراقي Radiology Report from [facility] on 2017 11:01:00 [facility] [address] [place] [address] XRay Report Signed Patient: Lisandra Marshall MR#: [id number] : 1955 Acct:[id number] Age/Sex: 62 / F ADM Date: 10/28/17 Loc: MS 285-A Attending Provider: Gladys Dela Cruz DO Ordering Provider: Leland Harp MD Date of Service: 11/05/17 Procedure(s): XR sinus min 3V Accession Number(s): [id number] ADDENDUM: <Addendum Signed by AVELINO GOODWIN MD at 12/02/2017 9:41:00 AM Technique: Three views of the paranasal sinuses. Addendum End> Indication: Nosebleeds. Comparison: None. Technique: Three views of the skull. Findings: The bones are normally mineralized. No fracture or dislocation. The patient is edentulous. No opacification of the paranasal sinuses. No soft tissue abnormality. Impression: Unremarkable radiographs of the skull. Amended in [employer] by AVELINO GOODWIN MD at 12/02/2017 9:41:00 AM Dictated By: Avelino Goodwin Signed By: 12/02/171099 DD/ TD/TT: Linemarker: BRIA cc: ,NONE ; Leland Harp MD Encounters ACCT No. Visit Date/Time Discharge Status Pt. Type Provider Facility Loc./Unit Complaint [id number] 03/29/2019 13:30:00 03/29/2019 23:59: 59 CLS Outpatient SELF, GIANNI Matson [facility] [id number] 07/24/2019 10:00:00 Document Registration [id number] 04/11/2019 08:40:00 Document Registration [id number] 03/28/2019 13:00:00 Document Registration [id number] 03/21/2019 10:45:00 Document Registration [id number] 01/11/2019 09:00:00 Document Registration [id number] 10/10/2018 11:00:00 Document Registration [id number] 07/05/2018 15:20:00 Document Registration [id number] 05/22/2018 11:00:00 Document Registration [email or web address] 11/16/2018 03:52:32 ACT Document Registration [id number] 07/12/2019 10:35:03 ACT Unknown Satinder PUGH, Deacon [id number] 02/01/2019 08:03:00 23:59:59 CLS Outpatient Derian PUGH, Lito Trejo [facility] [id number] 12/15/2018 15:59:00 019 09:38:00 DIS Inpatient [facility] 2S REHAB [id number] 08/30/2018 17:28:00 019 17:57:00 DIS Emergency Zoila PUGH, Sergio Ceja [facility] ED post operative complaints [id number] 11/08/2017 10:00:00 018 11:15:00 DIS Inpatient [facility] 2S REHAB [id number] 10/28/2017 14:04:00 018 10:05:00 DIS Inpatient [address] [place] [id number] 10/14/2017 14:20:00 018 06:23:00 DIS Inpatient [facility] 2S MS [id number] 05/28/2017 20:38:00 Document Registration [id number] 04/19/2019 11:19:00 23:59:59 CLS Outpatient GIANNI LOCKETT MD [facility] RAD FS M25.512 [id number] 05/22/2018 11:56:00 019 23:59:59 CLS Outpatient MIKE ARANGO [facility] RAD FS J06.9 [id number] 08/31/2018 01:46:00 9 23:59:59 CLS Emergency SUAD HUNT [facility] ED ER [id number] 08/02/2018 20:36:28 9 23:59:59 DIS Outpatient MILIND CLAY [facility] [id number] 08/02/2018 09:32:00 9 23:59:59 CLS Emergency SENG BRAND [facility] ED ED Visit [id number] 06/06/2018 09:25:35 9 23:59:59 DIS Outpatient ASHVIN MCCAIN V [facility] [id number] 03/13/2017 21:07:49 8 23:59:59 DIS Outpatient STAR MCKEON [facility] [id number] 03/13/2017 17:49:00 8 23:59:59 CLS Emergency [facility] ED ed visit [id number] 08/09/2018 09:25:38 Inpatient DEACON RING [facility] MS ops [id number] 08/01/2018 16:02:08 Document Registration [id number] 07/05/2018 14:08:15 Document Registration [id number] 06/28/2018 16:59:48 Document Registration [id number] 03/28/2018 15:36:56 Document Registration [id number] 03/13/2017 20:08:04 Document Registration
[2019-07-27 15:47] LABS: HEMOGLOBIN 8.7 G/DL (11.5-16.0); MEAN PLATELET VOLUME 9.9 FL (7.4-10.4); RED CELL DISTRIBUTION WIDTH 17.3 % (10.0-14.5); WHITE BLOOD COUNT 7.4 10^3/uL (4.3-11.0)
[2019-07-27] MEDS ORDERED: SULF1TAB35 PO (15:51)
[2019-07-27] MEDS ORDERED: QUET25TA73 PO (15:51)
[2019-07-27] MEDS ORDERED: CITA40TA11 PO (15:51)
[2019-07-27] MEDS ORDERED: AMIT75TA2 PO (15:51)
[2019-07-27] MEDS ORDERED: MELO15TA39 PO (15:51)
[2019-07-27] MEDS ORDERED: LEVO150T96 PO (15:51)
[2019-07-27] MEDS ORDERED: CEPH500C PO (15:51)
[2019-07-27] MEDS ORDERED: FURO20TA4 PO (15:51)
[2019-07-27] MEDS ORDERED: METF-399 PO (15:51)
[2019-07-27] MEDS ORDERED: TIZA4TAB4 PO ×2 (15:51→15:52)
[2019-07-27] MEDS ORDERED: MTP25TSR PO (15:51)
[2019-07-27] MEDS ORDERED: LEVO-129 PO (15:51)
[2019-07-27] MEDS ORDERED: PANT40TA3 PO (15:51)
[2019-07-27] MEDS ORDERED: HYDR-3820 PO (15:51)
[2019-07-27] MEDS ORDERED: GABA300C PO (15:51)
[2019-07-27] MEDS ORDERED: LOSA25TA41 PO (15:51)
[2019-07-27] MEDS ORDERED: FOLI1TAB24 PO (15:56)
[2019-07-27] MEDS ORDERED: MULT-25 PO (15:56)
[2019-07-27] MEDS ORDERED: CYAN500T62 PO (15:56)
[2019-07-27] MEDS ORDERED: VITA40TA PO (15:56)
[2019-07-27] MEDS ORDERED: CHOL20003 PO (15:56)
[2019-07-27] MEDS ORDERED: DOCU100C37 PO (15:56)
[2019-07-27] MEDS ORDERED: ACET325C7 PO (15:56)
--- NOTE | 2019-07-27 16:00 | NUR ---
SPOKE WITH THE PT AND WENT THRU THE EXT MED HISTORY TO COMPLETE THE MED REC PT HAD A MED LIST ON HER CHART THAT WASNT UP TO DATE SPIRONOLACTONE 25MG DIRECTIONS OF TAB DAILY- PT SAYS SHE TAKES IT BUT NEITHER OF HER PHARMACIES HAVE FILLED THIS MEDICATION (SHE LISTED [facility]). FOR THIS REASON I DID NOT INCLUDE THIS ON THE MED REC LOSARTAN 25MG IS NOT LISTED ON THE MED LIST BUT THE PT SAYS SHE IS TAKING THIS GABAPENTIN 300MG- THE MED LIST SAYS Q8H BUT THE EXT MED HISTORY SHOWS 1 CAP DAILY- PT SAYS SHE JUST TAKES 1 DAILY OTC MEDS: TYLENOL VIT D DOCUSATE FOLIC ACID VIT B12 VIT K MTV W/ MINERALS
[2019-07-27 16:17] LABS: ALBUMIN 3.2 GM/DL (3.2-4.5)
[2019-07-27 16:18] LABS: CHLORIDE 112 MMOL/L (98-107); SODIUM 138 MMOL/L (135-145)
[2019-07-27 16:19] LABS: CALCIUM 8.8 MG/DL (8.5-10.1)
[2019-07-27 16:20] LABS: TOTAL PROTEIN 6.3 GM/DL (6.4-8.2)
[2019-07-27 16:21] LABS: CARBON DIOXIDE 17 MMOL/L (21-32)
[2019-07-27 16:22] LABS: BILIRUBIN,TOTAL 0.3 MG/DL (0.1-1.0)
[2019-07-27 16:23] LABS: ALKALINE PHOSPHATASE 106 U/L (40-136); GLUCOSE 38 MG/DL (70-105)
[2019-07-27 16:24] LABS: CREATININE SERUM 0.84 MG/DL (0.60-1.30); GFR ESTIMATED > 60
[2019-07-27 16:25] LABS: BUN/CREATININE RATIO 39
[2019-07-27 16:27] LABS: ALANINE AMINOTRANSFERASE 29 U/L (0-55)
[2019-07-27] MEDS ORDERED: DEXTROSE 50% 50 ML (IMS) SYR ONE (16:32)
[2019-07-27] MEDS: cefTRIAXone FOR IV USE 1,000 MG in WATER (STERILE) FOR INJECTION 10 ML IV SCH (16:43)
[2019-07-27] MEDS: NS IV 1000 ML 1,000 ML IV SCH (16:45)
[2019-07-27] MEDS ORDERED: RT-ALBUTEROL/IPRATROPIUM 3 ML (DUONEB) VIAL INH PRN (17:00)
--- NOTE | 2019-07-27 17:34 | History & Physical-Hospitalist ---
History of Present Illness HPI/Chief Complaint CC: Hypotension HPI: This is a very complicated 64yoWF clinic patient of Dr John who presented to the [facility] ER yesterday after Dr John sent her there due to low BPof 80/50 with vague weakness symptoms. Patient was sent to ER before ortho appt on Tuesday 2 days before for the same thing so she was given IVF and Rocephin for UTI placed on Keflex and sent home as she requested. No source of the low BP was found but elevated lactic acid was treated with IVF but no evidence of severe sepsis as it originally appeared. I accessed records and noted details. Dr Braden consulted due to patient scheduled for cath and ECHO at in 2 weeks. 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 Wound of amputation appears healed without infection. UA repeat looked good but Rocephin covered anyway. Patient had a low sugar at 38 and she really did not have symptoms leading me to believe she has low sugars frequently. Patient is a poor historian. 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 Source: patient Exam Limitations: clinical condition Date Seen 07/27/19 Time Seen by a Provider: 17:20 Attending Physician Maria Esther Ross,Murali PUGH Referring Physician Date of Admission July 27, 2019 at 13:46 Home Medications & Allergies Home Medications Reviewed patient Home Medication Reconciliation performed by pharmacy medication reconciliations electronics warfare technician and/or nursing. Patients Allergies have been reviewed. Allergies Allergies Coded Allergies doxycycline (Verified Allergy, Unknown, rash , 07/27/19) lisinopril (Verified Allergy, Unknown, cough, 07/27/19) prednisone (Verified Allergy, Unknown, turned skin red, 07/27/19) zolpidem (Verified Allergy, Unknown, "goes crazy", 07/27/19) Past Jlevdco-Vdfhgw-Avlaff Hx Past Med/Social Hx: Reviewed Nursing Past Med/Soc Hx, Reviewed and Corrections made Patient Social History Marrital Status: Employed/Student: retired ([employer] DIRECTOR) Alcohol Use: Rarely Uses Recreational Drug Use: No Smoking Status: Never a Smoker Recent Foreign Travel: No Contact w/other who traveled: No Recent Hopitalizations: No Recent Infectious Disease Expo: No Seasonal Allergies Seasonal Allergies: No Past Medical History Surgeries: Cardiac, Section, Gallbladder, Orthopedic, Tonsillectomy Cardiac: High Cholesterol, Hypertension Neurological: Stroke, TIA Genitourinary: UTI-Chronic Gastrointestinal: Gastroesophageal Reflux, Esophagitis, Ulcer Musculoskeletal: Arthritis Endocrine: Diabetes, Insulin dep, Hypothyroidsim Psychosocial: Depression History of Blood Disorders: Yes (B12 deficiency, aneia, iron deficiency) Review of Systems Constitutional: see HPI, malaise, weakness EENTM: no symptoms reported Respiratory: no symptoms reported Cardiovascular: no symptoms reported Gastrointestinal: no symptoms reported Genitourinary: no symptoms reported Musculoskeletal: no symptoms reported Skin: no symptoms reported Psychiatric/Neurological: Weakness, Other (confused) Physical Exam Physical Exam Vital Signs Vital Signs - First Documented 07/27/19 07/27/19 07/27/19 11:13 11:56 15:00 Temp 36.3 Pulse 62 Resp 16 B/P (MAP) 92/36 (54) Pulse Ox 95 O2 Delivery Nasal Cannula O2 Flow Rate 2.00 FiO2 28 Capillary Refill : Less Than 3 Seconds Height, Weight, BMI Height: '" Weight: lbs. oz. kg; BMI Method: General Appearance: No Apparent Distress, Chronically ill Eyes: Right Eye Normal Inspection, Right Eye PERRL HEENT: PERRL/EOMI, TMs Normal, Normal ENT Inspection, Pharynx Normal, Moist Mucous Membranes Neck: Full Range of Motion, Normal Inspection, Non Tender Respiratory: Chest Non Tender, Lungs Clear, Normal Breath Sounds, No Accessory Muscle Use, No Respiratory Distress Cardiovascular: Regular Rate, Rhythm, No Edema, No Gallop, No JVD, No Murmur, Normal Peripheral Pulses Gastrointestinal: Normal Bowel Sounds, No Organomegaly, No Pulsatile Mass, Non Tender, Soft Back: Normal Inspection, No CVA Tenderness, No Vertebral Tenderness Extremity: Normal Capillary Refill, Normal Inspection, Normal Range of Motion, Non Tender, No Calf Tenderness, No Pedal Edema, Other (amputation AKA right) Neurologic/Psychiatric: Alert, Oriented x3, No Motor/Sensory Deficits, Normal Mood/Affect, exchange mechanic II-XII Norm as Tested, Depressed Affect, Disoriented, Motor Weakness (generalized all extremities) Skin: Normal Color, Warm/Dry Lymphatic: No Adenopathy Results Results/Procedures Labs Laboratory Tests 07/27/19 11:25 07/27/19 15:35 07/28/19 02:47 Patient resulted labs reviewed. Assessment/Plan Admission Diagnosis Assessment: Hypotension without sepsis UTI Anemia h/o iron infusions regularly TIA/CVA hx Hypoglycemia Dehydration 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 CAD OP PUD Hypothyroidism HCC Plan: ICU Magdalena Ly appreciated Iron infusions Monitor sugar Admission Status: Inpatient Order (span 2 midnights) Reason for Inpatient Admission: hypotension with anemia Diagnosis/Problems Diagnosis/Problems (1) Hypotension Status: Acute (2) Elevated lactic acid level Status: Acute (3) Anemia Status: Acute (4) Hyperkalemia Status: Acute Clinical Quality Measures DVT/VTE Risk/Contraindication: Contraindications-Pharm: Other *list below* Other: bleed suspected MARIA ESTHER ROSS DO July 27, 2019 17:34
[2019-07-27 18:36] LABS: ABG OXYGEN SATURATION 85 % (94-100); ABG PCO2 39 MMHG (35-45); ABG PO2 55 MMHG (79-93); ABG TCO2 20.5 MMOL/L (21.0-31.0)
[2019-07-27 18:37] LABS: ALLENS TEST YES-POS; INSPIRED O2 RA; PATIENT TEMP 36.3; VENTILATOR NO
[2019-07-27 18:39] LABS: ABG PH 7.31 (7.37-7.43)
[2019-07-27] MEDS: RT-ALBUTEROL/IPRATROPIUM 3 ML (DUONEB) VIAL INH SCH (18:53)
--- NOTE | 2019-07-27 20:09 | CONSULTATION REPORT ---
DATE OF SERVICE: ATTENDING PRIMARY CARE PHYSICIAN: Dr. Murali John. ADMITTING PHYSICIAN: Dr. Curran. HISTORY OF PRESENT ILLNESS: The patient is a 64-year-old female who was seen by her primary care physician. Due to fatigue as well as low blood pressure. She states that she has had low blood pressure in the past few weeks with a systolic around the 80s and 90s, and would also have significant amounts of fatigue. She states that she was seen at [facility] Emergency Department just two days ago with the same type of symptoms and was given IV fluids and diagnosed with a urinary tract infection as well as a mild renal insufficiency. Her pressure stabilized and she was sent home. She again reports lightheadedness and weakness and was found to have a low blood pressure. She does not report any cough or shortness of breath as well as no chest pain nor diaphoresis. She does report some dysuria and trace amounts of leukocyte esterase was identified. She was also found to be anemic with a hemoglobin of 8.2. PAST MEDICAL HISTORY: Diabetes, hypercholesterolemia, hypertension, history of stroke, TIA, chronic urinary tract infection, gastroesophageal reflux disease, peptic ulcer disease, diabetes, hypothyroid, depression, history of vitamin B12 deficiency anemia. PAST SURGICAL HISTORY: Tonsillectomy, laparoscopic cholecystectomy, section, orthopedic procedure. ALLERGIES: DOXYCYCLINE, LISINOPRIL, PREDNISONE, ZOLPIDEM. MEDICATIONS: Amitriptyline 75 mg daily, cephalexin 500 mg q.i.d., citalopram 40 mg daily, vitamin B12 500 mcg daily, Colace 100 mg daily, folic acid 1 mg daily, furosemide 20 mg daily, gabapentin 300 mg daily, hydrocodone p.r.n., levothyroxine 150 mcg daily, losartan 25 mg daily, meloxicam 15 mg daily, metformin 1000 mg b.i.d., metoprolol 12.5 mg daily, Protonix 40 mg daily, quetiapine fumarate 25 mg daily, Bactrim DS daily, tizanidine 4 mg daily and p.r.n. SOCIAL HISTORY: Negative smoke, negative alcohol. FAMILY HISTORY: Noncontributory. VITAL SIGNS: Temperature 36.3, blood pressure 118/45, pulse 93, respirations 23, pulse ox 91% on room air. REVIEW OF SYSTEMS: This is a well-nourished female, currently in no acute distress. She is not experiencing any shortness of breath or difficulty breathing. No chest pain, palpitations, diaphoresis. She does have a history of gastroesophageal reflux disease as well as peptic ulcer disease and does have some symptomatology at times. She does not report any red blood per rectum nor any dark tarry stools; however, does have some issues with constipation on an intermittent basis. No fever, chills, no recent inadvertent weight loss. All other review of systems negative. PHYSICAL EXAMINATION: CHEST: Good breath sounds bilaterally. HEART: Regular, no murmurs. EXTREMITIES: No lower extremity edema, negative Homans sign. HEENT: No scleral icterus. NECK: No cervical lymphadenopathy. ABDOMEN: Soft, nontender, nondistended. SKIN: Warm, dry. LABORATORY DATA: WBC 7.4, hemoglobin 8.7, hematocrit 29, platelets 232, glucose 255. BUN 33, creatinine 0.84. Liver function enzymes are normal. Urinalysis, trace leukocyte esterase. ASSESSMENT AND PLAN: A 64-year-old female with hypotension of unknown etiology; however, may be related to urinary tract infection as well as medication related. At this time, she is asymptomatic; however, she has been found to be anemic and does have a history of gastroesophageal reflux disease and peptic ulcer disease. We will see if she wants to proceed with an EGD and colonoscopy on this admission. Job ID: [id number] DocumentID: [id number] Dictated Date: 07/27/2019 19:36:33 Liaison Officer Date: 07/27/2019 20:08:38 Dictated By: CLAUDY BELLAMY MD
[2019-07-27] MEDS: PANTOPRAZOLE 40 MG (PROTONIX) TAB PO SCH (20:18)
[2019-07-28] VITALS: BP 165/66
[2019-07-28] MEDS: NS IV 1000 ML 1,000 ML IV SCH (02:52)
[2019-07-28 03:39] LABS: BASOPHILS % (AUTO) 1 % (0-10); EOSINOPHILS # (AUTO) 0.2 10^3/uL (0.0-0.3); EOSINOPHILS % (AUTO) 4 % (0-10); HEMATOCRIT 25 % (35-52); HEMOGLOBIN 7.5 G/DL (11.5-16.0); LYMPHOCYTES # (AUTO) 1.1 X 10^3 (1.0-4.0); LYMPHOCYTES % (AUTO) 24 % (12-44); MEAN CORPUSCULAR HEMOGLOBIN 26 PG (25-34); MEAN CORPUSCULAR HGB CONC 30 G/DL (32-36); MEAN CORPUSCULAR VOLUME 89 FL (80-99); MEAN PLATELET VOLUME 10.8 FL (7.4-10.4); MONOCYTES # (AUTO) 0.7 X 10^3 (0.0-1.0); MONOCYTES % (AUTO) 17 % (0-12); NEUTROPHILS # (AUTO) 2.4 X 10^3 (1.8-7.8); NEUTROPHILS % (AUTO) 55 % (42-75); PLATELET COUNT 195 10^3/uL (130-400); RED CELL DISTRIBUTION WIDTH 17.1 % (10.0-14.5); WHITE BLOOD COUNT 4.4 10^3/uL (4.3-11.0)
[2019-07-28 03:54] LABS: ALBUMIN 2.7 GM/DL (3.2-4.5); CHLORIDE 113 MMOL/L (98-107); SODIUM 139 MMOL/L (135-145)
[2019-07-28 03:55] LABS: CALCIUM 8.5 MG/DL (8.5-10.1)
[2019-07-28 03:56] LABS: GLUCOSE 105 MG/DL (70-105); TOTAL PROTEIN 5.4 GM/DL (6.4-8.2)
[2019-07-28 03:57] LABS: CARBON DIOXIDE 20 MMOL/L (21-32)
[2019-07-28 03:58] LABS: BILIRUBIN,TOTAL 0.2 MG/DL (0.1-1.0)
[2019-07-28 03:59] LABS: ALKALINE PHOSPHATASE 96 U/L (40-136)
[2019-07-28 04:00] VITALS: BP 109/42
[2019-07-28 04:00] LABS: CREATININE SERUM 0.67 MG/DL (0.60-1.30); GFR ESTIMATED > 60
[2019-07-28 04:01] LABS: BUN/CREATININE RATIO 36
[2019-07-28 04:03] LABS: ALANINE AMINOTRANSFERASE 22 U/L (0-55)
[2019-07-28] MEDS ORDERED: NS (IVPB) 50 ML ONE (04:07)
[2019-07-28] MEDS ORDERED: DEXTROSE 50% 50 ML (IMS) SYR IV ONE (05:15)
[2019-07-28] MEDS ORDERED: inSUlin (REGULAR) HUMAN 1 UNIT/0.01 ML (CHARGE PER UNIT) IV ONE (05:15)
[2019-07-28] MEDS ORDERED: NS IV 1000 ML 1,000 ML IV SCH (05:15)
[2019-07-28] MEDS ORDERED: SODIUM BICARB 8.4% 50 MEQ/50 ML VIAL IV ONE (05:15)
--- NOTE | 2019-07-28 05:15 | Pulmonary Consultation ---
History of Present Illness History of Present Illness Date Seen by Provider: July 28, 2019 Time Seen by Provider: 05:11 Date of Admission Allergies and Home Medications Allergies Coded Allergies: doxycycline (Verified Allergy, Unknown, rash , 07/27/19) lisinopril (Verified Allergy, Unknown, cough, 07/27/19) prednisone (Verified Allergy, Unknown, turned skin red, 07/27/19) zolpidem (Verified Allergy, Unknown, "goes crazy", 07/27/19) Home Medications Acetaminophen 325 Mg Capsule, 650 MG PO Q4H PRN for PAIN-MILD (1-4), (Reported) Amitriptyline HCl 75 Mg Tablet, 75 MG PO HS, (Reported) Cephalexin 500 Mg Capsule, 500 MG PO QID, (Reported) FILLED 07-26-2019 #24/6 DAY SUPPLY Cholecalciferol (Vitamin D3) 50 Mcg Capsule, 50 MCG PO DAILY, (Reported) Citalopram Hydrobromide 40 Mg Tablet, 40 MG PO HS, (Reported) Cyanocobalamin (Vitamin B-12) 500 Mcg Tablet, 500 MCG PO DAILY, (Reported) Docusate Sodium 100 Mg Capsule, 100 MG PO BID PRN for CONSTIPATION-1ST LINE, (Reported) Folic Acid 1 Mg Tablet, 1 MG PO DAILY, (Reported) Furosemide 20 Mg Tablet, 20 MG PO MO,WE,FR, (Reported) Gabapentin 300 Mg Capsule, 300 MG PO DAILY, (Reported) Hydrocodone/Acetaminophen 1 Each Tablet, 0.5-1 EA PO Q6H PRN for PAIN-MODERATE (5-7), (Reported) Levothyroxine Sodium 50 Mcg Tablet, 50 MCG PO DAILY, (Reported) TAKES 3(150MCG) TABS DAILY ALONG WITH A 50MCG TO EQUAL 500MCG DAILY Levothyroxine Sodium 150 Mcg Tablet, 450 MCG PO DAILY, (Reported) TAKES 3(150MCG) TABS DAILY ALONG WITH A 50MCG TO EQUAL 500MCG DAILY Losartan Potassium 25 Mg Tablet, 25 MG PO DAILY, (Reported) Meloxicam 15 Mg Tablet, 15 MG PO DAILY, (Reported) Metformin HCl 1,000 Mg Tablet, 1,000 MG PO BID, (Reported) Metoprolol Succinate 25 Mg Tab.er.24h, 12.5 MG PO DAILY, (Reported) TAKES OF A 25MG TAB DAILY Multivitamins,Ther W-Minerals 1 Each Tablet, 1 EACH PO DAILY, (Reported) Pantoprazole Sodium 40 Mg Tablet.dr, 40 MG PO BID, (Reported) Quetiapine Fumarate 25 Mg Tablet, 25 MG PO HS, (Reported) Sulfamethoxazole/Trimethoprim 1 Each Tablet, 1 EA PO DAILY, (Reported) Tizanidine HCl 4 Mg Tablet, 4 MG PO HS, (Reported) Tizanidine HCl 4 Mg Tablet, 4 MG PO DAILY PRN for MUSCLE SPASMS, (Reported) Vitamin K2 40 Mcg Tablet, 40 MCG PO DAILY, (Reported) Past Witcgrk-Fsqvpn-Bbfovx Hx Past Med/Social Hx: Reviewed Nursing Past Med/Soc Hx Patient Social History Alcohol Use: Rarely Uses Recreational Drug Use: No Smoking Status: Never a Smoker Recent Foreign Travel: No Contact w/Someone Who Travel: No Recent Infectious Disease Expo: No Recent Hopitalizations: No Physical Abuse: No Sexual Abuse: No Mistreated: No Fear: No Immunizations Up To Date Date of Pneumonia Vaccine: May 25, 2019 Seasonal Allergies Seasonal Allergies: No Past Medical History Surgeries: Yes (egd; lung surg?; lithotripsy) Cardiac, Section, Gallbladder, Orthopedic, Tonsillectomy Asthma Cardiac: Yes (heart cath ) High Cholesterol, Hypertension Neurological: Yes Stroke, TIA Genitourinary: Yes UTI-Chronic Gastrointestinal: Yes Gastroesophageal Reflux, Esophagitis, Ulcer Musculoskeletal: Yes Arthritis Endocrine: Yes Diabetes, Insulin dep, Hypothyroidsim HEENT: No Psychosocial: Yes Depression Integumentary: No Blood Disorders: Yes (B12 deficiency, aneia, iron deficiency) Sepsis Event Evaluation Height, Weight, BMI Height: '" Weight: lbs. oz. kg; 26.61 BMI Method: Exam Exam Vital Signs Date Time Temp Pulse Resp B/P (MAP) Pulse Ox O2 Delivery O2 Flow Rate FiO2 07/28/19 04:00 Room Air 07/28/19 04:00 67 15 109/42 (64) 95 Room Air 07/28/19 01:04 87 07/28/19 00:00 37.0 07/28/19 00:00 89 24 165/66 (99) 94 Room Air 07/28/19 00:00 Room Air 07/27/19 22:00 84 21 146/58 (87) 92 Room Air 07/27/19 21:00 Room Air 07/27/19 21:00 82 24 127/48 (74) 93 Room Air 07/27/19 20:00 86 22 131/57 (81) 93 Room Air 07/27/19 20:00 Room Air 07/27/19 19:00 97 07/27/19 19:00 93 22 142/65 (90) 92 Room Air 07/27/19 18:54 91 Room Air 07/27/19 18:19 36.3 93 23 118/45 90 Room Air 07/27/19 18:00 93 23 118/45 (69) 90 Room Air 07/27/19 17:00 102 27 135/62 (86) 91 Room Air 07/27/19 16:00 105 22 141/57 (85) 92 07/27/19 15:15 113 07/27/19 15:00 36.3 62 97 28 07/27/19 14:24 37.2 74 18 115/57 96 07/27/19 11:56 97 Nasal Cannula 2.00 07/27/19 11:13 36.3 62 16 92/36 (54) 95 I & O 07/28/19 07:00 Intake Total 1110 ml Output Total 1100 ml Balance 10 ml Height & Weight Height: '" Weight: lbs. oz. kg; 26.61 BMI Method: General Appearance: No Apparent Distress, WD/WN HEENT: PERRL/EOMI, Pharynx Normal Respiratory: Lungs Clear, Normal Breath Sounds, No Accessory Muscle Use, No Respiratory Distress Cardiovascular: Regular Rate, Rhythm, No Edema, No JVD, No Murmur, Normal Peripheral Pulses Capillary Refill: Less Than 3 Seconds Extremity: Normal Capillary Refill, Normal Inspection, No Calf Tenderness, Other (prosthetic right lower extremity present) Neurologic/Psychiatric: Alert, Oriented x3, No Motor/Sensory Deficits, Normal Mood/Affect Skin: Normal Color, Warm/Dry Results Lab Laboratory Tests 07/27/19 11:25 07/27/19 15:35 07/28/19 02:47 Assessment/Plan Assessment/Plan Hypotension -improving -IVF -Monitor Metabolic lactic acidosis -IVF Anemia r/o GIB -Surgery following Dehydration -IVF Anemia -Monitor Hyperkalemia -Monitor -Give insulin and bicarb BILLIE AZUL DO July 28, 2019 05:15
[2019-07-28 05:16] LABS: PHOSPHORUS 3.4 MG/DL (2.3-4.7)
[2019-07-28 05:18] LABS: MAGNESIUM 1.6 MG/DL (1.6-2.4)
[2019-07-28] MEDS: RT-ALBUTEROL/IPRATROPIUM 3 ML (DUONEB) VIAL INH SCH ×2 (06:16→21:35)
[2019-07-28 08:00] VITALS: BP 124/76
--- NOTE | 2019-07-28 08:15 | Progress Note - Hospitalist ---
Subjective HPI/CC On Admission Date Seen by Provider: July 28, 2019 Time Seen by Provider: 11:00 CC: Hypotension HPI: This is a very complicated 64yoWF clinic patient of Dr John who presented to the [facility] ER yesterday after Dr John sent her there due to low BPof 80/50 with vague weakness symptoms. Patient was sent to ER before ortho appt on Tuesday 2 days before for the same thing so she was given IVF and Rocephin for UTI placed on Keflex and sent home as she requested. No source of the low BP was found but elevated lactic acid was treated with IVF but no evidence of severe sepsis as it originally appeared. I accessed records and noted details. Dr Braden consulted due to patient scheduled for cath and ECHO at in 2 weeks. 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 W ound of amputation appears healed without infection. UA repeat looked good but Rocephin covered anyway. Patient had a low sugar at 38 and she really did not have symptoms leading me to believe she has low sugars frequently. Patient is a poor historian. 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 Subjective/Events-last exam Patient had an uneventful night Still feels weak but appears improved Hypoglycemia resolved BP 168/80 today EGD tomorrow Tx to 4th floor Cardiology monitored Cath scheduled KU in 2 weeks Noted Synthroid dose of 500mcg which is unusual and I double checked [facility] med list I was sent and it confirmed that dose but now TSH is 0.00 so holding doses for now Hgb noted No bleeding Review of Systems General: Fatigue Neurological: Confusion Focused Exam Lactate Level 07/27/19 15:35: Lactic Acid Level 2.28*H 07/27/19 17:35: Lactic Acid Level 2.73*H 07/27/19 19:32: Lactic Acid Level 1.12 Objective Exam Vital Signs Vital Signs Date Time Temp Pulse Resp B/P (MAP) Pulse Ox O2 Delivery O2 Flow Rate FiO2 07/28/19 13:00 96 07/28/19 12:00 36.7 07/28/19 12:00 22 170/74 (106) 97 Room Air 07/27/19 15:00 28 07/27/19 11:56 2.00 Capillary Refill : Less Than 3 Seconds General Appearance: No Apparent Distress, WD/WN, Chronically ill, Thin, Other ( pale) Respiratory: Lungs Clear, Normal Breath Sounds Cardiovascular: Regular Rate, Rhythm, No Edema Neurologic/Psychiatric: Alert, Oriented x3, No Motor/Sensory Deficits, Normal Mood/Affect Results/Procedures Lab Laboratory Tests 07/28/19 02:47 Patient resulted labs reviewed. Assessment/Plan Assessment and Plan Assess & Plan/Chief Complaint Assessment: Hypotension without sepsis UTI Anemia h/o iron infusions regularly TIA/CVA hx Hypoglycemia Dehydration 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 CAD OP PUD Hypothyroidism HCC Suppressed TSH awaiting FT4 on Synthroid 500mc which was triple checked on home med dosing and pharmacy and [facility] med list they sent me now holding doses Plan: Tx to 4th floor Magdalena Ly appreciated EGD tomorrow Iron infusions Monitor sugar Hold thyroid med FT4 pending Diagnosis/Problems Diagnosis/Problems (1) Hypotension Status: Acute (2) Elevated lactic acid level Status: Acute (3) Anemia Status: Acute (4) Hyperkalemia Status: Acute Clinical Quality Measures DVT/VTE Risk/Contraindication: Risk Factor Score Per Nursin RFS Level Per Nursing on Admit: 4+=Very High Contraindications-Pharm: Other *list below* Other: bleed suspected BENJAMIN ROSS DO July 28, 2019 08:15
[2019-07-28] MEDS: PANTOPRAZOLE 40 MG (PROTONIX) TAB PO SCH ×2 (09:03→20:10)
[2019-07-28] MEDS: IRON SUCROSE 200 MG/10 ML (VENOFER) VIAL IV SCH (09:03)
--- NOTE | 2019-07-28 10:48 | Conscious Sedation/ASA ---
Conscious Sedation Pre-Proced Time 10:30 ASA Score 2 For ASA 3 and 4: Consider anesthesia and medical clearance. Also, for patients with a history of failed moderate sedation consider anesthesia. Airway Lungs Heart ASA score ASA 1: a normal healthy patient ASA 2: a patient with a mild systemic disease (mid diabetes, controlled hypertension, obesity ASA 3: a patient with a severe systemic disease that limits activity (angina, COPD, prior Myocardial infarction) ASA 4: a patient with an incapacitating disease that is a constant threat to life (CHF, renal failure) ASA 5: a moribund patient not expected to survive 24 hrs. (ruptured aneurysm) ASA 6: a declared brain- patient whose organs are being harvested. For emergent operations, add the letter E after the classification Mallampati Classification Grade 2 Sedation Plan Analgesia, Amnesia, Plan communicated to team members, Discussed options with patient/fam, Discussed risks with patient/fam The patient is an appropriate candidate to undergo the planned procedure, sedation, and anesthesia. The patient immediately re-assessed prior to indication. CLAUDY BELLAMY MD July 28, 2019 10:48
--- NOTE | 2019-07-28 10:49 | Progress Note-Pre Operative ---
Pre-Operative Progress Note H&P Reviewed The H&P was reviewed, patient examined and no changes noted. Date Seen by Provider: July 28, 2019 Time Seen by Provider: 10: Date H&P Reviewed: July 28, 2019 Time H&P Reviewed: : Pre-Operative Diagnosis: symptomatic anemia with hx severe PUD CLAUDY BELLAMY MD July 28, 2019 10:49
--- NOTE | 2019-07-28 11:29 | Consultation-Cardiology ---
HPI-Cardiology Cardiology Consultation Date of Consultation 07/28/19 Date of Admission Time Seen by Provider: 11:26 Indication: hypotension HPI 64-year-old lady with history of coronary artery disease, congestive heart failure, she had workup done at and she was scheduled for cardiac catheterization for early June which was postponed due to COVID pandemic, noted that she was hypotensive and dizzy and fatigued and lightheaded went to the emergency room and transferred here. On my evaluation she was laying down in bed comfortably, denied any active pain. Denied any chest pain or shortness of breath. We discussed her management plan and she expressed that she had extensive workup done at and she is scheduled for heart catheterization at and prefer to have it done in unless it is an emergency. Home Medications & Allergies Allergies: Coded Allergies: doxycycline (Verified Allergy, Unknown, rash , 07/27/19) lisinopril (Verified Allergy, Unknown, cough, 07/27/19) prednisone (Verified Allergy, Unknown, turned skin red, 07/27/19) zolpidem (Verified Allergy, Unknown, "goes crazy", 07/27/19) Home Medication List Reviewed: Yes ESF-Bdwogb-Amnwgb Hx Patient Social History Marital Status: Employed/Student: retired ([employer]) Alcohol Use: Rarely Uses Recreational Drug Use: No Smoking Status: Never a Smoker Recent Foreign Travel: No Recent Infectious Disease Expo: No Recent Hopitalizations: No Immunizations Up To Date Date of Pneumonia Vaccine: May 25, 2019 Past Medical History Discussed below Family Medical History Family Medical Hx Noncontributory Review of Systems-General Review of Systems Constitutional: see HPI, malaise, weakness EENTM: no symptoms reported Respiratory: see HPI; No cough, No dyspnea on exertion, No hemoptysis, No orthopnea, No phlegm, No short of breath, No stridor, No wheezing, No other Cardiovascular: see HPI; No chest pain, No edema, No Hx of Intervention, No palpitations, No syncope, No vascular heart diseas, No other Gastrointestinal: no symptoms reported, see HPI Genitourinary: no symptoms reported, see HPI Musculoskeletal: no symptoms reported, see HPI Skin: no symptoms reported, see HPI Psychiatric/Neurological: See HPI, Weakness, Other (confused) All Other Systems Reviewed Negative Unless Noted: Yes Reviewed Test Results Reviewed Test Results Lab Laboratory Tests Test 07/27/19 13:26 07/27/19 13:30 07/27/19 14:07 07/27/19 15:35 Range/Units Urine Color YELLOW Urine Clarity CLEAR Urine pH 5.5 5-9 Urine Specific [place] 1.015 L 1.016-1.022 Urine Protein NEGATIVE NEGATIVE Urine Glucose (UA) NEGATIVE NEGATIVE Urine Ketones NEGATIVE NEGATIVE Urine Nitrite NEGATIVE NEGATIVE Urine Bilirubin NEGATIVE NEGATIVE Urine Urobilinogen 0.2 < = 1.0 MG/DL Urine Leukocyte Esterase TRACE H NEGATIVE Urine RBC (Auto) NEGATIVE NEGATIVE Urine RBC NONE /HPF Urine WBC 2-5 /HPF Urine Squamous Epithelial Cells 0-2 /HPF Urine Crystals NONE /LPF Urine Bacteria NEGATIVE /HPF Urine Casts PRESENT /LPF Urine Hyaline Casts 0-2 H /LPF Urine Mucus NEGATIVE /LPF Urine Culture Indicated NO Lactic Acid Level 1.85 2.28 *H 0.50-2.00 MMOL/L Glucometer 77 70-110 MG/DL White Blood Count 7.4 4.3-11.0 10^3/uL Red Blood Count 3.29 L 4.35-5.85 10^6/uL Hemoglobin 8.7 L 11.5-16.0 G/DL Hematocrit 29 L 35-52 % Mean Corpuscular Volume 89 80-99 FL Mean Corpuscular Hemoglobin 26 25-34 PG Mean Corpuscular Hemoglobin Concent 30 L 32-36 G/DL Red Cell Distribution Width 17.3 H 10.0-14.5 % Platelet Count 232 130-400 10^3/uL Mean Platelet Volume 9.9 7.4-10.4 FL Sodium Level 138 135-145 MMOL/L Potassium Level 5.0 3.6-5.0 MMOL/L Chloride Level 112 H 98-107 MMOL/L Carbon Dioxide Level 17 L 21-32 MMOL/L Anion Gap 9 5-14 MMOL/L Blood Urea Nitrogen 33 H 7-18 MG/DL Creatinine 0.84 0.60-1.30 MG/DL Estimat Glomerular Filtration Rate > 60 BUN/Creatinine Ratio 39 Glucose Level 38 *L 70-105 MG/DL Calcium Level 8.8 8.5-10.1 MG/DL Corrected Calcium 9.4 8.5-10.1 MG/DL Iron Level 37 33-167 ug/dL Total Bilirubin 0.3 0.1-1.0 MG/DL Aspartate Amino Transf (AST/SGOT) 21 5-34 U/L Alanine Aminotransferase (ALT/SGPT) 29 0-55 U/L Alkaline Phosphatase 106 40-136 U/L Total Protein 6.3 L 6.4-8.2 GM/DL Albumin 3.2 3.2-4.5 GM/DL Test 07/27/19 17:20 07/27/19 17:35 07/27/19 18:30 07/27/19 19:32 Range/Units Glucometer 255 H 70-110 MG/DL Lactic Acid Level 2.73 *H 1.12 0.50-2.00 MMOL/L Blood Gas Puncture Site RR Blood Gas Patient Temperature 36.3 Arterial Blood pH 7.31 *L 7.37-7.43 Arterial Blood Partial Pressure CO2 39 35-45 MMHG Arterial Blood Partial Pressure O2 55 L 79-93 MMHG Arterial Blood HCO3 19 L 23-27 MMOL/L Arterial Blood Total CO2 20.5 L 21.0-31.0 MMOL/L Arterial Blood Oxygen Saturation 85 L 94-100 % Arterial Blood Base Excess -6.0 L -2.5-2.5 MMOL/L Darinel Test YES-POS Blood Gas Ventilator Setting NO Blood Gas Inspired Oxygen RA Test 07/28/19 02:47 Range/Units White Blood Count 4.4 4.3-11.0 10^3/uL Red Blood Count 2.86 L 4.35-5.85 10^6/uL Hemoglobin 7.5 L 11.5-16.0 G/DL Hematocrit 25 L 35-52 % Mean Corpuscular Volume 89 80-99 FL Mean Corpuscular Hemoglobin 26 25-34 PG Mean Corpuscular Hemoglobin Concent 30 L 32-36 G/DL Red Cell Distribution Width 17.1 H 10.0-14.5 % Platelet Count 195 130-400 10^3/uL Mean Platelet Volume 10.8 H 7.4-10.4 FL Neutrophils (%) (Auto) 55 42-75 % Lymphocytes (%) (Auto) 24 12-44 % Monocytes (%) (Auto) 17 H 0-12 % Eosinophils (%) (Auto) 4 0-10 % Basophils (%) (Auto) 1 0-10 % Neutrophils # (Auto) 2.4 1.8-7.8 X 10^3 Lymphocytes # (Auto) 1.1 1.0-4.0 X 10^3 Monocytes # (Auto) 0.7 0.0-1.0 X 10^3 Eosinophils # (Auto) 0.2 0.0-0.3 10^3/uL Basophils # (Auto) 0.0 0.0-0.1 10^3/uL Sodium Level 139 135-145 MMOL/L Potassium Level 6.0 H 3.6-5.0 MMOL/L Chloride Level 113 H 98-107 MMOL/L Carbon Dioxide Level 20 L 21-32 MMOL/L Anion Gap 6 5-14 MMOL/L Blood Urea Nitrogen 24 H 7-18 MG/DL Creatinine 0.67 0.60-1.30 MG/DL Estimat Glomerular Filtration Rate > 60 BUN/Creatinine Ratio 36 Glucose Level 105 70-105 MG/DL Calcium Level 8.5 8.5-10.1 MG/DL Corrected Calcium 9.5 8.5-10.1 MG/DL Phosphorus Level 3.4 2.3-4.7 MG/DL Magnesium Level 1.6 1.6-2.4 MG/DL Total Bilirubin 0.2 0.1-1.0 MG/DL Aspartate Amino Transf (AST/SGOT) 16 5-34 U/L Alanine Aminotransferase (ALT/SGPT) 22 0-55 U/L Alkaline Phosphatase 96 40-136 U/L Total Protein 5.4 L 6.4-8.2 GM/DL Albumin 2.7 L 3.2-4.5 GM/DL Physical Exam Physical Exam Vital Signs Vital Signs - First Documented 07/27/19 07/27/19 07/27/19 11:13 11:56 15:00 Temp 36.3 Pulse 62 Resp 16 B/P (MAP) 92/36 (54) Pulse Ox 95 O2 Delivery Nasal Cannula O2 Flow Rate 2.00 FiO2 28 Capillary Refill : Less Than 3 Seconds Height, Weight, BMI Height: '" Weight: lbs. oz. kg; 26.61 BMI Method: General Appearance: No Apparent Distress, Chronically ill Eyes: Right Eye Normal Inspection, Right Eye PERRL; Bilateral Eye EOMI HEENT: PERRL/EOMI, TMs Normal, Normal ENT Inspection, Pharynx Normal, Moist Mucous Membranes Neck: Full Range of Motion, Normal Inspection, Non Tender Respiratory: Chest Non Tender, Lungs Clear, Normal Breath Sounds, No Accessory Muscle Use, No Respiratory Distress Cardiovascular: Regular Rate, Rhythm, No Edema, No Gallop, No JVD, No Murmur, Normal Peripheral Pulses Gastrointestinal: Normal Bowel Sounds, No Organomegaly, No Pulsatile Mass, Non Tender, Soft Back: Normal Inspection, No CVA Tenderness, No Vertebral Tenderness Extremity: Normal Capillary Refill, Normal Inspection, Normal Range of Motion, Non Tender, No Calf Tenderness, No Pedal Edema, Other (amputation AKA right) Neurologic/Psychiatric: Alert, Oriented x3, No Motor/Sensory Deficits, Normal Mood/Affect, real estate agent II-XII Norm as Tested, Depressed Affect, Disoriented, Motor Weakness (generalized all extremities) Skin: Normal Color, Warm/Dry Lymphatic: No Adenopathy A/P-Cardiology Admission Diagnosis Hypotension Coronary artery disease Congestive heart failure, chronic compensated left ventricular systolic dysfunction, probably ischemic in nature Change in mental status Assessment/Plan Hypotension, probably due to hypovolemia and medication. Currently blood pressure is better and she is feeling better. Continue to monitor Hyperkalemia, probably secondary to losartan. I recommend discontinuation of losartan at this time and monitor tolerance and response. Congestive heart failure, reporting history of heart failure and scheduled for coronary angiogram at . She is now at chronic compensated left ventricular systolic dysfunction. Cannot tolerate Jamison or are due to hyperkalemia and hypotension, we will try to introduce beta blockers and evaluate tolerance and response. Questionable coronary artery disease, she is scheduled for cardiac catheterization in the next 2 weeks at , I offered to do the cardiac catheterization while she is here and patient declined she reported that she prefer to have it done at unless it is an emergency. Elevated lactic acid probably due to hypotension, better at this time. Change in mental status, generalized fatigue and loss of energy, reporting improvement at this time. Feeling better. Back to her baseline Clinical Quality Measures DVT/VTE Risk/Contraindication: Risk Factor Score Per Nursin RFS Level Per Nursing on Admit: 4+=Very High Contraindications-Pharm: Other *list below* Other: bleed suspected ANA M CROFT MD July 28, 2019 11:29
[2019-07-28] MEDS ORDERED: DOCUSATE SODIUM 100 MG (COLACE) CAP PO PRN (11:45)
[2019-07-28 12:00] VITALS: BP 170/74
[2019-07-28] MEDS ORDERED: ACETAMINOPHEN 325 MG TABLET PO PRN (12:15)
[2019-07-28] MEDS: MULTIVIT W/MINERALS TAB (THERAGRAN M) PO SCH (13:13)
[2019-07-28] MEDS: VITAMIN D3 25 MCG (1,000 UNITS) TABLET PO SCH (13:14)
[2019-07-28] MEDS: CYANOCOBALAMIN 1,000 MCG (VITAMIN B-12) TABLET PO SCH (13:20)
[2019-07-28] MEDS ORDERED: cefTRIAXone 1,000 MG IV (ROCEPHIN) VIAL ONE (14:59)
[2019-07-28] MEDS ORDERED: WATER (STERILE) FOR INJECTION 10 ML ONE (14:59)
[2019-07-28] MEDS: cefTRIAXone FOR IV USE 1,000 MG in WATER (STERILE) FOR INJECTION 10 ML IV SCH (15:09)
--- NOTE | 2019-07-28 15:50 | NUR ---
RECEIVED FROM ICU, ALERT AND ORIENTED, REPORT FROM MARIKA LAWS, DENIES PAIN OR SOB, CALL LIGHT WITHIN REACH.
[2019-07-28 15:54] VITALS: BP 182/77
[2019-07-28 16:09] LABS: CHLORIDE 111 MMOL/L (98-107); POTASSIUM 5.5 MMOL/L (3.6-5.0); SODIUM 140 MMOL/L (135-145)
[2019-07-28 16:11] LABS: CALCIUM 8.7 MG/DL (8.5-10.1); GLUCOSE 125 MG/DL (70-105)
[2019-07-28 16:13] LABS: CARBON DIOXIDE 22 MMOL/L (21-32)
[2019-07-28 16:15] LABS: CREATININE SERUM 0.66 MG/DL (0.60-1.30); GFR ESTIMATED > 60
[2019-07-28 16:16] LABS: BUN/CREATININE RATIO 23
[2019-07-28 16:37] LABS: FREE T4 (FREE THYROXINE) 1.48 NG/DL (0.70-1.48)
[2019-07-28] MEDS: HYDROcodone/APAP 10 MG/325 MG (LORTAB) TAB PO PRN (18:09)
[2019-07-28 19:07] VITALS: BP 170/74
[2019-07-28] MEDS: AMITRIPTYLINE 25 MG (ELAVIL) TAB PO SCH (20:10)
[2019-07-28] MEDS: QUEtiapine 25 MG (SEROquel) TAB IMMEDIATE RELEASE PO SCH (20:10)
[2019-07-28] MEDS ORDERED: PANTOPRAZOLE 40 MG (PROTONIX) TAB PO SCH (21:00)
[2019-07-29] VITALS (24 sets, daily range): BP systolic 113–177; BP diastolic 51–76
[2019-07-29] MEDS: MULTIVIT W/MINERALS TAB (THERAGRAN M) PO SCH (05:28)
[2019-07-29] MEDS: CYANOCOBALAMIN 1,000 MCG (VITAMIN B-12) TABLET PO SCH (05:28)
[2019-07-29 05:46] LABS: BASOPHILS % (AUTO) 1 % (0-10); EOSINOPHILS # (AUTO) 0.2 10^3/uL (0.0-0.3); EOSINOPHILS % (AUTO) 5 % (0-10); HEMATOCRIT 27 % (35-52); HEMOGLOBIN 8.3 G/DL (11.5-16.0); LYMPHOCYTES # (AUTO) 1.4 X 10^3 (1.0-4.0); LYMPHOCYTES % (AUTO) 33 % (12-44); MEAN CORPUSCULAR HEMOGLOBIN 26 PG (25-34); MEAN CORPUSCULAR HGB CONC 30 G/DL (32-36); MEAN CORPUSCULAR VOLUME 87 FL (80-99); MEAN PLATELET VOLUME 10.2 FL (7.4-10.4); MONOCYTES # (AUTO) 0.8 X 10^3 (0.0-1.0); MONOCYTES % (AUTO) 18 % (0-12); NEUTROPHILS # (AUTO) 1.9 X 10^3 (1.8-7.8); NEUTROPHILS % (AUTO) 43 % (42-75); PLATELET COUNT 227 10^3/uL (130-400); RED CELL DISTRIBUTION WIDTH 17.7 % (10.0-14.5); WHITE BLOOD COUNT 4.3 10^3/uL (4.3-11.0)
[2019-07-29 06:02] LABS: ALBUMIN 2.9 GM/DL (3.2-4.5); CHLORIDE 109 MMOL/L (98-107); POTASSIUM 5.1 MMOL/L (3.6-5.0); SODIUM 140 MMOL/L (135-145)
[2019-07-29 06:05] LABS: GLUCOSE 99 MG/DL (70-105); TOTAL PROTEIN 5.9 GM/DL (6.4-8.2)
[2019-07-29 06:06] LABS: BILIRUBIN,TOTAL 0.3 MG/DL (0.1-1.0); CARBON DIOXIDE 25 MMOL/L (21-32)
[2019-07-29 06:08] LABS: ALKALINE PHOSPHATASE 100 U/L (40-136); CREATININE SERUM 0.66 MG/DL (0.60-1.30); GFR ESTIMATED > 60
[2019-07-29 06:09] LABS: BUN/CREATININE RATIO 17
[2019-07-29 06:11] LABS: ALANINE AMINOTRANSFERASE 19 U/L (0-55)
[2019-07-29] MEDS: RT-ALBUTEROL/IPRATROPIUM 3 ML (DUONEB) VIAL INH SCH ×2 (07:03→19:52)
--- NOTE | 2019-07-29 08:18 | Progress Note - Hospitalist ---
Subjective HPI/CC On Admission Date Seen by Provider: July 29, 2019 Time Seen by Provider: 09:00 CC: Hypotension HPI: This is a very complicated 64yoWF clinic patient of Dr John who presented to the [facility] ER yesterday after Dr John sent her there due to low BPof 80/50 with vague weakness symptoms. Patient was sent to ER before ortho appt on Tuesday 2 days before for the same thing so she was given IVF and Rocephin for UTI placed on Keflex and sent home as she requested. No source of the low BP was found but elevated lactic acid was treated with IVF but no evidence of severe sepsis as it originally appeared. I accessed records and noted details. Dr Braden consulted due to patient scheduled for cath and ECHO at in 2 weeks. 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 W ound of amputation appears healed without infection. UA repeat looked good but Rocephin covered anyway. Patient had a low sugar at 38 and she really did not have symptoms leading me to believe she has low sugars frequently. Patient is a poor historian. 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 Subjective/Events-last exam Hgb 8.3 with iron infusions BP remains 150's Patient sleepy but has no complaints EGD revealed gastritis and gastroparesis No pain is reported Checked meds and labs Potassium 5.1 today PT OT will be consulted tomorrow Thyroid dosing will need to be addressed tomorrow and will hold the 500mcg dose she was taking until that is absolutely confirmed Review of Systems General: Fatigue Gastrointestinal: Nausea, Abdominal Pain Focused Exam Lactate Level 07/27/19 15:35: Lactic Acid Level 2.28*H 07/27/19 17:35: Lactic Acid Level 2.73*H 07/27/19 19:32: Lactic Acid Level 1.12 Objective Exam Vital Signs Vital Signs Date Time Temp Pulse Resp B/P (MAP) Pulse Ox O2 Delivery O2 Flow Rate FiO2 07/29/19 12:00 36.4 92 18 156/73 (100) 93 Room Air 07/29/19 10:40 5 07/28/19 21:36 21 Capillary Refill : Less Than 3 Seconds General Appearance: No Apparent Distress, WD/WN, Chronically ill, Thin, Other (pale) Respiratory: Chest Non Tender, No Accessory Muscle Use, No Respiratory Distress, Crackles, Decreased Breath Sounds Cardiovascular: Regular Rate, Rhythm, No Edema, No Gallop, No JVD, No Murmur, Normal Peripheral Pulses Neurologic/Psychiatric: Alert, Oriented x3, No Motor/Sensory Deficits, Normal Mood/Affect Results/Procedures Lab Laboratory Tests 07/28/19 15:51 07/29/19 05:15 Patient resulted labs reviewed. Assessment/Plan Assessment and Plan Assess & Plan/Chief Complaint Assessment: Hypotension without sepsis now resolved UTI on Rocephin to complete treatment started at ER Tuesday Anemia h/o iron infusions regularly improved at 8.3 receiving iron infusions currently TIA/CVA hx Hypoglycemia now resolved Dehydration now resolved 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 CAD OP PUD Hypothyroidism HCC Suppressed TSH awaiting FT4 on Synthroid 500mc which was triple checked on home med dosing and pharmacy and [facility] med list they sent me now holding doses Gastritis on EGD Gastroparesis Plan: PT OT tomorrow Magdalena Ly appreciated EGD appreciated Iron infusions Monitor sugar Hold thyroid med until pharmacy confirms 500mcg dose FT4 1.48 Diagnosis/Problems Diagnosis/Problems (1) Hypotension Status: Acute (2) Elevated lactic acid level Status: Acute (3) Anemia Status: Acute (4) Hyperkalemia Status: Acute Clinical Quality Measures DVT/VTE Risk/Contraindication: Risk Factor Score Per Nursin RFS Level Per Nursing on Admit: 4+=Very High Contraindications-Pharm: Other *list below* Other: bleed suspected BENJAMIN ROSS DO July 29, 2019 08:18
[2019-07-29] MEDS ORDERED: fentaNYL INJECTION 100 MCG/2 ML AMP ONE (08:59)
[2019-07-29] MEDS ORDERED: HURRICAINE EXT TUBE (BENZOCAINE) ONE (08:59)
[2019-07-29] MEDS ORDERED: LIDOCAINE JELLY 2% 6 ML SYRINGE ONE (08:59)
[2019-07-29] MEDS ORDERED: MIDAZOLAM 5 MG/5 ML (VERSED) VIAL ONE (08:59)
[2019-07-29] MEDS ORDERED: NS IV 500 ML 500 ML ONE (08:59)
[2019-07-29] MEDS ORDERED: LEVOTHYROXINE 150 MCG (LEVOTHROID) TAB PO SCH (09:00)
[2019-07-29] MEDS ORDERED: VITAMIN K2 40 MCG PO SCH (09:00)
[2019-07-29] MEDS ORDERED: LEVOTHYROXINE 50 MCG (LEVOTHROID) TAB PO SCH (09:00)
--- NOTE | 2019-07-29 09:25 | NUR ---
DOWN TO ENDO, REMAINS NPO, VERBALIZED UNDERSTANDING OF PROCEDURE
[2019-07-29] MEDS ORDERED: NS IV 500 ML 500 ML IV PRN (09:56)
[2019-07-29] MEDS: MIDAZOLAM 5 MG/5 ML (VERSED) VIAL IV PRN ×2 (10:00→10:04)
[2019-07-29] MEDS ORDERED: fentaNYL INJECTION 100 MCG/2 ML AMP IVP ONE (10:00)
[2019-07-29] MEDS ORDERED: LIDOCAINE JELLY 2% 6 ML SYRINGE MM PRN (10:00)
[2019-07-29] MEDS ORDERED: HURRICAINE EXT TUBE (BENZOCAINE) XX PRN (10:00)
--- NOTE | 2019-07-29 10:24 | Progress Note-Post Operative ---
Post-Operative Progess Note Surgeon (s)/Roof Fixer (s) Surgeon CLAUDY BELLAMY MD Roof Fixer: none Pre-Operative Diagnosis symptomatic anemia with hx severe PUD Post-Operative Diagnosis reflux esophagitis(stage 2), small HH(1.5cm), gastroparesis, surgical changes consistent with previous antrectomy and bilroth 1 reconstruction, moderate gastritis, no marginal ulcerations. Procedure & Operative Findings Date of Procedure 07/29/19 Procedure Performed/Findings EGD with bx. Anesthesia Type cs Estimated Blood Loss Estimated blood loss (mL): minimal Specimens/Packing Specimens Removed ge jxn, antrum CLAUDY BELLAMY MD July 29, 2019 10:24
--- NOTE | 2019-07-29 10:46 | OPERATIVE REPORT ---
DATE OF SERVICE: 07/29/2019 ADMITTING PHYSICIAN: Dr. Maria Esther Curran. ATTENDING PRIMARY CARE PHYSICIAN: Dr. Murali John. PREOPERATIVE DIAGNOSIS: Anemia with history of peptic ulcer disease. POSTOPERATIVE DIAGNOSES: Reflux esophagitis stage II, small hiatal hernia 1.5 cm in size, retained food substance within the stomach consistent with a gastroparesis small gastric pouch secondary to previous antrectomy. Gastroduodenal anastomosis was normal. Moderate gastritis. No active bleeding. PROCEDURE PERFORMED: EGD with biopsy. SURGEON: Claudy Bonds MD. ANESTHESIA: Conscious sedation. ESTIMATED BLOOD LOSS: Minimal. FINDINGS: Same as postoperative diagnoses. DISPOSITION: The patient tolerated the procedure well. INDICATIONS FOR PROCEDURE: The patient is a 64-year-old female, who presented with episodes of lightheaded sensations and fatigue. She was found to be anemic. She was seen at [facility] recently, evaluated and discharged home. She was found to be anemic. She does have a history of iron deficiency anemia as well as vitamin B12 deficiency anemia as well. She also does have a history of significant peptic ulcer disease requiring a distal antrectomy and what appears to be a Billroth I reconstruction. She does not report noticing any red blood per rectum nor any dark tarry stools; however, she does take iron as well. She reports that she did have a colonoscopy approximately one year ago, which was normal. DESCRIPTION OF PROCEDURE: The patient was brought to the endoscopy suite and laid in the left lateral decubitus position with head slightly elevated. After adequate IV pain and sedative medications and conscious sedation anesthesia, the mouthpiece was applied. The endoscope was placed in the mouth, visualizing the pharynx and hypopharyngeal region. Vocal cords, epiglottis and vallecula identified and appeared to be normal. The endoscope was then gently intubated into the esophageal opening and esophagus insufflated. The endoscope was then advanced through the first, second and third portion of the esophagus at the level of GE junction and reflux esophagitis stage II identified. No ulcers or strictures identified in this region. A biopsy was taken with forceps with visualization of good hemostasis. The endoscope was then advanced into the stomach with retained food substance within the stomach consistent with the gastroparesis. There was a moderate gastritis noted with focal erosion spot; however, no active bleeding. The gastroduodenal anastomosis appeared normal with no marginal ulcerations or any bleeding. The duodenal limb appeared normal as well. A biopsy was taken of the stomach as well as the GE junction with forceps with visualization of good hemostasis. The endoscope was then slowly withdrawn while taking a second look and suctioning of residual air with no additional findings. The patient tolerated the procedure well. She will need to continue with a PPI acid car body designer and we will switch her to Protonix 40 mg daily. She also needs to proceed with the necessary lifestyle and diet accommodation for the gastroparesis, which include small and more frequent meals, avoidance of eating at night as well as head elevation while lying supine. At this time, we do not want to start Reglan due to the potential extrapyramidal side effects. Job ID: [id number] DocumentID: [id number] Dictated Date: 07/29/2019 10:18:55 Paint Spray Inspector Date: 07/29/2019 10:45:39 Dictated By: CLAUDY BONDS MD
--- NOTE | 2019-07-29 11:00 | NUR ---
RETURNED FROM ENDO, DENIES PAIN OR NAUSEA, CALL LIGHT WITHIN REACH
[2019-07-29] MEDS: PANTOPRAZOLE 40 MG (PROTONIX) TAB PO SCH ×2 (12:47→20:05)
[2019-07-29] MEDS: FOLIC ACID 1 MG TAB PO SCH (12:48)
[2019-07-29] MEDS: GABAPENTIN 300 MG (NEURONTIN) CAP PO SCH (12:48)
[2019-07-29] MEDS: VITAMIN D3 25 MCG (1,000 UNITS) TABLET PO SCH (12:58)
[2019-07-29] MEDS ORDERED: cefTRIAXone FOR IV USE 1,000 MG in WATER (STERILE) FOR INJECTION 10 ML IV SCH (14:15)
--- NOTE | 2019-07-29 14:29 | NUR ---
SALINE LOCK LEAKING, NEEDLE REMOVED, GROSHONG ACCESSED WITH #20 WITHOUT DIFFICULTY, GOOD BLOOD RETURN
[2019-07-29] MEDS: HYDROcodone/APAP 10 MG/325 MG (LORTAB) TAB PO PRN (20:05)
[2019-07-29] MEDS: AMITRIPTYLINE 25 MG (ELAVIL) TAB PO SCH (20:05)
[2019-07-29] MEDS: QUEtiapine 25 MG (SEROquel) TAB IMMEDIATE RELEASE PO SCH (20:05)
[2019-07-30 04:00] VITALS: BP 112/67
[2019-07-30] MEDS: CYANOCOBALAMIN 1,000 MCG (VITAMIN B-12) TABLET PO SCH (05:08)
[2019-07-30] MEDS: MULTIVIT W/MINERALS TAB (THERAGRAN M) PO SCH (05:08)
[2019-07-30 05:24] LABS: BASOPHILS # (AUTO) 0.1 10^3/uL (0.0-0.1); BASOPHILS % (AUTO) 1 % (0-10); EOSINOPHILS # (AUTO) 0.5 10^3/uL (0.0-0.3); EOSINOPHILS % (AUTO) 9 % (0-10); HEMATOCRIT 28 % (35-52); HEMOGLOBIN 8.4 G/DL (11.5-16.0); LYMPHOCYTES # (AUTO) 1.5 X 10^3 (1.0-4.0); LYMPHOCYTES % (AUTO) 29 % (12-44); MEAN CORPUSCULAR HEMOGLOBIN 26 PG (25-34); MEAN CORPUSCULAR HGB CONC 30 G/DL (32-36); MEAN CORPUSCULAR VOLUME 88 FL (80-99); MONOCYTES # (AUTO) 0.7 X 10^3 (0.0-1.0); MONOCYTES % (AUTO) 14 % (0-12); NEUTROPHILS # (AUTO) 2.5 X 10^3 (1.8-7.8); NEUTROPHILS % (AUTO) 47 % (42-75); PLATELET COUNT 232 10^3/uL (130-400); RED CELL DISTRIBUTION WIDTH 17.8 % (10.0-14.5); WHITE BLOOD COUNT 5.2 10^3/uL (4.3-11.0)
[2019-07-30 05:48] LABS: ALBUMIN 2.9 GM/DL (3.2-4.5); CHLORIDE 109 MMOL/L (98-107); POTASSIUM 4.8 MMOL/L (3.6-5.0); SODIUM 138 MMOL/L (135-145)
[2019-07-30 05:50] LABS: CALCIUM 8.7 MG/DL (8.5-10.1)
[2019-07-30 05:51] LABS: GLUCOSE 113 MG/DL (70-105); TOTAL PROTEIN 5.8 GM/DL (6.4-8.2)
[2019-07-30 05:52] LABS: CARBON DIOXIDE 23 MMOL/L (21-32)
[2019-07-30 05:53] LABS: BILIRUBIN,TOTAL 0.3 MG/DL (0.1-1.0)
[2019-07-30 05:54] LABS: ALKALINE PHOSPHATASE 94 U/L (40-136); CREATININE SERUM 0.72 MG/DL (0.60-1.30); GFR ESTIMATED > 60
[2019-07-30 05:56] LABS: BUN/CREATININE RATIO 17
[2019-07-30 05:57] LABS: ALANINE AMINOTRANSFERASE 20 U/L (0-55)
[2019-07-30] MEDS ORDERED: FUROSEMIDE 20 MG (LASIX) TAB PO SCH (07:00)
[2019-07-30] MEDS: RT-ALBUTEROL/IPRATROPIUM 3 ML (DUONEB) VIAL INH SCH (07:26)
[2019-07-30] MEDS: PANTOPRAZOLE 40 MG (PROTONIX) TAB PO SCH (08:27)
[2019-07-30] MEDS: IRON SUCROSE 200 MG/10 ML (VENOFER) VIAL IV SCH (08:27)
[2019-07-30] MEDS: FOLIC ACID 1 MG TAB PO SCH (08:27)
[2019-07-30] MEDS: VITAMIN D3 25 MCG (1,000 UNITS) TABLET PO SCH (08:28)
[2019-07-30] MEDS: GABAPENTIN 300 MG (NEURONTIN) CAP PO SCH (08:29)
[2019-07-30 09:00] VITALS: BP 121/78
--- NOTE | 2019-07-30 09:11 | Cardiology Progress Note ---
Subjective Date Seen by Provider: Jul 30, 2019 Time Seen by Provider: 09:09 Subjective/Events-last exam Patient in bed, denies any chest pain or dyspnea. Review of Systems General: No Chills, No Night Sweats; Fatigue; No Malaise, No Appetite, No Other HEENT: No Head Aches, No Visual Changes, No Eye Pain, No Ear Pain, No Dysphasia, No Sinus Congestion, No Post Nasal Drip, No Sore Throat, No Other Pulmonary: No Dyspnea, No Cough, No Pleuritic Chest Pain, No Other Cardiovascular: No: Chest Pain, Palpitations, Orthopnea, Paroxysmal Noc. Dyspnea, Edema, Lt Headedness, Other Focused Exam Lactate Level 07/27/19 15:35: Lactic Acid Level 2.28*H 07/27/19 17:35: Lactic Acid Level 2.73*H 07/27/19 19:32: Lactic Acid Level 1.12 Objective-Cardiology Exam Last Set of Vital Signs Vital Signs 07/28/19 07/30/19 21:36 09:00 Temp 35.8 Pulse 61 Resp 19 B/P (MAP) 121/78 (92) Pulse Ox 98 O2 Delivery Room Air O2 Flow Rate 5.00 FiO2 21 Capillary Refill : Less Than 3 Seconds I&O Intake and Output 07/30/19 00:00 Intake Total 1735 ml Output Total 5600 ml Balance -3865 ml Intake Oral 1230 ml IV Total 505 ml Output Urine Total 5600 ml # Bowel Movements 2 General: Alert, Oriented X3, Cooperative HEENT: Atraumatic, PERRLA Neck: Supple, No JVD, No Thyromegaly Lungs: Clear to Auscultation, Normal Air Movement Heart: Regular Rate, Normal S1, Normal S2, No Murmurs Abdomen: Normal Bowel Sounds, Soft, No Tenderness, No Hepatosplenomegaly Extremities: No Clubbing, No Cyanosis, No Edema Skin: No Rashes, No Significant Lesion Neuro: Normal Speech, Cranial Nerves 3-12 NL Psych/Mental Status: Mental Status NL, Mood NL Results Lab Laboratory Tests 07/30/19 05:15 A/P-Cardiology Admission Diagnosis Hypotension Coronary artery disease Congestive heart failure, chronic compensated left ventricular systolic dysfunction, probably ischemic in nature Change in mental status Assessment/Plan Status post transient hypotension, probably secondary to hypovolemia, blood pressure is better at this time. Hyperkalemia, probably secondary to losartan. Losartan was discontinued, continue to monitor tolerance and response. Congestive heart failure, reporting history of heart failure and scheduled for coronary angiogram at . She is now at chronic compensated left ventricular systolic dysfunction. Cannot tolerate Jamison or ARB due to hyperkalemia and hypotension, started on low dose beta clifton, continue to monitor tolerance and response. Questionable coronary artery disease, she is scheduled for cardiac catheterizati on in the next 2 weeks at , I offered to do the cardiac catheterization while she is here and patient declined she reported that she prefer to have it done at unless it is an emergency. HTP- PA 80-85mmHg Elevated lactic acid probably due to hypotension, better at this time. Anemia- underwent EGD done yesterday revealing gastritis and small hiatal hernia with no active bleed Change in mental status, generalized fatigue and loss of energy, reporting improvement at this time. Feeling better. Back to her baseline Patient was seen and evaluated with Deborah, examination performed, management plan was discussed, agree with the current scribed note, I made few changes to the note using Italic font Patient was seen at bedside, laying down comfortably Blood pressure is better, asymptomatic EGD report was reviewed Continue on current medication, no changes are recommended by cardiology Clinical Quality Measures DVT/VTE Risk/Contraindication: Risk Factor Score Per Nursin RFS Level Per Nursing on Admit: 4+=Very High Contraindications-Pharm: Other *list below* Other: bleed suspected DEBORAH RODRIGUEZ Jul 30, 2019 09:11 ANA M CROFT MD Jul 30, 2019 09:56
--- NOTE | 2019-07-30 10:03 | Discharge Summary ---
Discharge Summary Hospital Course Was the Problem List Reviewed?: Yes Problems/Dx: (1) Hypotension Status: Acute (2) Elevated lactic acid level Status: Acute (3) Anemia Status: Acute (4) Hyperkalemia Status: Acute Hospital Course Date of Admission: July 27, 2019 at 13:46 Admission Diagnosis : Family Physician/Provider: Murali John MD Date of Discharge: 07/30/19 Discharge Diagnosis: Hypotension without sepsis, recent UTI, Severe anemia iron deficient acute on chronic, Hypoglycemia, right AKA Hospital Course: Hospital Course: Pt had an uncomplicated hospital course after she was admitted for severe hypotension and suffered the same situation on Tuesday sent to ER after she was there for an orthopedic surgery consultation office visit. She was placed on gentle IV fluids, cardiology and general surgery consulted, EGD performed showing gastritis and evidence of gastroparesis. IV iron initiated and pt did have significant low hgb in which she gets iron infusions from Dr. Draper and gets iron infusions on a regular basis. She overall did well, Rocephin maintained for the possibility for an early UTI treated at with Rocephin and sent home on Keflex. She did not require that to be continued as an outpatient and she was DC in improved condition, already had PT arranged and she had no significant questions or concerns about going home. Labs and Pending Lab Test: Laboratory Tests 07/30/19 05:15: White Blood Count 5.2, Red Blood Count 3.20L, Hemoglobin 8.4L, Hematocrit 28L, Mean Corpuscular Volume 88, Mean Corpuscular Hemoglobin 26, Mean Corpuscular Hemoglobin Concent 30L, Red Cell Distribution Width 17.8H, Platelet Count 232, Mean Platelet Volume 10.0, Neutrophils (%) (Auto) 47, Lymphocytes (%) (Auto) 29, Monocytes (%) (Auto) 14H, Eosinophils (%) (Auto) 9, Basophils (%) (Auto) 1, Neutrophils # (Auto) 2.5, Lymphocytes # (Auto) 1.5, Monocytes # (Auto) 0.7, Eosinophils # (Auto) 0.5H, Basophils # (Auto) 0.1, Sodium Level 138, Potassium Level 4.8, Chloride Level 109H, Carbon Dioxide Level 23, Anion Gap 6, Blood Urea Nitrogen 12, Creatinine 0.72, Estimat Glomerular Filtration Rate > 60, BUN/Creatinine Ratio 17, Glucose Level 113H, Calcium Level 8.7, Corrected Calcium 9.6, Total Bilirubin 0.3, Aspartate Amino Transf (AST/SGOT) 23, Alanine Aminotransferase (ALT/SGPT) 20, Alkaline Phosphatase 94, Total Protein 5.8L, Albumin 2.9L Microbiology 07/27/19 Blood Culture - Preliminary, Resulted No growth Home Meds Active Reported Vitamin and Minerals (Multivitamins,Ther W-Minerals) 1 Each Tablet 1 Each PO DAILY Vitamin K2 40 Mcg Tablet 40 Mcg PO DAILY Vitamin B-12 (Cyanocobalamin (Vitamin B-12)) 500 Mcg Tablet 500 Mcg PO DAILY Folic Acid 1 Mg Tablet 1 Mg PO DAILY Docusate Sodium 100 Mg Capsule 100 Mg PO BID PRN Vitamin D3 (Cholecalciferol (Vitamin D3)) 50 Mcg Capsule 50 Mcg PO DAILY Tylenol (Acetaminophen) 325 Mg Capsule 650 Mg PO Q4H PRN Tizanidine HCl 4 Mg Tablet 4 Mg PO DAILY PRN Meloxicam 15 Mg Tablet 15 Mg PO DAILY Metformin HCl 1,000 Mg Tablet 1,000 Mg PO BID Metoprolol Succinate 25 Mg Tab.er.24h 12.5 Mg PO DAILY TAKES OF A 25MG TAB DAILY Pantoprazole Sodium 40 Mg Tablet.dr 40 Mg PO BID Hydrocodone-Acetamin 10-325 mg (Hydrocodone/Acetaminophen) 1 Each Tablet 0.5-1 Ea PO Q6H PRN Bactrim Ds Tablet (Sulfamethoxazole/Trimethoprim) 1 Each Tablet 1 Ea PO DAILY Neurontin (Gabapentin) 300 Mg Capsule 300 Mg PO DAILY Citalopram HBr (Citalopram Hydrobromide) 40 Mg Tablet 40 Mg PO HS Tizanidine HCl 4 Mg Tablet 4 Mg PO HS Furosemide 20 Mg Tablet 20 Mg PO MO,WE,FR Euthyrox (Levothyroxine Sodium) 150 Mcg Tablet 450 Mcg PO DAILY TAKES 3(150MCG) TABS DAILY ALONG WITH A 50MCG TO EQUAL 500MCG DAILY Euthyrox (Levothyroxine Sodium) 50 Mcg Tablet 50 Mcg PO DAILY TAKES 3(150MCG) TABS DAILY ALONG WITH A 50MCG TO EQUAL 500MCG DAILY Amitriptyline HCl 75 Mg Tablet 75 Mg PO HS Quetiapine Fumarate 25 Mg Tablet 25 Mg PO HS Cephalexin 500 Mg Capsule 500 Mg PO QID 6 Days FILLED 07-26-2019 #24/6 DAY SUPPLY Assessment/Pt Instructions [facility] 1 week Discharge Planning: <30 minutes discharge planning Discharge Instructions Discharge Diet: No Restrictions Activity as Tolerated: Yes Discharge Physical Examination Vital Signs Vital Signs Date Time Temp Pulse Resp B/P (MAP) Pulse Ox O2 Delivery O2 Flow Rate FiO2 07/30/19 09:00 35.8 61 19 121/78 (92) 98 Room Air 07/30/19 09:00 5.00 07/28/19 21:36 21 General Appearance: No Apparent Distress, WD/WN Respiratory: Lungs Clear, Normal Breath Sounds Allergies: Coded Allergies: doxycycline (Verified Allergy, Unknown, rash , 07/27/19) lisinopril (Verified Allergy, Unknown, cough, 07/27/19) prednisone (Verified Allergy, Unknown, turned skin red, 07/27/19) zolpidem (Verified Allergy, Unknown, "goes crazy", 07/27/19) Discharge Summary Date of Admission July 27, 2019 at 13:46 Date of Discharge Discharge Date: Jul 30, 2019 Admission Diagnosis Assessment: Hypotension without sepsis UTI Anemia h/o iron infusions regularly TIA/CVA hx Hypoglycemia Dehydration 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 CAD OP PUD Hypothyroidism HCC Plan: ICU Magdalena Ly appreciated Iron infusions Monitor sugar Discharge Diagnosis Assessment: Hypotension without sepsis now resolved UTI on Rocephin to complete treatment started at [facility] ER Tuesday Anemia h/o iron infusions regularly improved at 8.3 receiving iron infusions currently TIA/CVA hx Hypoglycemia now resolved Dehydration now resolved 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 CAD OP PUD Hypothyroidism HCC Suppressed TSH awaiting FT4 on Synthroid 500mc which was triple checked on home med dosing and pharmacy and [facility] med list they sent me now holding doses Gastritis on EGD Gastroparesis Plan: PT OT tomorrow Magdalena Ly appreciated EGD appreciated Iron infusions Monitor sugar Hold thyroid med until pharmacy confirms 500mcg dose FT4 1.48 (1) Hypotension Status: Acute (2) Elevated lactic acid level Status: Acute (3) Anemia Status: Acute (4) Hyperkalemia Status: Acute Clinical Quality Measures DVT/VTE Risk/Contraindication: Risk Factor Score Per Nursin RFS Level Per Nursing on Admit: 4+=Very High Contraindications-Pharm: Other *list below* Other: bleed suspected BENJAMIN ROSS DO Jul 30, 2019 10:03
--- NOTE | 2019-07-30 10:36 | Physical Therapy Evaluation ---
PT Evaluation-General Medical Diagnosis Admission Date July 27, 2019 at 13:46 Medical Diagnosis: hypotension with anemia Onset Date: July 27, 2019 Therapy Diagnosis Therapy Diagnosis: debility Precautions Precautions/Isolations: Fall Prevention, Standard Precautions Referral Physician: Bina Reason for Referral: Evaluation/Treatment Medical History Pertinent Medical History: DM Additional Medical History right AKA Current History ER from physicians office with lethargy and decreased BP (seen recently at with similar symptoms) Reviewed History: Yes Social History Home: Single Level Current Living Status: Spouse Entry Into Home: Ramp Prior Prior Level of Function SCALE: Activities may be completed with or without assistive devices. 8-Lmsgwuvuwt-yntzpez completes the activity by him/herself with no assistance from a helper. 5-Set-up or Clean-up Assistance-helper sets up or cleans up; patient completes activity. Jackson assists only prior to or following the activity. 4-Supervision or Touching Assistance-helper provides verbal cues and/or touching/steadying and/or contact guard assistance as patient completes activity. Assistance may be provided throughout the activity or intermittently. 3-Partial/Moderate Assistance-helper does LESS THAN HALF the effort. Jackson lifts, holds or supports trunk or limbs, but provides less than half the effort. 2-Substantial/Maximal Assistance-helper does MORE THAN HALF the effort. Jackson lifts or holds trunk or limbs and provides more than half the effort. 6-Armfhdvdt-cgibty does ALL the effort. Patient does none of the effort to complete the activity. Or, the assistance of 2 or more helpers is required for the patient to complete the activity. If activity was not attempted, code reason: 7-Patient Refused. 9-Not Applicable-not attempted and the patient did not perform the activity before the current illness, exacerbation or injury. 10-Not Attempted due to Environmental Limitations-(lack of equipment, weather restraints, etc.). 88-Not Attempted due to Medical Conditions or Safety Concerns. Bed Mobility: 6 Transfers (B,C,W/C): 5 Gait: 3 Stairs: 9 Wheelchair Mobility: 5 Indoor Mobility (Ambulation): Needed Some Help Stairs: Not Applicalbe Prior Devices Use: Manual wheelchair, Walker PT Evaluation-Current Subjective Patient agrees to PT. She reports she is feeling better on this date. Pain Numeric Pain Scale: 0-No Pain Location: No Pain Reported Objective Patient Orientation: Normal For Age ROM/Strength ROM Lower Extremities left LE WFL/right AKA Strength Lower Extremities left LE 4/5 grossly Integumentary/Posture Integumentary refer to nursing notes Bowel Incontinence: No Bladder Incontinence: Herman Cath Posture trunk flexed posture Neuromuscular (Tone, Coordination, Reflexes) grossly intact Sensory Vision: Functional Hearing: Functional Sensation Right Lower Extremit: Impaired Sensation Left Lower Extremity: Impaired Transfers Roll Left to Right (QC): 6 Lying to Sitting/Side of Bed(Q: 6 Sit to Stand (QC): 4 Chair/Kbz-nw-Qprmm Xfer(QC): 4 Gait Does the Patient Walk?: Yes Mode of Locomotion: Both Anticipated Mode of Locomotion: Both Walk 10 feet (QC): 4 Walk 50 ft with 2 Turns(QC): 4 Walk 150 ft (QC): 9 Distance: 50' Gait Assistive Device: FWW Comments/Gait Description patient dons right prosthesis independently and ambulates short distances only PLOF Balance Sitting Static: Normal Standing Static: Fair Standing Dynamic: Fair Assessment/Needs 64 y.o. female, will benefit from skilled PT To address functional strength and mobility to ensure safe return to home with spouse and out patient PT. Rehab Potential: Fair PT Custodial Goals Custodial Goals PT Custodial Goals Time Frame: Aug 03, 2019 Roll Left & Right (QC): 6 Sit to Lying (QC): 6 Lying-Sitting on Side/Bed(QC): 6 Sit to Stand (QC): 6 Chair/Vrd-jw-Jawir Xfer(QC): 6 Toilet Transfer (QC): 6 Does the Patient Walk: Yes Walk 10 feet (QC): 5 Walk 50ft with 2 Turns (QC): 5 PT Plan Problem List Problem List: Activity Tolerance, Functional Strength, Balance, Gait Treatment/Plan Treatment Plan: Continue Plan of Care Treatment Plan: Bed Mobility, Education, Functional Activity Melissa, Functional Strength, Gait, Safety, Therapeutic Exercise, Transfers Treatment Duration: Aug 03, 2019 Frequency: 5 times per week Estimated Hrs Per Day: .25 hour per day Patient and/or Family Agrees t: Yes Time/GCodes Time In: 930 Time Out: 946 Total Billed Treatment Time: 16 Total Billed Treatment 1 visit EVMod 16 min IVONNE TANNER PT Jul 30, 2019 10:36
== END 2019-07-30 11:00 | disposition home or self-care (01) | DRG 315 ==
LOC: EDUNIT# 11:06 → ER FS 11:08 → ICU 13:46 → CSD 07-28 00:30 → 4TH 07-28 16:00
PROVIDERS: ADMIT Internal Medicine; ATTEND Internal Medicine
PROC: 0DB78ZX Excision of Stomach, Pylorus, Via Natural or Artificial Opening Endoscopic, Diagnostic (ICD-10-PCS; 2019-07-29)
PROC: 0DB48ZX Excision of Esophagogastric Junction, Via Natural or Artificial Opening Endoscopic, Diagnostic (ICD-10-PCS; principal; 2019-07-29 09:30)
DX: I95.89 Other hypotension (principal); I95.2 Hypotension due to drugs; E86.1 Hypovolemia; E87.2 Acidosis; N39.0 Urinary tract infection, site not specified; I11.0 Hypertensive heart disease with heart failure; I50.22 Chronic systolic (congestive) heart failure; I25.10 Atherosclerotic heart disease of native coronary artery without angina pectoris; E86.0 Dehydration; K21.0 Gastro-esophageal reflux disease with esophagitis; K25.9 Gastric ulcer, unspecified as acute or chronic, without hemorrhage or perforation; K29.70 Gastritis, unspecified, without bleeding; E11.43 Type 2 diabetes mellitus with diabetic autonomic (poly)neuropathy; K31.84 Gastroparesis; K44.9 Diaphragmatic hernia without obstruction or gangrene; D50.9 Iron deficiency anemia, unspecified; D51.9 Vitamin B12 deficiency anemia, unspecified; E11.649 Type 2 diabetes mellitus with hypoglycemia without coma; E03.9 Hypothyroidism, unspecified; I45.10 Unspecified right bundle-branch block; I44.4 Left anterior fascicular block; E87.5 Hyperkalemia; F32.9 Major depressive disorder, single episode, unspecified; E78.00 Pure hypercholesterolemia, unspecified; M19.91 Primary osteoarthritis, unspecified site; Z90.3 Acquired absence of stomach [part of]; Z79.4 Long term (current) use of insulin; Z86.73 Personal history of transient ischemic attack (TIA), and cerebral infarction without residual deficits; Z89.611 Acquired absence of right leg above knee
CPT/HCPCS: 36415; 36600; 71045; 80048; 80053; 81000; 82805; 82962; 83540; 83605; 83735; 84100; 84439; 84443; 84484; 85025; 85027; 87040; 93005; 93041; 93306; 94640; 94664; 94760; 96361; 96374; 96375

== ENCOUNTER → 2019-10-05 | Outpatient (CLI) | payer MEDICARE, OTHER ==
[~2019-10-05] MED LIST: ACET325C7 PO; AMIT75TA2 PO; CEPH500C PO; CHOL20003 PO; CITA40TA11 PO; CYAN500T62 PO; DOCU100C37 PO; FOLI1TAB24 PO; FURO20TA4 PO; GABA300C PO; HYDR-3820 PO; LEVO-129 PO; LEVO150T96 PO; LOSA25TA41 PO; MELO15TA39 PO; METF-399 PO; MTP25TSR PO; MULT-25 PO; PANT40TA3 PO; QUET25TA73 PO; SULF1TAB35 PO; TIZA4TAB4 PO; VITA40TA PO
--- NOTE | 2019-10-05 12:07 | Diagnostic Imaging Report ---
INDICATION: Pain and swelling with bruising to the left foot. COMPARISON: None. FINDINGS: Three radiographic views of the left foot were obtained. There is no radiographic evidence of acute fracture or dislocation. Diminished bone mineral density is noted. Osseous structures are intact. Joint spaces are maintained. No unexpected radiopaque foreign bodies are seen. IMPRESSION: 1. No acute fracture or dislocation of the left foot. 2. Diminished bone mineral density suspicious for osteopenia/osteoporosis. Correlation with DEXA scan is advised. Dictated by: Dictated on workstation # [id number]
== END ==
LOC: RAD FS 11:30
PROVIDERS: ATTEND Family Medicine
DX: S90.32XA Contusion of left foot, initial encounter (principal); X58.XXXA Exposure to other specified factors, initial encounter
CPT/HCPCS: 73630